=== PATIENT | male | born 1950 | race Caucasian/White ===

== ENCOUNTER 2018-06-29 19:20 | Inpatient (IN) ==
[2018-06-29] MEDS ORDERED: ONDANSETRON INJ 2 MG/ML 2 ML VIAL IV STA (19:52)
[2018-06-29] MEDS ORDERED: SODIUM CHLORIDE 0.9% 1000ML 1,000 ML IV SCH (20:00)
--- NOTE | 2018-06-29 20:29 | XRay Report ---
XR chest 1V portable CLINICAL HISTORY: weakness COMPARISON STUDY: 11/17/2015 FINDINGS: The heart is mildly enlarged. There is slight prominence of the interstitium and mild pulmo nary vascular congestion cannot be excluded. There is no focal pulmonary consolidation. There are no pleural effusions.[ IMPRESSION: Mild cardiomegaly and equivocal mild pulmonary vascular congestion. No evidence of focal pulmonary consolidation Electronically signed by: Wilder Carrizales M.D. 06/29/2018 8:27 PM
[2018-06-29 20:31] LABS: iSTAT Creatinine 1.1 mg/dl (0.6-1.3); iSTAT Hemoglobin 16.3 g/dl (14.0-18.0); iSTAT Ionized Calcium 1.13 mmol/l (1.12-1.32); iSTAT Potassium 3.7 mEq/L (3.3-5.0)
[2018-06-29 20:42] LABS: Prothrombin Time 10.3 Seconds (9.0-12.0)
[2018-06-29 20:53] LABS: Albumin Level 3.8 gm/dl (3.4-5.0); BUN Creatinine Ratio 14.8 (10-20); Calcium 8.9 mg/dl (8.5-10.1); Creatinine Clr Calc Pharmacy 62.1 ml/min; Est GFR (African American) 67.8; Est GFR (Non-African American) 58.5; Potassium 3.7 mmol/L (3.5-5.1)
--- NOTE | 2018-06-29 20:56 | CT Scan Report ---
CT head/brain wo con CLINICAL HISTORY: Nausea and vomiting COMPARISON STUDY: November 17, 2015, MRI the brain dated 11/17/2015 TECHNIQUE: Axial CT of the brain is performed from the vertex to the skull base. IV contrast was not administered for this examination. A dose lowering technique was utilized adhering to the principles of ALARA. CT DOSE: 537.48 mGy.cm FINDINGS: No intra or extra-axial mass lesions are visualized. There is no CT evidence of acute cortical infarc tion. There is no evidence of midline shift. There is no acute hemorrhage. No calvarial fractures ar e visualized. There are patchy white matter hypodensities likely on a small vessel basis. There is no evidence of pathologic ventricular dilatation. There is a left maxilla sinus air-fluid level. There is mucosal thickening within the sphenoid and et hmoid sinuses. IMPRESSION: 1. Inflammatory changes within the paranasal sinuses 2. Otherwise no acute intracranial findings. Electronically signed by: Wilder Carrizales M.D. 06/29/2018 8:55 PM
[2018-06-29] MEDS ORDERED: IOVERSOL 100ml IV PRN (20:58)
[2018-06-29 21:06] LABS: Basophils # (auto) 0.02 K/uL (0-0.2); Basophils % (auto) 0.3 %; Eosinophils # (auto) 0.21 K/uL (0-0.5); Eosinophils % (auto) 3.2 %; Hematocrit (blood only) 45.2 % (42-52); Hemoglobin 16.7 g/dL (14.0-18.0); Immature Granulocytes # (auto) 0.02 K/uL (0.00-0.02); Immature Granulocytes % (auto) 0.3 %; Lymphocytes # (auto) 1.02 K/uL (1.2-3.4); Lymphocytes % (auto) 15.3 %; Mean Corpuscular Hgb Conc 36.9 g/dL (32-36); Mean Corpuscular Volume 94.8 fL (80-100); Mean Platelet Volume 8.9 fL (7.4-10.4); Monocytes # (auto) 0.39 K/uL (0.11-0.59); Monocytes % (auto) 5.9 %; Platelet Count 153 K/uL (130-400); RDW Coefficient of Variation 13.6 % (11.5-14.5); Red Blood Count 4.77 M/uL (4.7-6.1); White Blood Count 6.66 K/uL (4.8-10.8)
[2018-06-29 21:08] LABS: Albumin Globulin Ratio 0.9 (0.9-2); Bilirubin,Total 0.3 mg/dl (0.2-1); Globulin 4.4 gm/dl (2.5-4.0); Total Protein 8.2 gm/dl (6.4-8.2); Troponin I 0.079 ng/ml (0-0.045)
--- NOTE | 2018-06-29 21:16 | CT Scan Report ---
CT abd pelvis IV con only CLINICAL HISTORY: Nausea and vomiting COMPARISON STUDY: August 2015 TECHNIQUE: The patient was scanned in a dynamic helical fashion during intravenous administration of 90 cc of Optiray 320. A dose lowering technique was utilized adhering to the principles of ALARA. CT DOSE: 872.83 mGy.cm FINDINGS: Lower chest: There are extensive coronary artery calcifications. There is no pericardial effusion. Th ere are minor dependent atelectatic changes. There is a hiatal hernia. Liver: The contrast-enhanced liver is normal in size, contour, and attenuation. There is no intrahepa tic biliary ductal dilatation. The hepatic veins and portal veins are patent. Gallbladder: Cholelithiasis. No pericholecystic edema identified. Spleen: Normal in size and attenuation. Pancreas: Unremarkable. Adrenal glands: Unremarkable. Kidneys: There are extensive vascular calcifications. No solid renal masses are visualized. There is no hydronephrosis. Bowel: There are no transition zones indicate bowel obstruction. There is no evidence of acute divert iculitis. The appendix appears normal. Peritoneum: There is no intraperitoneal free air or abdominal ascites. Vasculature: There is no evidence for abdominal aortic aneurysm. There are moderately extensive vascu lar calcifications. Adenopathy: None. Pelvic viscera: There is mild bladder distention. Skeletal structures: There is a sebaceous cyst within the right back. There are advanced degenerative changes the lower lumbar spine. IMPRESSION: 1. Cholelithiasis 2. Stable sebaceous cyst 3. No evidence of bowel obstruction. No evidence of free air 4. Normal appendix. No evidence of diverticulitis. 5. Mild bladder distention Electronically signed by: Wilder Carrizales M.D. 06/29/2018 9:15 PM
[2018-06-29] MEDS ORDERED: ASPIRIN CHEW 324 MG PO STA (21:26)
[2018-06-29] MEDS ORDERED: METOCLOPRAMIDE HCL INJ 5 MG/ML 2 ML VIAL IV STA (21:39)
[2018-06-29] MEDS ORDERED: HEPARIN 25000 UNIT/500 ML D5W IV ONE (21:43)
[2018-06-29] MEDS ORDERED: HEPARIN SOD (PORCINE) 1000 UNIT/ML 10 ML VIAL ONE (21:43)
[2018-06-29 22:21] LABS: Partial Thromboplastin Time 26.8 Seconds (21.0-31.0)
[2018-06-29 22:22] LABS: Appearance Urine Clear (Clear); Bacteria Urine Automated Negative (Negative); Bilirubin Urine Negative (Negative); Blood Urine Trace (Negative); Cast Urine Automated 0 /lpf (0-5); Color Urine Yellow; Epithelial Cell Urine Auto 20-30 /lpf (0-5); Glucose Urine UA 2+ (Negative); Ketones Urine Negative (Negative); Leukocyte Esterase Urine Trace (Negative); Nitrite Urine Negative (Negative); Protein Urine Negative (Negative); RBC Urine Automated 0-4 /hpf (0-4); Specific Gravity Urine 1.017 (1.000-1.030); Urobilinogen Urine Negative (Negative)
[2018-06-29] MEDS ORDERED: clonazePAM 0.5 MG TAB PO STA (22:49)
--- NOTE | 2018-06-29 22:56 | History & Physical Report ---
Date of Service June 29, 2018 Assessment & Plan (1) Weakness: Reported generalized weakness for past week, worse today. Pt has been out of his medications for at least a week. Pt thinks out of some of his psych and seizure meds CT head: no acute intracranial On exam no focal deficits. Probable secondary to withdrawal from medications -monitor -restart pt's home medications -pending urine culture (2) Vomiting: CT abd/pelvis: 1. Cholelithiasis 2. Stable sebaceous cyst 3. No evidence of bowel obstruction. No evidence of free air 4. Normal appendix. No evidence of diverticulitis. 5. Mild bladder distention May be secondary to being out of medications -antiemetics prn -clear liquid diet (3) Elevated troponin: Troponin: 0.079. ST depression anterolateral leads on EKG. Pt denies CP. Reports some palpitations today. Pt may have not been taking his beta errlo Reported ER contacted generation manager cardiology -Heparin drip started in ER, will continue for now -repeat EKG in am -trend troponin -resting echo -restart ASA, plavix, statin, metoprolol -cardiology consult, appreciate recommendations (4) Seizure disorder: Hx seizure disorder. Has been out of meds. Questionable seizure per pt 1-2 days ago -neuro consult -resume dilantin -seizure precautions (5) Diabetes mellitus, type II: A1c: 7.2 on 06/2017 No diabetes medications on home med list -Novolog sliding scale per protocol (6) TIA (transient ischemic attack): Pt reports possible TIA in past No focal deficits on exam. CT Head no acute changes. -continue ASA, plavix (7) COPD (chronic obstructive pulmonary disease): No acute exacerbation. No infiltrate noted on CXR. -continue albuterol inhaler (8) HTN (hypertension): -continue lisinopril (9) HLD (hyperlipidemia): -continue statin (10) OCD (obsessive compulsive disorder): (11) Depression: Pt been out of medications Will restart medications including klonopin, lamictal, seroquel, remeron Holding trazodone for now (12) BPH (benign prostatic hypertrophy): Pt self caths QID -bladder scan -continue self cath QID History of Present Illness Chief Complaint: N/V Primary Care Provider: Ailin Malik, DO Pt is 68 y/o M with PMH DM II, HTN, dyslipidemia, BPH, depression, COPD, tobacco use, CKD III, ?TIA presented to ER with c/o nausea and vomiting. Pt poor historian. He reports past week has been out of a lot of his medications including some psych meds and seizure meds (pt unsure of all his medications and which ones he is out of). States past week with nausea and today with vomiting. Feeling more generalized weakness the past week, worse today. Decreased appetite past several days with poor oral intake. Last BM a couple of days ago. He reports that he self caths 4 times a day. Denies abdominal pain. Denies CP. Reports chronic nasal congestion. Had some palpitations today. States 2 days ago or yesterday he had a "spell" which he describes as not being able to move, blurry vision, couldn't talk and had trouble breathing. This occurred while he was lying on the couch. Denies fall. He thinks this may have been a seizure. Denies loss control of bowel/bladder. Otherwise denies SOB. Sleeps in recliner chronically. Reports wound to right foot "for awhile", denies any pain or known discharge from area. [place] chills today, unsure if had a fever. Reports chronic paresthesias to bilateral hands and feet. Denies HUANG, dizziness, neck pain, cough, sore throat, choking, otalgia, abdominal pain, extremity edema, other rashes/wounds. Allergies Allergy/AdvReac Type Severity Reaction Status Date / Time Sulfa (Sulfonamide Allergy Unknown HAS TAKEN Verified 11/17/15 01:37 Antibiotics) LASIX AN OUTPATIENT Home Medications Home Medications Medication Instructions Recorded Confirmed Type SENNOSIDES (SENNA LAXATIVE) 8.6 mg PO DAILY PRN #0 06/04/13 06/29/18 History POLYETHYLENE GLYCOL 3350 (MIRALAX) 17 g PO DAILY PRN #0 11/21/15 06/29/18 History aspirin 81 mg PO DAILY 06/29/18 06/29/18 History atorvastatin 10 mg PO QPM 06/29/18 06/29/18 History clonazepam 1 mg PO BID 06/29/18 06/29/18 History clopidogrel 75 mg PO DAILY 06/29/18 06/29/18 History docusate sodium 100 mg PO DAILY 06/29/18 06/29/18 History fluvoxamine 200 mg PO HS 06/29/18 06/29/18 History gabapentin 100 mg PO TID 06/29/18 06/29/18 History ipratropium-albuterol [Combivent 1 puff INHALATION QID 06/29/18 06/29/18 History Respimat] lamotrigine 400 mg PO BID 06/29/18 06/29/18 History lisinopril 20 mg PO DAILY 06/29/18 06/29/18 History metformin 1,000 mg PO BID 06/29/18 06/29/18 History metoprolol tartrate 25 mg PO BID 06/29/18 06/29/18 History mirtazapine 30 mg PO HS 06/29/18 06/29/18 History phenytoin sodium extended 100 mg PO BID 06/29/18 06/29/18 History promethazine 25 mg PO Q8H PRN 06/29/18 06/29/18 History quetiapine 50 mg PO DAILY@09,14 06/29/18 06/29/18 History quetiapine 100 mg PO HS 06/29/18 06/29/18 History quetiapine 400 mg PO HS 06/29/18 06/29/18 History tamsulosin 0.4 mg PO DAILY 06/29/18 06/29/18 History trazodone 100 mg PO HS 06/29/18 06/29/18 History Past Med/Surg History Medical History HTN (hypertension) (Chronic) Diabetes mellitus, type II (Chronic) OCD (obsessive compulsive disorder) (Chronic) HLD (hyperlipidemia) (Chronic) Vertigo (Chronic) Seizure disorder (Chronic) Depression (Chronic) BPH (benign prostatic hypertrophy) (Chronic) Tobacco use disorder (Chronic) 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) COPD (chronic obstructive pulmonary disease) (Chronic) Obesity (BMI 30-39.9) (Chronic) Hypertriglyceridemia (Chronic) Surgical History H/O sigmoidoscopy (Chronic) H/O colonoscopy (Chronic) "11/08/2013- normal exam but limited by prep quality" Family History Father Coronary heart disease Other Lung cancer Social History Feels Safe at Home: Yes Smoking Status: Current every day smoker Hx Alcohol Use: No (has not used in 11 years) Hx Substance Use: No Review of Systems All systems reviewed & are unremarkable except as noted in HPI & below Physical Exam Vital Signs (Past 24 Hours): Last Vital Signs Temp 36.5 C 06/29/18 19:26 Pulse 80 06/29/18 21:47 Resp 18 06/29/18 21:47 BP 170/90 H 06/29/18 21:47 Pulse Ox 99 06/29/18 21:47 Physical Exam: General: dishevelled appearance, chronic ill appearing, no acute distress, obese Head: normocephalic, atraumatic Eyes: PERRL, EOM's intact, conjunctiva non-injected, anicteric ENT: normal inspection external ears, nose, mucous membranes moist Neck: supple, trachea midline Lungs: clear, no respiratory distress, no wheezing/rhonchi/rales CV: RRR, no murmur, no pretibial edema Abd: normal BS, soft, protuberant, non-tender Ext: no calf tenderness, bilateral legs with dry skin, bilateral feet dirty, R foot: dorsal aspect of distal 1st metatarsal with ulcer without discharge, 5th toe with thick callus, web space between 4&5 toe with some redness Neuro: A&O x 3, no focal deficits noted, somewhat flat affect Skin: warm, dry Results & Data Laboratory Results Short CBC 06/29/18 Range/Units 20:12 WBC 6.66 (4.8-10.8) K/uL Hgb 16.7 (14.0-18.0) g/dL Hct 45.2 (42-52) % Plt Count 153 (130-400) K/uL BMP 06/29/18 20:12 Sodium 132 L Potassium 3.7 Chloride 105 Carbon Dioxide 18 L BUN 19 H Creatinine 1.27 Glucose 211 H Calcium 8.9 Cardiac Enzymes 06/29/18 Range/Units 20:12 Troponin I 0.079 H* (0-0.045) ng/ml Liver Function 06/29/18 Range/Units 20:12 Total Bilirubin 0.3 (0.2-1) mg/dl AST 12 L (15-37) U/L ALT 21 (12-78) U/L Alkaline Phosphatase 207 H (45-117) U/L Albumin 3.8 (3.4-5.0) gm/dl Urine 06/29/18 Range/Units 21:18 Urine Color Yellow Urine Appearance Clear (Clear) Urine pH 5.0 (4.5-7.5) Ur Specific [place] 1.017 (1.000-1.030) Urine Protein Negative (Negative) Urine Glucose (UA) 2+ H (Negative) Diagnostic Findings CXR: IMPRESSION: Mild cardiomegaly and equivocal mild pulmonary vascular congestion. No evidence of focal pulmonary consolidation CT HEAD: IMPRESSION: 1. Inflammatory changes within the paranasal sinuses 2. Otherwise no acute intracranial findings. CT ABD/PELVIS: IMPRESSION: 1. Cholelithiasis 2. Stable sebaceous cyst 3. No evidence of bowel obstruction. No evidence of free air 4. Normal appendix. No evidence of diverticulitis. 5. Mild bladder distention ECG Rate (beats per minute): 72 Rhythm: sinus rhythm Findings: + 1st degree AV block and + ST depression (Anterolateral) Supervising Physician Co-Signing Physician Notes I have seen and examined the patient and have discussed the case with the provider above. I agree with the assessment and plan as stated. No focal deficit on exam. UA pending but having urinary urgency with limited voiding. May be some element from infection here. He otherwise looks well with a nonfocal exam/ is on ASA/ Plavix for h/o TIA in past. Describes seizures this week but no convincing stroke symptoms. Suspect an overall decline in health after stopping several meds including seroquel 500HS and Clonipin 1mg BID. Cont plan as above. DO Alfonso (1) Vomiting Nausea presence: with nausea Vomiting Intractability: non-intractable Vomiting type: unspecified Qualified Code(s): R11.2 - Nausea with vomiting, unspecified
[2018-06-29] MEDS ORDERED: SENNA 8.6 MG TAB PO PRN (23:17)
--- NOTE | 2018-06-29 23:33 | Emergency Department Note ---
Entered by Katherine Moyer acting as a scribe for Gee Solis MD History of Present Illness General Chief complaint: Weakness Stated complaint: UNABLE TO AMBULATE, VOMITING, NUMBNESS IN LEGS Time Seen by Provider: 06/29/18 19:43 Source: patient and family Mode of arrival: EMS Limitations: no limitations History of Present Illness Provider complaint: vomiting Onset (ago): hour(s) (earlier today) Location: abdomen Pain Consistency: + other (persistent) Associated symptoms: + denies other symptoms (urinary), + weakness and + other (numbness) The patient is a 68 year old male with a past medical history of depression, BPH, COPD and seizures who presents to the Emergency Room with complaints of a persistent vomiting that began earlier today. The patient reports that he has also been weak and has had numbness in his legs. He denies any recent travels, falls or antibiotic use. He also denies any change sin his diet. Per family, the patient has been drinking a lot of soda and juices. The family states that the patient is an everyday smoker and former alcoholic. The patient notes that he does not present to his PCP appointments secondary to "not feeling well." He admits to missing medication doses which include: Metoprolol, Clonazepam, Atorvastatin, and Clopidogrel. Per family, the patient self-cathes but is unsure why. The patient denies any urinary symptoms. Home Medications Home Medications Medication Instructions Recorded Confirmed Type SENNOSIDES (SENNA LAXATIVE) 8.6 mg PO DAILY PRN #0 06/04/13 06/29/18 History POLYETHYLENE GLYCOL 3350 (MIRALAX) 17 g PO DAILY PRN #0 11/21/15 06/29/18 History aspirin 81 mg PO DAILY 06/29/18 06/29/18 History atorvastatin 10 mg PO QPM 06/29/18 06/29/18 History clonazepam 1 mg PO BID 06/29/18 06/29/18 History clopidogrel 75 mg PO DAILY 06/29/18 06/29/18 History docusate sodium 100 mg PO DAILY 06/29/18 06/29/18 History fluvoxamine 200 mg PO HS 06/29/18 06/29/18 History gabapentin 100 mg PO TID 06/29/18 06/29/18 History ipratropium-albuterol [Combivent 1 puff INHALATION QID 06/29/18 06/29/18 History Respimat] lamotrigine 400 mg PO BID 06/29/18 06/29/18 History lisinopril 20 mg PO DAILY 06/29/18 06/29/18 History metformin 1,000 mg PO BID 06/29/18 06/29/18 History metoprolol tartrate 25 mg PO BID 06/29/18 06/29/18 History mirtazapine 30 mg PO HS 06/29/18 06/29/18 History phenytoin sodium extended 100 mg PO BID 06/29/18 06/29/18 History promethazine 25 mg PO Q8H PRN 06/29/18 06/29/18 History quetiapine 50 mg PO DAILY@,06/29/18 06/29/18 History quetiapine 100 mg PO HS 06/29/18 06/29/18 History quetiapine 400 mg PO HS 06/29/18 06/29/18 History tamsulosin 0.4 mg PO DAILY 06/29/18 06/29/18 History trazodone 100 mg PO HS 06/29/18 06/29/18 History Allergies Allergy/AdvReac Type Severity Reaction Status Date / Time Sulfa (Sulfonamide Allergy Unknown HAS TAKEN Verified 11/17/15 01:37 Antibiotics) LASIX AN OUTPATIENT Past Med/Surg History Medical History HTN (hypertension) (Chronic) Diabetes mellitus, type II (Chronic) OCD (obsessive compulsive disorder) (Chronic) HLD (hyperlipidemia) (Chronic) Vertigo (Chronic) Seizure disorder (Chronic) Depression (Chronic) BPH (benign prostatic hypertrophy) (Chronic) Tobacco use disorder (Chronic) 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) COPD (chronic obstructive pulmonary disease) (Chronic) Obesity (BMI 30-39.9) (Chronic) Hypertriglyceridemia (Chronic) Surgical History H/O sigmoidoscopy (Chronic) H/O colonoscopy (Chronic) "11/08/2013- normal exam but limited by prep quality" Family History Father Coronary heart disease Other Lung cancer Social History Communication Ability: Effective Beliefs That Will Affect Care: None Current Living Situation: Family Other Information That Helps Us Care for You: No Feels Safe at Home: Yes Safety Concerns: Feels Safe At This Time Smoking Status: Current every day smoker Hx Alcohol Use: No Hx Substance Use: No Review of Systems See HPI for pertinent positives & negatives. and A total of 10 systems reviewed and were otherwise negative Physical Exam Vital Signs Vital Signs - 24 hr 06/29/18 22:52 06/30/18 00:23 06/30/18 01:28 Temperature 36.4 C L Temperature Source Oral Pulse Rate [Right Finger] 76 77 Pulse Rhythm [Right Finger] Regular Pulse Strength [Right Finger] Normal Respiratory Rate 18 20 Respiratory Effort / Characteristics Non-Labored Spontaneous Respiratory Depth Normal Respiratory Pattern Regular Blood Pressure [Left Arm] 178/90 H Blood Pressure [Right Arm] 170/91 H Blood Pressure Mean [Left Arm] 119 Blood Pressure Mean [Right Arm] 117 Blood Pressure Position [Left Arm] Lying Pulse Oximetry 98 100 Pulse Oximetry [Left Hand] 94 Oxygen Delivery Method Room Air Oxygen Delivery Method [Left Hand] Room Air 06/30/18 01:29 06/30/18 03:20 06/30/18 07:07 Temperature 36.6 C 36.4 C L Temperature Source Oral Oral Pulse Rate [Right Finger] 72 75 Pulse Rhythm [Right Finger] Pulse Strength [Right Finger] Respiratory Rate 18 18 Respiratory Effort / Characteristics Respiratory Depth Respiratory Pattern Blood Pressure [Left Arm] 170/93 H 149/79 H Blood Pressure [Right Arm] 160/82 H Blood Pressure Mean [Left Arm] 118 102 Blood Pressure Mean [Right Arm] 108 Blood Pressure Position [Left Arm] Pulse Oximetry 100 100 98 Pulse Oximetry [Left Hand] Oxygen Delivery Method Room Air Room Air Room Air Oxygen Delivery Method [Left Hand] 06/30/18 10:54 06/30/18 15:27 06/30/18 19:19 Temperature 36.6 C 36.7 C 37 C Temperature Source Oral Oral Oral Pulse Rate [Right Finger] 97 H 72 66 Pulse Rhythm [Right Finger] Regular Pulse Strength [Right Finger] Normal Respiratory Rate 16 20 20 Respiratory Effort / Characteristics Non-Labored Respiratory Depth Normal Respiratory Pattern Blood Pressure [Left Arm] 160/84 H 158/82 H 146/73 H Blood Pressure [Right Arm] Blood Pressure Mean [Left Arm] 109 107 97 Blood Pressure Mean [Right Arm] Blood Pressure Position [Left Arm] Sitting Lying Lying Pulse Oximetry 98 98 98 Pulse Oximetry [Left Hand] Oxygen Delivery Method Room Air Room Air Oxygen Delivery Method [Left Hand] GENERAL: Well appearing, well nourished, NAD, non-toxic. EYE EXAM: Normal conjunctiva. PERRL, no anisocoria and EOM's grossly intact w/o pain. OROPHARYNX: Moist MM. Poor dentition. NECK: Supple, no nuchal rigidity, no adenopathy, non-tender. No signs of meningismus. LUNGS: Clear to auscultation. Normal chest wall mechanics. HEART: NSR, no MRG. ABDOMEN: Abdomen soft, non-tender, normo-active bowel sounds, no masses, no rebound or guarding. Mild abdominal distention. BACK: No CVA TTP. SKIN: No rashes and no bruising. UPPER EXTREMITIES: Upper extremities are grossly normal. LOWER EXTREMITIES: No pitting edema. No calf pain. Healing wound over the right foot, no crepitus. Compartment soft. NEURO EXAM: A and O x3. GCS 15. Moves all 4 extremities on command w/o issue. Course 1943: The patient was evaluated in room A3, and a complete history and physical examination were performed. 2129: I reviewed the patient's case with Dr. Xander Roberts Cardiology. 2138: I reviewed the patient's case with Dr. Christen Roberts Hospitalist. He will evaluate the patient for further management. Administered Medications Albuterol (Combivent Respimat) 1 puffs INH QID [facility] Stop: 07/30/18 08:59 Last Admin: 06/30/18 20:30 Dose: 1 puffs Documented by: [id number] Admin: 06/30/18 17:12 Dose: 1 puffs Documented by: [id number] Admin: 06/30/18 12:06 Dose: 1 puffs Documented by: [id number] Admin: 06/30/18 11:56 Dose: Not Given Documented by: [id number] Aspirin (Ecotrin Ectab) 81 mg PO QAM [facility] Stop: 07/30/18 08:59 Last Admin: 06/30/18 11:56 Dose: Not Given Documented by: [id number] Atorvastatin Calcium (Lipitor) 10 mg PO QPM [facility] Stop: 07/30/18 20:59 Last Admin: 06/30/18 20:29 Dose: 10 mg Documented by: [id number] Clonazepam (Klonopin) 1 mg PO BID [facility] Stop: 07/30/18 08:59 Last Admin: 06/30/18 20:34 Dose: 1 mg Documented by: [id number] Admin: 06/30/18 11:56 Dose: Not Given Documented by: [id number] Clopidogrel Bisulfate (Plavix) 75 mg PO DAILY [facility] Stop: 07/30/18 08:59 Last Admin: 06/30/18 11:57 Dose: Not Given Documented by: [id number] Fluvoxamine Maleate (Luvox) 200 mg PO HS [facility] Stop: 07/30/18 20:59 Last Admin: 06/30/18 20:29 Dose: 200 mg Documented by: [id number] Gabapentin (Neurontin) 100 mg PO TID [facility] Stop: 07/30/18 08:59 Last Admin: 06/30/18 20:27 Dose: 100 mg Documented by: [id number] Admin: 06/30/18 13:59 Dose: Not Given Documented by: [id number] Admin: 06/30/18 11:56 Dose: Not Given Documented by: [id number] Sodium Chloride (Nss 1000ml) 1,000 mls @ 100 mls/hr IV .Q10H [facility] Stop: 07/30/18 01:14 Last Admin: 06/30/18 21:29 Dose: 100 mls/hr Documented by: [id number] Infusion: 06/30/18 21:29 Dose: 0 mls/hr Documented by: [id number] Admin: 06/30/18 10:44 Dose: 100 mls/hr Documented by: [id number] Infusion: 06/30/18 10:44 Dose: 100 mls/hr Documented by: [id number] Admin: 06/30/18 02:33 Dose: 100 mls/hr Documented by: [id number] Prochlorperazine 5 mg/ Syringe 5 mls @ 5 mls/min IV Q6H PRN PRN Reason: Nausea And Vomiting Stop: 07/30/18 00:59 Last Admin: 06/30/18 15:41 Dose: 5 mls/min Documented by: [id number] Admin: 06/30/18 08:12 Dose: 5 mls/min Documented by: [id number] Heparin Sodium/Dextrose (Heparin Sodium/Dextrose) 25,000 units in 500 mls @ 0 mls/hr IV .Q0M [facility]; Protocol Stop: 07/30/18 02:29 Last Titration: 06/30/18 10:02 Dose: 0 units/hr, 0 mls/hr Documented by: [id number] Cosigned by: [id number] Titration: 06/30/18 07:15 Dose: 1,250 units/hr, 25 mls/hr Documented by: [id number] Cosigned by: [id number] Admin: 06/30/18 00:30 Dose: 1,400 units/hr, 28 mls/hr Documented by: [id number] Cosigned by: [id number] Pantoprazole Sodium 40 mg/ (Dextrose) 100 mls @ 20 mls/hr IV Q5H [facility] Stop: 07/30/18 12:59 Last Admin: 06/30/18 17:12 Dose: 20 mls/hr Documented by: [id number] Infusion: 06/30/18 17:12 Dose: 20 mls/hr Documented by: [id number] Admin: 06/30/18 13:04 Dose: 20 mls/hr Documented by: [id number] Doxycycline Hyclate 100 mg/ (Dextrose) 110 mls @ 50 mls/hr IV BID [facility]; Protocol Stop: 07/10/18 20:59 Last Admin: 06/30/18 21:59 Dose: 50 mls/hr Documented by: [id number] Insulin Aspart (Novolog Flexpen) 0 units SC ACHS [facility] Stop: 06/30/18 23:00 Last Admin: 06/30/18 21:21 Dose: 1 units Documented by: [id number] Cosigned by: [id number] Admin: 06/30/18 17:12 Dose: 2 units Documented by: [id number] Cosigned by: [id number] Admin: 06/30/18 12:04 Dose: 2 units Documented by: [id number] Cosigned by: [id number] Admin: 06/30/18 08:13 Dose: 2 units Documented by: [id number] Cosigned by: [id number] Ioversol (Optiray 320 100ml) 90 ml IV ONCE PRN PRN Reason: Interaction Checking Stop: 07/03/18 20:57 Last Admin: 06/29/18 20:59 Dose: 90 ml Documented by: [id number] Lamotrigine (Lamictal) 400 mg PO BID [facility] Stop: 07/29/18 23:09 Last Admin: 06/30/18 20:27 Dose: 400 mg Documented by: [id number] Admin: 06/30/18 11:56 Dose: Not Given Documented by: [id number] Admin: 06/30/18 02:32 Dose: 400 mg Documented by: [id number] Lisinopril (Zestril) 20 mg PO DAILY [facility] Stop: 07/30/18 08:59 Last Admin: 06/30/18 11:57 Dose: Not Given Documented by: [id number] Metoprolol Tartrate (Lopressor) 25 mg PO BID [facility] Stop: 07/29/18 23:14 Last Admin: 06/30/18 20:28 Dose: 25 mg Documented by: [id number] Admin: 06/30/18 11:56 Dose: Not Given Documented by: [id number] Admin: 06/30/18 02:32 Dose: 25 mg Documented by: [id number] Metoprolol Tartrate (Lopressor) 2.5 mg IV Q6 [facility] Stop: 07/30/18 11:59 Last Admin: 06/30/18 17:12 Dose: 2.5 mg Documented by: [id number] Admin: 06/30/18 12:03 Dose: 2.5 mg Documented by: [id number] Mirtazapine (Remeron) 30 mg PO HS [facility] Stop: 07/30/18 20:59 Last Admin: 06/30/18 20:28 Dose: 30 mg Documented by: [id number] Ondansetron HCl (Zofran) 4 mg IV Q6H PRN PRN Reason: Nausea Stop: 07/30/18 00:38 Last Admin: 06/30/18 19:38 Dose: 4 mg Documented by: [id number] Admin: 06/30/18 10:29 Dose: 4 mg Documented by: [id number] Admin: 06/30/18 01:22 Dose: 4 mg Documented by: [id number] Phenytoin Sodium (Dilantin Er) 100 mg PO BID [facility] Stop: 07/29/18 23:14 Last Admin: 06/30/18 20:28 Dose: 100 mg Documented by: [id number] Admin: 06/30/18 11:56 Dose: Not Given Documented by: [id number] Admin: 06/30/18 02:32 Dose: 100 mg Documented by: [id number] Promethazine HCl (Phenergan) 25 mg PO Q8H PRN PRN Reason: Nausea Stop: 07/29/18 23:07 Last Admin: 06/30/18 04:25 Dose: 25 mg Documented by: [id number] Quetiapine Fumarate (Seroquel) 400 mg PO HS [facility] Stop: 07/29/18 23:14 Last Admin: 06/30/18 20:31 Dose: 400 mg Documented by: [id number] Admin: 06/30/18 02:31 Dose: 400 mg Documented by: [id number] Quetiapine Fumarate (Seroquel) 100 mg PO HS [facility] Stop: 07/29/18 23:14 Last Admin: 06/30/18 20:28 Dose: 100 mg Documented by: [id number] Admin: 06/30/18 02:31 Dose: 100 mg Documented by: [id number] Quetiapine Fumarate (Seroquel) 50 mg PO DAILY@ [facility] Stop: 07/30/18 08:59 Last Admin: 06/30/18 13:59 Dose: Not Given Documented by: [id number] Admin: 06/30/18 11:57 Dose: Not Given Documented by: [id number] Tamsulosin HCl (Flomax) 0.4 mg PO DAILY [facility] Stop: 07/30/18 08:59 Last Admin: 06/30/18 11:56 Dose: Not Given Documented by: [id number] Discontinued Medications Aspirin (Aspirin) 324 mg PO NOW STA Stop: 06/29/18 21:27 Last Admin: 06/29/18 21:59 Dose: 324 mg Documented by: [id number] Clonazepam (Klonopin) 1 mg PO ONE STA Stop: 06/29/18 22:50 Last Admin: 06/29/18 23:06 Dose: 1 mg Documented by: [id number] Heparin Sodium (Porcine) (Heparin Iv Bolus) Confirm Administered Dose 10,000 units .ROUTE .STK-MED ONE Stop: 06/29/18 21:44 Last Admin: 06/29/18 22:48 Dose: 6,000 units Documented by: [id number] Cosigned by: [id number] Heparin Sodium/Dextrose () 1 ea IV NOW STA; Protocol Stop: 06/29/18 21:15 Last Admin: 06/29/18 22:49 Dose: Not Given Documented by: [id number] Heparin Sodium/Dextrose (Heparin Sodium/Dextrose) Confirm Administered Dose 25,000 units IV .STK-MED ONE Stop: 06/29/18 21:44 Last Admin: 06/29/18 22:49 Dose: 28 ml Documented by: [id number] Cosigned by: [id number] Sodium Chloride (Nss 1000ml) 1,000 mls @ 999 mls/hr IV .Q1H1M [facility] Stop: 06/29/18 21:00 Last Infusion: 06/30/18 00:30 Dose: 0 mls/hr Documented by: [id number] Admin: 06/29/18 20:16 Dose: 999 mls/hr Documented by: [id number] Pantoprazole Sodium 40 mg/ (Syringe) 10 mls @ 5 mls/min IV BID@0900,2100 [facility]; Protocol Stop: 07/30/18 10:59 Last Admin: 06/30/18 12:03 Dose: 5 mls/min Documented by: [id number] Insulin Glargine (Lantus Solostar Pen) 16 units SC ONE ONE; Protocol Stop: 06/30/18 21:01 Last Admin: 06/30/18 21:21 Dose: 9 units Documented by: [id number] Cosigned by: [id number] Metoclopramide HCl (Reglan) 10 mg IV NOW STA Stop: 06/29/18 21:40 Last Admin: 06/29/18 21:47 Dose: 10 mg Documented by: [id number] Ondansetron HCl (Zofran) 4 mg IV NOW STA Stop: 06/29/18 19:53 Last Admin: 06/29/18 20:26 Dose: 4 mg Documented by: [id number] Medical Decision Making Home Medications Current Medication List: was personally reviewed by me Laboratory Data Attestation: I reviewed the patient's lab results. Result diagrams: 06/30/18 16:43 06/30/18 05:21 Lab Results 06/29/18 06/29/18 06/29/18 Range/Units 20:12 20:12 20:12 WBC 6.66 (4.8-10.8) K/uL RBC 4.77 (4.7-6.1) M/uL Hgb 16.7 (14.0-18.0) g/dL POC Hgb (14.0-18.0) g/dl Hct 45.2 (42-52) % POC Hct (42-52) % MCV 94.8 (80-100) fL MCH 35.0 H (25-34) pg MCHC 36.9 H (32-36) g/dL RDW Std Deviation 47.0 H (36.4-46.3) fL RDW Coeff of Ritesh 13.6 (11.5-14.5) % Plt Count 153 (130-400) K/uL MPV 8.9 (7.4-10.4) fL Immature Gran % (Auto) 0.3 % Neut % (Auto) 75.0 % Lymph % (Auto) 15.3 % [place] % (Auto) 5.9 % Eos % (Auto) 3.2 % Baso % (Auto) 0.3 % Immature Gran # (Auto) 0.02 (0.00-0.02) K/uL Neut # (Auto) 5.00 (1.4-6.5) K/uL Lymph # (Auto) 1.02 L (1.2-3.4) K/uL [place] # (Auto) 0.39 (0.11-0.59) K/uL Eos # (Auto) 0.21 (0-0.5) K/uL Baso # (Auto) 0.02 (0-0.2) K/uL PT 10.3 (9.0-12.0) Seconds INR 1.0 (0.9-1.1) APTT (21.0-31.0) Seconds PTT Ratio POC Sodium (135-144) mEq/L Sodium 132 L (136-145) mmol/L POC Potassium (3.3-5.0) mEq/L Potassium 3.7 (3.5-5.1) mmol/L POC Chloride (101-112) mEq/L Chloride 105 (98-107) mmol/L Carbon Dioxide 18 L (21-32) mmol/L POC Total CO2 (24-31) mEq/l Anion Gap 9.0 (3-11) POC Anion Gap (16-25) mmol/L POC BUN (7-18) mg/dl BUN 19 H (7-18) mg/dl Creatinine 1.27 (0.6-1.4) mg/dl POC Creatinine (0.6-1.3) mg/dl Est Cr Clr Drug Dosing 62.1 ml/min Est GFR ( Amer) 67.8 Est GFR (Non-Af Amer) 58.5 BUN/Creatinine Ratio 14.8 (10-20) Glucose 211 H (70-99) mg/dl POC Glucose (70-99) POC Glucose (other) (70-99) mg/dl Estimat Average Glucose mg/dl Hemoglobin A1c (4.5-5.6) % Calcium 8.9 (8.5-10.1) mg/dl POC Ioniz Calcium Manuel (1.12-1.32) mmol/l Magnesium (1.8-2.4) mg/dl Total Bilirubin 0.3 (0.2-1) mg/dl Direct Bilirubin (0-0.2) mg/dl AST 12 L (15-37) U/L ALT 21 (12-78) U/L Alkaline Phosphatase 207 H (45-117) U/L Troponin I 0.079 H* (0-0.045) ng/ml Total Protein 8.2 (6.4-8.2) gm/dl Albumin 3.8 (3.4-5.0) gm/dl Globulin 4.4 H (2.5-4.0) gm/dl Albumin/Globulin Ratio 0.9 (0.9-2) Triglycerides (0-150) mg/dl Cholesterol (0-200) mg/dl LDL Cholesterol, Calc mg/dl VLDL Cholesterol, Calc mg/dl HDL Cholesterol mg/dl Cholesterol/HDL Ratio Lipase 251 (73-393) U/L TSH 1.670 (0.300-4.500) uIu/ml Urine Color Urine Appearance (Clear) Urine pH (4.5-7.5) Ur Specific [place] (1.000-1.030) Urine Protein (Negative) Urine Glucose (UA) (Negative) Urine Ketones (Negative) Urine Blood (Negative) Urine Nitrite (Negative) Urine Bilirubin (Negative) Urine Urobilinogen (Negative) Ur Leukocyte Esterase (Negative) Urine WBC (Auto) (0-5) /hpf Urine RBC (Auto) (0-4) /hpf U Hyaline Cast (Auto) (0-5) /lpf U Epithel Cells (Auto) (0-5) /lpf Urine Bacteria (Auto) (Negative) Gastric Fluid pH Gastric Occult Blood (Negative) Urine Opiates Screen (Neg) Ur Methadone, Qual (Neg) Urine Barbiturates (Neg) Phenytoin (10-20) mcg/ml Ur Phencyclidine (PCP) (Neg) U Amphetamin/Meth Scrn (Neg) MDMA (Ecstasy) Screen (Neg) U Benzodiazepines Scrn (Neg) Ur Cocaine Metabolite (Neg) U Marijuana (THC) Screen (Neg) 06/29/18 06/29/18 06/29/18 Range/Units 20:12 20:17 21:18 WBC (4.8-10.8) K/uL RBC (4.7-6.1) M/uL Hgb (14.0-18.0) g/dL POC Hgb 16.3 (14.0-18.0) g/dl Hct (42-52) % POC Hct 48 (42-52) % MCV (80-100) fL MCH (25-34) pg MCHC (32-36) g/dL RDW Std Deviation (36.4-46.3) fL RDW Coeff of Ritesh (11.5-14.5) % Plt Count (130-400) K/uL MPV (7.4-10.4) fL Immature Gran % (Auto) % Neut % (Auto) % Lymph % (Auto) % [place] % (Auto) % Eos % (Auto) % Baso % (Auto) % Immature Gran # (Auto) (0.00-0.02) K/uL Neut # (Auto) (1.4-6.5) K/uL Lymph # (Auto) (1.2-3.4) K/uL [place] # (Auto) (0.11-0.59) K/uL Eos # (Auto) (0-0.5) K/uL Baso # (Auto) (0-0.2) K/uL PT (9.0-12.0) Seconds INR (0.9-1.1) APTT 26.8 (21.0-31.0) Seconds PTT Ratio 1.0 POC Sodium 133 L (135-144) mEq/L Sodium (136-145) mmol/L POC Potassium 3.7 (3.3-5.0) mEq/L Potassium (3.5-5.1) mmol/L POC Chloride 103 (101-112) mEq/L Chloride (98-107) mmol/L Carbon Dioxide (21-32) mmol/L POC Total CO2 17 L (24-31) mEq/l Anion Gap (3-11) POC Anion Gap 18.0 (16-25) mmol/L POC BUN 19 H (7-18) mg/dl BUN (7-18) mg/dl Creatinine (0.6-1.4) mg/dl POC Creatinine 1.1 (0.6-1.3) mg/dl Est Cr Clr Drug Dosing ml/min Est GFR ( Amer) Est GFR (Non-Af Amer) BUN/Creatinine Ratio (10-20) Glucose (70-99) mg/dl POC Glucose (70-99) POC Glucose (other) 215 H (70-99) mg/dl Estimat Average Glucose mg/dl Hemoglobin A1c (4.5-5.6) % Calcium (8.5-10.1) mg/dl POC Ioniz Calcium Manuel 1.13 (1.12-1.32) mmol/l Magnesium (1.8-2.4) mg/dl Total Bilirubin (0.2-1) mg/dl Direct Bilirubin (0-0.2) mg/dl AST (15-37) U/L ALT (12-78) U/L Alkaline Phosphatase (45-117) U/L Troponin I (0-0.045) ng/ml Total Protein (6.4-8.2) gm/dl Albumin (3.4-5.0) gm/dl Globulin (2.5-4.0) gm/dl Albumin/Globulin Ratio (0.9-2) Triglycerides (0-150) mg/dl Cholesterol (0-200) mg/dl LDL Cholesterol, Calc mg/dl VLDL Cholesterol, Calc mg/dl HDL Cholesterol mg/dl Cholesterol/HDL Ratio Lipase (73-393) U/L TSH (0.300-4.500) uIu/ml Urine Color Yellow Urine Appearance Clear (Clear) Urine pH 5.0 (4.5-7.5) Ur Specific [place] 1.017 (1.000-1.030) Urine Protein Negative (Negative) Urine Glucose (UA) 2+ H (Negative) Urine Ketones Negative (Negative) Urine Blood Trace H (Negative) Urine Nitrite Negative (Negative) Urine Bilirubin Negative (Negative) Urine Urobilinogen Negative (Negative) Ur Leukocyte Esterase Trace H (Negative) Urine WBC (Auto) 1-5 (0-5) /hpf Urine RBC (Auto) 0-4 (0-4) /hpf U Hyaline Cast (Auto) 0 (0-5) /lpf U Epithel Cells (Auto) 20-30 H (0-5) /lpf Urine Bacteria (Auto) Negative (Negative) Gastric Fluid pH Gastric Occult Blood (Negative) Urine Opiates Screen (Neg) Ur Methadone, Qual (Neg) Urine Barbiturates (Neg) Phenytoin (10-20) mcg/ml Ur Phencyclidine (PCP) (Neg) U Amphetamin/Meth Scrn (Neg) MDMA (Ecstasy) Screen (Neg) U Benzodiazepines Scrn (Neg) Ur Cocaine Metabolite (Neg) U Marijuana (THC) Screen (Neg) 06/30/18 06/30/18 06/30/18 Range/Units 00:49 01:40 01:40 WBC (4.8-10.8) K/uL RBC (4.7-6.1) M/uL Hgb (14.0-18.0) g/dL POC Hgb (14.0-18.0) g/dl Hct (42-52) % POC Hct (42-52) % MCV (80-100) fL MCH (25-34) pg MCHC (32-36) g/dL RDW Std Deviation (36.4-46.3) fL RDW Coeff of Ritesh (11.5-14.5) % Plt Count (130-400) K/uL MPV (7.4-10.4) fL Immature Gran % (Auto) % Neut % (Auto) % Lymph % (Auto) % [place] % (Auto) % Eos % (Auto) % Baso % (Auto) % Immature Gran # (Auto) (0.00-0.02) K/uL Neut # (Auto) (1.4-6.5) K/uL Lymph # (Auto) (1.2-3.4) K/uL [place] # (Auto) (0.11-0.59) K/uL Eos # (Auto) (0-0.5) K/uL Baso # (Auto) (0-0.2) K/uL PT (9.0-12.0) Seconds INR (0.9-1.1) APTT (21.0-31.0) Seconds PTT Ratio POC Sodium (135-144) mEq/L Sodium (136-145) mmol/L POC Potassium (3.3-5.0) mEq/L Potassium (3.5-5.1) mmol/L POC Chloride (101-112) mEq/L Chloride (98-107) mmol/L Carbon Dioxide (21-32) mmol/L POC Total CO2 (24-31) mEq/l Anion Gap (3-11) POC Anion Gap (16-25) mmol/L POC BUN (7-18) mg/dl BUN (7-18) mg/dl Creatinine (0.6-1.4) mg/dl POC Creatinine (0.6-1.3) mg/dl Est Cr Clr Drug Dosing ml/min Est GFR ( Amer) Est GFR (Non-Af Amer) BUN/Creatinine Ratio (10-20) Glucose (70-99) mg/dl POC Glucose (70-99) POC Glucose (other) (70-99) mg/dl Estimat Average Glucose mg/dl Hemoglobin A1c (4.5-5.6) % Calcium (8.5-10.1) mg/dl POC Ioniz Calcium Manuel (1.12-1.32) mmol/l Magnesium (1.8-2.4) mg/dl Total Bilirubin (0.2-1) mg/dl Direct Bilirubin (0-0.2) mg/dl AST (15-37) U/L ALT (12-78) U/L Alkaline Phosphatase (45-117) U/L Troponin I (0-0.045) ng/ml Total Protein (6.4-8.2) gm/dl Albumin (3.4-5.0) gm/dl Globulin (2.5-4.0) gm/dl Albumin/Globulin Ratio (0.9-2) Triglycerides (0-150) mg/dl Cholesterol (0-200) mg/dl LDL Cholesterol, Calc mg/dl VLDL Cholesterol, Calc mg/dl HDL Cholesterol mg/dl Cholesterol/HDL Ratio Lipase (73-393) U/L TSH (0.300-4.500) uIu/ml Urine Color Yellow Urine Appearance Clear (Clear) Urine pH 5.5 (4.5-7.5) Ur Specific [place] 1.017 (1.000-1.030) Urine Protein Negative (Negative) Urine Glucose (UA) 3+ H (Negative) Urine Ketones Negative (Negative) Urine Blood 1+ H (Negative) Urine Nitrite Negative (Negative) Urine Bilirubin Negative (Negative) Urine Urobilinogen Negative (Negative) Ur Leukocyte Esterase Negative (Negative) Urine WBC (Auto) 1-5 (0-5) /hpf Urine RBC (Auto) 0-4 (0-4) /hpf U Hyaline Cast (Auto) 1-5 (0-5) /lpf U Epithel Cells (Auto) 10-20 H (0-5) /lpf Urine Bacteria (Auto) Negative (Negative) Gastric Fluid pH Gastric Occult Blood (Negative) Urine Opiates Screen Neg (Neg) Ur Methadone, Qual Neg (Neg) Urine Barbiturates Neg (Neg) Phenytoin 4.9 L (10-20) mcg/ml Ur Phencyclidine (PCP) Neg (Neg) U Amphetamin/Meth Scrn Neg (Neg) MDMA (Ecstasy) Screen Neg (Neg) U Benzodiazepines Scrn Neg (Neg) Ur Cocaine Metabolite Neg (Neg) U Marijuana (THC) Screen Neg (Neg) 06/30/18 06/30/18 06/30/18 Range/Units 05:21 05:21 05:21 WBC 6.52 (4.8-10.8) K/uL RBC 4.82 (4.7-6.1) M/uL Hgb 16.4 (14.0-18.0) g/dL POC Hgb (14.0-18.0) g/dl Hct 44.3 (42-52) % POC Hct (42-52) % MCV 91.9 (80-100) fL MCH 34.0 (25-34) pg MCHC 37.0 H (32-36) g/dL RDW Std Deviation 44.8 (36.4-46.3) fL RDW Coeff of Ritesh 13.5 (11.5-14.5) % Plt Count 140 (130-400) K/uL MPV 8.9 (7.4-10.4) fL Immature Gran % (Auto) % Neut % (Auto) % Lymph % (Auto) % [place] % (Auto) % Eos % (Auto) % Baso % (Auto) % Immature Gran # (Auto) (0.00-0.02) K/uL Neut # (Auto) (1.4-6.5) K/uL Lymph # (Auto) (1.2-3.4) K/uL [place] # (Auto) (0.11-0.59) K/uL Eos # (Auto) (0-0.5) K/uL Baso # (Auto) (0-0.2) K/uL PT (9.0-12.0) Seconds INR (0.9-1.1) APTT (21.0-31.0) Seconds PTT Ratio POC Sodium (135-144) mEq/L Sodium 131 L (136-145) mmol/L POC Potassium (3.3-5.0) mEq/L Potassium 3.8 (3.5-5.1) mmol/L POC Chloride (101-112) mEq/L Chloride 101 (98-107) mmol/L Carbon Dioxide 22 (21-32) mmol/L POC Total CO2 (24-31) mEq/l Anion Gap 8.0 (3-11) POC Anion Gap (16-25) mmol/L POC BUN (7-18) mg/dl BUN 14 (7-18) mg/dl Creatinine 1.01 (0.6-1.4) mg/dl POC Creatinine (0.6-1.3) mg/dl Est Cr Clr Drug Dosing 76.1 ml/min Est GFR ( Amer) 89.4 Est GFR (Non-Af Amer) 77.1 BUN/Creatinine Ratio 13.5 (10-20) Glucose 235 H (70-99) mg/dl POC Glucose (70-99) POC Glucose (other) (70-99) mg/dl Estimat Average Glucose 220 mg/dl Hemoglobin A1c 9.3 H (4.5-5.6) % Calcium 8.8 (8.5-10.1) mg/dl POC Ioniz Calcium Manuel (1.12-1.32) mmol/l Magnesium 1.9 (1.8-2.4) mg/dl Total Bilirubin (0.2-1) mg/dl Direct Bilirubin (0-0.2) mg/dl AST (15-37) U/L ALT (12-78) U/L Alkaline Phosphatase (45-117) U/L Troponin I (0-0.045) ng/ml Total Protein (6.4-8.2) gm/dl Albumin (3.4-5.0) gm/dl Globulin (2.5-4.0) gm/dl Albumin/Globulin Ratio (0.9-2) Triglycerides 54 (0-150) mg/dl Cholesterol 128 (0-200) mg/dl LDL Cholesterol, Calc 71 mg/dl VLDL Cholesterol, Calc 11 mg/dl HDL Cholesterol 46 mg/dl Cholesterol/HDL Ratio 3 Lipase (73-393) U/L TSH (0.300-4.500) uIu/ml Urine Color Urine Appearance (Clear) Urine pH (4.5-7.5) Ur Specific [place] (1.000-1.030) Urine Protein (Negative) Urine Glucose (UA) (Negative) Urine Ketones (Negative) Urine Blood (Negative) Urine Nitrite (Negative) Urine Bilirubin (Negative) Urine Urobilinogen (Negative) Ur Leukocyte Esterase (Negative) Urine WBC (Auto) (0-5) /hpf Urine RBC (Auto) (0-4) /hpf U Hyaline Cast (Auto) (0-5) /lpf U Epithel Cells (Auto) (0-5) /lpf Urine Bacteria (Auto) (Negative) Gastric Fluid pH Gastric Occult Blood (Negative) Urine Opiates Screen (Neg) Ur Methadone, Qual (Neg) Urine Barbiturates (Neg) Phenytoin (10-20) mcg/ml Ur Phencyclidine (PCP) (Neg) U Amphetamin/Meth Scrn (Neg) MDMA (Ecstasy) Screen (Neg) U Benzodiazepines Scrn (Neg) Ur Cocaine Metabolite (Neg) U Marijuana (THC) Screen (Neg) 06/30/18 06/30/18 06/30/18 Range/Units 06:22 08:25 10:00 WBC (4.8-10.8) K/uL RBC (4.7-6.1) M/uL Hgb (14.0-18.0) g/dL POC Hgb (14.0-18.0) g/dl Hct (42-52) % POC Hct (42-52) % MCV (80-100) fL MCH (25-34) pg MCHC (32-36) g/dL RDW Std Deviation (36.4-46.3) fL RDW Coeff of Ritesh (11.5-14.5) % Plt Count (130-400) K/uL MPV (7.4-10.4) fL Immature Gran % (Auto) % Neut % (Auto) % Lymph % (Auto) % [place] % (Auto) % Eos % (Auto) % Baso % (Auto) % Immature Gran # (Auto) (0.00-0.02) K/uL Neut # (Auto) (1.4-6.5) K/uL Lymph # (Auto) (1.2-3.4) K/uL [place] # (Auto) (0.11-0.59) K/uL Eos # (Auto) (0-0.5) K/uL Baso # (Auto) (0-0.2) K/uL PT (9.0-12.0) Seconds INR (0.9-1.1) APTT 75.1 H* (21.0-31.0) Seconds PTT Ratio 2.8 POC Sodium (135-144) mEq/L Sodium (136-145) mmol/L POC Potassium (3.3-5.0) mEq/L Potassium (3.5-5.1) mmol/L POC Chloride (101-112) mEq/L Chloride (98-107) mmol/L Carbon Dioxide (21-32) mmol/L POC Total CO2 (24-31) mEq/l Anion Gap (3-11) POC Anion Gap (16-25) mmol/L POC BUN (7-18) mg/dl BUN (7-18) mg/dl Creatinine (0.6-1.4) mg/dl POC Creatinine (0.6-1.3) mg/dl Est Cr Clr Drug Dosing ml/min Est GFR ( Amer) Est GFR (Non-Af Amer) BUN/Creatinine Ratio (10-20) Glucose (70-99) mg/dl POC Glucose (70-99) POC Glucose (other) (70-99) mg/dl Estimat Average Glucose mg/dl Hemoglobin A1c (4.5-5.6) % Calcium (8.5-10.1) mg/dl POC Ioniz Calcium Manuel (1.12-1.32) mmol/l Magnesium (1.8-2.4) mg/dl Total Bilirubin (0.2-1) mg/dl Direct Bilirubin (0-0.2) mg/dl AST (15-37) U/L ALT (12-78) U/L Alkaline Phosphatase (45-117) U/L Troponin I 2.500 H* (0-0.045) ng/ml Total Protein (6.4-8.2) gm/dl Albumin (3.4-5.0) gm/dl Globulin (2.5-4.0) gm/dl Albumin/Globulin Ratio (0.9-2) Triglycerides (0-150) mg/dl Cholesterol (0-200) mg/dl LDL Cholesterol, Calc mg/dl VLDL Cholesterol, Calc mg/dl HDL Cholesterol mg/dl Cholesterol/HDL Ratio Lipase (73-393) U/L TSH (0.300-4.500) uIu/ml Urine Color Urine Appearance (Clear) Urine pH (4.5-7.5) Ur Specific [place] (1.000-1.030) Urine Protein (Negative) Urine Glucose (UA) (Negative) Urine Ketones (Negative) Urine Blood (Negative) Urine Nitrite (Negative) Urine Bilirubin (Negative) Urine Urobilinogen (Negative) Ur Leukocyte Esterase (Negative) Urine WBC (Auto) (0-5) /hpf Urine RBC (Auto) (0-4) /hpf U Hyaline Cast (Auto) (0-5) /lpf U Epithel Cells (Auto) (0-5) /lpf Urine Bacteria (Auto) (Negative) Gastric Fluid pH 1 Gastric Occult Blood Positive H (Negative) Urine Opiates Screen (Neg) Ur Methadone, Qual (Neg) Urine Barbiturates (Neg) Phenytoin (10-20) mcg/ml Ur Phencyclidine (PCP) (Neg) U Amphetamin/Meth Scrn (Neg) MDMA (Ecstasy) Screen (Neg) U Benzodiazepines Scrn (Neg) Ur Cocaine Metabolite (Neg) U Marijuana (THC) Screen (Neg) 06/30/18 06/30/18 06/30/18 Range/Units 11:02 11:03 11:14 WBC (4.8-10.8) K/uL RBC (4.7-6.1) M/uL Hgb 17.2 (14.0-18.0) g/dL POC Hgb (14.0-18.0) g/dl Hct 46.4 (42-52) % POC Hct (42-52) % MCV (80-100) fL MCH (25-34) pg MCHC (32-36) g/dL RDW Std Deviation (36.4-46.3) fL RDW Coeff of Ritesh (11.5-14.5) % Plt Count (130-400) K/uL MPV (7.4-10.4) fL Immature Gran % (Auto) % Neut % (Auto) % Lymph % (Auto) % [place] % (Auto) % Eos % (Auto) % Baso % (Auto) % Immature Gran # (Auto) (0.00-0.02) K/uL Neut # (Auto) (1.4-6.5) K/uL Lymph # (Auto) (1.2-3.4) K/uL [place] # (Auto) (0.11-0.59) K/uL Eos # (Auto) (0-0.5) K/uL Baso # (Auto) (0-0.2) K/uL PT (9.0-12.0) Seconds INR (0.9-1.1) APTT (21.0-31.0) Seconds PTT Ratio POC Sodium (135-144) mEq/L Sodium (136-145) mmol/L POC Potassium (3.3-5.0) mEq/L Potassium (3.5-5.1) mmol/L POC Chloride (101-112) mEq/L Chloride (98-107) mmol/L Carbon Dioxide (21-32) mmol/L POC Total CO2 (24-31) mEq/l Anion Gap (3-11) POC Anion Gap (16-25) mmol/L POC BUN (7-18) mg/dl BUN (7-18) mg/dl Creatinine (0.6-1.4) mg/dl POC Creatinine (0.6-1.3) mg/dl Est Cr Clr Drug Dosing ml/min Est GFR ( Amer) Est GFR (Non-Af Amer) BUN/Creatinine Ratio (10-20) Glucose (70-99) mg/dl POC Glucose 225 H (70-99) POC Glucose (other) (70-99) mg/dl Estimat Average Glucose mg/dl Hemoglobin A1c (4.5-5.6) % Calcium (8.5-10.1) mg/dl POC Ioniz Calcium Manuel (1.12-1.32) mmol/l Magnesium (1.8-2.4) mg/dl Total Bilirubin (0.2-1) mg/dl Direct Bilirubin (0-0.2) mg/dl AST (15-37) U/L ALT (12-78) U/L Alkaline Phosphatase (45-117) U/L Troponin I 2.820 H* (0-0.045) ng/ml Total Protein (6.4-8.2) gm/dl Albumin (3.4-5.0) gm/dl Globulin (2.5-4.0) gm/dl Albumin/Globulin Ratio (0.9-2) Triglycerides (0-150) mg/dl Cholesterol (0-200) mg/dl LDL Cholesterol, Calc mg/dl VLDL Cholesterol, Calc mg/dl HDL Cholesterol mg/dl Cholesterol/HDL Ratio Lipase (73-393) U/L TSH (0.300-4.500) uIu/ml Urine Color Urine Appearance (Clear) Urine pH (4.5-7.5) Ur Specific [place] (1.000-1.030) Urine Protein (Negative) Urine Glucose (UA) (Negative) Urine Ketones (Negative) Urine Blood (Negative) Urine Nitrite (Negative) Urine Bilirubin (Negative) Urine Urobilinogen (Negative) Ur Leukocyte Esterase (Negative) Urine WBC (Auto) (0-5) /hpf Urine RBC (Auto) (0-4) /hpf U Hyaline Cast (Auto) (0-5) /lpf U Epithel Cells (Auto) (0-5) /lpf Urine Bacteria (Auto) (Negative) Gastric Fluid pH Gastric Occult Blood (Negative) Urine Opiates Screen (Neg) Ur Methadone, Qual (Neg) Urine Barbiturates (Neg) Phenytoin (10-20) mcg/ml Ur Phencyclidine (PCP) (Neg) U Amphetamin/Meth Scrn (Neg) MDMA (Ecstasy) Screen (Neg) U Benzodiazepines Scrn (Neg) Ur Cocaine Metabolite (Neg) U Marijuana (THC) Screen (Neg) 06/30/18 06/30/18 06/30/18 Range/Units 12:52 16:25 16:43 WBC (4.8-10.8) K/uL RBC (4.7-6.1) M/uL Hgb 16.9 (14.0-18.0) g/dL POC Hgb (14.0-18.0) g/dl Hct 45.7 (42-52) % POC Hct (42-52) % MCV (80-100) fL MCH (25-34) pg MCHC (32-36) g/dL RDW Std Deviation (36.4-46.3) fL RDW Coeff of Ritesh (11.5-14.5) % Plt Count (130-400) K/uL MPV (7.4-10.4) fL Immature Gran % (Auto) % Neut % (Auto) % Lymph % (Auto) % [place] % (Auto) % Eos % (Auto) % Baso % (Auto) % Immature Gran # (Auto) (0.00-0.02) K/uL Neut # (Auto) (1.4-6.5) K/uL Lymph # (Auto) (1.2-3.4) K/uL [place] # (Auto) (0.11-0.59) K/uL Eos # (Auto) (0-0.5) K/uL Baso # (Auto) (0-0.2) K/uL PT (9.0-12.0) Seconds INR (0.9-1.1) APTT (21.0-31.0) Seconds PTT Ratio POC Sodium (135-144) mEq/L Sodium (136-145) mmol/L POC Potassium (3.3-5.0) mEq/L Potassium (3.5-5.1) mmol/L POC Chloride (101-112) mEq/L Chloride (98-107) mmol/L Carbon Dioxide (21-32) mmol/L POC Total CO2 (24-31) mEq/l Anion Gap (3-11) POC Anion Gap (16-25) mmol/L POC BUN (7-18) mg/dl BUN (7-18) mg/dl Creatinine (0.6-1.4) mg/dl POC Creatinine (0.6-1.3) mg/dl Est Cr Clr Drug Dosing ml/min Est GFR ( Amer) Est GFR (Non-Af Amer) BUN/Creatinine Ratio (10-20) Glucose (70-99) mg/dl POC Glucose 233 H (70-99) POC Glucose (other) (70-99) mg/dl Estimat Average Glucose mg/dl Hemoglobin A1c (4.5-5.6) % Calcium (8.5-10.1) mg/dl POC Ioniz Calcium Manuel (1.12-1.32) mmol/l Magnesium (1.8-2.4) mg/dl Total Bilirubin 0.4 (0.2-1) mg/dl Direct Bilirubin 0.2 (0-0.2) mg/dl AST 18 (15-37) U/L ALT 21 (12-78) U/L Alkaline Phosphatase 214 H (45-117) U/L Troponin I (0-0.045) ng/ml Total Protein 8.0 (6.4-8.2) gm/dl Albumin 3.7 (3.4-5.0) gm/dl Globulin (2.5-4.0) gm/dl Albumin/Globulin Ratio (0.9-2) Triglycerides (0-150) mg/dl Cholesterol (0-200) mg/dl LDL Cholesterol, Calc mg/dl VLDL Cholesterol, Calc mg/dl HDL Cholesterol mg/dl Cholesterol/HDL Ratio Lipase 278 (73-393) U/L TSH (0.300-4.500) uIu/ml Urine Color Urine Appearance (Clear) Urine pH (4.5-7.5) Ur Specific [place] (1.000-1.030) Urine Protein (Negative) Urine Glucose (UA) (Negative) Urine Ketones (Negative) Urine Blood (Negative) Urine Nitrite (Negative) Urine Bilirubin (Negative) Urine Urobilinogen (Negative) Ur Leukocyte Esterase (Negative) Urine WBC (Auto) (0-5) /hpf Urine RBC (Auto) (0-4) /hpf U Hyaline Cast (Auto) (0-5) /lpf U Epithel Cells (Auto) (0-5) /lpf Urine Bacteria (Auto) (Negative) Gastric Fluid pH Gastric Occult Blood (Negative) Urine Opiates Screen (Neg) Ur Methadone, Qual (Neg) Urine Barbiturates (Neg) Phenytoin (10-20) mcg/ml Ur Phencyclidine (PCP) (Neg) U Amphetamin/Meth Scrn (Neg) MDMA (Ecstasy) Screen (Neg) U Benzodiazepines Scrn (Neg) Ur Cocaine Metabolite (Neg) U Marijuana (THC) Screen (Neg) 06/30/18 Range/Units 20:32 WBC (4.8-10.8) K/uL RBC (4.7-6.1) M/uL Hgb (14.0-18.0) g/dL POC Hgb (14.0-18.0) g/dl Hct (42-52) % POC Hct (42-52) % MCV (80-100) fL MCH (25-34) pg MCHC (32-36) g/dL RDW Std Deviation (36.4-46.3) fL RDW Coeff of Ritesh (11.5-14.5) % Plt Count (130-400) K/uL MPV (7.4-10.4) fL Immature Gran % (Auto) % Neut % (Auto) % Lymph % (Auto) % [place] % (Auto) % Eos % (Auto) % Baso % (Auto) % Immature Gran # (Auto) (0.00-0.02) K/uL Neut # (Auto) (1.4-6.5) K/uL Lymph # (Auto) (1.2-3.4) K/uL [place] # (Auto) (0.11-0.59) K/uL Eos # (Auto) (0-0.5) K/uL Baso # (Auto) (0-0.2) K/uL PT (9.0-12.0) Seconds INR (0.9-1.1) APTT (21.0-31.0) Seconds PTT Ratio POC Sodium (135-144) mEq/L Sodium (136-145) mmol/L POC Potassium (3.3-5.0) mEq/L Potassium (3.5-5.1) mmol/L POC Chloride (101-112) mEq/L Chloride (98-107) mmol/L Carbon Dioxide (21-32) mmol/L POC Total CO2 (24-31) mEq/l Anion Gap (3-11) POC Anion Gap (16-25) mmol/L POC BUN (7-18) mg/dl BUN (7-18) mg/dl Creatinine (0.6-1.4) mg/dl POC Creatinine (0.6-1.3) mg/dl Est Cr Clr Drug Dosing ml/min Est GFR ( Amer) Est GFR (Non-Af Amer) BUN/Creatinine Ratio (10-20) Glucose (70-99) mg/dl POC Glucose 196 H (70-99) POC Glucose (other) (70-99) mg/dl Estimat Average Glucose mg/dl Hemoglobin A1c (4.5-5.6) % Calcium (8.5-10.1) mg/dl POC Ioniz Calcium Manuel (1.12-1.32) mmol/l Magnesium (1.8-2.4) mg/dl Total Bilirubin (0.2-1) mg/dl Direct Bilirubin (0-0.2) mg/dl AST (15-37) U/L ALT (12-78) U/L Alkaline Phosphatase (45-117) U/L Troponin I (0-0.045) ng/ml Total Protein (6.4-8.2) gm/dl Albumin (3.4-5.0) gm/dl Globulin (2.5-4.0) gm/dl Albumin/Globulin Ratio (0.9-2) Triglycerides (0-150) mg/dl Cholesterol (0-200) mg/dl LDL Cholesterol, Calc mg/dl VLDL Cholesterol, Calc mg/dl HDL Cholesterol mg/dl Cholesterol/HDL Ratio Lipase (73-393) U/L TSH (0.300-4.500) uIu/ml Urine Color Urine Appearance (Clear) Urine pH (4.5-7.5) Ur Specific [place] (1.000-1.030) Urine Protein (Negative) Urine Glucose (UA) (Negative) Urine Ketones (Negative) Urine Blood (Negative) Urine Nitrite (Negative) Urine Bilirubin (Negative) Urine Urobilinogen (Negative) Ur Leukocyte Esterase (Negative) Urine WBC (Auto) (0-5) /hpf Urine RBC (Auto) (0-4) /hpf U Hyaline Cast (Auto) (0-5) /lpf U Epithel Cells (Auto) (0-5) /lpf Urine Bacteria (Auto) (Negative) Gastric Fluid pH Gastric Occult Blood (Negative) Urine Opiates Screen (Neg) Ur Methadone, Qual (Neg) Urine Barbiturates (Neg) Phenytoin (10-20) mcg/ml Ur Phencyclidine (PCP) (Neg) U Amphetamin/Meth Scrn (Neg) MDMA (Ecstasy) Screen (Neg) U Benzodiazepines Scrn (Neg) Ur Cocaine Metabolite (Neg) U Marijuana (THC) Screen (Neg) Imaging Data Radiologist's Impression: Radiology results as stated below per my review and t he radiologist's interpretation: XR chest 1V portable CLINICAL HISTORY: weakness COMPARISON STUDY: 11/17/2015 FINDINGS: The heart is mildly enlarged. There is slight prominence of the interstitium and mild pulmonary vascular congestion cannot be excluded. There is no focal pulmonary consolidation. There are no pleural effusions.[ IMPRESSION: Mild cardiomegaly and equivocal mild pulmonary vascular congestion. No evidence of focal pulmonary consolidation Electronically signed by: Wilder Carrizales M.D. 06/29/2018 8:[address] abd pelvis IV con only CLINICAL HISTORY: Nausea and vomiting COMPARISON STUDY: August 2015 TECHNIQUE: The patient was scanned in a dynamic helical fashion during intravenous administration of 90 cc of Optiray 320. A dose lowering technique was utilized adhering to the principles of ALARA. CT DOSE: 872.83 mGy.cm FINDINGS: Lower chest: There are extensive coronary artery calcifications. There is no pericardial effusion. There are minor dependent atelectatic changes. There is a hiatal hernia. Liver: The contrast-enhanced liver is normal in size, contour, and attenuation. There is no intrahepatic biliary ductal dilatation. The hepatic veins and portal veins are patent. Gallbladder: Cholelithiasis. No pericholecystic edema identified. Spleen: Normal in size and attenuation. Pancreas: Unremarkable. Adrenal glands: Unremarkable. Kidneys: There are extensive vascular calcifications. No solid renal masses are visualized. There is no hydronephrosis. Bowel: There are no transition zones indicate bowel obstruction. There is no evidence of acute diverticulitis. The appendix appears normal. Peritoneum: There is no intraperitoneal free air or abdominal ascites. Vasculature: There is no evidence for abdominal aortic aneurysm. There are moderately extensive vascular calcifications. Adenopathy: None. Pelvic viscera: There is mild bladder distention. Skeletal structures: There is a sebaceous cyst within the right back. There are advanced degenerative changes the lower lumbar spine. IMPRESSION: 1. Cholelithiasis 2. Stable sebaceous cyst 3. No evidence of bowel obstruction. No evidence of free air 4. Normal appendix. No evidence of diverticulitis. 5. Mild bladder distention Electronically signed by: Wilder Carrizales M.D. 06/29/2018 9:[address] head/brain wo con CLINICAL HISTORY: Nausea and vomiting COMPARISON STUDY: November 17, 2015, MRI the brain dated 11/17/2015 TECHNIQUE: Axial CT of the brain is performed from the vertex to the skull base. IV contrast was not administered for this examination. A dose lowering technique was utilized adhering to the principles of ALARA. CT DOSE: 537.48 mGy.cm FINDINGS: No intra or extra-axial mass lesions are visualized. There is no CT evidence of acute cortical infarction. There is no evidence of midline shift. There is no acute hemorrhage. No calvarial fractures are visualized. There are patchy white matter hypodensities likely on a small vessel basis. There is no evidence of pathologic ventricular dilatation. There is a left maxilla sinus air-fluid level. There is mucosal thickening within the sphenoid and ethmoid sinuses. IMPRESSION: 1. Inflammatory changes within the paranasal sinuses 2. Otherwise no acute intracranial findings. Electronically signed by: Wilder Carrizales M.D. 06/29/2018 8:55 PM ECG Data Attestation: I personally reviewed and interpreted this ECG as follows: Indication: vomiting Rate (beats per minute): 72 Rhythm: sinus rhythm Findings: + other (normal intervals, normal axis), + 1st degree AV block and + ST depression (diffuse in v3-v6 and on trace on lead 2) Comparison ECG Date: from (17-NOV-2015) Change: the following changes noted (new) Blood Pressure Blood Pressure Findings: Elevated blood pressure Blood Pressure Disposition: further management by hospitalist CRUZ Valdovinos The patient is a 68 year old male with a past medical history of depression, B PH, COPD and seizures who presents to the Emergency Room with complaints of a persistent vomiting that began earlier today. Differential Diagnosis includes: gastroenteritis, food borne illness, infe ctions, appendicitis, diverticulitis, inflammatory bowel disease, obstruction, GI bleed, biliary pathology, cardiac process, intracranial process, as well as others were entertained. Patient was seen and evaluated the bedside. The patient was complaining some weakness not feeling well and associated nausea with vomiting. Patient is a smoker known history of COPD and the patient has not been taking medications since he has run out of several of them. When these medications does include Plavix. Patient is unsure as to why he is taking Plavix. I did review patient's discharge summary which does not relate any history of CAD TIA or stroke. The patient did have blood work completed along with a CT of the abdomen pelvis. Patient does have a history of self-catheterization the patient states he is not sure why he has to do this. The patient does not sure if he has neurogenic bladder or history of spinal cord injury. The patient does have some well-healing wounds to the right foot but the patient is able to raise his his bilateral lower extremity is without issue. Patient does not have any saddle anesthesia. The patient does have some mild abdominal distention but not much in terms of discomfort. Patient did have blood work completed along with EKG and CT of the abdomen pelvis. Patient's blood work did show a slightly elevated troponin. ST changes were present diffusely V3 through V6 given this I was concerned about possible in STEMI. Patient was ordered aspirin I did speak with the on-call financial advisor stated that they would follow along. Patient CT showed cholelithiasis mild bladder distention but no other acute findings. Heparin was ordered at this time as the patient denied chest pains or shortness of breath but was still having nausea and dry. I did speak with the on-call hospitalist who agreed to further evaluate treat the patient. Patient was subsequently admitted to medicine service. Of note the patient did have a mildly elevated blood glucose along with a lower bicarb the patient has had persistent dry heaving and vomiting. The patient has a normal anion gap I believe DKA to be less likely given the normal gap. Impression & Plan Non-ST elevation myocardial infarction (NSTEMI), Vomiting Critical Care Time I have personally spent greater than 45 minutes of critical care time in direct management of this patient. This includes bedside care, interpretation of diagnostic studies, and testing, discussion with consultants, patient, and fa minnie members, and other require inpatient management activities. This 45 minutes is in excess of all separately billable procedures. Critical Care Time: Yes Total Critical Care Time: 45 Discharge Plan Visit Data *Final* Discharge Date/Time: 06/29/18 23:01 Chief Complaint: Weakness Stated Complaint: UNABLE TO AMBULATE, VOMITING, NUMBNESS IN LEGS ED Provider: Gee Solis Discharge Problem: Non-ST elevation myocardial infarction (NSTEMI), Vomiting Patient Disposition: Admitted As Inpatient Discharge Instructions Interventions: ED Discharge Assessment Last Done: 06/29/18 23:01 Discharge Problem: Vomiting Qualifiers: Vomiting type: unspecified Vomiting Intractability: non-intractable Nausea presence: with nausea Qualified Code(s): R11.2 - Nausea with vomiting, unspecifi ed The scribe's documentation has been prepared under my direction and personally reviewed by me in its entirety. I confirm that the note above accurately reflects all work, treatment, procedures, and medical decision making performed by me.
[2018-06-30] MEDS ORDERED: NITROGLYCERIN SL 0.4 MG/TAB TAB SL PRN (00:39)
[2018-06-30] MEDS ORDERED: CARBOHYDRATES FOR HYPOGLYCEMIA PO PRN (00:39)
[2018-06-30] MEDS ORDERED: GLUCOSE 10 TABS/TUBE PO PRN (00:39)
[2018-06-30] MEDS ORDERED: DEXTROSE 50% 50 ML SYRINGE IV PRN (00:39)
[2018-06-30] MEDS ORDERED: MoRPHine SULFATE 2 MG/ML CARP IV PRN (00:39)
[2018-06-30] MEDS ORDERED: GLUCAGON FOR INJ 1 MG VIAL SQ PRN (00:39)
[2018-06-30] MEDS ORDERED: GLUCOSE 40% GEL 15 GM TUBE PO PRN (00:39)
[2018-06-30] MEDS ORDERED: Heparin IV Standard *NO* Bolus IV ONE (01:15)
[2018-06-30] MEDS: ONDANSETRON INJ 2 MG/ML 2 ML VIAL IV PRN ×3 (01:22→19:38)
[2018-06-30 01:52] LABS: Appearance Urine Clear (Clear); Bacteria Urine Automated Negative (Negative); Bilirubin Urine Negative (Negative); Blood Urine 1+ (Negative); Color Urine Yellow; Glucose Urine UA 3+ (Negative); Ketones Urine Negative (Negative); Leukocyte Esterase Urine Negative (Negative); Nitrite Urine Negative (Negative); Protein Urine Negative (Negative); RBC Urine Automated 0-4 /hpf (0-4); Specific Gravity Urine 1.017 (1.000-1.030); Urobilinogen Urine Negative (Negative); pH Urine 5.5 (4.5-7.5)
[2018-06-30 02:24] LABS: Amphetamines+Metham, Urine Neg (Neg); Barbiturates, Urine Neg (Neg); Benzodiazepine, Urine Neg (Neg); Cocaine, Urine Neg (Neg); MDMA (Ecstacy), Urine Neg (Neg); Methadone, Urine Neg (Neg); Opiate, Urine Neg (Neg); Phencyclidine, Urine Neg (Neg)
[2018-06-30] MEDS ORDERED: Heparin Adult STANDARD Wt-Based Dextrose 5% 25,000 units/500 mL IV SCH (02:30)
[2018-06-30] MEDS: QUETIAPINE FUMARATE 200 MG TAB PO SCH ×2 (02:31→20:31)
[2018-06-30] MEDS: QUETIAPINE FUMARATE 100 MG TABLET PO SCH ×2 (02:31→20:28)
[2018-06-30] MEDS: lamoTRIgine 100 MG TAB PO SCH ×3 (02:32→20:27)
[2018-06-30] MEDS: METOPROLOL TARTRATE 25 MG TAB PO SCH ×3 (02:32→20:28)
[2018-06-30] MEDS: PHENYTOIN SODIUM ER 100 MG CAP PO SCH ×3 (02:32→20:28)
[2018-06-30] MEDS: SODIUM CHLORIDE 0.9% 1000ML 1,000 ML IV SCH ×3 (02:33→21:29)
[2018-06-30] MEDS: PROMETHAZINE HCL 25 MG TAB PO PRN (04:25)
[2018-06-30 06:01] LABS: Hematocrit (blood only) 44.3 % (42-52); Hemoglobin 16.4 g/dL (14.0-18.0); Mean Corpuscular Volume 91.9 fL (80-100); Mean Platelet Volume 8.9 fL (7.4-10.4); Platelet Count 140 K/uL (130-400); RDW Coefficient of Variation 13.5 % (11.5-14.5); RDW Standard Deviation 44.8 fL (36.4-46.3); Red Blood Count 4.82 M/uL (4.7-6.1); White Blood Count 6.52 K/uL (4.8-10.8)
--- NOTE | 2018-06-30 06:29 | Ultrasound Report ---
US gallbladder HISTORY: Pain. Nausea. Vomiting. nv COMPARISON: 02/11/2013 FINDINGS: Small gallstone within the gallbladder lumen. Trace sludge. Normal caliber bile ducts. Common bile du ct 4 mm. The liver demonstrates fatty infiltration. Pancreas and right kidney are unremarkable. IMPRESSION: Small gallstone with a small amount of gallbladder sludge. Normal caliber bile ducts. Fatty replaceme nt of the liver. The above report was generated using voice recognition software. It may contain grammatical, syntax or spelling errors. Electronically signed by: Jesus Uribe M.D. 06/30/2018 6:28 AM
[2018-06-30 06:31] LABS: BUN Creatinine Ratio 13.5 (10-20); Calcium 8.8 mg/dl (8.5-10.1); Creatinine Clr Calc Pharmacy 76.1 ml/min; Est GFR (African American) 89.4; Est GFR (Non-African American) 77.1; Magnesium 1.9 mg/dl (1.8-2.4); Potassium 3.8 mmol/L (3.5-5.1)
[2018-06-30 06:53] LABS: Partial Thromboplastin Ratio 2.8
[2018-06-30 06:55] LABS: Estimated Average Glucose 220 mg/dl; Hemoglobin A1C 9.3 % (4.5-5.6)
[2018-06-30 06:56] LABS: Partial Thromboplastin Time 75.1 Seconds (21.0-31.0)
[2018-06-30] MEDS: PROCHLORPERAZINE 5 MG in SYRINGE 4 ML IV PRN ×2 (08:12→15:41)
[2018-06-30] MEDS: INSULIN ASPART 100 UNITS/ML 3 ML PEN SC SCH ×5 (08:13→23:40)
[2018-06-30 10:57] LABS: Gastric Occult Blood Positive (Negative); pH Gastric Fluid 1
[2018-06-30] MEDS ORDERED: PANTOprazole 40 MG in SYRINGE 0 ML IV SCH (11:00)
--- NOTE | 2018-06-30 11:23 | Cardiology Consultation ---
Date of Consultation June 30, 2018 Assessment & Plan (1) Elevated troponin: Patient admitted with 10 days of retching, nausea, vomiting, and poor appetite. Blood pressure elevated on admission due to abdominal symptoms. Mildly elevated troponin trending up to 2.5. Abnormal ECG suggesting underlying ischemic heart disease, and CT images demonstrating dense coronary calcifications, however, no regional wall motion normality appreciated on resting 2D transthoracic echocardiogram. 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 Plaque rupture event less likely given normal wall motion on resting echocardiogram. Patient initially treated with intravenous heparin, however, Gastroccult is positive and he continues to actively vomit. Recommend gastroenterology consultation. Hold IV heparin. Hemoglobin remains stable. Repeat CBC this evening. Continue to trend troponin x3 sets. Patient without anginal symptoms currently. Add IV Lopressor 2.5 mg every 6 hours. Will titrate to 5 mg every 6 hours as tolerated. Resume oral medications when able. (2) Vomiting: Gastric occult positive. Continue antiemetics per internal medicine. (3) TIA (transient ischemic attack): History of possible TIA 2015. Patient maintained on dual antiplatelet therapy since that time. Nonobstructive carotid vascular disease noted. (4) HTN (hypertension): Uncontrolled at this time due to acute illness. (5) Tobacco use disorder: (6) Diabetes mellitus, type II: History of Present Illness Reason for Consultation: Elevated troponin, Abnormal ECG Requesting Physician: Dr. Marks Attending Physician: Kuldip Marks MD History of Present Illness Patient seen and examined at the bedside. Presented to the emergency room with nausea, vomiting, and abdominal bloating. Symptoms began approximately 10 days ago. Patient admits to stopping all medications approximately 10 days ago. Reports poor p.o. intake and poor appetite. Denies diarrhea or constipation. No hematemesis, hemoptysis, melena, or hematochezia. Denies any chest discomfort or unusual shortness of breath. No fever, or subjective chills. Has orthopnea, PND, or lower extremity edema. Currently, patient is not nauseated. Treated with Phenergan, Compazine, and Zofran overnight. No dysrhythmias on telemetry. Denies any chest discomfort currently. Repeat troponin 2.5. Resting 2D transthoracic echocardiogram performed at bedside demonstrates preserved LV systolic function without significant valvular disease. There are no regional wall motion abnormalities. Chronically treated with dual antiplatelet therapy since 2015. At that time patient admitted with right lower extremity weakness and diagnosed with transient ischemic attack. MRI of the brain negative for CVA. No significant carotid vascular disease per duplex. Allergies Allergy/AdvReac Type Severity Reaction Status Date / Time Sulfa (Sulfonamide Allergy Unknown HAS TAKEN Verified 11/17/15 01:37 Antibiotics) LASIX AN OUTPATIENT Home Medications Home Medications Medication Instructions Recorded Confirmed Type SENNOSIDES (SENNA LAXATIVE) 8.6 mg PO DAILY PRN #0 06/04/13 06/29/18 History POLYETHYLENE GLYCOL 3350 (MIRALAX) 17 g PO DAILY PRN #0 11/21/15 06/29/18 History aspirin 81 mg PO DAILY 06/29/18 06/29/18 History atorvastatin 10 mg PO QPM 06/29/18 06/29/18 History clonazepam 1 mg PO BID 06/29/18 06/29/18 History clopidogrel 75 mg PO DAILY 06/29/18 06/29/18 History docusate sodium 100 mg PO DAILY 06/29/18 06/29/18 History fluvoxamine 200 mg PO HS 06/29/18 06/29/18 History gabapentin 100 mg PO TID 06/29/18 06/29/18 History ipratropium-albuterol [Combivent 1 puff INHALATION QID 06/29/18 06/29/18 History Respimat] lamotrigine 400 mg PO BID 06/29/18 06/29/18 History lisinopril 20 mg PO DAILY 06/29/18 06/29/18 History metformin 1,000 mg PO BID 06/29/18 06/29/18 History metoprolol tartrate 25 mg PO BID 06/29/18 06/29/18 History mirtazapine 30 mg PO HS 06/29/18 06/29/18 History phenytoin sodium extended 100 mg PO BID 06/29/18 06/29/18 History promethazine 25 mg PO Q8H PRN 06/29/18 06/29/18 History quetiapine 50 mg PO DAILY@,06/29/18 06/29/18 History quetiapine 100 mg PO HS 06/29/18 06/29/18 History quetiapine 400 mg PO HS 06/29/18 06/29/18 History tamsulosin 0.4 mg PO DAILY 06/29/18 06/29/18 History trazodone 100 mg PO HS 06/29/18 06/29/18 History Patient History Medical History HTN (hypertension) (Chronic) Diabetes mellitus, type II (Chronic) OCD (obsessive compulsive disorder) (Chronic) HLD (hyperlipidemia) (Chronic) Vertigo (Chronic) Seizure disorder (Chronic) Depression (Chronic) BPH (benign prostatic hypertrophy) (Chronic) Tobacco use disorder (Chronic) 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) COPD (chronic obstructive pulmonary disease) (Chronic) Obesity (BMI 30-39.9) (Chronic) Hypertriglyceridemia (Chronic) Surgical History H/O sigmoidoscopy (Chronic) H/O colonoscopy (Chronic) "11/08/2013- normal exam but limited by prep quality" Family History Father Coronary heart disease Other Lung cancer Social History Communication Ability: Effective Beliefs That Will Affect Care: None Current Living Situation: Family Other Information That Helps Us Care for You: No Feels Safe at Home: Yes Safety Concerns: Feels Safe At This Time Smoking Status: Current every day smoker Hx Alcohol Use: No Hx Substance Use: No Review of Systems Pertinent positives noted per HPI, comprehensive 10 system review otherwise negative. Physical Exam Vital Signs (Past 24 Hours): Last Vital Signs Temp 36.6 C 06/30/18 10:54 Pulse 97 H 06/30/18 10:54 Resp 16 06/30/18 10:54 BP 160/84 H 06/30/18 10:54 Pulse Ox 98 06/30/18 10:54 Physical Exam: General: AAO x3, acutely ill, retching. HEENT: Normocephalic. Atraumatic. Conjunctiva pink, no scleral icterus. Neck: No carotid bruits, the carotid upstrokes are brisk. No JVD. No HJR Heart: Regular normal S-1 and S-2 no S-3 or S-4 gallop. Soft 1/6 systolic ejection murmur heard best at the right second intercostal space. PMI is not displaced. No RV heave. Lungs: Clear bilateral without rales , rhonchi, or wheeze. Abdomen: Mild distention. Diffuse tenderness. No rebound or guarding. Hypoactive bowel sounds. Extremities: Dry skin, unkempt, R foot: dorsal aspect of distal 1st metatarsal with ulcer without discharge, 5th toe - callus. pulses: radial=2/4. Neuro: Cranial nerves grossly intact. No focal motor deficit. Results & Data Laboratory Results Laboratory Results - last 24 hr 06/29/18 06/29/18 06/29/18 20:12 20:12 20:12 WBC 6.66 RBC 4.77 Hgb 16.7 POC Hgb Hct 45.2 POC Hct MCV 94.8 MCH 35.0 H MCHC 36.9 H RDW Std Deviation 47.0 H RDW Coeff of Ritesh 13.6 Plt Count 153 MPV 8.9 Immature Gran % (Auto) 0.3 Neut % (Auto) 75.0 Lymph % (Auto) 15.3 Mcdonough % (Auto) 5.9 Eos % (Auto) 3.2 Baso % (Auto) 0.3 Immature Gran # (Auto) 0.02 Neut # (Auto) 5.00 Lymph # (Auto) 1.02 L Mcdonough # (Auto) 0.39 Eos # (Auto) 0.21 Baso # (Auto) 0.02 PT 10.3 INR 1.0 APTT PTT Ratio POC Sodium Sodium 132 L POC Potassium Potassium 3.7 POC Chloride Chloride 105 Carbon Dioxide 18 L POC Total CO2 Anion Gap 9.0 POC Anion Gap POC BUN BUN 19 H Creatinine 1.27 POC Creatinine Est Cr Clr Drug Dosing 62.1 Est GFR ( Amer) 67.8 Est GFR (Non-Af Amer) 58.5 BUN/Creatinine Ratio 14.8 Glucose 211 H POC Glucose (other) Estimat Average Glucose Hemoglobin A1c Calcium 8.9 POC Ioniz Calcium Manuel Magnesium Total Bilirubin 0.3 AST 12 L ALT 21 Alkaline Phosphatase 207 H Troponin I 0.079 H* Total Protein 8.2 Albumin 3.8 Globulin 4.4 H Albumin/Globulin Ratio 0.9 Triglycerides Cholesterol LDL Cholesterol, Calc VLDL Cholesterol, Calc HDL Cholesterol Cholesterol/HDL Ratio Lipase 251 TSH 1.670 Urine Color Urine Appearance Urine pH Ur Specific [place] Urine Protein Urine Glucose (UA) Urine Ketones Urine Blood Urine Nitrite Urine Bilirubin Urine Urobilinogen Ur Leukocyte Esterase Urine WBC (Auto) Urine RBC (Auto) U Hyaline Cast (Auto) U Epithel Cells (Auto) Urine Bacteria (Auto) Gastric Fluid pH Gastric Occult Blood Urine Opiates Screen Ur Methadone, Qual Urine Barbiturates Phenytoin Ur Phencyclidine (PCP) U Amphetamin/Meth Scrn MDMA (Ecstasy) Screen U Benzodiazepines Scrn Ur Cocaine Metabolite U Marijuana (THC) Screen 06/29/18 06/29/18 06/29/18 20:12 20:17 21:18 WBC RBC Hgb POC Hgb 16.3 Hct POC Hct 48 MCV MCH MCHC RDW Std Deviation RDW Coeff of Ritesh Plt Count MPV Immature Gran % (Auto) Neut % (Auto) Lymph % (Auto) Mcd[place]ough % (Auto) Eos % (Auto) Baso % (Auto) Immature Gran # (Auto) Neut # (Auto) Lymph # (Auto) Mcd[place]ough # (Auto) Eos # (Auto) Baso # (Auto) PT INR APTT 26.8 PTT Ratio 1.0 POC Sodium 133 L Sodium POC Potassium 3.7 Potassium POC Chloride 103 Chloride Carbon Dioxide POC Total CO2 17 L Anion Gap POC Anion Gap 18.0 POC BUN 19 H BUN Creatinine POC Creatinine 1.1 Est Cr Clr Drug Dosing Est GFR ( Amer) Est GFR (Non-Af Amer) BUN/Creatinine Ratio Glucose POC Glucose (other) 215 H Estimat Average Glucose Hemoglobin A1c Calcium POC Ioniz Calcium Manuel 1.13 Magnesium Total Bilirubin AST ALT Alkaline Phosphatase Troponin I Total Protein Albumin Globulin Albumin/Globulin Ratio Triglycerides Cholesterol LDL Cholesterol, Calc VLDL Cholesterol, Calc HDL Cholesterol Cholesterol/HDL Ratio Lipase TSH Urine Color Yellow Urine Appearance Clear Urine pH 5.0 Ur Specific [place] 1.017 Urine Protein Negative Urine Glucose (UA) 2+ H Urine Ketones Negative Urine Blood Trace H Urine Nitrite Negative Urine Bilirubin Negative Urine Urobilinogen Negative Ur Leukocyte Esterase Trace H Urine WBC (Auto) 1-5 Urine RBC (Auto) 0-4 U Hyaline Cast (Auto) 0 U Epithel Cells (Auto) 20-30 H Urine Bacteria (Auto) Negative Gastric Fluid pH Gastric Occult Blood Urine Opiates Screen Ur Methadone, Qual Urine Barbiturates Phenytoin Ur Phencyclidine (PCP) U Amphetamin/Meth Scrn MDMA (Ecstasy) Screen U Benzodiazepines Scrn Ur Cocaine Metabolite U Marijuana (THC) Screen 06/30/18 06/30/18 06/30/18 00:49 01:40 01:40 WBC RBC Hgb POC Hgb Hct POC Hct MCV MCH MCHC RDW Std Deviation RDW Coeff of Ritesh Plt Count MPV Immature Gran % (Auto) Neut % (Auto) Lymph % (Auto) [place]cd[place] % (Auto) Eos % (Auto) Baso % (Auto) Immature Gran # (Auto) Neut # (Auto) Lymph # (Auto) [place] # (Auto) Eos # (Auto) Baso # (Auto) PT INR APTT PTT Ratio POC Sodium Sodium POC Potassium Potassium POC Chloride Chloride Carbon Dioxide POC Total CO2 Anion Gap POC Anion Gap POC BUN BUN Creatinine POC Creatinine Est Cr Clr Drug Dosing Est GFR ( Amer) Est GFR (Non-Af Amer) BUN/Creatinine Ratio Glucose POC Glucose (other) Estimat Average Glucose Hemoglobin A1c Calcium POC Ioniz Calcium Manuel Magnesium Total Bilirubin AST ALT Alkaline Phosphatase Troponin I Total Protein Albumin Globulin Albumin/Globulin Ratio Triglycerides Cholesterol LDL Cholesterol, Calc VLDL Cholesterol, Calc HDL Cholesterol Cholesterol/HDL Ratio Lipase TSH Urine Color Yellow Urine Appearance Clear Urine pH 5.5 Ur Specific [place] 1.017 Urine Protein Negative Urine Glucose (UA) 3+ H Urine Ketones Negative Urine Blood 1+ H Urine Nitrite Negative Urine Bilirubin Negative Urine Urobilinogen Negative Ur Leukocyte Esterase Negative Urine WBC (Auto) 1-5 Urine RBC (Auto) 0-4 U Hyaline Cast (Auto) 1-5 U Epithel Cells (Auto) 10-20 H Urine Bacteria (Auto) Negative Gastric Fluid pH Gastric Occult Blood Urine Opiates Screen Neg Ur Methadone, Qual Neg Urine Barbiturates Neg Phenytoin 4.9 L Ur Phencyclidine (PCP) Neg U Amphetamin/Meth Scrn Neg MDMA (Ecstasy) Screen Neg U Benzodiazepines Scrn Neg Ur Cocaine Metabolite Neg U Marijuana (THC) Screen Neg 06/30/18 06/30/18 06/30/18 05:21 05:21 05:21 WBC 6.52 RBC 4.82 Hgb 16.4 POC Hgb Hct 44.3 POC Hct MCV 91.9 MCH 34.0 MCHC 37.0 H RDW Std Deviation 44.8 RDW Coeff of Ritesh 13.5 Plt Count 140 MPV 8.9 Immature Gran % (Auto) Neut % (Auto) Lymph % (Auto) [place]cd[place] % (Auto) Eos % (Auto) Baso % (Auto) Immature Gran # (Auto) Neut # (Auto) Lymph # (Auto) [place] # (Auto) Eos # (Auto) Baso # (Auto) PT INR APTT PTT Ratio POC Sodium Sodium 131 L POC Potassium Potassium 3.8 POC Chloride Chloride 101 Carbon Dioxide 22 POC Total CO2 Anion Gap 8.0 POC Anion Gap POC BUN BUN 14 Creatinine 1.01 POC Creatinine Est Cr Clr Drug Dosing 76.1 Est GFR ( Amer) 89.4 Est GFR (Non-Af Amer) 77.1 BUN/Creatinine Ratio 13.5 Glucose 235 H POC Glucose (other) Estimat Average Glucose 220 Hemoglobin A1c 9.3 H Calcium 8.8 POC Ioniz Calcium Manuel Magnesium 1.9 Total Bilirubin AST ALT Alkaline Phosphatase Troponin I Total Protein Albumin Globulin Albumin/Globulin Ratio Triglycerides 54 Cholesterol 128 LDL Cholesterol, Calc 71 VLDL Cholesterol, Calc 11 HDL Cholesterol 46 Cholesterol/HDL Ratio 3 Lipase TSH Urine Color Urine Appearance Urine pH Ur Specific [place] Urine Protein Urine Glucose (UA) Urine Ketones Urine Blood Urine Nitrite Urine Bilirubin Urine Urobilinogen Ur Leukocyte Esterase Urine WBC (Auto) Urine RBC (Auto) U Hyaline Cast (Auto) U Epithel Cells (Auto) Urine Bacteria (Auto) Gastric Fluid pH Gastric Occult Blood Urine Opiates Screen Ur Methadone, Qual Urine Barbiturates Phenytoin Ur Phencyclidine (PCP) U Amphetamin/Meth Scrn MDMA (Ecstasy) Screen U Benzodiazepines Scrn Ur Cocaine Metabolite U Marijuana (THC) Screen 06/30/18 06/30/18 06/30/18 06:22 08:25 10:00 WBC RBC Hgb POC Hgb Hct POC Hct MCV MCH MCHC RDW Std Deviation RDW Coeff of Ritesh Plt Count MPV Immature Gran % (Auto) Neut % (Auto) Lymph % (Auto) [place] % (Auto) Eos % (Auto) Baso % (Auto) Immature Gran # (Auto) Neut # (Auto) Lymph # (Auto) [place] # (Auto) Eos # (Auto) Baso # (Auto) PT INR APTT 75.1 H* PTT Ratio 2.8 POC Sodium Sodium POC Potassium Potassium POC Chloride Chloride Carbon Dioxide POC Total CO2 Anion Gap POC Anion Gap POC BUN BUN Creatinine POC Creatinine Est Cr Clr Drug Dosing Est GFR ( Amer) Est GFR (Non-Af Amer) BUN/Creatinine Ratio Glucose POC Glucose (other) Estimat Average Glucose Hemoglobin A1c Calcium POC Ioniz Calcium Manuel Magnesium Total Bilirubin AST ALT Alkaline Phosphatase Troponin I 2.500 H* Total Protein Albumin Globulin Albumin/Globulin Ratio Triglycerides Cholesterol LDL Cholesterol, Calc VLDL Cholesterol, Calc HDL Cholesterol Cholesterol/HDL Ratio Lipase TSH Urine Color Urine Appearance Urine pH Ur Specific [place] Urine Protein Urine Glucose (UA) Urine Ketones Urine Blood Urine Nitrite Urine Bilirubin Urine Urobilinogen Ur Leukocyte Esterase Urine WBC (Auto) Urine RBC (Auto) U Hyaline Cast (Auto) U Epithel Cells (Auto) Urine Bacteria (Auto) Gastric Fluid pH 1 Gastric Occult Blood Positive H Urine Opiates Screen Ur Methadone, Qual Urine Barbiturates Phenytoin Ur Phencyclidine (PCP) U Amphetamin/Meth Scrn MDMA (Ecstasy) Screen U Benzodiazepines Scrn Ur Cocaine Metabolite U Marijuana (THC) Screen Medications Administered Current Inpatient Medications Acetaminophen (Tylenol) 650 mg PO Q4H PRN PRN Reason: Pain or Fever Stop: 07/30/18 00:38 Albuterol (Combivent Respimat) 1 puffs INH QID [facility] Stop: 07/30/18 08:59 Aspirin (Ecotrin Ectab) 81 mg PO QAM [facility] Stop: 07/30/18 08:59 Atorvastatin Calcium (Lipitor) 10 mg PO QPM [facility] Stop: 07/30/18 20:59 Clonazepam (Klonopin) 1 mg PO BID [facility] Stop: 07/30/18 08:59 Clopidogrel Bisulfate (Plavix) 75 mg PO DAILY [facility] Stop: 07/30/18 08:59 Dextrose (Dextrose 50%) 25 - 50 ml IV UD PRN; Protocol PRN Reason: Hypoglycemia Protocol Stop: 07/30/18 00:38 Fluvoxamine Maleate (Luvox) 200 mg PO HS [facility] Stop: 07/30/18 20:59 Gabapentin (Neurontin) 100 mg PO TID [facility] Stop: 07/30/18 08:59 Glucagon (Glucagen) 1 mg SQ UD PRN; Protocol PRN Reason: Hypoglycemia Protocol Stop: 07/30/18 00:38 Glucose (Glucose 40%) 15 - 30 gm PO UD PRN; Protocol PRN Reason: Hypoglycemia Protocol Stop: 07/30/18 00:38 Glucose (Dex4 Glucose) 4 - 8 tabs PO UD PRN; Protocol PRN Reason: Hypoglycemia Protocol Stop: 07/30/18 00:38 Sodium Chloride (Nss 1000ml) 1,000 mls @ 100 mls/hr IV .Q10H [facility] Stop: 07/30/18 01:14 Last Admin: 06/30/18 10:44 Dose: 100 mls/hr Documented by: Prochlorperazine 5 mg/ Syringe 5 mls @ 5 mls/min IV Q6H PRN PRN Reason: Nausea And Vomiting Stop: 07/30/18 00:59 Last Admin: 06/30/18 08:12 Dose: 5 mls/min Documented by: Heparin Sodium/Dextrose (Heparin Sodium/Dextrose) 25,000 units in 500 mls @ 0 mls/hr IV .Q0M [facility]; Protocol Stop: 07/30/18 02:29 Last Titration: 06/30/18 10:02 Dose: 0 units/hr, 0 mls/hr Documented by: Pantoprazole Sodium 40 mg/ (Syringe) 10 mls @ 5 mls/min IV BID@0900,2100 [facility]; Protocol Stop: 07/30/18 10:59 Insulin Aspart (Novolog Flexpen) 0 units SC ACHS [facility] Stop: 07/30/18 07:29 Last Admin: 06/30/18 08:13 Dose: 2 units Documented by: Ioversol (Optiray 320 100ml) 90 ml IV ONCE PRN PRN Reason: Interaction Checking Stop: 07/03/18 20:57 Last Admin: 06/29/18 20:59 Dose: 90 ml Documented by: Lamotrigine (Lamictal) 400 mg PO BID [facility] Stop: 07/29/18 23:09 Last Admin: 06/30/18 02:32 Dose: 400 mg Documented by: Lisinopril (Zestril) 20 mg PO DAILY [facility] Stop: 07/30/18 08:59 Metoprolol Tartrate (Lopressor) 25 mg PO BID [facility] Stop: 07/29/18 23:14 Last Admin: 06/30/18 02:32 Dose: 25 mg Documented by: Metoprolol Tartrate (Lopressor) 2.5 mg IV Q6 [facility] Stop: 07/30/18 11:59 Mirtazapine (Remeron) 30 mg PO HS [facility] Stop: 07/30/18 20:59 Miscellaneous (Carbohydrates For Hypoglycemia) 15 - 30 gm PO UD PRN PRN Reason: Hypoglycemia Treatment Stop: 07/30/18 00:38 Morphine Sulfate (Morphine Sulfate) 2 mg IV Q30M PRN PRN Reason: Chest Pain Stop: 07/14/18 00:38 Nitroglycerin (Nitrostat) 0.4 mg SL UD PRN PRN Reason: Chest Pain Stop: 07/30/18 00:38 Ondansetron HCl (Zofran) 4 mg IV Q6H PRN PRN Reason: Nausea Stop: 07/30/18 00:38 Last Admin: 06/30/18 10:29 Dose: 4 mg Documented by: Phenytoin Sodium (Dilantin Er) 100 mg PO BID [facility] Stop: 07/29/18 23:14 Last Admin: 06/30/18 02:32 Dose: 100 mg Documented by: Polyethylene Glycol (Miralax Powder Packet) 17 gm PO DAILY PRN PRN Reason: Constipation Stop: 07/30/18 00:38 Promethazine HCl (Phenergan) 25 mg PO Q8H PRN PRN Reason: Nausea Stop: 07/29/18 23:07 Last Admin: 06/30/18 04:25 Dose: 25 mg Documented by: Quetiapine Fumarate (Seroquel) 400 mg PO [facility] Stop: 07/29/18 23:14 Last Admin: 06/30/18 02:31 Dose: 400 mg Documented by: Quetiapine Fumarate (Seroquel) 100 mg PO HS [facility] Stop: 07/29/18 23:14 Last Admin: 06/30/18 02:31 Dose: 100 mg Documented by: Quetiapine Fumarate (Seroquel) 50 mg PO DAILY@, [facility] Stop: 07/30/18 08:59 Sennosides (Senokot) 8.6 mg PO DAILY PRN PRN Reason: Constipation Tamsulosin HCl (Flomax) 0.4 mg PO DAILY [facility] Stop: 07/30/18 08:59 (1) HTN (hypertension) Hypertension type: essential hypertension Qualified Code(s): I10 - Essential (primary) hypertension (2) Vomiting Nausea presence: with nausea Vomiting Intractability: non-intractable Vomiting type: unspecified Qualified Code(s): R11.2 - Nausea with vomiting, unspecified
[2018-06-30 11:26] LABS: Hematocrit (blood only) 46.4 % (42-52); Hemoglobin 17.2 g/dL (14.0-18.0)
--- NOTE | 2018-06-30 11:43 | Gastrointestinal Consultation ---
Date of Consultation June 30, 2018 Assessment & Plan (1) Coffee ground emesis: 68 year old male w/ history of T2DM, CKD-3, HTN, dyslipidemia, COPD, TIA on ASA and plavix who presents to the ED w/ week of weakness, fatigue, nausea, decreased appetite and one day of vomiting. In the ED, workup revealed nearly normal LFTs, normal lipase, elevated troponin, GI imaging w/ gallstones otherwise. He was started on a heparin gtt. Vomiting persisted, concern for coffee ground emesis w/ occult positive. HGB was rechecked and stable. Nausea/vomiting - Would repeat a lipase, LFTs given persistent upper abd pain, N/V, stones and sludge on recent imaging - Continue anti-emetics for now Coffee ground emesis in the setting of elevated troponin, heparin gtt - Appreciate cardiology recommendations - Would hold heparin gtt if able - Trend H&H - Monitor and document all GI output - Start PPI bolus and drip - Tentative plan for EGD tomorrow pending cardiac/neuro clearance Thank you for allowing us to participate in the care of this patient. Please call with any acute changes, questions or concerns. Please see addendum below with additional recommendation from my supervising physician. (2) Elevated troponin: Supervising Physician Co-Signing Physician Notes I have seen and examined the patient with LAURA Correa whose note reflects our findings and plan. Coffee ground emesis. Hemodynamically stable. Elevated trop. Will await clearance from cardiolog and neurology before planning for EGD. Please put patient on PPI gtt. History of Present Illness Reason for Consultation: gastric occult + w/ nausea and vomiting Requesting Physician: Kendrick Attending Physician: Kuldip Marks MD History of Present Illness 68 year old male with history of T2DM, CKD-3, HTN, dyslipidemia, COPD w/ ongoing tobacco use history of TIA on dual antiplt who presented to the ED w/ nausea and vomiting. GI asked to evaluate the patient for ongoing N/V and + gastric occult. Pt was seen and evaluated, chart reviewed. He is a poor historian. He reports abrupt cessation of nearly all his OP medications about 1 week ago as he was unable to get refills - unable to specify which medications. Since this, has noted more fatigue, generalized weakness and associated nausea. Yesterday, nausea worsened and he started vomiting. At first this was food, bile. As vomiting persisted, noted emesis was darker. Denies any hematemesis. This AM endorses persistent nausea and vomiting. Reports constipation. No BM since admission. No prior melena or BRBPR. No fever, chills. No CP. Does not chronic SOB which he attributes to his chronic congestion and ongoing tobacco use. In the ED, work-up revealed elevated troponin: 0.079, EKG w/ ST depression and he was started on a heparin drip. He was afebrile without leukocytosis. HGB 16.7 w/ normal PLT count. Coag studies non-elevated on admission. AlkP 2017, otherwise LFTs non-elevated w/ normal lipase. This AM troponin trending up, 2.5. He was started on a heparin drip. Cardiolgoy evaluated and recommend hold Heparin GTT to undergo GI eval. AC: plavix NSAIDs: ASA daily ETOH: denies although chart review notes history of abuse Tobacco: daily ABD US: Small gallstone with a small amount of gallbladder sludge. Normal caliber bile ducts. Fatty replacement of the liver. XR: Mild cardiomegaly and equivocal mild pulmonary vascular congestion. No lynn dence of focal pulmonary consolidation CT: Cholelithiasis Stable sebaceous cyst No evidence of bowel obstruction. No evidence of free air Normal appendix. No evidence of diverticulitis. Mild bladder distention Allergies Allergy/AdvReac Type Severity Reaction Status Date / Time Sulfa (Sulfonamide Allergy Unknown HAS TAKEN Verified 11/17/15 01:37 Antibiotics) LASIX AN OUTPATIENT Home Medications Home Medications Medication Instructions Recorded Confirmed Type SENNOSIDES (SENNA LAXATIVE) 8.6 mg PO DAILY PRN #0 06/04/13 06/29/18 History POLYETHYLENE GLYCOL 3350 (MIRALAX) 17 g PO DAILY PRN #0 11/21/15 06/29/18 History aspirin 81 mg PO DAILY 06/29/18 06/29/18 History atorvastatin 10 mg PO QPM 06/29/18 06/29/18 History clonazepam 1 mg PO BID 06/29/18 06/29/18 History clopidogrel 75 mg PO DAILY 06/29/18 06/29/18 History docusate sodium 100 mg PO DAILY 06/29/18 06/29/18 History fluvoxamine 200 mg PO HS 06/29/18 06/29/18 History gabapentin 100 mg PO TID 06/29/18 06/29/18 History ipratropium-albuterol [Combivent 1 puff INHALATION QID 06/29/18 06/29/18 History Respimat] lamotrigine 400 mg PO BID 06/29/18 06/29/18 History lisinopril 20 mg PO DAILY 06/29/18 06/29/18 History metformin 1,000 mg PO BID 06/29/18 06/29/18 History metoprolol tartrate 25 mg PO BID 06/29/18 06/29/18 History mirtazapine 30 mg PO HS 06/29/18 06/29/18 History phenytoin sodium extended 100 mg PO BID 06/29/18 06/29/18 History promethazine 25 mg PO Q8H PRN 06/29/18 06/29/18 History quetiapine 50 mg PO DAILY@09,14 06/29/18 06/29/18 History quetiapine 100 mg PO HS 06/29/18 06/29/18 History quetiapine 400 mg PO HS 06/29/18 06/29/18 History tamsulosin 0.4 mg PO DAILY 06/29/18 06/29/18 History trazodone 100 mg PO HS 06/29/18 06/29/18 History Patient History Medical History HTN (hypertension) (Chronic) Diabetes mellitus, type II (Chronic) OCD (obsessive compulsive disorder) (Chronic) HLD (hyperlipidemia) (Chronic) Vertigo (Chronic) Seizure disorder (Chronic) Depression (Chronic) BPH (benign prostatic hypertrophy) (Chronic) Tobacco use disorder (Chronic) 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) COPD (chronic obstructive pulmonary disease) (Chronic) Obesity (BMI 30-39.9) (Chronic) Hypertriglyceridemia (Chronic) Surgical History H/O sigmoidoscopy (Chronic) H/O colonoscopy (Chronic) "11/08/2013- normal exam but limited by prep quality" Family History Father Coronary heart disease Other Lung cancer Social History Communication Ability: Effective Beliefs That Will Affect Care: None Current Living Situation: Family Other Information That Helps Us Care for You: No Feels Safe at Home: Yes Safety Concerns: Feels Safe At This Time Smoking Status: Current every day smoker Hx Alcohol Use: No Hx Substance Use: No Review of Systems Constitutional: + fatigue and + weakness; no fever, no chills and no weight loss Respiratory: + dyspnea and + dyspnea on exertion; no cough, no chest congestion, no hemoptysis and no snoring Cardiovascular: no chest pain, no chest pain at rest, no dyspnea and no dyspnea on exertion Gastrointestinal: + nausea, + vomiting, + coffee ground emesis and + constipation; no abdominal pain, no belching, no bloating, no early satiety, no heartburn, no hematemesis, no pain with swallowing, no dysphagia, no cramping, no excessive flatulence, no change in bowel habits, no change in stools, no diarrhea/loose stools, no fecal incontinence, no constant urge to pass stools, no blood in stools and no melena Physical Exam Vital Signs (Past 24 Hours): Last Vital Signs Temp 36.6 C 06/30/18 10:54 Pulse 97 H 06/30/18 10:54 Resp 16 06/30/18 10:54 BP 160/84 H 06/30/18 10:54 Pulse Ox 98 06/30/18 10:54 Constitutional: + ill appearing (chronically ill appearing), cooperative and comfortable; no acute distress Respiratory: no respiratory distress and no cough Auscultation: + diminished lung sounds Cardiovascular: Rate/Rhythm: regular rate and regular rhythm Heart Sounds: + murmur Gastrointestinal (Abdomen): Inspection/Auscultation: normal bowel sounds Percussion/Palpation: + abdomen tender and abdomen soft; no guarding and abdomen not rigid Skin: no rashes, warm and dry Results & Data Laboratory Results 06/30/18 06/30/18 06/30/18 Range/Units 11:14 11:03 11:02 WBC (4.8-10.8) K/uL RBC (4.7-6.1) M/uL Hgb 17.2 (14.0-18.0) g/dL POC Hgb (14.0-18.0) g/dl Hct 46.4 (42-52) % POC Hct (42-52) % MCV (80-100) fL MCH (25-34) pg MCHC (32-36) g/dL RDW Std Deviation (36.4-46.3) fL RDW Coeff of Ritesh (11.5-14.5) % Plt Count (130-400) K/uL MPV (7.4-10.4) fL Immature Gran % (Auto) % Neut % (Auto) % Lymph % (Auto) % [place] % (Auto) % Eos % (Auto) % Baso % (Auto) % Immature Gran # (Auto) (0.00-0.02) K/uL Neut # (Auto) (1.4-6.5) K/uL Lymph # (Auto) (1.2-3.4) K/uL [place] # (Auto) (0.11-0.59) K/uL Eos # (Auto) (0-0.5) K/uL Baso # (Auto) (0-0.2) K/uL PT (9.0-12.0) Seconds INR (0.9-1.1) APTT (21.0-31.0) Seconds PTT Ratio POC Sodium (135-144) mEq/L Sodium (136-145) mmol/L POC Potassium (3.3-5.0) mEq/L Potassium (3.5-5.1) mmol/L POC Chloride (101-112) mEq/L Chloride (98-107) mmol/L Carbon Dioxide (21-32) mmol/L POC Total CO2 (24-31) mEq/l Anion Gap (3-11) POC Anion Gap (16-25) mmol/L POC BUN (7-18) mg/dl BUN (7-18) mg/dl Creatinine (0.6-1.4) mg/dl POC Creatinine (0.6-1.3) mg/dl Est Cr Clr Drug Dosing ml/min Est GFR ( Amer) Est GFR (Non-Af Amer) BUN/Creatinine Ratio (10-20) Glucose (70-99) mg/dl POC Glucose 225 H (70-99) POC Glucose (other) (70-99) mg/dl Estimat Average Glucose mg/dl Hemoglobin A1c (4.5-5.6) % Calcium (8.5-10.1) mg/dl POC Ioniz Calcium Manuel (1.12-1.32) mmol/l Magnesium (1.8-2.4) mg/dl Total Bilirubin (0.2-1) mg/dl AST (15-37) U/L ALT (12-78) U/L Alkaline Phosphatase (45-117) U/L Troponin I 2.820 H* (0-0.045) ng/ml Total Protein (6.4-8.2) gm/dl Albumin (3.4-5.0) gm/dl Globulin (2.5-4.0) gm/dl Albumin/Globulin Ratio (0.9-2) Triglycerides (0-150) mg/dl Cholesterol (0-200) mg/dl LDL Cholesterol, Calc mg/dl VLDL Cholesterol, Calc mg/dl HDL Cholesterol mg/dl Cholesterol/HDL Ratio Lipase (73-393) U/L TSH (0.300-4.500) uIu/ml Urine Color Urine Appearance (Clear) Urine pH (4.5-7.5) Ur Specific [place] (1.000-1.030) Urine Protein (Negative) Urine Glucose (UA) (Negative) Urine Ketones (Negative) Urine Blood (Negative) Urine Nitrite (Negative) Urine Bilirubin (Negative) Urine Urobilinogen (Negative) Ur Leukocyte Esterase (Negative) Urine WBC (Auto) (0-5) /hpf Urine RBC (Auto) (0-4) /hpf U Hyaline Cast (Auto) (0-5) /lpf U Epithel Cells (Auto) (0-5) /lpf Urine Bacteria (Auto) (Negative) Gastric Fluid pH Gastric Occult Blood (Negative) Urine Opiates Screen (Neg) Ur Methadone, Qual (Neg) Urine Barbiturates (Neg) Phenytoin (10-20) mcg/ml Ur Phencyclidine (PCP) (Neg) U Amphetamin/Meth Scrn (Neg) MDMA (Ecstasy) Screen (Neg) U Benzodiazepines Scrn (Neg) Ur Cocaine Metabolite (Neg) U Marijuana (THC) Screen (Neg) 06/30/18 06/30/18 06/30/18 Range/Units 10:00 08:25 06:22 WBC (4.8-10.8) K/uL RBC (4.7-6.1) M/uL Hgb (14.0-18.0) g/dL POC Hgb (14.0-18.0) g/dl Hct (42-52) % POC Hct (42-52) % MCV (80-100) fL MCH (25-34) pg MCHC (32-36) g/dL RDW Std Deviation (36.4-46.3) fL RDW Coeff of Ritesh (11.5-14.5) % Plt Count (130-400) K/uL MPV (7.4-10.4) fL Immature Gran % (Auto) % Neut % (Auto) % Lymph % (Auto) % [place] % (Auto) % Eos % (Auto) % Baso % (Auto) % Immature Gran # (Auto) (0.00-0.02) K/uL Neut # (Auto) (1.4-6.5) K/uL Lymph # (Auto) (1.2-3.4) K/uL [place] # (Auto) (0.11-0.59) K/uL Eos # (Auto) (0-0.5) K/uL Baso # (Auto) (0-0.2) K/uL PT (9.0-12.0) Seconds INR (0.9-1.1) APTT 75.1 H* (21.0-31.0) Seconds PTT Ratio 2.8 POC Sodium (135-144) mEq/L Sodium (136-145) mmol/L POC Potassium (3.3-5.0) mEq/L Potassium (3.5-5.1) mmol/L POC Chloride (101-112) mEq/L Chloride (98-107) mmol/L Carbon Dioxide (21-32) mmol/L POC Total CO2 (24-31) mEq/l Anion Gap (3-11) POC Anion Gap (16-25) mmol/L POC BUN (7-18) mg/dl BUN (7-18) mg/dl Creatinine (0.6-1.4) mg/dl POC Creatinine (0.6-1.3) mg/dl Est Cr Clr Drug Dosing ml/min Est GFR ( Amer) Est GFR (Non-Af Amer) BUN/Creatinine Ratio (10-20) Glucose (70-99) mg/dl POC Glucose (70-99) POC Glucose (other) (70-99) mg/dl Estimat Average Glucose mg/dl Hemoglobin A1c (4.5-5.6) % Calcium (8.5-10.1) mg/dl POC Ioniz Calcium Manuel (1.12-1.32) mmol/l Magnesium (1.8-2.4) mg/dl Total Bilirubin (0.2-1) mg/dl AST (15-37) U/L ALT (12-78) U/L Alkaline Phosphatase (45-117) U/L Troponin I 2.500 H* (0-0.045) ng/ml Total Protein (6.4-8.2) gm/dl Albumin (3.4-5.0) gm/dl Globulin (2.5-4.0) gm/dl Albumin/Globulin Ratio (0.9-2) Triglycerides (0-150) mg/dl Cholesterol (0-200) mg/dl LDL Cholesterol, Calc mg/dl VLDL Cholesterol, Calc mg/dl HDL Cholesterol mg/dl Cholesterol/HDL Ratio Lipase (73-393) U/L TSH (0.300-4.500) uIu/ml Urine Color Urine Appearance (Clear) Urine pH (4.5-7.5) Ur Specific [place] (1.000-1.030) Urine Protein (Negative) Urine Glucose (UA) (Negative) Urine Ketones (Negative) Urine Blood (Negative) Urine Nitrite (Negative) Urine Bilirubin (Negative) Urine Urobilinogen (Negative) Ur Leukocyte Esterase (Negative) Urine WBC (Auto) (0-5) /hpf Urine RBC (Auto) (0-4) /hpf U Hyaline Cast (Auto) (0-5) /lpf U Epithel Cells (Auto) (0-5) /lpf Urine Bacteria (Auto) (Negative) Gastric Fluid pH 1 Gastric Occult Blood Positive H (Negative) Urine Opiates Screen (Neg) Ur Methadone, Qual (Neg) Urine Barbiturates (Neg) Phenytoin (10-20) mcg/ml Ur Phencyclidine (PCP) (Neg) U Amphetamin/Meth Scrn (Neg) MDMA (Ecstasy) Screen (Neg) U Benzodiazepines Scrn (Neg) Ur Cocaine Metabolite (Neg) U Marijuana (THC) Screen (Neg) 06/30/18 06/30/18 06/30/18 Range/Units 05:21 05:21 05:21 WBC 6.52 (4.8-10.8) K/uL RBC 4.82 (4.7-6.1) M/uL Hgb 16.4 (14.0-18.0) g/dL POC Hgb (14.0-18.0) g/dl Hct 44.3 (42-52) % POC Hct (42-52) % MCV 91.9 (80-100) fL MCH 34.0 (25-34) pg MCHC 37.0 H (32-36) g/dL RDW Std Deviation 44.8 (36.4-46.3) fL RDW Coeff of Ritesh 13.5 (11.5-14.5) % Plt Count 140 (130-400) K/uL MPV 8.9 (7.4-10.4) fL Immature Gran % (Auto) % Neut % (Auto) % Lymph % (Auto) % [place] % (Auto) % Eos % (Auto) % Baso % (Auto) % Immature Gran # (Auto) (0.00-0.02) K/uL Neut # (Auto) (1.4-6.5) K/uL Lymph # (Auto) (1.2-3.4) K/uL [place] # (Auto) (0.11-0.59) K/uL Eos # (Auto) (0-0.5) K/uL Baso # (Auto) (0-0.2) K/uL PT (9.0-12.0) Seconds INR (0.9-1.1) APTT (21.0-31.0) Seconds PTT Ratio POC Sodium (135-144) mEq/L Sodium 131 L (136-145) mmol/L POC Potassium (3.3-5.0) mEq/L Potassium 3.8 (3.5-5.1) mmol/L POC Chloride (101-112) mEq/L Chloride 101 (98-107) mmol/L Carbon Dioxide 22 (21-32) mmol/L POC Total CO2 (24-31) mEq/l Anion Gap 8.0 (3-11) POC Anion Gap (16-25) mmol/L POC BUN (7-18) mg/dl BUN 14 (7-18) mg/dl Creatinine 1.01 (0.6-1.4) mg/dl POC Creatinine (0.6-1.3) mg/dl Est Cr Clr Drug Dosing 76.1 ml/min Est GFR ( Amer) 89.4 Est GFR (Non-Af Amer) 77.1 BUN/Creatinine Ratio 13.5 (10-20) Glucose 235 H (70-99) mg/dl POC Glucose (70-99) POC Glucose (other) (70-99) mg/dl Estimat Average Glucose 220 mg/dl Hemoglobin A1c 9.3 H (4.5-5.6) % Calcium 8.8 (8.5-10.1) mg/dl POC Ioniz Calcium Manuel (1.12-1.32) mmol/l Magnesium 1.9 (1.8-2.4) mg/dl Total Bilirubin (0.2-1) mg/dl AST (15-37) U/L ALT (12-78) U/L Alkaline Phosphatase (45-117) U/L Troponin I (0-0.045) ng/ml Total Protein (6.4-8.2) gm/dl Albumin (3.4-5.0) gm/dl Globulin (2.5-4.0) gm/dl Albumin/Globulin Ratio (0.9-2) Triglycerides 54 (0-150) mg/dl Cholesterol 128 (0-200) mg/dl LDL Cholesterol, Calc 71 mg/dl VLDL Cholesterol, Calc 11 mg/dl HDL Cholesterol 46 mg/dl Cholesterol/HDL Ratio 3 Lipase (73-393) U/L TSH (0.300-4.500) uIu/ml Urine Color Urine Appearance (Clear) Urine pH (4.5-7.5) Ur Specific [place] (1.000-1.030) Urine Protein (Negative) Urine Glucose (UA) (Negative) Urine Ketones (Negative) Urine Blood (Negative) Urine Nitrite (Negative) Urine Bilirubin (Negative) Urine Urobilinogen (Negative) Ur Leukocyte Esterase (Negative) Urine WBC (Auto) (0-5) /hpf Urine RBC (Auto) (0-4) /hpf U Hyaline Cast (Auto) (0-5) /lpf U Epithel Cells (Auto) (0-5) /lpf Urine Bacteria (Auto) (Negative) Gastric Fluid pH Gastric Occult Blood (Negative) Urine Opiates Screen (Neg) Ur Methadone, Qual (Neg) Urine Barbiturates (Neg) Phenytoin (10-20) mcg/ml Ur Phencyclidine (PCP) (Neg) U Amphetamin/Meth Scrn (Neg) MDMA (Ecstasy) Screen (Neg) U Benzodiazepines Scrn (Neg) Ur Cocaine Metabolite (Neg) U Marijuana (THC) Screen (Neg) 06/30/18 06/30/18 06/30/18 Range/Units 01:40 01:40 00:49 WBC (4.8-10.8) K/uL RBC (4.7-6.1) M/uL Hgb (14.0-18.0) g/dL POC Hgb (14.0-18.0) g/dl Hct (42-52) % POC Hct (42-52) % MCV (80-100) fL MCH (25-34) pg MCHC (32-36) g/dL RDW Std Deviation (36.4-46.3) fL RDW Coeff of Ritesh (11.5-14.5) % Plt Count (130-400) K/uL MPV (7.4-10.4) fL Immature Gran % (Auto) % Neut % (Auto) % Lymph % (Auto) % [place] % (Auto) % Eos % (Auto) % Baso % (Auto) % Immature Gran # (Auto) (0.00-0.02) K/uL Neut # (Auto) (1.4-6.5) K/uL Lymph # (Auto) (1.2-3.4) K/uL [place] # (Auto) (0.11-0.59) K/uL Eos # (Auto) (0-0.5) K/uL Baso # (Auto) (0-0.2) K/uL PT (9.0-12.0) Seconds INR (0.9-1.1) APTT (21.0-31.0) Seconds PTT Ratio POC Sodium (135-144) mEq/L Sodium (136-145) mmol/L POC Potassium (3.3-5.0) mEq/L Potassium (3.5-5.1) mmol/L POC Chloride (101-112) mEq/L Chloride (98-107) mmol/L Carbon Dioxide (21-32) mmol/L POC Total CO2 (24-31) mEq/l Anion Gap (3-11) POC Anion Gap (16-25) mmol/L POC BUN (7-18) mg/dl BUN (7-18) mg/dl Creatinine (0.6-1.4) mg/dl POC Creatinine (0.6-1.3) mg/dl Est Cr Clr Drug Dosing ml/min Est GFR ( Amer) Est GFR (Non-Af Amer) BUN/Creatinine Ratio (10-20) Glucose (70-99) mg/dl POC Glucose (70-99) POC Glucose (other) (70-99) mg/dl Estimat Average Glucose mg/dl Hemoglobin A1c (4.5-5.6) % Calcium (8.5-10.1) mg/dl POC Ioniz Calcium Manuel (1.12-1.32) mmol/l Magnesium (1.8-2.4) mg/dl Total Bilirubin (0.2-1) mg/dl AST (15-37) U/L ALT (12-78) U/L Alkaline Phosphatase (45-117) U/L Troponin I (0-0.045) ng/ml Total Protein (6.4-8.2) gm/dl Albumin (3.4-5.0) gm/dl Globulin (2.5-4.0) gm/dl Albumin/Globulin Ratio (0.9-2) Triglycerides (0-150) mg/dl Cholesterol (0-200) mg/dl LDL Cholesterol, Calc mg/dl VLDL Cholesterol, Calc mg/dl HDL Cholesterol mg/dl Cholesterol/HDL Ratio Lipase (73-393) U/L TSH (0.300-4.500) uIu/ml Urine Color Yellow Urine Appearance Clear (Clear) Urine pH 5.5 (4.5-7.5) Ur Specific [place] 1.017 (1.000-1.030) Urine Protein Negative (Negative) Urine Glucose (UA) 3+ H (Negative) Urine Ketones Negative (Negative) Urine Blood 1+ H (Negative) Urine Nitrite Negative (Negative) Urine Bilirubin Negative (Negative) Urine Urobilinogen Negative (Negative) Ur Leukocyte Esterase Negative (Negative) Urine WBC (Auto) 1-5 (0-5) /hpf Urine RBC (Auto) 0-4 (0-4) /hpf U Hyaline Cast (Auto) 1-5 (0-5) /lpf U Epithel Cells (Auto) 10-20 H (0-5) /lpf Urine Bacteria (Auto) Negative (Negative) Gastric Fluid pH Gastric Occult Blood (Negative) Urine Opiates Screen Neg (Neg) Ur Methadone, Qual Neg (Neg) Urine Barbiturates Neg (Neg) Phenytoin 4.9 L (10-20) mcg/ml Ur Phencyclidine (PCP) Neg (Neg) U Amphetamin/Meth Scrn Neg (Neg) MDMA (Ecstasy) Screen Neg (Neg) U Benzodiazepines Scrn Neg (Neg) Ur Cocaine Metabolite Neg (Neg) U Marijuana (THC) Screen Neg (Neg) 06/29/18 06/29/18 06/29/18 Range/Units 21:18 20:17 20:12 WBC (4.8-10.8) K/uL RBC (4.7-6.1) M/uL Hgb (14.0-18.0) g/dL POC Hgb 16.3 (14.0-18.0) g/dl Hct (42-52) % POC Hct 48 (42-52) % MCV (80-100) fL MCH (25-34) pg MCHC (32-36) g/dL RDW Std Deviation (36.4-46.3) fL RDW Coeff of Ritesh (11.5-14.5) % Plt Count (130-400) K/uL MPV (7.4-10.4) fL Immature Gran % (Auto) % Neut % (Auto) % Lymph % (Auto) % [place] % (Auto) % Eos % (Auto) % Baso % (Auto) % Immature Gran # (Auto) (0.00-0.02) K/uL Neut # (Auto) (1.4-6.5) K/uL Lymph # (Auto) (1.2-3.4) K/uL [place] # (Auto) (0.11-0.59) K/uL Eos # (Auto) (0-0.5) K/uL Baso # (Auto) (0-0.2) K/uL PT (9.0-12.0) Seconds INR (0.9-1.1) APTT 26.8 (21.0-31.0) Seconds PTT Ratio 1.0 POC Sodium 133 L (135-144) mEq/L Sodium (136-145) mmol/L POC Potassium 3.7 (3.3-5.0) mEq/L Potassium (3.5-5.1) mmol/L POC Chloride 103 (101-112) mEq/L Chloride (98-107) mmol/L Carbon Dioxide (21-32) mmol/L POC Total CO2 17 L (24-31) mEq/l Anion Gap (3-11) POC Anion Gap 18.0 (16-25) mmol/L POC BUN 19 H (7-18) mg/dl BUN (7-18) mg/dl Creatinine (0.6-1.4) mg/dl POC Creatinine 1.1 (0.6-1.3) mg/dl Est Cr Clr Drug Dosing ml/min Est GFR ( Amer) Est GFR (Non-Af Amer) BUN/Creatinine Ratio (10-20) Glucose (70-99) mg/dl POC Glucose (70-99) POC Glucose (other) 215 H (70-99) mg/dl Estimat Average Glucose mg/dl Hemoglobin A1c (4.5-5.6) % Calcium (8.5-10.1) mg/dl POC Ioniz Calcium Manuel 1.13 (1.12-1.32) mmol/l Magnesium (1.8-2.4) mg/dl Total Bilirubin (0.2-1) mg/dl AST (15-37) U/L ALT (12-78) U/L Alkaline Phosphatase (45-117) U/L Troponin I (0-0.045) ng/ml Total Protein (6.4-8.2) gm/dl Albumin (3.4-5.0) gm/dl Globulin (2.5-4.0) gm/dl Albumin/Globulin Ratio (0.9-2) Triglycerides (0-150) mg/dl Cholesterol (0-200) mg/dl LDL Cholesterol, Calc mg/dl VLDL Cholesterol, Calc mg/dl HDL Cholesterol mg/dl Cholesterol/HDL Ratio Lipase (73-393) U/L TSH (0.300-4.500) uIu/ml Urine Color Yellow Urine Appearance Clear (Clear) Urine pH 5.0 (4.5-7.5) Ur Specific [place] 1.017 (1.000-1.030) Urine Protein Negative (Negative) Urine Glucose (UA) 2+ H (Negative) Urine Ketones Negative (Negative) Urine Blood Trace H (Negative) Urine Nitrite Negative (Negative) Urine Bilirubin Negative (Negative) Urine Urobilinogen Negative (Negative) Ur Leukocyte Esterase Trace H (Negative) Urine WBC (Auto) 1-5 (0-5) /hpf Urine RBC (Auto) 0-4 (0-4) /hpf U Hyaline Cast (Auto) 0 (0-5) /lpf U Epithel Cells (Auto) 20-30 H (0-5) /lpf Urine Bacteria (Auto) Negative (Negative) Gastric Fluid pH Gastric Occult Blood (Negative) Urine Opiates Screen (Neg) Ur Methadone, Qual (Neg) Urine Barbiturates (Neg) Phenytoin (10-20) mcg/ml Ur Phencyclidine (PCP) (Neg) U Amphetamin/Meth Scrn (Neg) MDMA (Ecstasy) Screen (Neg) U Benzodiazepines Scrn (Neg) Ur Cocaine Metabolite (Neg) U Marijuana (THC) Screen (Neg) 06/29/18 06/29/18 06/29/18 Range/Units 20:12 20:12 20:12 WBC 6.66 (4.8-10.8) K/uL RBC 4.77 (4.7-6.1) M/uL Hgb 16.7 (14.0-18.0) g/dL POC Hgb (14.0-18.0) g/dl Hct 45.2 (42-52) % POC Hct (42-52) % MCV 94.8 (80-100) fL MCH 35.0 H (25-34) pg MCHC 36.9 H (32-36) g/dL RDW Std Deviation 47.0 H (36.4-46.3) fL RDW Coeff of Ritesh 13.6 (11.5-14.5) % Plt Count 153 (130-400) K/uL MPV 8.9 (7.4-10.4) fL Immature Gran % (Auto) 0.3 % Neut % (Auto) 75.0 % Lymph % (Auto) 15.3 % [place] % (Auto) 5.9 % Eos % (Auto) 3.2 % Baso % (Auto) 0.3 % Immature Gran # (Auto) 0.02 (0.00-0.02) K/uL Neut # (Auto) 5.00 (1.4-6.5) K/uL Lymph # (Auto) 1.02 L (1.2-3.4) K/uL [place] # (Auto) 0.39 (0.11-0.59) K/uL Eos # (Auto) 0.21 (0-0.5) K/uL Baso # (Auto) 0.02 (0-0.2) K/uL PT 10.3 (9.0-12.0) Seconds INR 1.0 (0.9-1.1) APTT (21.0-31.0) Seconds PTT Ratio POC Sodium (135-144) mEq/L Sodium 132 L (136-145) mmol/L POC Potassium (3.3-5.0) mEq/L Potassium 3.7 (3.5-5.1) mmol/L POC Chloride (101-112) mEq/L Chloride 105 (98-107) mmol/L Carbon Dioxide 18 L (21-32) mmol/L POC Total CO2 (24-31) mEq/l Anion Gap 9.0 (3-11) POC Anion Gap (16-25) mmol/L POC BUN (7-18) mg/dl BUN 19 H (7-18) mg/dl Creatinine 1.27 (0.6-1.4) mg/dl POC Creatinine (0.6-1.3) mg/dl Est Cr Clr Drug Dosing 62.1 ml/min Est GFR ( Amer) 67.8 Est GFR (Non-Af Amer) 58.5 BUN/Creatinine Ratio 14.8 (10-20) Glucose 211 H (70-99) mg/dl POC Glucose (70-99) POC Glucose (other) (70-99) mg/dl Estimat Average Glucose mg/dl Hemoglobin A1c (4.5-5.6) % Calcium 8.9 (8.5-10.1) mg/dl POC Ioniz Calcium Manuel (1.12-1.32) mmol/l Magnesium (1.8-2.4) mg/dl Total Bilirubin 0.3 (0.2-1) mg/dl AST 12 L (15-37) U/L ALT 21 (12-78) U/L Alkaline Phosphatase 207 H (45-117) U/L Troponin I 0.079 H* (0-0.045) ng/ml Total Protein 8.2 (6.4-8.2) gm/dl Albumin 3.8 (3.4-5.0) gm/dl Globulin 4.4 H (2.5-4.0) gm/dl Albumin/Globulin Ratio 0.9 (0.9-2) Triglycerides (0-150) mg/dl Cholesterol (0-200) mg/dl LDL Cholesterol, Calc mg/dl VLDL Cholesterol, Calc mg/dl HDL Cholesterol mg/dl Cholesterol/HDL Ratio Lipase 251 (73-393) U/L TSH 1.670 (0.300-4.500) uIu/ml Urine Color Urine Appearance (Clear) Urine pH (4.5-7.5) Ur Specific [place] (1.000-1.030) Urine Protein (Negative) Urine Glucose (UA) (Negative) Urine Ketones (Negative) Urine Blood (Negative) Urine Nitrite (Negative) Urine Bilirubin (Negative) Urine Urobilinogen (Negative) Ur Leukocyte Esterase (Negative) Urine WBC (Auto) (0-5) /hpf Urine RBC (Auto) (0-4) /hpf U Hyaline Cast (Auto) (0-5) /lpf U Epithel Cells (Auto) (0-5) /lpf Urine Bacteria (Auto) (Negative) Gastric Fluid pH Gastric Occult Blood (Negative) Urine Opiates Screen (Neg) Ur Methadone, Qual (Neg) Urine Barbiturates (Neg) Phenytoin (10-20) mcg/ml Ur Phencyclidine (PCP) (Neg) U Amphetamin/Meth Scrn (Neg) MDMA (Ecstasy) Screen (Neg) U Benzodiazepines Scrn (Neg) Ur Cocaine Metabolite (Neg) U Marijuana (THC) Screen (Neg)
[2018-06-30] MEDS: clonazePAM 1 MG TAB PO SCH ×2 (11:56→20:34)
[2018-06-30] MEDS: TAMSULOSIN HCL 0.4 MG CAP PO SCH (11:56)
[2018-06-30] MEDS: IPRATROPIUM BROMIDE/ALBUTEROL respimat INH INH SCH ×4 (11:56→20:30)
[2018-06-30] MEDS: GABAPENTIN 100 MG CAP PO SCH ×3 (11:56→20:27)
[2018-06-30] MEDS: ASPIRIN 81 MG ECTAB PO SCH (11:56)
[2018-06-30] MEDS: QUETIAPINE FUMARATE 25 MG TABLET PO SCH ×2 (11:57→13:59)
[2018-06-30] MEDS: LISINOPRIL 20 MG TAB PO SCH (11:57)
[2018-06-30] MEDS: CLOPIDOGREL BISULFATE 75 MG TAB PO SCH (11:57)
[2018-06-30] MEDS: METOPROLOL TARTRATE 1 MG/ML VIAL IV SCH ×3 (12:03→23:29)
[2018-06-30] MEDS: PANTOprazole 40 MG in DEXTROSE 5% 100 ML IV SCH ×3 (13:04→22:48)
[2018-06-30 13:42] LABS: Albumin Level 3.7 gm/dl (3.4-5.0); Bilirubin Direct 0.2 mg/dl (0-0.2); Bilirubin,Total 0.4 mg/dl (0.2-1)
--- NOTE | 2018-06-30 13:45 | Neurology Consultation ---
Date of Consultation June 30, 2018 Assessment & Plan (1) Seizure disorder: 1. restart of dilantin 100 mg BID 2. restart of Lamictal [address] head- no acute abnormalities 4. TTE no ASD 5. GI plans for EGD tomorrow NPO after midnight 6. GI recommending holding heparin gtt if able 7. dilantin level 4.9 8. lamictal level is pending 9. recommend smoking cessation Neurology follow up in 2-4 weeks after discharge Dinora Perea PAC schedule Supervising Physician Co-Signing Physician Notes I have seen and discussed above patient with Dr Luis A Martinez. Patient was seen and examined. I agree with Dinora Perea PA-C as noted below. No family at bedside. Admitted with intractable N/V. Patient reports non compliance with his medications at home including Klonopin, Lamiactal, and Dilantin. His insight is poor. Spell described by patient (not able to move, aware, conciousness, not able to speak) sounds suggestive of a non epileptic event. Neuro examine non focal this afternoon. No tongue abrasion. Resumed home Dilantin 200 mg daily. This can be given IV if needed. Please resume home Lamictal. Patient is currently on high dose Lamictal although this is in the setting of Phenytoin. Doses as high as 700 mg/day have been used. Agree with resuming home dose medication. It is fine to restart previous dose if patient has only been off medication for ~5days. Otherwise may need to slowly ti trate Lamictal. Certainly when patient is back on home dose he will need a trough level checked. Will continue to follow. Please call with any questions. He will certainly need follow up with Neurology as outpatient on discharge. Can discuss de-escalation of AEDs if needed at that time. History of Present Illness Reason for Consultation: out of meds recent seizure Requesting Physician: Kuldip Marks MD Attending Physician: Kuldip Marks MD History of Present Illness Liang is a 68 year old male who is well known to neurology. He has a PMH DM II, HTN, HLD, BPH, depression, COPD, tobacco use, CKD III presented to ER with nausea and vomiting. He states he has been out of most of his medications including some psych meds and blood pressure medication but he states he did have some of his seizure medications. He has had nausea and vomiting and feeling more generalized weakness and dizziness. He has also he poor oral intake. He self caths 4 times a day. He was experiencing some palpitations today. He has a "spell" which he was unable to move, blurry vision, couldn't talk and had trouble breathing. This occurred while he was lying on the couch. He thinks this may have been a seizure. Denies loss control of bowel/bladder. Sleeps in recliner chronically because of his breathing issues. He has been walking around in socks because it is so painful to put on shoes. He has chronic paresthesias to bilateral hands and feet. denies fall or hitting his head. denies CP, SOB, abdominal pain, one sided weakness, numbness tingling, +N, V, + vision decreased (chronic issues needs glasses). +smoker. Allergies Allergy/AdvReac Type Severity Reaction Status Date / Time Sulfa (Sulfonamide Allergy Unknown HAS TAKEN Verified 11/17/15 01:37 Antibiotics) LASIX AN OUTPATIENT Home Medications Home Medications Medication Instructions Recorded Confirmed Type SENNOSIDES (SENNA LAXATIVE) 8.6 mg PO DAILY PRN #0 06/04/13 06/29/18 History POLYETHYLENE GLYCOL 3350 (MIRALAX) 17 g PO DAILY PRN #0 11/21/15 06/29/18 History aspirin 81 mg PO DAILY 06/29/18 06/29/18 History atorvastatin 10 mg PO QPM 06/29/18 06/29/18 History clonazepam 1 mg PO BID 06/29/18 06/29/18 History clopidogrel 75 mg PO DAILY 06/29/18 06/29/18 History docusate sodium 100 mg PO DAILY 06/29/18 06/29/18 History fluvoxamine 200 mg PO HS 06/29/18 06/29/18 History gabapentin 100 mg PO TID 06/29/18 06/29/18 History ipratropium-albuterol [Combivent 1 puff INHALATION QID 06/29/18 06/29/18 History Respimat] lamotrigine 400 mg PO BID 06/29/18 06/29/18 History lisinopril 20 mg PO DAILY 06/29/18 06/29/18 History metformin 1,000 mg PO BID 06/29/18 06/29/18 History metoprolol tartrate 25 mg PO BID 06/29/18 06/29/18 History mirtazapine 30 mg PO HS 06/29/18 06/29/18 History phenytoin sodium extended 100 mg PO BID 06/29/18 06/29/18 History promethazine 25 mg PO Q8H PRN 06/29/18 06/29/18 History quetiapine 50 mg PO DAILY@09,14 06/29/18 06/29/18 History quetiapine 100 mg PO HS 06/29/18 06/29/18 History quetiapine 400 mg PO HS 06/29/18 06/29/18 History tamsulosin 0.4 mg PO DAILY 06/29/18 06/29/18 History trazodone 100 mg PO HS 06/29/18 06/29/18 History Patient History Medical History HTN (hypertension) (Chronic) Diabetes mellitus, type II (Chronic) OCD (obsessive compulsive disorder) (Chronic) HLD (hyperlipidemia) (Chronic) Vertigo (Chronic) Seizure disorder (Chronic) Depression (Chronic) BPH (benign prostatic hypertrophy) (Chronic) Tobacco use disorder (Chronic) 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) COPD (chronic obstructive pulmonary disease) (Chronic) Obesity (BMI 30-39.9) (Chronic) Hypertriglyceridemia (Chronic) Surgical History H/O sigmoidoscopy (Chronic) H/O colonoscopy (Chronic) "11/08/2013- normal exam but limited by prep quality" Family History Father Coronary heart disease Other Lung cancer Social History Communication Ability: Effective Beliefs That Will Affect Care: None Current Living Situation: Family Other Information That Helps Us Care for You: No Feels Safe at Home: Yes Safety Concerns: Feels Safe At This Time Smoking Status: Current every day smoker Hx Alcohol Use: No Hx Substance Use: No Physical Exam Vital Signs (Past 24 Hours): Last Vital Signs Temp 36.6 C 06/30/18 10:54 Pulse 97 H 06/30/18 10:54 Resp 16 06/30/18 10:54 BP 160/84 H 06/30/18 10:54 Pulse Ox 98 06/30/18 10:54 Physical Exam: Constitutional: appearance ill appearing, unkempt. Ears, Nose, Mouth and Throat: mucous membranes moist, no injection and skin normal, eyes normal Cardiovascular: normal S-1 and S-2 and regular rate and rhythm Respiratory: course breath sounds with wheezing Musculoskeletal: bilateral LE wounds. Skin: neurocutaneous disease, venous status Eyes: extraocular muscles intact (EOMI) and pupils equal, round and reactive to light (PERRL) NEUROLOGIC EXAMINATION: Mental status: Alert and interactive Oriented to full date and location Oriented to person Speech fluent with no evidence of aphasia Cranial Nerves smile eye brow raise symmetric Reflexes: Deep tendon reflexes were symmetrical and graded 2/5. Sensory: decreased sensation to vibration and cool touch bilaterally LE Coordination: finger to nose no bi pass, rapid hand movements slowed Gait/Stance: Posture sitting up in bed Motor: Negative for pronator drift of out stretched arms with eyes closed. 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, hip flex 5/5 Results & Data Laboratory Results Abnormal lab results 06/29/18 06/29/18 06/29/18 Range/Units 20:12 20:12 20:17 MCH 35.0 H (25-34) pg MCHC 36.9 H (32-36) g/dL RDW Std Deviation 47.0 H (36.4-46.3) fL Lymph # (Auto) 1.02 L (1.2-3.4) K/uL APTT (21.0-31.0) Seconds POC Sodium 133 L (135-144) mEq/L Sodium 132 L (136-145) mmol/L Carbon Dioxide 18 L (21-32) mmol/L POC Total CO2 17 L (24-31) mEq/l POC BUN 19 H (7-18) mg/dl BUN 19 H (7-18) mg/dl Glucose 211 H (70-99) mg/dl POC Glucose (70-99) POC Glucose (other) 215 H (70-99) mg/dl Hemoglobin A1c (4.5-5.6) % AST 12 L (15-37) U/L Alkaline Phosphatase 207 H (45-117) U/L Troponin I 0.079 H* (0-0.045) ng/ml Globulin 4.4 H (2.5-4.0) gm/dl Urine Glucose (UA) (Negative) Urine Blood (Negative) Ur Leukocyte Esterase (Negative) U Epithel Cells (Auto) (0-5) /lpf Gastric Occult Blood (Negative) Phenytoin (10-20) mcg/ml 06/29/18 06/30/18 06/30/18 Range/Units 21:18 00:49 01:40 MCH (25-34) pg MCHC (32-36) g/dL RDW Std Deviation (36.4-46.3) fL Lymph # (Auto) (1.2-3.4) K/uL APTT (21.0-31.0) Seconds POC Sodium (135-144) mEq/L Sodium (136-145) mmol/L Carbon Dioxide (21-32) mmol/L POC Total CO2 (24-31) mEq/l POC BUN (7-18) mg/dl BUN (7-18) mg/dl Glucose (70-99) mg/dl POC Glucose (70-99) POC Glucose (other) (70-99) mg/dl Hemoglobin A1c (4.5-5.6) % AST (15-37) U/L Alkaline Phosphatase (45-117) U/L Troponin I (0-0.045) ng/ml Globulin (2.5-4.0) gm/dl Urine Glucose (UA) 2+ H 3+ H (Negative) Urine Blood Trace H 1+ H (Negative) Ur Leukocyte Esterase Trace H (Negative) U Epithel Cells (Auto) 20-30 H 10-20 H (0-5) /lpf Gastric Occult Blood (Negative) Phenytoin 4.9 L (10-20) mcg/ml 06/30/18 06/30/18 06/30/18 Range/Units 05:21 05:21 05:21 MCH (25-34) pg MCHC 37.0 H (32-36) g/dL RDW Std Deviation (36.4-46.3) fL Lymph # (Auto) (1.2-3.4) K/uL APTT (21.0-31.0) Seconds POC Sodium (135-144) mEq/L Sodium 131 L (136-145) mmol/L Carbon Dioxide (21-32) mmol/L POC Total CO2 (24-31) mEq/l POC BUN (7-18) mg/dl BUN (7-18) mg/dl Glucose 235 H (70-99) mg/dl POC Glucose (70-99) POC Glucose (other) (70-99) mg/dl Hemoglobin A1c 9.3 H (4.5-5.6) % AST (15-37) U/L Alkaline Phosphatase (45-117) U/L Troponin I (0-0.045) ng/ml Globulin (2.5-4.0) gm/dl Urine Glucose (UA) (Negative) Urine Blood (Negative) Ur Leukocyte Esterase (Negative) U Epithel Cells (Auto) (0-5) /lpf Gastric Occult Blood (Negative) Phenytoin (10-20) mcg/ml 06/30/18 06/30/18 06/30/18 Range/Units 06:22 08:25 10:00 MCH (25-34) pg MCHC (32-36) g/dL RDW Std Deviation (36.4-46.3) fL Lymph # (Auto) (1.2-3.4) K/uL APTT 75.1 H* (21.0-31.0) Seconds POC Sodium (135-144) mEq/L Sodium (136-145) mmol/L Carbon Dioxide (21-32) mmol/L POC Total CO2 (24-31) mEq/l POC BUN (7-18) mg/dl BUN (7-18) mg/dl Glucose (70-99) mg/dl POC Glucose (70-99) POC Glucose (other) (70-99) mg/dl Hemoglobin A1c (4.5-5.6) % AST (15-37) U/L Alkaline Phosphatase (45-117) U/L Troponin I 2.500 H* (0-0.045) ng/ml Globulin (2.5-4.0) gm/dl Urine Glucose (UA) (Negative) Urine Blood (Negative) Ur Leukocyte Esterase (Negative) U Epithel Cells (Auto) (0-5) /lpf Gastric Occult Blood Positive H (Negative) Phenytoin (10-20) mcg/ml 06/30/18 06/30/18 Range/Units 11:02 11:03 MCH (25-34) pg MCHC (32-36) g/dL RDW Std Deviation (36.4-46.3) fL Lymph # (Auto) (1.2-3.4) K/uL APTT (21.0-31.0) Seconds POC Sodium (135-144) mEq/L Sodium (136-145) mmol/L Carbon Dioxide (21-32) mmol/L POC Total CO2 (24-31) mEq/l POC BUN (7-18) mg/dl BUN (7-18) mg/dl Glucose (70-99) mg/dl POC Glucose 225 H (70-99) POC Glucose (other) (70-99) mg/dl Hemoglobin A1c (4.5-5.6) % AST (15-37) U/L Alkaline Phosphatase (45-117) U/L Troponin I 2.820 H* (0-0.045) ng/ml Globulin (2.5-4.0) gm/dl Urine Glucose (UA) (Negative) Urine Blood (Negative) Ur Leukocyte Esterase (Negative) U Epithel Cells (Auto) (0-5) /lpf Gastric Occult Blood (Negative) Phenytoin (10-20) mcg/ml Diagnostic Findings CT abd/pelvis- Cholelithiasis Stable sebaceous cyst No evidence of bowel obstruction. No evidence of free air Normal appendix. No evidence of diverticulitis. Mild bladder distention CXR- Mild cardiomegaly and equivocal mild pulmonary vascular congestion. No evidence of focal pulmonary consolidation CT head- 1. Inflammatory changes within the paranasal sinuses Otherwise no acute intracranial findings. gallbladder US-Small gallstone with a small amount of gallbladder sludge. Normal caliber bile ducts. Fatty replacement of the liver. TTE- EF 60-65% no ASD
--- NOTE | 2018-06-30 14:18 | Discharge Summary ---
Date of Service June 30, 2018 Discharge Data Allergies Allergy/AdvReac Type Severity Reaction Status Date / Time Sulfa (Sulfonamide Allergy Unknown HAS TAKEN Verified 11/17/15 01:37 Antibiotics) LASIX AN OUTPATIENT Consultations 06/29/18 21:34 ED Decision to Admit Stat 06/29/18 21:42 ED Decision to Admit Stat 06/30/18 00:39 Consult Cardiology Routine Consult Case Management - Discharge Planning Routine Consult Neurology Routine 06/30/18 11:03 Consult Gastroenterology Routine Procedures Performed Operation Date: 07/01/18 08:30 <No data on this case meets the specified criteria> Ordered Studies 06/29/18 19:52 CT abd pelvis IV con only Stat CT head/brain wo con Stat 06/30/18 01:02 US gallbladder Urgent Hospital Course (1) Weakness: (2) Vomiting: CT abd/pelvis: 1. Cholelithiasis 2. Stable sebaceous cyst 3. No evidence of bowel obstruction. No evidence of free air 4. Normal appendix. No evidence of diverticulitis. 5. Mild bladder distention May be secondary to being out of medications -antiemetics prn -clear liquid diet (3) Elevated troponin: (4) Seizure disorder: (5) Diabetes mellitus, type II: (6) TIA (transient ischemic attack): (7) COPD (chronic obstructive pulmonary disease): No acute exacerbation. No infiltrate noted on CXR. -continue albuterol inhaler (8) HTN (hypertension): -continue lisinopril (9) HLD (hyperlipidemia): (10) OCD (obsessive compulsive disorder): (11) Depression: (12) BPH (benign prostatic hypertrophy): Discharge Plan Discharge Items Reason For Visit: MALAISE,SEIZURES Follow-up/Referrals: Ailin Malik DO [Primary Care Provider] - Prescriptions: No Action SENNOSIDES (SENNA LAXATIVE) 8.6 MG tablet 8.6 mg PO DAILY PRN (Reason: Constipation) Qty: 0 RF: 0 POLYETHYLENE GLYCOL 3350 (MIRALAX) 1 POW POW 17 g PO DAILY PRN (Reason: Constipation) Qty: 0 RF: 0 gabapentin 100 mg capsule 100 mg PO TID RF: 0 mirtazapine 30 mg Tablet 30 mg PO HS RF: 0 promethazine 25 mg tablet 25 mg PO Q8H PRN (Reason: Nausea) RF: 0 phenytoin sodium extended 100 mg capsule 100 mg PO BID RF: 0 lisinopril 20 mg tablet 20 mg PO DAILY RF: 0 lamotrigine 200 mg tablet 400 mg PO BID RF: 0 tamsulosin 0.4 mg capsule 0.4 mg PO DAILY RF: 0 trazodone 100 mg tablet 100 mg PO HS RF: 0 atorvastatin 10 mg tablet 10 mg PO QPM RF: 0 clopidogrel 75 mg tablet 75 mg PO DAILY RF: 0 metoprolol tartrate 25 mg tablet 25 mg PO BID RF: 0 aspirin 81 mg Tablet,Delayed Release (Dr/Ec) 81 mg PO DAILY RF: 0 fluvoxamine 100 mg tablet 200 mg PO HS RF: 0 metformin 1,000 mg tablet 1,000 mg PO BID RF: 0 Combivent Respimat 20-100 mcg/actuation mist 1 puff inhalation QID RF: 0 clonazepam 1 mg tablet 1 mg PO BID RF: 0 docusate sodium 100 mg Capsule 100 mg PO DAILY RF: 0 quetiapine 100 mg tablet 100 mg PO HS RF: 0 quetiapine 50 mg tablet 50 mg PO DAILY@ RF: 0 quetiapine 200 mg tablet 400 mg PO HS RF: 0 Admission Data Admit Date/Time: 06/29/18 22:31 Attending Provider: Kuldip Marks Admit Provider: Brigitte Hamilton Primary Care Provider: Ailin Malik. Other Providers: Vlad Velásquez ; Brigitte Hamilton ; Chidi Ibarra ; Wilfredo Pal ; Kam Terrell ; Khoa Gallagher ; SamanthaLiang harris ; Jesus Finn ; Cynthia Munoz ; Dinora Mckeon ; Dinora Perea ; Aramis Mcgowan ; Dinora Arauz ; Kenroy Sosa ; Luis A Martinez ; Janel Serrato ; Carmen Chan Service: Telemetry
--- NOTE | 2018-06-30 16:31 | Hospitalist Progress Note ---
Date of Service June 30, 2018 Assessment & Plan (1) Weakness: Likely Failure to Thrive-Multiple comorbidities and non compliance Patient presents with worsening generalized weakness since 1 week Has has not been taking his medications since [address] Head:No acute intracranial findings Follow up cultures PT/OT when appropriate Peripheral Artery Disease: Right LUISA: 0.62 Right 5th toe wound Cultures pending Empirically started on Doxy Aspirin/Plavix held due to coffee ground emesis Continue statin Vascular Surgery consulted (2) Vomiting: Coffee Ground Emesis CT ABD: Cholelithiasis; Stable sebaceous cyst, No evidence of bowel obstruction. No evidence of free air, Normal appendix. No evidence of diverticulitis. Mild bladder distention Positive Gastric Occult Monitor H&H Transfuse PRBC PRN Continue Protonic ggt Appreciate GI Input EGD IN AM (3) Elevated troponin: ECG suggestive of underlying ischemic heart disease Echo showed no regional wall motion abnormality Elevated troponin likely due to demand ischemia Appreciate cardiology input IV heparin discontinued ASA, plavix held due to coffee-ground emesis Continue statin, metoprolol (4) Seizure disorder: H/O seizure disorder Has been out of meds. Questionable seizure per pt 1-2 days ago prior to admission Dilantin level 4.9 Lamictal level pending Appreciate neurology input Resume Dilantin, Lamictal Seizure precautions (5) Diabetes mellitus, type II: A1c: 9.3 Hold PO meds Continue ISS Monitor BGs Pharmacy consulted for glycemic management (6) TIA (transient ischemic attack): Pt reports possible TIA in past No focal deficits on exam. CT Head no acute changes. Resume ASA, plavix as able Continue statin (7) COPD (chronic obstructive pulmonary disease): No acute exacerbation. continue home inhaler (8) HTN (hypertension): Continue current meds (9) HLD (hyperlipidemia): continue statin (10) OCD (obsessive compulsive disorder): (11) Depression: Pt been out of medications Resume klonopin, lamictal, seroquel, remeron Hold trazodone for now (12) BPH (benign prostatic hypertrophy): Pt self caths QID bladder scan PRN continue self cath QID DVT Px: SCDs for now Subjective Patient is seen and examined at bedside Reports nausea, vomiting, dizziness IV heparin discontinued as patient had coffee ground emesis Planned for EGD in AM No seizure like activity since admission Denies chest pain this morning Physical Exam Vital Signs (Past 24 Hours): Last Vital Signs Temp 36.7 C 06/30/18 15:27 Pulse 72 06/30/18 15:27 Resp 20 06/30/18 15:27 BP 158/82 H 06/30/18 15:27 Pulse Ox 98 06/30/18 15:27 Physical Exam: Physical Exam: Vitals signs as noted above General Appearance:Moderately built and nourished, mild distress Head: normocephalic, Atraumatic Eyes: normal inspection, EOMI Neck: supple, Trachea midline Respiratory/Chest: Normal breath sounds, CTA Cardiovascular: S1, S2, + systolic murmur Abdomen/GI:Soft, generalized mild tender, no guarding/rigidity, Bowel sounds present Extremities/Musculoskelatal:B/L dry skin, poor hygiene, R foot-1st metatarsal ulcer, 5th toe, callus, discharge between 4th and 5th web spaces Neurologic/Psych:AAOX3, grossly no focal neurological deficits Results & Data Laboratory Results Short CBC 06/29/18 06/30/18 06/30/18 Range/Units 20:12 05:21 11:14 WBC 6.66 6.52 (4.8-10.8) K/uL Hgb 16.7 16.4 17.2 (14.0-18.0) g/dL Hct 45.2 44.3 46.4 (42-52) % Plt Count 153 140 (130-400) K/uL BMP 06/29/18 06/30/18 20:12 05:21 Sodium 132 L 131 L Potassium 3.7 3.8 Chloride 105 101 Carbon Dioxide 18 L 22 BUN 19 H 14 Creatinine 1.27 1.01 Glucose 211 H 235 H Calcium 8.9 8.8 Cardiac Enzymes 06/29/18 06/30/18 06/30/18 Range/Units 20:12 08:25 11:03 Troponin I 0.079 H* 2.500 H* 2.820 H* (0-0.045) ng/ml Liver Function 06/29/18 06/30/18 Range/Units 20:12 12:52 Total Bilirubin 0.3 0.4 (0.2-1) mg/dl Direct Bilirubin 0.2 (0-0.2) mg/dl AST 12 L 18 (15-37) U/L ALT 21 21 (12-78) U/L Alkaline Phosphatase 207 H 214 H (45-117) U/L Albumin 3.8 3.7 (3.4-5.0) gm/dl Urine 06/29/18 06/30/18 Range/Units 21:18 01:40 Urine Color Yellow Yellow Urine Appearance Clear Clear (Clear) Urine pH 5.0 5.5 (4.5-7.5) Ur Specific [place] 1.017 1.017 (1.000-1.030) Urine Protein Negative Negative (Negative) Urine Glucose (UA) 2+ H 3+ H (Negative) Diagnostic Findings Gall Bladder USD: Small gallstone with a small amount of gallbladder sludge. Normal caliber bile ducts. Fatty replacement of the liver. (1) HTN (hypertension) Hypertension type: essential hypertension Qualified Code(s): I10 - Essential (primary) hypertension (2) Vomiting Nausea presence: with nausea Vomiting Intractability: non-intractable Vomiting type: unspecified Qualified Code(s): R11.2 - Nausea with vomiting, unspecified
[2018-06-30 17:03] LABS: Hematocrit (blood only) 45.7 % (42-52); Hemoglobin 16.9 g/dL (14.0-18.0)
[2018-06-30] MEDS: MIRTAZAPINE TAB 15 MG TAB PO SCH (20:28)
[2018-06-30] MEDS: ATORVASTATIN 10 MG TAB PO SCH (20:29)
[2018-06-30] MEDS: FLUVOXAMINE MALEATE 50 MG TAB PO SCH (20:29)
[2018-06-30] MEDS ORDERED: PHARMACY GLYCEMIC MGMT CONSULT PRN (20:39)
[2018-06-30] MEDS ORDERED: INSULIN GLARGINE SOLOSTAR 100 UNITS/ML 3 ML PEN SC ONE (21:00)
[2018-06-30] MEDS: DOXYCYCLINE HYCLATE 100 MG in DEXTROSE 5% 100 ML IV SCH (21:59)
[2018-06-30 23:11] LABS: Hemoglobin 17.3 g/dL (14.0-18.0)
[2018-07-01] MEDS ORDERED: LORazepam 1 MG/2 ML VIAL IV PRN (01:38)
[2018-07-01 02:13] LABS: Basophils # (auto) 0.02 K/uL (0-0.2); Basophils % (auto) 0.3 %; Eosinophils # (auto) 0.14 K/uL (0-0.5); Eosinophils % (auto) 1.9 %; Immature Granulocytes # (auto) 0.02 K/uL (0.00-0.02); Immature Granulocytes % (auto) 0.3 %; Lymphocytes # (auto) 1.97 K/uL (1.2-3.4); Lymphocytes % (auto) 26.9 %; Mean Corpuscular Hgb Conc 36.4 g/dL (32-36); Mean Platelet Volume 8.9 fL (7.4-10.4); Monocytes # (auto) 0.46 K/uL (0.11-0.59); Monocytes % (auto) 6.3 %; Neutrophils # (auto) 4.72 K/uL (1.4-6.5); Neutrophils % (auto) 64.3 %; Platelet Count 145 K/uL (130-400); RDW Coefficient of Variation 13.5 % (11.5-14.5); RDW Standard Deviation 46.2 fL (36.4-46.3); Red Blood Count 4.73 M/uL (4.7-6.1); White Blood Count 7.33 K/uL (4.8-10.8)
[2018-07-01 02:23] LABS: Partial Thromboplastin Time 26.2 Seconds (21.0-31.0)
[2018-07-01 02:31] LABS: Calcium 8.5 mg/dl (8.5-10.1); Creatinine Clr Calc Pharmacy 76.9 ml/min; Est GFR (African American) 90.5; Est GFR (Non-African American) 78.1; Magnesium 1.8 mg/dl (1.8-2.4); Potassium 3.6 mmol/L (3.5-5.1)
[2018-07-01] MEDS ORDERED: PHENYTOIN IV STA (03:47)
[2018-07-01] MEDS ORDERED: SODIUM CHLORIDE 0.9% IV STA (03:47)
--- NOTE | 2018-07-01 03:48 | Hospitalist Progress Note ---
Date of Service July 01, 2018 Subjective Made aware by RN of patient complaint of possible impending seizure. AP Seizure disorder Impending seizure sensation as per patient. Subtherapeutic Dilantin level Fosphenytoin IV load for now Recheck Dilantin level tomorrow a.m. Continue current oral AED regimen. Ativan as needed active seizure, seizure precautions. Will relay to AM provider Physical Exam Vital Signs (Past 24 Hours): Last Vital Signs Temp 37.1 C 07/01/18 03:15 Pulse 67 07/01/18 03:15 Resp 16 07/01/18 03:15 BP 137/81 07/01/18 03:15 Pulse Ox 98 07/01/18 03:15
[2018-07-01] MEDS: PANTOprazole 40 MG in DEXTROSE 5% 100 ML IV SCH ×2 (04:15→08:39)
[2018-07-01] MEDS ORDERED: FOSPHENYTOIN 1,000 MGPE in SODIUM CHLORIDE 0.9% 50 ML IV ONE (04:15)
[2018-07-01] MEDS ORDERED: MAGNESIUM SULFATE / D5W 1 GM/100 ML BAG IV ONE (04:45)
[2018-07-01] MEDS: METOPROLOL TARTRATE 1 MG/ML VIAL IV SCH ×3 (06:28→17:31)
[2018-07-01] MEDS: INSULIN ASPART 100 UNITS/ML 3 ML PEN SC SCH ×5 (06:47→17:39)
[2018-07-01] MEDS ORDERED: PROPOFOL IV EMULSION 10 MG/ML 20 ML VIAL IV ONE (07:59)
[2018-07-01] MEDS ORDERED: fentaNYL citrate 100 MCG/2 ML VIAL ONE (07:59)
[2018-07-01] MEDS ORDERED: LIDOCAINE HCL 2% 2 ML VIAL/AMP(20MG/ML) INFIL ONE (07:59)
--- NOTE | 2018-07-01 08:20 | Anesthesiology Consultation ---
Date of Service July 01, 2018 Assessment & Plan (1) Encounter for pre-operative examination: Chart Review Chart Review: Acceptable Risk for Surgery Consults Requested none ASA ASA3 Proposed Anesthesia Anesthesia Type: MAC Risk / Benefits Reviewed With: PT / POA / Parent / Guardian, Accepts Plan and Informed Consent Obtained NPO Date Last Intake of Fluids: 06/30/18 Time Last Intake of Fluids: 17:00 Date Last Intake of Solids: 06/28/18 Time Last Intake of Solids: 19:00 History Surgery Operation Date: 07/01/18 08:30 Proposed Procedures p Esophagogastroduodenoscopy Dr Chan - Carmen Chan Height/Weight Height: 5 ft 5 in Weight: 94.2 kg Allergies Allergy/AdvReac Type Severity Reaction Status Date / Time Sulfa (Sulfonamide Allergy Unknown HAS TAKEN Verified 11/17/15 01:37 Antibiotics) LASIX AN OUTPATIENT Medications Home Medications Medication Instructions Recorded Confirmed Last Taken SENNOSIDES (SENNA LAXATIVE) 8.6 mg PO DAILY PRN #0 06/04/13 06/29/18 Unknown POLYETHYLENE GLYCOL 3350 (MIRALAX) 17 g PO DAILY PRN #0 11/21/15 06/29/18 Unknown aspirin 81 mg PO DAILY 06/29/18 06/29/18 Unknown atorvastatin 10 mg PO QPM 06/29/18 06/29/18 Unknown clonazepam 1 mg PO BID 06/29/18 06/29/18 Unknown clopidogrel 75 mg PO DAILY 06/29/18 06/29/18 Unknown docusate sodium 100 mg PO DAILY 06/29/18 06/29/18 Unknown fluvoxamine 200 mg PO HS 06/29/18 06/29/18 Unknown gabapentin 100 mg PO TID 06/29/18 06/29/18 Unknown ipratropium-albuterol [Combivent 1 puff INHALATION QID 06/29/18 06/29/18 Unknown Respimat] lamotrigine 400 mg PO BID 06/29/18 06/29/18 Unknown lisinopril 20 mg PO DAILY 06/29/18 06/29/18 Unknown metformin 1,000 mg PO BID 06/29/18 06/29/18 Unknown metoprolol tartrate 25 mg PO BID 06/29/18 06/29/18 Unknown mirtazapine 30 mg PO HS 06/29/18 06/29/18 Unknown phenytoin sodium extended 100 mg PO BID 06/29/18 06/29/18 Unknown promethazine 25 mg PO Q8H PRN 06/29/18 06/29/18 Unknown quetiapine 50 mg PO DAILY@09,14 06/29/18 06/29/18 Unknown quetiapine 100 mg PO HS 06/29/18 06/29/18 Unknown quetiapine 400 mg PO HS 06/29/18 06/29/18 Unknown tamsulosin 0.4 mg PO DAILY 06/29/18 06/29/18 Unknown trazodone 100 mg PO HS 06/29/18 06/29/18 Unknown Active Medications Generic Name Dose Route Start Last Admin Trade Name Freq PRN Reason Stop Dose Admin Albuterol 1 puffs 06/30/18 09:00 06/30/18 20:30 Combivent Respimat INH 07/30/18 08:59 1 puffs QID ALMA Administration Aspirin 81 mg 06/30/18 09:00 06/30/18 11:56 Ecotrin Ectab PO 07/30/18 08:59 Not Given QAM ALMA Atorvastatin Calcium 10 mg 06/30/18 21:00 06/30/18 20:29 Lipitor PO 07/30/18 20:59 10 mg QPM ALMA Administration Clonazepam 1 mg 06/30/18 09:00 06/30/18 20:34 Klonopin PO 07/30/18 08:59 1 mg BID ALMA Administration Clopidogrel Bisulfate 75 mg 06/30/18 09:00 06/30/18 11:57 Plavix PO 07/30/18 08:59 Not Given DAILY ALMA Fluvoxamine Maleate 200 mg 06/30/18 21:00 06/30/18 20:29 Luvox PO 07/30/18 20:59 200 mg HS ALMA Administration Gabapentin 100 mg 06/30/18 09:00 06/30/18 20:27 Neurontin PO 07/30/18 08:59 100 mg TID ALMA Administration Sodium Chloride 1,000 mls @ 100 mls/hr 06/30/18 01:15 07/01/18 08:40 Nss 1000ml IV 07/30/18 01:14 100 mls/hr .Q10H ALMA Administration Prochlorperazine 5 mg/ Syringe 5 mls @ 5 mls/min 06/30/18 01:00 06/30/18 15:41 IV 07/30/18 00:59 5 mls/min Q6H PRN Administration Nausea And Vomiting Heparin Sodium/Dextrose 25,000 units in 500 mls @ 0 mls/hr 06/30/18 02:30 06/30/18 10:02 Heparin Sodium/Dextrose IV 07/30/18 02:29 0 units/hr .Q0M ALMA 0 mls/hr Titration Protocol 0 UNITS/HR Pantoprazole Sodium 40 mg/ 100 mls @ 20 mls/hr 06/30/18 13:00 07/01/18 08:39 Dextrose IV 07/30/18 12:59 20 mls/hr Q5H ALMA Administration Doxycycline Hyclate 100 mg/ 110 mls @ 50 mls/hr 06/30/18 21:00 07/01/18 08:39 Dextrose IV 07/10/18 20:59 50 mls/hr BID ALMA Administration Protocol Insulin Aspart 0 units 07/01/18 00:00 07/01/18 06:47 Novolog Flexpen SC 07/31/18 00:00 1 units Q6 ALMA Administration Ioversol 90 ml 06/29/18 20:58 06/29/18 20:59 Optiray 320 100ml IV 07/03/18 20:57 90 ml ONCE PRN Administration Interaction Checking Lamotrigine 400 mg 06/29/18 23:10 06/30/18 20:27 Lamictal PO 07/29/18 23:09 400 mg BID ALAM Administration Lisinopril 20 mg 06/30/18 09:00 06/30/18 11:57 Zestril PO 07/30/18 08:59 Not Given DAILY ALMA Metoprolol Tartrate 25 mg 06/29/18 23:15 06/30/18 20:28 Lopressor PO 07/29/18 23:14 25 mg BID ALMA Administration Metoprolol Tartrate 2.5 mg 06/30/18 12:00 07/01/18 06:28 Lopressor IV 07/30/18 11:59 2.5 mg Q6 ALMA Administration Mirtazapine 30 mg 06/30/18 21:00 06/30/18 20:28 Remeron PO 07/30/18 20:59 30 mg HS ALMA Administration Ondansetron HCl 4 mg 06/30/18 00:39 06/30/18 19:38 Zofran IV 07/30/18 00:38 4 mg Q6H PRN Administration Nausea Phenytoin Sodium 100 mg 06/29/18 23:15 06/30/18 20:28 Dilantin Er PO 07/29/18 23:14 100 mg BID ALMA Administration Promethazine HCl 25 mg 06/29/18 23:08 06/30/18 04:25 Phenergan PO 07/29/18 23:07 25 mg Q8H PRN Administration Nausea Quetiapine Fumarate 400 mg 06/29/18 23:15 06/30/18 20:31 Seroquel PO 07/29/18 23:14 400 mg HS ALMA Administration Quetiapine Fumarate 100 mg 06/29/18 23:15 06/30/18 20:28 Seroquel PO 07/29/18 23:14 100 mg HS ALMA Administration Quetiapine Fumarate 50 mg 06/30/18 09:00 06/30/18 13:59 Seroquel PO 07/30/18 08:59 Not Given DAILY@09,14 ALMA Tamsulosin HCl 0.4 mg 06/30/18 09:00 06/30/18 11:56 Flomax PO 07/30/18 08:59 Not Given DAILY ALMA Past Medical History Medical History HTN (hypertension) (Chronic) Diabetes mellitus, type II (Chronic) OCD (obsessive compulsive disorder) (Chronic) HLD (hyperlipidemia) (Chronic) Vertigo (Chronic) Seizure disorder (Chronic) Depression (Chronic) BPH (benign prostatic hypertrophy) (Chronic) Tobacco use disorder (Chronic) 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) COPD (chronic obstructive pulmonary disease) (Chronic) Obesity (BMI 30-39.9) (Chronic) Hypertriglyceridemia (Chronic) Past Family History Family History Father Coronary heart disease Other Lung cancer Past Surgical History Surgical History H/O sigmoidoscopy (Chronic) H/O colonoscopy (Chronic) "11/08/2013- normal exam but limited by prep quality" Past Anesthesia History No Hx of Anesthesia Complications and No Family Hx of Anesthesia Complications History of PONV No Motion Sickness Screening History of Motion Sickness: No Social History Smoking Status: Current every day smoker tobacco type: cigarettes Smoking cigarettes per day: 30 Do You Dip or Chew Tobacco: No Hx Alcohol Use: No Alcohol Intake Frequency Comment: Former alcoholic. Last drink 11 years ago. Hx Substance Use: No substance use type: does not use Exercise / Class Metabolic Activity II 4-5 Yardwork/Stairs/Walk up hill Physical Exam Vital Signs Last Vital Signs Temp 97.9 F 07/01/18 09:30 Pulse 60 07/01/18 09:30 Resp 18 07/01/18 09:30 BP 111/67 07/01/18 09:30 Pulse Ox 97 07/01/18 09:30 ENMT Mouth: no dentition abnormality Thyromental Distance: > or= 3.5 Finger Breadths Mallampati Class: II Neck normal visual inspection Respiratory normal respiratory effort Auscultation: lungs clear to auscultation bilaterally Cardiovascular Rate/Rhythm: regular rate and regular rhythm Testing Electrocardiogram Date: 07/01/18 Sinus bradycardia, rate [address] & T wave abnormality, consider inferolateral ischemia Chest X-Ray Date: 06/29/18 Mild cardiomegaly and equivocal mild pulmonary vascular congestion. No evidence of focal pulmonary consolidation Echocardiogram Date: 06/30/18 EF: 60-65% LV Function: normal RWMA: + none Other Findings: + LVH (mild) and + diastolic dysfunction (grade 1) Laboratory Results 07/01/18 01:51 07/01/18 01:51 PT 10.3 Seconds (9.0-12.0) 06/29/18 20:12 INR 1.0 (0.9-1.1) 06/29/18 20:12 APTT 26.2 Seconds (21.0-31.0) 07/01/18 01:51 Hemoglobin A1c 9.3 % (4.5-5.6) H 06/30/18 05:21 Urine Color Yellow 06/30/18 01:40 Urine Appearance Clear (Clear) 06/30/18 01:40 Urine pH 5.5 (4.5-7.5) 06/30/18 01:40 Ur Specific Anderson 1.017 (1.000-1.030) 06/30/18 01:40 Urine Protein Negative (Negative) 06/30/18 01:40 Urine Glucose (UA) 3+ (Negative) H 06/30/18 01:40 Urine Ketones Negative (Negative) 06/30/18 01:40 Urine Nitrite Negative (Negative) 06/30/18 01:40 Ur Leukocyte Esterase Negative (Negative) 06/30/18 01:40 Urine WBC (Auto) 1-5 /hpf (0-5) 06/30/18 01:40 Urine RBC (Auto) 0-4 /hpf (0-4) 06/30/18 01:40 U Hyaline Cast (Auto) 1-5 /lpf (0-5) 06/30/18 01:40 U Epithel Cells (Auto) 10-20 /lpf (0-5) H 06/30/18 01:40 Urine Bacteria (Auto) Negative (Negative) 06/30/18 01:40 06/30/18 14:15 Gram Stain - Final Toe,Right Fifth Deep Wound Culture - Preliminary Staphylococcus aureus 07/01/18 06/30/18 06:25 23:36 POC Glucose 179 H 175 H
[2018-07-01] MEDS: DOXYCYCLINE HYCLATE 100 MG in DEXTROSE 5% 100 ML IV SCH ×2 (08:39→19:59)
[2018-07-01] MEDS: SODIUM CHLORIDE 0.9% 1000ML 1,000 ML IV SCH ×2 (08:40→17:31)
--- NOTE | 2018-07-01 09:39 | Gastroenterology Progress Note ---
Date of Service July 01, 2018 Assessment & Plan (1) Coffee ground emesis: 68 year old male w/ history of T2DM, CKD-3, HTN, dyslipidemia, COPD, TIA on ASA and plavix who presents to the ED w/ week of weakness, fatigue, nausea, decreased appetite and one day of vomiting. In the ED, workup revealed nearly normal LFTs, normal lipase, elevated troponin, GI imaging w/ gallstones otherwise. He was started on a heparin gtt. Vomiting persisted, concern for coffee ground emesis w/ occult positive. HGB was rechecked and stable. No further vomiting. HGB remained stable. On PPI drip. Plan for EGD today given need to resume AC. - NPO - EGD - Continue IV PPI - Please see prior consultation note for additional recommendations - Please see endoscopy report when completed for any additional recommendations Thank you for allowing us to participate in the care of this patient. Please call with any acute changes, questions or concerns. Please see addendum below with additional recommendation from my supervising physician. (2) Elevated troponin: Supervising Physician Co-Signing Physician Notes I have seen and examined the patient with LAURA Correa whose note reflects our findings and plan. EGD today Subjective Pt was seen and evaluated, chart reviewed. No further episodes of nausea, vomiting. No abd pain. No black/bloody stools. No CP, SOB. Constitutional: + fatigue; no fever, no chills, no weakness and no weight loss Respiratory: + dyspnea on exertion; no cough, no chest congestion, no dyspnea, no hemoptysis and no snoring Cardiovascular: + dyspnea on exertion; no chest pain, no chest pain at rest, no radiating jaw, neck or arm pain and no lightheadedness Gastrointestinal: + nausea and + constipation; no abdominal pain, no belching, no bloating, no early satiety, no heartburn, no vomiting, no coffee ground emesis, no hematemesis, no pain with swallowing, no dysphagia, no cramping, no excessive flatulence, no change in bowel habits, no change in stools, no diarrhea/loose stools, no fecal incontinence, no constant urge to pass stools, no blood in stools and no melena Physical Exam Vital Signs (Past 24 Hours): Last Vital Signs Temp 36.6 C 07/01/18 09:30 Pulse 60 07/01/18 09:30 Resp 18 07/01/18 09:30 BP 111/67 07/01/18 09:30 Pulse Ox 97 07/01/18 09:30 Constitutional: + ill appearing (chronically ill appearing), cooperative and comfortable; no acute distress Respiratory: no respiratory distress and no cough Auscultation: + diminished lung sounds Cardiovascular: Rate/Rhythm: regular rate and regular rhythm Heart Sounds: + murmur Gastrointestinal (Abdomen): Inspection/Auscultation: normal bowel sounds Percussion/Palpation: abdomen soft; abdomen nontender, no guarding and abdomen not rigid Skin: no rashes, warm and dry Results & Data Laboratory Results 07/01/18 07/01/18 07/01/18 Range/Units 06:25 01:51 01:51 WBC (4.8-10.8) K/uL RBC (4.7-6.1) M/uL Hgb (14.0-18.0) g/dL Hct (42-52) % MCV (80-100) fL MCH (25-34) pg MCHC (32-36) g/dL RDW Std Deviation (36.4-46.3) fL RDW Coeff of Ritesh (11.5-14.5) % Plt Count (130-400) K/uL MPV (7.4-10.4) fL Immature Gran % (Auto) % Neut % (Auto) % Lymph % (Auto) % Kitt[place] % (Auto) % Eos % (Auto) % Baso % (Auto) % Immature Gran # (Auto) (0.00-0.02) K/uL Neut # (Auto) (1.4-6.5) K/uL Lymph # (Auto) (1.2-3.4) K/uL Kittson # (Auto) (0.11-0.59) K/uL Eos # (Auto) (0-0.5) K/uL Baso # (Auto) (0-0.2) K/uL APTT (21.0-31.0) Seconds PTT Ratio Sodium 135 L (136-145) mmol/L Potassium 3.6 (3.5-5.1) mmol/L Chloride 106 (98-107) mmol/L Carbon Dioxide 24 (21-32) mmol/L Anion Gap 5.0 (3-11) BUN 10 (7-18) mg/dl Creatinine 1.00 (0.6-1.4) mg/dl Est Cr Clr Drug Dosing 76.9 ml/min Est GFR ( Amer) 90.5 Est GFR (Non-Af Amer) 78.1 BUN/Creatinine Ratio 10.0 (10-20) Glucose 176 H (70-99) mg/dl POC Glucose 179 H (70-99) Calcium 8.5 (8.5-10.1) mg/dl Magnesium 1.8 (1.8-2.4) mg/dl Total Bilirubin (0.2-1) mg/dl Direct Bilirubin (0-0.2) mg/dl AST (15-37) U/L ALT (12-78) U/L Alkaline Phosphatase (45-117) U/L Troponin I (0-0.045) ng/ml Total Protein (6.4-8.2) gm/dl Albumin (3.4-5.0) gm/dl Lipase (73-393) U/L Gastric Fluid pH Gastric Occult Blood (Negative) Phenytoin 3.7 L (10-20) mcg/ml Lamotrigine 07/01/18 07/01/18 06/30/18 Range/Units 01:51 01:51 23:36 WBC 7.33 (4.8-10.8) K/uL RBC 4.73 (4.7-6.1) M/uL Hgb 16.0 (14.0-18.0) g/dL Hct 44.0 (42-52) % MCV 93.0 (80-100) fL MCH 33.8 (25-34) pg MCHC 36.4 H (32-36) g/dL RDW Std Deviation 46.2 (36.4-46.3) fL RDW Coeff of Ritesh 13.5 (11.5-14.5) % Plt Count 145 (130-400) K/uL MPV 8.9 (7.4-10.4) fL Immature Gran % (Auto) 0.3 % Neut % (Auto) 64.3 % Lymph % (Auto) 26.9 % Kittson % (Auto) 6.3 % Eos % (Auto) 1.9 % Baso % (Auto) 0.3 % Immature Gran # (Auto) 0.02 (0.00-0.02) K/uL Neut # (Auto) 4.72 (1.4-6.5) K/uL Lymph # (Auto) 1.97 (1.2-3.4) K/uL Kittson # (Auto) 0.46 (0.11-0.59) K/uL Eos # (Auto) 0.14 (0-0.5) K/uL Baso # (Auto) 0.02 (0-0.2) K/uL APTT 26.2 (21.0-31.0) Seconds PTT Ratio 1.0 Sodium (136-145) mmol/L Potassium (3.5-5.1) mmol/L Chloride (98-107) mmol/L Carbon Dioxide (21-32) mmol/L Anion Gap (3-11) BUN (7-18) mg/dl Creatinine (0.6-1.4) mg/dl Est Cr Clr Drug Dosing ml/min Est GFR ( Amer) Est GFR (Non-Af Amer) BUN/Creatinine Ratio (10-20) Glucose (70-99) mg/dl POC Glucose 175 H (70-99) Calcium (8.5-10.1) mg/dl Magnesium (1.8-2.4) mg/dl Total Bilirubin (0.2-1) mg/dl Direct Bilirubin (0-0.2) mg/dl AST (15-37) U/L ALT (12-78) U/L Alkaline Phosphatase (45-117) U/L Troponin I (0-0.045) ng/ml Total Protein (6.4-8.2) gm/dl Albumin (3.4-5.0) gm/dl Lipase (73-393) U/L Gastric Fluid pH Gastric Occult Blood (Negative) Phenytoin (10-20) mcg/ml Lamotrigine 06/30/18 06/30/18 06/30/18 Range/Units 22:53 20:32 16:43 WBC (4.8-10.8) K/uL RBC (4.7-6.1) M/uL Hgb 17.3 16.9 (14.0-18.0) g/dL Hct 48.0 45.7 (42-52) % MCV (80-100) fL MCH (25-34) pg MCHC (32-36) g/dL RDW Std Deviation (36.4-46.3) fL RDW Coeff of Ritesh (11.5-14.5) % Plt Count (130-400) K/uL MPV (7.4-10.4) fL Immature Gran % (Auto) % Neut % (Auto) % Lymph % (Auto) % Kittson % (Auto) % Eos % (Auto) % Baso % (Auto) % Immature Gran # (Auto) (0.00-0.02) K/uL Neut # (Auto) (1.4-6.5) K/uL Lymph # (Auto) (1.2-3.4) K/uL Kittson # (Auto) (0.11-0.59) K/uL Eos # (Auto) (0-0.5) K/uL Baso # (Auto) (0-0.2) K/uL APTT (21.0-31.0) Seconds PTT Ratio Sodium (136-145) mmol/L Potassium (3.5-5.1) mmol/L Chloride (98-107) mmol/L Carbon Dioxide (21-32) mmol/L Anion Gap (3-11) BUN (7-18) mg/dl Creatinine (0.6-1.4) mg/dl Est Cr Clr Drug Dosing ml/min Est GFR ( Amer) Est GFR (Non-Af Amer) BUN/Creatinine Ratio (10-20) Glucose (70-99) mg/dl POC Glucose 196 H (70-99) Calcium (8.5-10.1) mg/dl Magnesium (1.8-2.4) mg/dl Total Bilirubin (0.2-1) mg/dl Direct Bilirubin (0-0.2) mg/dl AST (15-37) U/L ALT (12-78) U/L Alkaline Phosphatase (45-117) U/L Troponin I (0-0.045) ng/ml Total Protein (6.4-8.2) gm/dl Albumin (3.4-5.0) gm/dl Lipase (73-393) U/L Gastric Fluid pH Gastric Occult Blood (Negative) Phenytoin (10-20) mcg/ml Lamotrigine 06/30/18 06/30/18 06/30/18 Range/Units 16:25 12:52 12:52 WBC (4.8-10.8) K/uL RBC (4.7-6.1) M/uL Hgb (14.0-18.0) g/dL Hct (42-52) % MCV (80-100) fL MCH (25-34) pg MCHC (32-36) g/dL RDW Std Deviation (36.4-46.3) fL RDW Coeff of Ritesh (11.5-14.5) % Plt Count (130-400) K/uL MPV (7.4-10.4) fL Immature Gran % (Auto) % Neut % (Auto) % Lymph % (Auto) % Kittson % (Auto) % Eos % (Auto) % Baso % (Auto) % Immature Gran # (Auto) (0.00-0.02) K/uL Neut # (Auto) (1.4-6.5) K/uL Lymph # (Auto) (1.2-3.4) K/uL Kittson # (Auto) (0.11-0.59) K/uL Eos # (Auto) (0-0.5) K/uL Baso # (Auto) (0-0.2) K/uL APTT (21.0-31.0) Seconds PTT Ratio Sodium (136-145) mmol/L Potassium (3.5-5.1) mmol/L Chloride (98-107) mmol/L Carbon Dioxide (21-32) mmol/L Anion Gap (3-11) BUN (7-18) mg/dl Creatinine (0.6-1.4) mg/dl Est Cr Clr Drug Dosing ml/min Est GFR ( Amer) Est GFR (Non-Af Amer) BUN/Creatinine Ratio (10-20) Glucose (70-99) mg/dl POC Glucose 233 H (70-99) Calcium (8.5-10.1) mg/dl Magnesium (1.8-2.4) mg/dl Total Bilirubin 0.4 (0.2-1) mg/dl Direct Bilirubin 0.2 (0-0.2) mg/dl AST 18 (15-37) U/L ALT 21 (12-78) U/L Alkaline Phosphatase 214 H (45-117) U/L Troponin I (0-0.045) ng/ml Total Protein 8.0 (6.4-8.2) gm/dl Albumin 3.7 (3.4-5.0) gm/dl Lipase 278 (73-393) U/L Gastric Fluid pH Gastric Occult Blood (Negative) Phenytoin (10-20) mcg/ml Lamotrigine Pending 06/30/18 06/30/18 06/30/18 Range/Units 11:14 11:03 11:02 WBC (4.8-10.8) K/uL RBC (4.7-6.1) M/uL Hgb 17.2 (14.0-18.0) g/dL Hct 46.4 (42-52) % MCV (80-100) fL MCH (25-34) pg MCHC (32-36) g/dL RDW Std Deviation (36.4-46.3) fL RDW Coeff of Ritesh (11.5-14.5) % Plt Count (130-400) K/uL MPV (7.4-10.4) fL Immature Gran % (Auto) % Neut % (Auto) % Lymph % (Auto) % Kitt[place] % (Auto) % Eos % (Auto) % Baso % (Auto) % Immature Gran # (Auto) (0.00-0.02) K/uL Neut # (Auto) (1.4-6.5) K/uL Lymph # (Auto) (1.2-3.4) K/uL Kittson # (Auto) (0.11-0.59) K/uL Eos # (Auto) (0-0.5) K/uL Baso # (Auto) (0-0.2) K/uL APTT (21.0-31.0) Seconds PTT Ratio Sodium (136-145) mmol/L Potassium (3.5-5.1) mmol/L Chloride (98-107) mmol/L Carbon Dioxide (21-32) mmol/L Anion Gap (3-11) BUN (7-18) mg/dl Creatinine (0.6-1.4) mg/dl Est Cr Clr Drug Dosing ml/min Est GFR ( Amer) Est GFR (Non-Af Amer) BUN/Creatinine Ratio (10-20) Glucose (70-99) mg/dl POC Glucose 225 H (70-99) Calcium (8.5-10.1) mg/dl Magnesium (1.8-2.4) mg/dl Total Bilirubin (0.2-1) mg/dl Direct Bilirubin (0-0.2) mg/dl AST (15-37) U/L ALT (12-78) U/L Alkaline Phosphatase (45-117) U/L Troponin I 2.820 H* (0-0.045) ng/ml Total Protein (6.4-8.2) gm/dl Albumin (3.4-5.0) gm/dl Lipase (73-393) U/L Gastric Fluid pH Gastric Occult Blood (Negative) Phenytoin (10-20) mcg/ml Lamotrigine 06/30/18 Range/Units 10:00 WBC (4.8-10.8) K/uL RBC (4.7-6.1) M/uL Hgb (14.0-18.0) g/dL Hct (42-52) % MCV (80-100) fL MCH (25-34) pg MCHC (32-36) g/dL RDW Std Deviation (36.4-46.3) fL RDW Coeff of Ritesh (11.5-14.5) % Plt Count (130-400) K/uL MPV (7.4-10.4) fL Immature Gran % (Auto) % Neut % (Auto) % Lymph % (Auto) % [place] % (Auto) % Eos % (Auto) % Baso % (Auto) % Immature Gran # (Auto) (0.00-0.02) K/uL Neut # (Auto) (1.4-6.5) K/uL Lymph # (Auto) (1.2-3.4) K/uL Kittson # (Auto) (0.11-0.59) K/uL Eos # (Auto) (0-0.5) K/uL Baso # (Auto) (0-0.2) K/uL APTT (21.0-31.0) Seconds PTT Ratio Sodium (136-145) mmol/L Potassium (3.5-5.1) mmol/L Chloride (98-107) mmol/L Carbon Dioxide (21-32) mmol/L Anion Gap (3-11) BUN (7-18) mg/dl Creatinine (0.6-1.4) mg/dl Est Cr Clr Drug Dosing ml/min Est GFR ( Amer) Est GFR (Non-Af Amer) BUN/Creatinine Ratio (10-20) Glucose (70-99) mg/dl POC Glucose (70-99) Calcium (8.5-10.1) mg/dl Magnesium (1.8-2.4) mg/dl Total Bilirubin (0.2-1) mg/dl Direct Bilirubin (0-0.2) mg/dl AST (15-37) U/L ALT (12-78) U/L Alkaline Phosphatase (45-117) U/L Troponin I (0-0.045) ng/ml Total Protein (6.4-8.2) gm/dl Albumin (3.4-5.0) gm/dl Lipase (73-393) U/L Gastric Fluid pH 1 Gastric Occult Blood Positive H (Negative) Phenytoin (10-20) mcg/ml Lamotrigine
[2018-07-01] MEDS ORDERED: BENZOCAIN/TETRACA/BUTAM SPRAY 200 APPLN/20 GM SPRY EXT ONE (09:43)
--- NOTE | 2018-07-01 10:06 | GI REPORT ---
Patient Name: Liang Gary Procedure Date: 07/01/2018 9:46 AM Date of : 1950 Admit Type: Inpatient Age: 68 Gender: Male Attending MD: Carmen Chan DO Procedure: Upper GI endoscopy Providers: Carmen Chan DO Referring MD: Kuldip Marks Md Indications: Coffee-ground emesis Medicines: Propofol per Anesthesia Complications: No immediate complications. Estimated blood loss: Minimal. Estimated Blood Loss: Estimated blood loss was minimal. Procedure: Pre-Anesthesia Assessment: - Prior to the procedure, a History and Physical was performed, and patient medications, allergies and sensitivities were reviewed. The patient's tolerance of previous anesthesia was reviewed. - The risks and benefits of the procedure and the sedation options and risks were discussed with the patient. All questions were answered and informed consent was obtained. - Patient identification and proposed procedure were verified prior to the procedure by the physician and the nurse. The procedure was verified in the pre-procedure area in the procedure room. - Mental Status Examination: alert and oriented. Airway Examination: normal oropharyngeal airway and neck mobility. Respiratory Examination: clear to auscultation. CV Examination: normal. Abdominal Examination: bowel sounds present, abdomen soft and non-tender, no masses or organomegaly noted. - ASA Grade Assessment: III - A patient with severe systemic disease. After obtaining informed consent, the endoscope was passed under direct vision. Throughout the procedure, the patient's blood pressure, pulse, and oxygen saturations were monitored continuously. The Scope was introduced through the mouth, and advanced to the second part of duodenum. The upper GI endoscopy was accomplished without difficulty. The patient tolerated the procedure well. Findings: Savary-Hoang Grade III (circumferential lesion, erosive or exudative) esophagitis with no bleeding was found at the gastroesophageal junction. Moderate inflammation characterized by congestion (edema), erythema and shallow ulcerations was found in the entire examined stomach. Biopsies were taken with a cold forceps for Helicobacter pylori testing. Verification of patient identification for the specimen was done by the physician and nurse using the patient's name and date. Estimated blood loss was minimal. The examined duodenum was normal. Impression: - Savary-Hoang Grade III reflux esophagitis. - Gastritis. Biopsied. - Normal examined duodenum. Recommendation: - Await pathology results. - Follow an antireflux regimen. - Use a proton pump inhibitor PO BID. - Return to primary care physician as previously scheduled. - Discharge patient to home. Carmen Chan D.O. Carmen Chan, 07/01/2018 10:06:16 AM This report has been signed electronically. Note Initiated On: 07/01/2018 9:46 AM Number of Addenda: 0 I attest to the content of the Intraoperative Record and orders documented therein, exceptions below {[id number]}
--- NOTE | 2018-07-01 10:15 | Anesthesiology Progress Note ---
Date of Service July 01, 2018 Anesthesia Post Procedure Vital Signs Vital Signs: Temp Pulse Pulse Pulse Resp BP BP 07/01/18 10:05 62 12 07/01/18 09:30 97.9 F 60 18 07/01/18 07:35 98.8 F 57 L 18 07/01/18 07:00 74 07/01/18 06:28 74 133/81 07/01/18 03:15 98.8 F 67 16 137/81 07/01/18 00:39 06/30/18 23:39 98.6 F 63 16 130/77 06/30/18 19:19 98.6 F 66 20 146/73 H 06/30/18 15:27 98.1 F 72 20 158/82 H 06/30/18 10:54 97.9 F 97 H 16 160/84 H BP Pulse Ox Pulse Ox 07/01/18 10:05 111/52 L 96 07/01/18 09:30 111/67 97 07/01/18 07:35 114/65 96 07/01/18 07:00 07/01/18 06:28 07/01/18 03:15 98 07/01/18 00:39 94 06/30/18 23:39 99 06/30/18 19:19 98 06/30/18 15:27 98 06/30/18 10:54 98 Notes Mental Status: alert / awake / arousable and participated in evaluation Patient Amnestic to Procedure: Yes Nausea / Vomiting: adequately controlled Pain: adequately controlled Airway Patency, RR, SpO2: stable & adequate BP & HR: stable & adequate Hydration State: stable & adequate Anesthetic Complications: no major complications apparent and Pt Satisfied with anesthetic care
[2018-07-01] MEDS: QUETIAPINE FUMARATE 25 MG TABLET PO SCH ×2 (12:09→14:05)
--- NOTE | 2018-07-01 12:25 | Cardiology Progress Note ---
Date of Service July 01, 2018 Assessment & Plan (1) Preop cardiovascular exam: Patient considered high risk from a cardiovascular perspective due to elevated troponin, however, EGD is necessary at this time due to coffee-ground emesis. (2) Elevated troponin: No regional wall motion abnormalities on echocardiogram. IV heparin on hold due to coffee-ground emesis. Further recommendations regarding ischemic evaluation pending results of EGD. (3) Vomiting: Gastric occult positive. Continue antiemetics per internal medicine. EGD today. (4) TIA (transient ischemic attack): History of possible TIA 2015. Patient maintained on dual antiplatelet therapy since that time. Nonobstructive carotid vascular disease noted. (5) HTN (hypertension): Uncontrolled at this time due to acute illness. (6) Tobacco use disorder: (7) Diabetes mellitus, type II: Subjective Patient seen and examined at the bedside in a.m. prior to EGD. No recurrent nausea or vomiting overnight. No recurrent coffee-ground emesis. Hemoglobin has remained stable. Denies chest pain or shortness of breath. No orthopnea, PND, palpitations, lightheadedness, dizziness, syncope, near syncope. No dysrhythmias on telemetry. Plan to resume oral medications after EGD. Review of Systems All systems reviewed & are unremarkable except as noted in HPI & below Physical Exam Vital Signs (Past 24 Hours): Last Vital Signs Temp 36.5 C 07/01/18 11:42 Pulse 53 L 07/01/18 11:42 Resp 16 07/01/18 11:42 BP 178/75 H 07/01/18 11:42 Pulse Ox 99 07/01/18 11:42 Physical Exam: General: AAO x3, well-nourished. HEENT: Normocephalic. Atraumatic. Conjunctiva pink, no scleral icterus. Neck: No carotid bruits, the carotid upstrokes are brisk. No JVD. No HJR Heart: Regular normal S-1 and S-2 no S-3 or S-4 gallop. Soft 1/6 systolic ejection murmur heard best at the right second intercostal space. PMI is not displaced. No RV heave. Lungs: Clear bilateral without rales , rhonchi, or wheeze. Abdomen: Mild distention. Nontender no rebound or guarding. Hypoactive bowel sounds. Extremities: Dry skin, unkempt, R foot: dorsal aspect of distal 1st metatarsal with ulcer without discharge, 5th toe - callus. pulses: radial=2/4. Neuro: Cranial nerves grossly intact. No focal motor deficit. (1) HTN (hypertension) Hypertension type: essential hypertension Qualified Code(s): I10 - Essential (primary) hypertension (2) Vomiting Nausea presence: with nausea Vomiting Intractability: non-intractable Vomiting type: unspecified Qualified Code(s): R11.2 - Nausea with vomiting, unspecified
--- NOTE | 2018-07-01 13:35 | Consultation ---
Date of Consultation July 01, 2018 Assessment & Plan (1) PAD (peripheral artery disease): Pt with likely PAD d/t nonpalpable pulses and hx of DMII. Infected ulcers of RLE noted. Awaiting arterial US results before making final recommendations. Patient was seen, examined, and chart reviewed. Agree with exam and treatment plan of the Vascular PA. I have discussed the risks options and benefits of the procedure with the patient. The patient understands the risks options and benefits and agrees to the procedure. Present on Admission?: Yes (2) Foot ulcer, right: Pt with infected RLE ulcerations but these are painless d/t neuropathy. Continue abx per medicine and local care per wound care. Final recs to follow after arterial US. Present on Admission?: Yes History of Present Illness Reason for Consultation: RLE ulcers Attending Physician: Kuldip Marks MD History of Present Illness 68 yo m with hx of HTN, DMII, OCD, hyperlipidemia, NSTEMI, seizure disorder, depression, COPD, BPH, admitted with generalized weakness and elevated troponin, seen today in consultation for RLE ulcers and decreased LUISA. Pt states has had ulcers to R foot for approx 1 month, but they seem to be worsening over time, not improving. Has not been caring for the ulcers at home. Lives with his sister and brother in law. States the ulcers began d/t some "hand me down" shoes that he began wearing. Denies pain in foot, states feet are numb d/t diabetes. States does not walk much at all, but cannot explain why. Denies HUANG, fever, chills, chest pain,SOB, abd pain, N/V, rest pain, claudication, other complaints. Allergies Allergy/AdvReac Type Severity Reaction Status Date / Time Sulfa (Sulfonamide Allergy Unknown HAS TAKEN Verified 11/17/15 01:37 Antibiotics) LASIX AN OUTPATIENT Home Medications Home Medications Medication Instructions Recorded Confirmed Type SENNOSIDES (SENNA LAXATIVE) 8.6 mg PO DAILY PRN #0 06/04/13 06/29/18 History POLYETHYLENE GLYCOL 3350 (MIRALAX) 17 g PO DAILY PRN #0 11/21/15 06/29/18 History aspirin 81 mg PO DAILY 06/29/18 06/29/18 History atorvastatin 10 mg PO QPM 06/29/18 06/29/18 History clonazepam 1 mg PO BID 06/29/18 06/29/18 History clopidogrel 75 mg PO DAILY 06/29/18 06/29/18 History docusate sodium 100 mg PO DAILY 06/29/18 06/29/18 History fluvoxamine 200 mg PO HS 06/29/18 06/29/18 History gabapentin 100 mg PO TID 06/29/18 06/29/18 History ipratropium-albuterol [Combivent 1 puff INHALATION QID 06/29/18 06/29/18 History Respimat] lamotrigine 400 mg PO BID 06/29/18 06/29/18 History lisinopril 20 mg PO DAILY 06/29/18 06/29/18 History metformin 1,000 mg PO BID 06/29/18 06/29/18 History metoprolol tartrate 25 mg PO BID 06/29/18 06/29/18 History mirtazapine 30 mg PO HS 06/29/18 06/29/18 History phenytoin sodium extended 100 mg PO BID 06/29/18 06/29/18 History promethazine 25 mg PO Q8H PRN 06/29/18 06/29/18 History quetiapine 50 mg PO DAILY@09,14 06/29/18 06/29/18 History quetiapine 100 mg PO HS 06/29/18 06/29/18 History quetiapine 400 mg PO HS 06/29/18 06/29/18 History tamsulosin 0.4 mg PO DAILY 06/29/18 06/29/18 History trazodone 100 mg PO HS 06/29/18 06/29/18 History Patient History Medical History HTN (hypertension) (Chronic) Diabetes mellitus, type II (Chronic) OCD (obsessive compulsive disorder) (Chronic) HLD (hyperlipidemia) (Chronic) Vertigo (Chronic) Seizure disorder (Chronic) Depression (Chronic) BPH (benign prostatic hypertrophy) (Chronic) Tobacco use disorder (Chronic) 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) COPD (chronic obstructive pulmonary disease) (Chronic) Obesity (BMI 30-39.9) (Chronic) Hypertriglyceridemia (Chronic) Surgical History H/O sigmoidoscopy (Chronic) H/O colonoscopy (Chronic) "11/08/2013- normal exam but limited by prep quality" Family History Father Coronary heart disease Other Lung cancer Social History Communication Ability: Effective Beliefs That Will Affect Care: None Current Living Situation: Family Other Information That Helps Us Care for You: No Feels Safe at Home: Yes Safety Concerns: Feels Safe At This Time Smoking Status: Current every day smoker Hx Alcohol Use: No Hx Substance Use: No Review of Systems Constitutional: no fever, no chills, no sweats, no fatigue, no malaise and no weight loss Eyes: no blind spots and no problem reported Ear, Nose, Mouth, Throat: no hearing loss and no sore throat Respiratory: no cough, no dyspnea, no dyspnea on exertion and no hemoptysis Cardiovascular: + edema (BLE, worse RLE); no chest pain, no palpitations, no syncope, no claudication and no problem reported Gastrointestinal: no abdominal pain, no early satiety, no nausea, no vomiting, no cramping, no change in bowel habits, no diarrhea/loose stools and no blood in stools Musculoskeletal: no back pain, no joint pain, no swelling and no muscle weakness Integumentary: + skin ulcer; no rash Neurologic: + generalized weakness, + loss of sensation, + numbness, + paresth esia (BLE ) and + seizure-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); no paralysis, no headache(s) and no confusion Psychiatric: as per Subjective / HPI Hematologic / Lymphatic: no easy bleeding, no easy bruising, no coagulopathy, no night sweats and no unexplained weight loss Physical Exam Vital Signs (Past 24 Hours): Last Vital Signs Temp 36.5 C 07/01/18 11:42 Pulse 53 L 07/01/18 11:42 Resp 16 07/01/18 11:42 BP 178/75 H 07/01/18 11:42 Pulse Ox 99 07/01/18 11:42 Constitutional: WD/WN, vitals as above well developed, well nourished, + ill appearing (chronically), + obese, + disheveled, cooperative and comfortable; + not well groomed and not in distress Eyes: PERRL, conjunctivae normal, anicteric sclerae EOM intact bilaterally ENMT: external ear and nose normal, oropharynx normal Ears: no hearing impairment Nose: no nasal discharge Neck: trachea midline, no thyromegaly no tracheal deviation, no neck crepitus and neck nontender Respiratory: normal respiratory effort, lungs clear to auscultation able to speak in complete sentences; does not use accessory muscles, no cough and not tachypneic Auscultation: lungs clear to auscultation bilaterally and + diminished lung sounds; no rhonchi and no wheezes Cardiovascular: Rate/Rhythm: regular rate and regular rhythm Heart Sounds: no gallop and no murmur Vessels: femoral pulses present (RLE +3, LLE +2), brachial pulses present and radial pulses present; no carotid bruit, no femoral bruit, + posterior tibial pulses abnormal (nonpalpable) and + dorsalis pedis pulses abnormal (nonpalpable) Extremities: normal capillary refill and + pedal edema (R foot) Chest (Breasts): Chest: normal inspection of chest Gastrointestinal (Abdomen): normal bowel sounds, soft, nontender, no hepatosplenomegaly Inspection/Auscultation: abdomen normal to inspection and normal bowel sounds Percussion/Palpation: abdomen soft; abdomen nontender, no guarding, abdomen not rigid and no abdominal mass Musculoskeletal: no cyanosis or clubbing, extremities motor strength 5/5 Head/Neck/Chest: normocephalic, head atraumatic and neck supple Extremities: extremities normal to inspection, strength 5/5 throughout and + chronic stasis changes; full ROM of extremities Skin: no rashes, warm and dry normal turgor, + ulcer (R foot 1st MTP dorsal, malodorous, purulent drain. 5th toe same), + induration, + dry skin and + erythema; no rashes, no lesions and no mottling Trauma: no hematoma and no puncture Neurologic: moves all extremities and awake; no focal motor deficits and not confused Speech / Cognition: no expressive aphasia and no receptive aphasia Motor/Sensory: no tremor and no sensory deficit Cranial Nerves: EOM intact bilaterally and normal facial strength Psychiatric: Orientation: alert, oriented x 3 and cooperative Apperance: appropriately dressed, + disheveled and appeared stated age Affect: + depressed affect and + flat affect Thought Process: goal directed thought process; + thought process not clear or coherent Cognition: recent memory grossly intact, remote memory grossly intact, attention grossly intact and language grossly intact Estimated Intelligence: average estimated intelligence
[2018-07-01] MEDS: IPRATROPIUM BROMIDE/ALBUTEROL respimat INH INH SCH ×4 (14:04→21:45)
[2018-07-01] MEDS: TAMSULOSIN HCL 0.4 MG CAP PO SCH (14:05)
[2018-07-01] MEDS: PHENYTOIN SODIUM ER 100 MG CAP PO SCH ×2 (14:05→21:41)
[2018-07-01] MEDS: METOPROLOL TARTRATE 25 MG TAB PO SCH ×2 (14:05→21:42)
[2018-07-01] MEDS: LISINOPRIL 20 MG TAB PO SCH (14:06)
[2018-07-01] MEDS: GABAPENTIN 100 MG CAP PO SCH ×3 (14:06→21:42)
[2018-07-01] MEDS: lamoTRIgine 100 MG TAB PO SCH ×3 (14:06→21:43)
[2018-07-01] MEDS: clonazePAM 1 MG TAB PO SCH ×2 (14:08→21:41)
[2018-07-01] MEDS: INSULIN GLARGINE SOLOSTAR 100 UNITS/ML 3 ML PEN SC SCH ×4 (14:09→22:27)
--- NOTE | 2018-07-01 14:11 | Neurology Progress Note ---
Date of Service July 01, 2018 Assessment & Plan (1) Seizure disorder: 1. restart of dilantin 100 mg BID 2. restart of Lamictal 400 mg BID- according to patient he was taking his seizure medications- he has been on this Lamictal dosing since 2013. may be able to reduce if he continues to taper off dilantin 3. CT head- no acute abnormalities 4. TTE no ASD 5. GI plans for EGD tomorrow NPO after midnight 6. GI recommending holding heparin gtt if able 7. dilantin level 4.9 8. lamictal level is pending 9. recommend smoking cessation 10. cardiology for elevated troponins 11. vascular surgery for further recommendation of venous stasis Neurology follow up in 2-4 weeks after discharge Dinora Perea PAC schedule Supervising Physician Co-Signing Physician Notes I have seen and discussed above patient with Dr Dinora Arauz, neurologyv PT known to me, seen and examined. Ran out of mult meds several days prior to admission including psych meds and clonazepam. Had genl weakness, n,v. 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 Suspect genl weakness was related to med withdrawal. No evidence of new central event or sz. Lamictal level ordered. Pt should see us in follow-up post dc. LUIS Arauz MD Cristian Tavera is a 68 year old male who is well known to neurology. He has a PMH DM II, HTN, HLD, BPH, depression, COPD, tobacco use, CKD III presented to ER with nausea and vomiting. He states he has been out of most of his medications including some psych meds and blood pressure medication but he states he did have some of his seizure medications. He has had nausea and vomiting and feeling more generalized weakness and dizziness. He has also he poor oral intake. He self caths 4 times a day. He was experiencing some palpitations today. He has a "spell" which he was unable to move, blurry vision, couldn't talk and had trouble breathing. This occurred while he was lying on the couch. He thinks this may have been a seizure. Denies loss control of bowel/bladder. Sleeps in recliner chronically because of his breathing issues. He has been walking around in socks because it is so painful to put on shoes. He has chronic paresthesias to bilateral hands and feet. denies fall or hitting his head. He states he had the EGD this am. He is waiting for recommendations for the vascular surgeons. He has multiple infected ulcerations on his feet. denies CP, SOB, abdominal pain, one sided weakness, numbness tingling, +N, V, + vision decreased (chronic issues needs glasses). +smoker. Physical Exam Vital Signs (Past 24 Hours): Last Vital Signs Temp 36.5 C 07/01/18 11:42 Pulse 53 L 07/01/18 11:42 Resp 16 07/01/18 11:42 BP 178/75 H 07/01/18 11:42 Pulse Ox 99 07/01/18 11:42 Physical Exam: Constitutional: appearance over nourished Ears, Nose, Mouth and Throat: mucous membranes moist, no injection and skin normal, eyes normal Cardiovascular: normal S-1 and S-2 and regular rate and rhythm Respiratory: course breath sounds Musculoskeletal: ulcerations bilaterally feet Skin: venous stasis with neurocutaneous disease noted Eyes: extraocular muscles intact (EOMI) and pupils equal, round and reactive to light (PERRL) NEUROLOGIC EXAMINATION: Mental status: Alert and interactive Oriented to full date and location Oriented to person Speech fluent with no evidence of aphasia Cranial Nerves smile eye brow raise bilaterally Reflexes: Deep tendon reflexes were symmetric bilaterally, plantar decrease bilaterally, absent LE pulses Sensory: decreased sensation bilaterally LE to light touch, cool touch, vibration absent GT proprioception Coordination: finger to nose no bi pass Gait/Stance: Posture normal. sitting up in bed. Motor: Negative for pronator drift of out stretched arms with eyes closed. 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 bilaterally hip flex bilaterally 5/5 Results & Data Laboratory Results Abnormal lab results 06/30/18 06/30/18 06/30/18 Range/Units 16:25 20:32 23:36 MCHC (32-36) g/dL Sodium (136-145) mmol/L Glucose (70-99) mg/dl POC Glucose 233 H 196 H 175 H (70-99) Troponin I (0-0.045) ng/ml Phenytoin (10-20) mcg/ml 07/01/18 07/01/18 07/01/18 Range/Units 01:51 01:51 01:51 MCHC 36.4 H (32-36) g/dL Sodium 135 L (136-145) mmol/L Glucose 176 H (70-99) mg/dl POC Glucose (70-99) Troponin I (0-0.045) ng/ml Phenytoin 3.7 L (10-20) mcg/ml 07/01/18 07/01/18 07/01/18 Range/Units 06:25 12:09 12:36 MCHC (32-36) g/dL Sodium (136-145) mmol/L Glucose (70-99) mg/dl POC Glucose 179 H 177 H (70-99) Troponin I 2.060 H* (0-0.045) ng/ml Phenytoin (10-20) mcg/ml Diagnostic Findings no new imaging
--- NOTE | 2018-07-01 15:40 | Pharmacy Report ---
Glycemic Control Consultation - Date of Service July 01, 2018 - Scope Scope: Glycemic Pharmacist consulted by Dr Marks on 06/30/18 for glycemic control and to write orders per [facility] inpatient glycemic control protocol - Objective Weight: 94.2 kg Accuchecks BSG (last 24hrs): 06/30/18 06/30/18 06/30/18 16:25 20:32 23:36 Glucose POC Glucose 233 H 196 H 175 H 07/01/18 07/01/18 07/01/18 01:51 06:25 12:09 Glucose 176 H POC Glucose 179 H 177 H Laboratory Data (last 24hrs): 07/01/18 01:51 Potassium 3.6 Carbon Dioxide 24 Anion Gap 5.0 Creatinine 1.00 Est Cr Clr Drug Dosing 76.9 HbA1c: Hemoglobin A1c 9.3 % (4.5-5.6) H 06/30/18 05:21 - Recent Pertinent Medications Outpatient Anti-diabetic Regimen: * Metfomin 1 gm po BID * A1c = 9.3 % on 07/01/18 The patient is currently receiving: * Basal insulin: Lantus 16 units x1 given last night * Correctional Insulin: Novolog Correction per scale ACHS Goal Range: Low 120 mg/dL - High 160 mg/dL Correction Factor: 25 mg/dL/unit * Prandial insulin: Per carb ratio of 1 unit per 8 grams CHO consumed * Oral Agents: Hold Metfomin Risk Factors for Insulin Resistance: * Steroids: None * Infection: Doxycycline 100 mg IV BID * Pressors: none * IVF: none * Diet: was NPO- changed to T2DM with lunch today * Mechanical Ventilation: none - Assessment & Plan Assessment & Plan: ASSESSMENT: * 68 y/o M admitted with vomiting and RLE cellulitis. Notes report patient has been non-compliant with his meds for a week now. * BSGs were above 200 yesterday, pharmacy consulted for glycemic control last night. * Lantus and Novolog dosing started based on weight and stress of 2 in the insulin dosing calculator. * Lantus 16 units last night provided good BSG control this AM. He received 9 units of Lantus late (this afternoon) since he was at [facility]. PLAN FOR INPATIENT GLYCEMIC CONTROL: * Continue holding outpatient oral diabetes medications (Metformin). * Basal insulin * Lantus BID based on scale: - BSG less than 140 = 0 units; - BSG 141-200 = 9 units; - BSG greater than 200 = 16 units * Bolus insulin: continue based on weight and stress of 2. * NovoLog per scale ACHS or Q6hrs while NPO * Goal Range: Low 120 mg/dL - High 160 mg/dL * Correction Factor: 25 mg/dL/unit * Nutritional / Prandial insulin per carb ratio of 1 unit per 8 grams CHO consumed * Please note that the plan above was derived based on current level of insulin resistance and hospital stress. These recommendations are appropriate for inpatient admission only. Plan of care upon discharge will need to be reassessed to avoid potential outpatient hypo/hyperglycemia. Thank you.
--- NOTE | 2018-07-01 17:53 | Ultrasound Report ---
US arterial duplex LE BI CLINICAL HISTORY: 5th toe ulcer ulceration COMPARISON STUDY: 02/15/2012 FINDINGS: Real-time as well as Doppler evaluation of the arterial structures of the lower legs was p erformed. Waveforms are triphasic throughout. Velocity characteristics are unremarkable. The following blood pressure indices were obtained. On the right, posterior tibial is 0.76 and dorsa lis pedis is 0.61. On the left, posterior tibial is 1.15 and dorsalis pedis is 1.13. IMPRESSION: Diminished ankle-brachial indices on the right consistent with moderate arterial occlusiv e change. No significant stenosis of the left extremity arterial structures. The above report was generated using voice recognition software. It may contain grammatical, syntax or spelling errors. Electronically signed by: Jesus Uribe M.D. 07/01/2018 5:52 PM
--- NOTE | 2018-07-01 18:54 | Hospitalist Progress Note ---
Date of Service July 01, 2018 Assessment & Plan (1) Weakness: Likely Failure to Thrive-Multiple comorbidities and non compliance Patient presents with worsening generalized weakness since 1 week Has has not been taking his medications since [address] Head:No acute intracranial findings Follow up final cultures PT/OT when appropriate Peripheral Artery Disease: Right LUISA: 0.62 Right 5th toe wound Arterial Doppler:Diminished ankle-brachial indices on the right consistent with moderate arterial occlusive change. No significant stenosis of the left extremity arterial structures. Wound culture:Staph. aureus Blood Culture: Pending Continue IV Doxycyclien Day #2 Continue Aspirin/Plavix, statin Vascular Surgery consulted (2) Vomiting: Coffee Ground Emesis CT ABD: Cholelithiasis; Stable sebaceous cyst, No evidence of bowel obstruction. No evidence of free air, Normal appendix. No evidence of diverticulitis. Mild bladder distention Positive Gastric Occult Monitor H&H S/P EGD: Sami Grade III reflux esophagitis. Gastritis. Biopsied. Normal examined duodenum. Pathology:pending Transfuse PRBC PRN Continue Protonix BID Appreciate GI Input (3) Elevated troponin: ECG suggestive of underlying ischemic heart disease Echo showed no regional wall motion abnormality Elevated troponin likely due to demand ischemia Appreciate cardiology input IV heparin discontinued due to coffee-ground emesis Resume ASA, plavix, statin, metoprolol (4) Seizure disorder: H/O seizure disorder Has been out of meds. Questionable seizure per pt 1-2 days ago prior to admission Symptoms likely due to withdrawal Dilantin level 4.9 Lamictal level pending Appreciate neurology input Continue Dilantin, Lamictal Seizure precautions (5) Diabetes mellitus, type II: A1c: 9.3 Hold PO meds Continue ISS Monitor BGs Pharmacy consulted for glycemic management (6) TIA (transient ischemic attack): Pt reports possible TIA in past No focal deficits on exam. CT Head no acute changes. Continue ASA, plavix, statin (7) COPD (chronic obstructive pulmonary disease): No acute exacerbation. continue home inhaler (8) HTN (hypertension): Continue current meds (9) HLD (hyperlipidemia): continue statin (10) OCD (obsessive compulsive disorder): (11) Depression: Pt been out of medications Continue klonopin, lamictal, seroquel, remeron Hold trazodone for now (12) BPH (benign prostatic hypertrophy): Pt self caths QID bladder scan PRN continue self cath QID DVT Px: SCDs for now Subjective Patient is seen and examined at bedside Had EGD today States feeling tired No other complaints No nausea, vomiting today Denies chest pain, SOB, dizziness Physical Exam Vital Signs (Past 24 Hours): Last Vital Signs Temp 36.5 C 07/01/18 15:41 Pulse 67 07/01/18 15:41 Resp 20 07/01/18 15:41 BP 162/85 H 07/01/18 15:41 Pulse Ox 98 07/01/18 15:41 Physical Exam: Physical Exam: Vitals signs as noted above General Appearance:Moderately built and nourished, mild distress Head: normocephalic, Atraumatic Eyes: normal inspection, EOMI Neck: supple, Trachea midline Respiratory/Chest: Normal breath sounds, CTA Cardiovascular: S1, S2, + systolic murmur Abdomen/GI:Soft, generalized mild tender, no guarding/rigidity, Bowel sounds present Extremities/Musculoskelatal:B/L dry skin, poor hygiene, R foot-1st metatarsal ulcer, 5th toe, callus, discharge between 4th and 5th web spaces Neurologic/Psych:AAOX3, grossly no focal neurological deficits Results & Data Laboratory Results Short CBC 06/30/18 07/01/18 Range/Units 22:53 01:51 WBC 7.33 (4.8-10.8) K/uL Hgb 17.3 16.0 (14.0-18.0) g/dL Hct 48.0 44.0 (42-52) % Plt Count 145 (130-400) K/uL BMP 07/01/18 01:51 Sodium 135 L Potassium 3.6 Chloride 106 Carbon Dioxide 24 BUN 10 Creatinine 1.00 Glucose 176 H Calcium 8.5 Cardiac Enzymes 07/01/18 Range/Units 12:36 Troponin I 2.060 H* (0-0.045) ng/ml Diagnostic Findings EGD: Impression: - Melinda-Hoang Grade III reflux esophagitis. - Gastritis. Biopsied. - Normal examined duodenum. Recommendation: - Await pathology results. - Follow an antireflux regimen. - Use a proton pump inhibitor PO BID. - Return to primary care physician as previously scheduled. - Discharge patient to home. (1) Vomiting Nausea presence: with nausea Vomiting Intractability: non-intractable Vomiting type: unspecified Qualified Code(s): R11.2 - Nausea with vomiting, unspecified (2) HTN (hypertension) Hypertension type: essential hypertension Qualified Code(s): I10 - Essential (primary) hypertension
[2018-07-01] MEDS: FLUVOXAMINE MALEATE 50 MG TAB PO SCH (21:41)
[2018-07-01] MEDS: QUETIAPINE FUMARATE 100 MG TABLET PO SCH (21:42)
[2018-07-01] MEDS: MIRTAZAPINE TAB 15 MG TAB PO SCH (21:43)
[2018-07-01] MEDS: PANTOprazole 40 MG TAB PO SCH (21:44)
[2018-07-01] MEDS: QUETIAPINE FUMARATE 200 MG TAB PO SCH (21:44)
[2018-07-01] MEDS: ATORVASTATIN 10 MG TAB PO SCH (21:44)
[2018-07-01] MEDS ORDERED: NURSING DECISION MEDICATION ONE (22:31)
[2018-07-02] MEDS: METOPROLOL TARTRATE 1 MG/ML VIAL IV SCH ×4 (00:44→18:08)
[2018-07-02] MEDS: SODIUM CHLORIDE 0.9% 1000ML 1,000 ML IV SCH ×2 (03:04→14:05)
[2018-07-02 06:06] LABS: Hemoglobin 15.7 g/dL (14.0-18.0); Mean Corpuscular Hgb Conc 35.7 g/dL (32-36); Mean Corpuscular Volume 94.6 fL (80-100); Mean Platelet Volume 9.3 fL (7.4-10.4); Platelet Count 138 K/uL (130-400); RDW Coefficient of Variation 13.8 % (11.5-14.5); RDW Standard Deviation 47.5 fL (36.4-46.3); Red Blood Count 4.65 M/uL (4.7-6.1); White Blood Count 6.43 K/uL (4.8-10.8)
[2018-07-02 06:24] LABS: BUN Creatinine Ratio 11.4 (10-20); Calcium 8.8 mg/dl (8.5-10.1); Creatinine Clr Calc Pharmacy 64.4 ml/min; Est GFR (African American) 73.3; Est GFR (Non-African American) 63.3
[2018-07-02] MEDS: PHENYTOIN SODIUM ER 100 MG CAP PO SCH ×2 (08:09→20:59)
[2018-07-02] MEDS: TAMSULOSIN HCL 0.4 MG CAP PO SCH (08:09)
[2018-07-02] MEDS: IPRATROPIUM BROMIDE/ALBUTEROL respimat INH INH SCH ×4 (08:09→21:00)
[2018-07-02] MEDS: GABAPENTIN 100 MG CAP PO SCH ×3 (08:09→20:58)
[2018-07-02] MEDS: PANTOprazole 40 MG TAB PO SCH ×2 (08:10→20:59)
[2018-07-02] MEDS: LISINOPRIL 20 MG TAB PO SCH (08:10)
[2018-07-02] MEDS: QUETIAPINE FUMARATE 25 MG TABLET PO SCH ×2 (08:10→13:58)
[2018-07-02] MEDS: lamoTRIgine 100 MG TAB PO SCH ×2 (08:10→20:59)
[2018-07-02] MEDS: METOPROLOL TARTRATE 25 MG TAB PO SCH ×2 (08:10→20:58)
[2018-07-02] MEDS: INSULIN GLARGINE SOLOSTAR 100 UNITS/ML 3 ML PEN SC SCH ×2 (08:13→21:12)
[2018-07-02] MEDS: INSULIN ASPART 100 UNITS/ML 3 ML PEN SC SCH ×4 (08:14→21:10)
[2018-07-02] MEDS: clonazePAM 1 MG TAB PO SCH ×2 (08:24→21:06)
--- NOTE | 2018-07-02 09:13 | Surgery Progress Note ---
Date of Service July 02, 2018 Assessment & Plan (1) PAD (peripheral artery disease): I reviewed the noninvasive testing. I disagree with the report that was done. The left lower extremity is normal with triphasic waveforms however the right lower extremity has monophasic waveforms below the groin. The right common femoral is also biphasic and triphasic. This suggests a superficial femoral artery occlusion and possible inflow disease of the right iliac. The index of 0.62 and the right may be spuriously elevated due to noncompressibility from his diabetes. He and his ulcers been there for a month and he did have one 2 months ago that healed but returned we recommended arteriography and possible intervention. This will be done on Wednesday. I have discussed the risks options and benefits of the procedure with the patient. The patient understands the risks options and benefits and agrees to the procedure. Subjective The patient has no new complaints. Physical Exam Vital Signs (Past 24 Hours): Last Vital Signs Temp 36.6 C 07/02/18 07:30 Pulse 57 L 07/02/18 07:30 Resp 18 07/02/18 07:30 BP 146/73 H 07/02/18 08:19 Pulse Ox 98 07/02/18 07:30 His exam is unchanged of his right foot. He did have noninvasives. This showed moderate occlusive disease in the right lower extremity. In the report said triphasic waveforms throughout.
[2018-07-02] MEDS: CLOPIDOGREL BISULFATE 75 MG TAB PO SCH (09:20)
[2018-07-02] MEDS: ASPIRIN 81 MG ECTAB PO SCH (09:20)
[2018-07-02] MEDS: DOXYCYCLINE HYCLATE 100 MG in DEXTROSE 5% 100 ML IV SCH ×2 (09:20→21:06)
[2018-07-02] MEDS: DOCUSATE SODIUM/SENNA 50/8.6MG TAB PO SCH ×2 (11:00→20:58)
[2018-07-02] MEDS: POLYETHYLENE (MIRALAX) 17 GM PACK PO PRN (11:00)
--- NOTE | 2018-07-02 11:11 | Pharmacy Report ---
Pharmacy Glycemic Short Note 2 - Date of Service July 02, 2018 - Glycemic Short BSG Results (Last 24 hours): 07/01/18 07/01/18 07/01/18 12:09 17:36 20:37 Glucose POC Glucose 177 H 131 H 95 07/02/18 07/02/18 05:22 07:39 Glucose 107 H POC Glucose 127 H ASSESSMENT: * BSGs continue to look good: [id number]/dL over the previous 24hrs. He required only 14 units of insulin yesterday. He is mostly basal heavy. He is scheduled for a procedure with Dr. Gibbs on Wednesday, he will have a diet ordered today and tomorrow. There are no acute changes in insulin requirements anticipated. Will continue with standing insulin orders. PLAN FOR INPATIENT GLYCEMIC CONTROL: * Hold outpatient oral diabetes medications * Basal insulin * Lantus scale SQ BID * BSGs < 140mg/dL hold lantus * BSGs 140-200mg/dL give 9 units * BSGs >200mg/dL give 16 units * Bolus insulin * NovoLog per scale ACHS or Q6hrs while NPO * Goal Range: Low 120 mg/dL - High 160 mg/dL * Correction Factor: 28 mg/dL/unit * Nutritional / Prandial insulin per carb ratio of 1 unit per 5 grams CHO consumed
--- NOTE | 2018-07-02 18:06 | Hospitalist Progress Note ---
Date of Service July 02, 2018 Assessment & Plan (1) Weakness: Likely Failure to Thrive-Multiple comorbidities and non compliance Patient presents with worsening generalized weakness since 1 week Has has not been taking his medications since [address] Head:No acute intracranial findings PT/OT when appropriate Peripheral Artery Disease: Right LUISA: 0.62 Right 5th toe wound Arterial Doppler:Diminished ankle-brachial indices on the right consistent with moderate arterial occlusive change. No significant stenosis of the left extremity arterial structures. Wound culture:Staph. aureus Blood Culture: No growth to date Continue IV Doxycyclin Day #3 Continue Aspirin/Plavix, statin Appreciate Vascular Surgery Possible arteriography and possible intervention likely on Wednesday (2) Vomiting: Coffee Ground Emesis CT ABD: Cholelithiasis; Stable sebaceous cyst, No evidence of bowel obstruction. No evidence of free air, Normal appendix. No evidence of diverticulitis. Mild bladder distention Positive Gastric Occult Monitor H&H S/P EGD: Sami Grade III reflux esophagitis. Gastritis. Biopsied. Normal examined duodenum. Pathology:pending Transfuse PRBC PRN Continue Protonix BID Appreciate GI Input (3) Elevated troponin: ECG suggestive of underlying ischemic heart disease Echo showed no regional wall motion abnormality Elevated troponin likely due to demand ischemia Appreciate cardiology input IV heparin discontinued due to coffee-ground emesis Resume ASA, plavix, statin, metoprolol Currently denies chest pain (4) Seizure disorder: H/O seizure disorder Has been out of meds. Questionable seizure per pt 1-2 days ago prior to admission Symptoms likely due to withdrawal Dilantin level 4.9 Lamictal level pending Appreciate neurology input Continue Dilantin, Lamictal Seizure precautions (5) Diabetes mellitus, type II: A1c: 9.3 Hold PO meds Continue ISS Monitor BGs Pharmacy consulted for glycemic management (6) TIA (transient ischemic attack): Pt reports possible TIA in past No focal deficits on exam. CT Head no acute changes. Continue ASA, plavix, statin (7) COPD (chronic obstructive pulmonary disease): No acute exacerbation. continue home inhaler (8) HTN (hypertension): Continue current meds (9) HLD (hyperlipidemia): continue statin (10) OCD (obsessive compulsive disorder): (11) Depression: Pt been out of medications Continue klonopin, lamictal, seroquel, remeron Hold trazodone for now (12) BPH (benign prostatic hypertrophy): Pt self caths QID bladder scan PRN continue self cath QID DVT Px: SCDs for now Subjective Patient is seen and examined at bedside Reports constipation No other complaints Denies chest pain, SOB, dizziness, nausea, abd pain Physical Exam Vital Signs (Past 24 Hours): Last Vital Signs Temp 36.5 C 07/02/18 15:24 Pulse 56 L 07/02/18 15:24 Resp 20 07/02/18 15:24 BP 145/81 H 07/02/18 15:24 Pulse Ox 99 07/02/18 15:24 Physical Exam: Physical Exam: Vitals signs as noted above General Appearance:Moderately built and nourished, mild distress Head: normocephalic, Atraumatic Eyes: normal inspection, EOMI Neck: supple, Trachea midline Respiratory/Chest: Normal breath sounds, CTA Cardiovascular: S1, S2, + systolic murmur Abdomen/GI:Soft, generalized mild tender, no guarding/rigidity, Bowel sounds present Extremities/Musculoskelatal:B/L dry skin, poor hygiene, R foot-1st metatarsal ulcer, 5th toe, callus, discharge between 4th and 5th web spaces Neurologic/Psych:AAOX3, grossly no focal neurological deficits Results & Data Laboratory Results Short CBC 07/02/18 Range/Units 05:22 WBC 6.43 (4.8-10.8) K/uL Hgb 15.7 (14.0-18.0) g/dL Hct 44.0 (42-52) % Plt Count 138 (130-400) K/uL BMP 07/02/18 05:22 Sodium 139 Potassium 4.0 Chloride 109 H Carbon Dioxide 23 BUN 14 Creatinine 1.19 Glucose 107 H Calcium 8.8 (1) Vomiting Nausea presence: with nausea Vomiting Intractability: non-intractable Vomiting type: unspecified Qualified Code(s): R11.2 - Nausea with vomiting, unspecified (2) HTN (hypertension) Hypertension type: essential hypertension Qualified Code(s): I10 - Essential (primary) hypertension
[2018-07-02] MEDS: QUETIAPINE FUMARATE 200 MG TAB PO SCH (20:58)
[2018-07-02] MEDS: MIRTAZAPINE TAB 15 MG TAB PO SCH (20:59)
[2018-07-02] MEDS: ATORVASTATIN 40 MG TAB PO SCH (20:59)
[2018-07-02] MEDS: FLUVOXAMINE MALEATE 50 MG TAB PO SCH (20:59)
[2018-07-02] MEDS: QUETIAPINE FUMARATE 100 MG TABLET PO SCH (21:03)
[2018-07-03] MEDS: METOPROLOL TARTRATE 1 MG/ML VIAL IV SCH ×4 (00:02→17:37)
[2018-07-03] MEDS: SODIUM CHLORIDE 0.9% 1000ML 1,000 ML IV SCH ×2 (00:22→21:14)
[2018-07-03 06:39] LABS: Hematocrit (blood only) 44.6 % (42-52); Hemoglobin 15.8 g/dL (14.0-18.0); Mean Corpuscular Hgb Conc 35.4 g/dL (32-36); Mean Corpuscular Volume 95.9 fL (80-100); Platelet Count 144 K/uL (130-400); RDW Coefficient of Variation 13.6 % (11.5-14.5); RDW Standard Deviation 47.5 fL (36.4-46.3); Red Blood Count 4.65 M/uL (4.7-6.1); White Blood Count 6.24 K/uL (4.8-10.8)
[2018-07-03 06:55] LABS: BUN Creatinine Ratio 13.8 (10-20); Calcium 9.3 mg/dl (8.5-10.1); Creatinine Clr Calc Pharmacy 62.3 ml/min; Est GFR (African American) 70.5; Est GFR (Non-African American) 60.8
[2018-07-03] MEDS: clonazePAM 1 MG TAB PO SCH ×2 (08:02→21:12)
[2018-07-03] MEDS: LISINOPRIL 20 MG TAB PO SCH (08:02)
[2018-07-03] MEDS: QUETIAPINE FUMARATE 25 MG TABLET PO SCH ×2 (08:03→14:42)
[2018-07-03] MEDS: METOPROLOL TARTRATE 25 MG TAB PO SCH ×2 (08:03→21:13)
[2018-07-03] MEDS: lamoTRIgine 100 MG TAB PO SCH ×2 (08:04→21:12)
[2018-07-03] MEDS: CLOPIDOGREL BISULFATE 75 MG TAB PO SCH (08:04)
[2018-07-03] MEDS: IPRATROPIUM BROMIDE/ALBUTEROL respimat INH INH SCH ×4 (08:04→21:12)
[2018-07-03] MEDS: PANTOprazole 40 MG TAB PO SCH ×2 (08:04→21:13)
[2018-07-03] MEDS: GABAPENTIN 100 MG CAP PO SCH ×3 (08:04→21:13)
[2018-07-03] MEDS: DOCUSATE SODIUM/SENNA 50/8.6MG TAB PO SCH ×2 (08:04→21:13)
[2018-07-03] MEDS: INSULIN ASPART 100 UNITS/ML 3 ML PEN SC SCH ×4 (08:05→21:09)
[2018-07-03] MEDS: PHENYTOIN SODIUM ER 100 MG CAP PO SCH ×2 (08:05→21:12)
[2018-07-03] MEDS: TAMSULOSIN HCL 0.4 MG CAP PO SCH (08:05)
[2018-07-03] MEDS: ASPIRIN 81 MG ECTAB PO SCH (08:05)
[2018-07-03] MEDS: INSULIN GLARGINE SOLOSTAR 100 UNITS/ML 3 ML PEN SC SCH ×2 (08:06→21:08)
[2018-07-03] MEDS: POLYETHYLENE (MIRALAX) 17 GM PACK PO PRN (08:10)
[2018-07-03] MEDS: DOXYCYCLINE HYCLATE 100 MG in DEXTROSE 5% 100 ML IV SCH ×2 (08:21→21:14)
[2018-07-03] MEDS ORDERED: LACTULOSE SYRUP 30 GM/45 ML UDP PO PRN (10:40)
--- NOTE | 2018-07-03 10:47 | Cardiology Progress Note ---
Date of Service July 03, 2018 Assessment & Plan (1) Preop cardiovascular exam: No further complaints nausea chest pain or shortness of breath after EGD and treatment of underlying GI issues. Elevated troponin likely on the basis of demand and acute illness as listed below No contraindications to assessment of peripheral vascular disease arteriogram etc. EKG and telemetry stable (2) Elevated troponin: Patient admitted with 10 days of retching, nausea, vomiting, and poor appetite. Blood pressure elevated on admission due to abdominal symptoms. Mildly elevated troponin trending up to 2.5. Abnormal ECG suggesting underlying ischemic heart disease, and CT images demonstrating dense coronary calcifications, however, no regional wall motion normality appreciated on resting 2D transthoracic echocardiogram. Elevated troponin more likely repr esentative of demand ischemia in the setting of acute gastrointestinal illness possible upper GI bleeding despite normal hemoglobin. Plaque rupture event less likely given normal wall motion on resting echocardiogram. Patient on aspirin Plavix and beta-errol (3) Vomiting: Resolved. (4) TIA (transient ischemic attack): History of possible TIA 2015. Patient maintained on dual antiplatelet therapy since that time. Nonobstructive carotid vascular disease noted. (5) HTN (hypertension): Coming under better control still mildly elevated Would consider low-dose calcium channel errol after peripheral vascular disease assessment (6) Tobacco use disorder: (7) Diabetes mellitus, type II: Subjective Patient seen and examined at the bedside, chart, telemetry, medications reviewed. No recurrent nausea or vomiting overnight. No recurrent coffee- ground emesis. Hemoglobin has remained stable. Denies chest pain or shortness of breath. No orthopnea, PND, palpitations, lightheadedness, dizziness, syncope, near syncope. No dysrhythmias on telemetry. Currently planning peripheral vascular disease assessment in a.m. Physical Exam Vital Signs (Past 24 Hours): Last Vital Signs Temp 36.5 C 07/03/18 07:06 Pulse 57 L 07/03/18 07:06 Resp 16 07/03/18 07:06 BP 156/72 H 07/03/18 07:06 Pulse Ox 99 07/03/18 07:06 Constitutional: WD/WN, vitals as above Eyes: PERRL, conjunctivae normal, anicteric sclerae Neck: + thick neck Respiratory: normal respiratory effort, lungs clear to auscultation Cardiovascular: Rate/Rhythm: regular rate and regular rhythm Heart Sounds: + murmur (Grade 1/6); no gallop Distal pulses diminished right greater than left lower extremities Gastrointestinal (Abdomen): Percussion/Palpation: abdomen soft; abdomen nontender and no hepatosplenomegaly Skin: R foot: dorsal aspect of distal 1st metatarsal with ulcer without discharge, 5th toe - callus. Results & Data Laboratory Results Laboratory Results - last 24 hr 07/02/18 07/02/18 07/02/18 11:30 16:24 20:16 WBC RBC Hgb Hct MCV MCH MCHC RDW Std Deviation RDW Coeff of Ritesh Plt Count MPV Sodium Potassium Chloride Carbon Dioxide Anion Gap BUN Creatinine Est Cr Clr Drug Dosing Est GFR ( Amer) Est GFR (Non-Af Amer) BUN/Creatinine Ratio Glucose POC Glucose 148 H 147 H 126 H Calcium 07/03/18 07/03/18 07/03/18 06:12 06:12 07:36 WBC 6.24 RBC 4.65 L Hgb 15.8 Hct 44.6 MCV 95.9 MCH 34.0 MCHC 35.4 RDW Std Deviation 47.5 H RDW Coeff of Ritesh 13.6 Plt Count 144 MPV 9.0 Sodium 137 Potassium 4.0 Chloride 105 Carbon Dioxide 23 Anion Gap 10.0 BUN 17 Creatinine 1.23 Est Cr Clr Drug Dosing 62.3 Est GFR ( Amer) 70.5 Est GFR (Non-Af Amer) 60.8 BUN/Creatinine Ratio 13.8 Glucose 118 H POC Glucose 150 H Calcium 9.3 (1) Vomiting Nausea presence: with nausea Vomiting Intractability: non-intractable Vomi ting type: unspecified Qualified Code(s): R11.2 - Nausea with vomiting, unspecified (2) HTN (hypertension) Hypertension type: essential hypertension Qualified Code(s): I10 - Essential (primary) hypertension
--- NOTE | 2018-07-03 11:47 | Pharmacy Report ---
Pharmacy Glycemic Short Note 2 - Date of Service July 03, 2018 - Glycemic Short BSG Results (Last 24 hours): 07/02/18 07/02/18 07/03/18 16:24 20:16 06:12 Glucose 118 H POC Glucose 147 H 126 H 07/03/18 07:36 Glucose POC Glucose 150 H ASSESSMENT: * Pt has been receiving 14-16 units of insulin per day with adequate control. * Regimen is basically split 50% basal:50% prandial insulin which is the preferred distribution for inpatient use to prevent hypo when PO intake/status changes. * BSGs ranging 126-150 mg/dl over the past 24hrs * No changes needed to regimen at this time. PLAN FOR INPATIENT GLYCEMIC CONTROL: * Hold outpatient oral diabetes medications * Basal insulin * Lantus scale SQ BID * BSGs < 140mg/dL hold lantus * BSGs 140-200mg/dL give 9 units * BSGs >200mg/dL give 16 units * Bolus insulin * NovoLog per scale ACHS or Q6hrs while NPO * Goal Range: Low 120 mg/dL - High 160 mg/dL * Correction Factor: 28 mg/dL/unit * Nutritional / Prandial insulin per carb ratio of 1 unit per 5 grams CHO consumed
--- NOTE | 2018-07-03 17:17 | Hospitalist Progress Note ---
Date of Service July 03, 2018 Assessment & Plan (1) Weakness: Likely Failure to Thrive-Multiple comorbidities and non compliance Patient presents with worsening generalized weakness since 1 week Has has not been taking his medications since [address] Head:No acute intracranial findings PT/OT when appropriate Peripheral Artery Disease: Right LUISA: 0.62 Right 5th toe wound Arterial Doppler:Diminished ankle-brachial indices on the right consistent with moderate arterial occlusive change. No significant stenosis of the left extremity arterial structures. Wound culture:Staph. aureus, Corynebacterium species Blood Culture: No growth to date Continue IV Doxycyclin Day #4 Continue Aspirin/Plavix, statin Appreciate Vascular Surgery Planned for arteriography and possible intervention tomorrow (2) Vomiting: Coffee Ground Emesis CT ABD: Cholelithiasis; Stable sebaceous cyst, No evidence of bowel obstruction. No evidence of free air, Normal appendix. No evidence of diverticulitis. Mild bladder distention Positive Gastric Occult Monitor H&H S/P EGD: Sami Grade III reflux esophagitis. Gastritis. Biopsied. Normal examined duodenum. Pathology:pending Transfuse PRBC PRN Continue Protonix BID Appreciate GI Input (3) Elevated troponin: ECG suggestive of underlying ischemic heart disease Likely demand ischemia in setting of Acute GI bleed Echo showed no regional wall motion abnormality Appreciate cardiology input IV heparin discontinued due to coffee-ground emesis Continue ASA, plavix, statin, metoprolol No recurrence of chest pain (4) Seizure disorder: H/O seizure disorder Has been out of meds. Questionable seizure per pt 1-2 days ago prior to admission Symptoms likely due to withdrawal Dilantin level 4.9 Lamictal level pending Appreciate neurology input Continue Dilantin, Lamictal Seizure precautions (5) Diabetes mellitus, type II: A1c: 9.3 Hold PO meds Continue ISS Monitor BGs Pharmacy consulted for glycemic management (6) TIA (transient ischemic attack): Pt reports possible TIA in past No focal deficits on exam. CT Head no acute changes. Continue ASA, plavix, statin (7) COPD (chronic obstructive pulmonary disease): No acute exacerbation. continue home inhaler (8) HTN (hypertension): Continue current meds (9) HLD (hyperlipidemia): continue statin (10) OCD (obsessive compulsive disorder): (11) Depression: Pt been out of medications Continue klonopin, lamictal, seroquel, remeron Hold trazodone for now (12) BPH (benign prostatic hypertrophy): Pt self caths QID bladder scan PRN continue self cath QID DVT Px: SCDs for now Subjective Patient is seen and examined at bedside No new complaints Denies chest pain, SOB, dizziness, nausea, abd pain Bp slightly elevated Planned for procedure by vascular surgery tomorrow Physical Exam Vital Signs (Past 24 Hours): Last Vital Signs Temp 36.5 C 07/03/18 15:33 Pulse 69 07/03/18 15:33 Resp 20 07/03/18 15:33 BP 162/76 H 07/03/18 15:33 Pulse Ox 96 07/03/18 15:33 Physical Exam: Physical Exam: Vitals signs as noted above General Appearance:Moderately built and nourished, mild distress Head: normocephalic, Atraumatic Eyes: normal inspection, EOMI Neck: supple, Trachea midline Respiratory/Chest: Normal breath sounds, CTA Cardiovascular: S1, S2, + systolic murmur Abdomen/GI:Soft, generalized mild tender, no guarding/rigidity, Bowel sounds present Extremities/Musculoskelatal:B/L dry skin, poor hygiene, R foot-1st metatarsal ulcer, 5th toe, callus, discharge between 4th and 5th web spaces Neurologic/Psych:AAOX3, grossly no focal neurological deficits Results & Data Laboratory Results Short CBC 07/03/18 Range/Units 06:12 WBC 6.24 (4.8-10.8) K/uL Hgb 15.8 (14.0-18.0) g/dL Hct 44.6 (42-52) % Plt Count 144 (130-400) K/uL BMP 07/03/18 06:12 Sodium 137 Potassium 4.0 Chloride 105 Carbon Dioxide 23 BUN 17 Creatinine 1.23 Glucose 118 H Calcium 9.3 (1) Vomiting Nausea presence: with nausea Vomiting Intractability: non-intractable Vomiting type: unspecified Qualified Code(s): R11.2 - Nausea with vomiting, unspecified (2) HTN (hypertension) Hypertension type: essential hypertension Qualified Code(s): I10 - Essential (primary) hypertension
[2018-07-03] MEDS: MIRTAZAPINE TAB 15 MG TAB PO SCH (21:13)
[2018-07-03] MEDS: ATORVASTATIN 40 MG TAB PO SCH (21:13)
[2018-07-03] MEDS: FLUVOXAMINE MALEATE 50 MG TAB PO SCH (21:13)
[2018-07-03] MEDS: QUETIAPINE FUMARATE 200 MG TAB PO SCH (21:14)
[2018-07-03] MEDS: QUETIAPINE FUMARATE 100 MG TABLET PO SCH (21:16)
[2018-07-04] MEDS: METOPROLOL TARTRATE 1 MG/ML VIAL IV SCH ×3 (00:23→11:58)
[2018-07-04] MEDS ORDERED: CEFAZOLIN 2000MG 2,000 MG/15 ML SYR IV SCH (06:00)
[2018-07-04] MEDS ORDERED: SODIUM CHLORIDE 0.9% 1000ML 1,000 ML IV SCH (06:00)
[2018-07-04] MEDS: INSULIN ASPART 100 UNITS/ML 3 ML PEN SC SCH ×4 (07:42→20:39)
[2018-07-04] MEDS ORDERED: MIDAZOLAM HCL 1 MG/ML 2ML VIAL ONE ×2 (07:48→10:08)
[2018-07-04] MEDS ORDERED: HEPARIN SOD (PORCINE) 1000 UNIT/ML 10 ML VIAL ONE (07:48)
[2018-07-04] MEDS ORDERED: fentaNYL citrate 100 MCG/2 ML VIAL ONE (07:48)
--- NOTE | 2018-07-04 09:08 | Pre Anesthesia Assessment ---
Date of Service July 04, 2018 Pre Sedation Assessment Vital Signs Temp Pulse Pulse Resp BP BP BP 07/04/18 08:08 36.7 C 57 L 20 163/70 H 07/04/18 07:47 36.5 C 52 L 16 176/71 H 07/04/18 06:06 47 L 07/04/18 03:40 36.4 C L 53 L 20 168/79 H 07/04/18 00:23 64 07/03/18 23:58 36.4 C L 60 18 129/73 07/03/18 19:34 37 C 53 L 20 144/83 H 07/03/18 17:37 69 162/76 H 07/03/18 15:33 36.5 C 69 20 162/76 H 07/03/18 12:38 58 L 165/90 H 07/03/18 11:29 36.3 C L 59 L 18 165/90 H Pulse Ox 07/04/18 08:08 97 07/04/18 07:47 98 07/04/18 06:06 07/04/18 03:40 100 07/04/18 00:23 07/03/18 23:58 98 07/03/18 19:34 98 07/03/18 17:37 07/03/18 15:33 96 07/03/18 12:38 07/03/18 11:29 98 Cardiovascular RRR, no murmur, no edema Respiratory normal respiratory effort, lungs clear to auscultation Pre-Sedation Airway Assessment Smoking Status: Current every day smoker Hx Sleep Apnea: No Short, Thick Neck: No Thyromental Distance: > or= 3.5 Finger Breadths Oral Cavity: + Dentures Mallampati Class: II ASA: ASA3 NPO Status Date of Last Intake of Fluids: 07/03/18 Time of Last Intake of Fluids: 23:00 Date of Last Intake of Solid Food: 07/03/18 Time of Last Intake of Solid Foods: 23:00 Procedure Planning Contraindications for Sedation: none Current Medications Reviewed: Yes Notes The planned sedation has been discussed with the patient. Informed Consent was obtained. I have identified the patient, determined the appropriateness of sedation and have assessed the patient immediately prior to the procedure. All medicine(s) and interventions are by my order.
[2018-07-04] MEDS ORDERED: VISIPAQUE IV PRN (11:15)
[2018-07-04] MEDS ORDERED: LIDOCAINE HCL 1% 20 ML VIAL INJ ONE (11:15)
--- NOTE | 2018-07-04 11:21 | Post Operative Brief Note ---
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 Post-Op Diagnosis: Chronic Limb Ischemia with Tissue Loss Procedure Operation Date: 07/01/18 08:30 Actual Procedures p EGD Biopsy Cytology - Carmen Chan Operation Date: 07/04/18 08:00 Actual Procedures p Right Lower Extremity Angiogram, Ultrasound Localization of Left Femoral Artery, Percutaneous Transluminal Angioplasty Right Superficial Femoral Artery Pedal Approach, Mechanical Closure of Left Femoral Artery, Moderate Sedation [id number](Left) - Shilo Gibbs MD Surgeon Shilo Gibbs MD [employer] MD Sheila Estimated Blood Loss 50 Findings Consistent with Post-Op Diagnosis Anesthesia Type RN Sedation Complications none Disposition Accompanied Patient To Recovery: No Disposition: Recovery Room
--- NOTE | 2018-07-04 11:30 | Post Anesthesia Assessment ---
Date of Service July 04, 2018 Post Sedation Assessment Vital Signs Temp Pulse Pulse Resp BP BP BP 07/04/18 11:24 62 20 155/78 H 07/04/18 11:19 68 20 163/87 H 07/04/18 11:17 64 20 163/87 H 07/04/18 11:12 59 L 20 187/83 H 07/04/18 11:07 69 20 167/79 H 07/04/18 11:02 63 20 164/77 H 07/04/18 10:57 60 16 166/73 H 07/04/18 10:52 57 L 15 164/96 H 07/04/18 10:47 55 L 16 160/79 H 07/04/18 10:42 54 L 15 154/72 H 07/04/18 10:37 55 L 15 144/74 H 07/04/18 10:32 56 L 14 164/75 H 07/04/18 10:27 53 L 12 164/82 H 07/04/18 10:22 49 L 14 161/78 H 07/04/18 10:17 53 L 15 156/74 H 07/04/18 10:12 54 L 16 176/81 H 07/04/18 10:07 54 L 15 168/75 H 07/04/18 10:02 56 L 15 165/81 H 07/04/18 09:57 57 L 20 167/77 H 07/04/18 09:52 56 L 15 168/78 H 07/04/18 09:47 55 L 15 173/77 H 07/04/18 09:42 55 L 19 162/77 H 07/04/18 09:37 57 L 17 161/72 H 07/04/18 09:32 56 L 13 167/71 H 07/04/18 09:27 56 L 19 160/72 H 07/04/18 09:22 52 L 16 146/76 H 07/04/18 09:17 55 L 18 156/71 H 07/04/18 09:12 59 L 14 173/90 H 07/04/18 09:09 55 L 15 154/84 H 07/04/18 08:08 36.7 C 57 L 20 163/70 H 07/04/18 07:47 36.5 C 52 L 16 176/71 H 07/04/18 06:06 47 L 07/04/18 03:40 36.4 C L 53 L 20 168/79 H 07/04/18 00:23 64 07/03/18 23:58 36.4 C L 60 18 129/73 07/03/18 19:34 37 C 53 L 20 144/83 H 07/03/18 17:37 69 162/76 H 07/03/18 15:33 36.5 C 69 20 162/76 H 07/03/18 12:38 58 L 165/90 H Pulse Ox 07/04/18 11:24 97 07/04/18 11:19 95 07/04/18 11:17 96 07/04/18 11:12 97 07/04/18 11:07 97 07/04/18 11:02 99 07/04/18 10:57 100 07/04/18 10:52 100 07/04/18 10:47 99 07/04/18 10:42 98 07/04/18 10:37 99 07/04/18 10:32 99 07/04/18 10:27 100 07/04/18 10:22 99 07/04/18 10:17 100 07/04/18 10:12 99 07/04/18 10:07 99 07/04/18 10:02 100 07/04/18 09:57 100 07/04/18 09:52 100 07/04/18 09:47 99 07/04/18 09:42 99 07/04/18 09:37 99 07/04/18 09:32 99 07/04/18 09:27 99 07/04/18 09:22 99 07/04/18 09:17 98 07/04/18 09:12 100 07/04/18 09:09 100 07/04/18 08:08 97 07/04/18 07:47 98 07/04/18 06:06 07/04/18 03:40 100 07/04/18 00:23 07/03/18 23:58 98 07/03/18 19:34 98 07/03/18 17:37 07/03/18 15:33 96 07/03/18 12:38 Recovery Score Activity: Moves 4 extremities Respiration: Deep Breath/Cough Circulation: +/-20% PreAnes Value Consciousness: Fully Awake Oxygen Saturation: > 92% On Room Air Post Anesthesia Score: 10 Discharge Sedation Level of Care: Fast Track Phase II Post Sedation Plan On clinical assessment, the patient appears to have tolerated the sedation without complications. Patient is recovering as anticipated. Patient will continue to be monitored by nursing and may be discharged when sedation discharge criteria are met per below protocol. Upon Completions of procedure and additional 15 minutes continue every 5 minute vital signs and the P.A.R. score; then discharge to a Phase I or Fast Track to Phase II per the following guidelines: * Discharge Patient to appropriate Phase II area if PAR is 8 or greater or return to pre- procedure baseline. The post - procedure orders will be as directed. * If PAR score is less than 8 or not return to pre-procedure baseline then patient will follow Phase I monitoring till PAR is reached for Phase II. The Phase I may be done in procedure room or may call to secure a Phase I area. * If naloxone or flumazenil are used for reversal, hold in Phase I for continued monitoring from when last reversal dose was given for a minimum of 60 minutes or longer pending the nurse and/or physician discretion of patient condition before discharge to Phase II. Please call the Sedation Physician to re-evaluate and complete post-note for discharge to Phase II area. Do NOT discharge from procedure sedation or Phase 1 until post- sedation evalua tion note is complete by procedure /sedation MD Sedation Discharge Instructions to be given to the patient at discharge to home.
--- NOTE | 2018-07-04 11:41 | Procedure Note ---
Angiogram Post Procedure Fluoroscopy Time (minutes): 26.9 Conscious Sedation Time (minutes): 132 Radiation (mGy): 147 Contrast: 75 cc Post Operative Report Pre & Post Diagnosis Operation Date: 07/01/18 08:30 Pre-Op Diagnosis: GI Bleed Post-Op Diagnosis: Esophagitis, Gastritis Operation Date: 07/04/18 08:00 Pre-Op Diagnosis: Chronic Limb Ischemia with Tissue Loss Post-Op Diagnosis: Chronic Limb Ischemia with Tissue Loss Procedure Operation Date: 07/01/18 08:30 Actual Procedures p EGD Biopsy Cytology - Carmen Chan Operation Date: 07/04/18 08:00 Actual Procedures p Right Lower Extremity Angiogram, Ultrasound Localization of Left Femoral Artery, Percutaneous Transluminal Angioplasty Right Superficial Femoral Artery Pedal Approach, Mechanical Closure of Left Femoral Artery, Moderate Sedation [id number](Left) - Shilo Gibbs MD Surgeon Dr. Sai Velasquez MD Coil Machine Operator MD Sheila Estimated Blood Loss 50 Findings See Below Fluted right SFA right at the takeoff of the bifurcation at the distal end of the common femoral artery on the right side. Patient had a reconstitution of the distal SFA and popliteal artery with a 3 vessel runoff all the way to the foot. Patient had a patent profunda with multiple collaterals. Right iliac system was patent. Specimens None Anesthesia Type RN Sedation Complications none Disposition Accompanied Patient To Recovery: No Disposition: Recovery Room Indications Right lower extremity chronic critical limb ischemia with a right foot nonhealing wound. Description of Procedure The patient was placed supine on the angiography table. The left groin was prepped and draped in a sterile fashion. Following the administration of lidocaine , the left common femoral artery was accessed using a 18 gauge needle ultrasound guidance. A J wire was threaded and the 11 blade was used to make a deedee in the skin. Following that a 5 Portuguese sheath was advanced over the J-wire after the axis needle was removed. 035 angled glide wire was then advanced into the abdominal aorta and a rim catheter was advanced into the aorta and the wire was guided down the right common iliac artery down to the right common femoral artery. The rim catheter was then advanced to the right external iliac artery. Then an angiogram of the right lower extremity starting at the iliac system going down the leg to the foot was completed. This revealed a occlusion of the SFA just distal to the common femoral artery bifurcation with a patent profunda on the right side and reconstitution of the distal SFA with a three-vessel runoff although with the foot. A stiff angled Williams wire was then advanced to the right common femoral artery and the rim catheter was removed over the wire and the 5 Portuguese sheath was exchanged for a 6 Portuguese destination sheath which was parked at the distal external iliac artery on the right side. Using the angled glide wire and the quick cross catheter recannulation of the occluded SFA was attempted. The wire again subintimal access however we were unable to to reenter the lumen of the SFA just distal to the occluded segment. After multiple attempts our attention was turned to the foot where it was prepped and draped in a sterile fashion and using a micropuncture pedal access needle and ultrasound guidance the right DP was accessed and micropuncture wire was then advanced into the AT fluoroscopic confirmation was obtained and then a micropuncture sheath was advanced over the wire and a angiogram was obtained showing a patent AT. An 0.018 wire was then advanced and a quick cross catheter was then used to get into the popliteal artery below the occluded segment. After multiple attempts to regain entry into the lumen the quick cross was removed and the micropuncture access sheath was exchanged for a 5 Portuguese sheath. A regular quick cross was then advanced over the wire and the wire was exchanged for an angled glide 0.035 angled glide wire and was advanced and ultimately we gained entry into the lumen of the artery at the common femoral artery on the right side. An 035 angled glide cath wire was then advanced from the left groin down the profunda as well as a 5 x 60 mm balloon which was advanced into the right profunda but not inflated. This was meant as a bail out should we have access the lumen of the artery above the level of the profunda. A 6 mm x 100 mm balloon was then advanced from the DP axis on the right side into the right common femoral artery extending from the right SFA. Angioplasty of that segment was completed the balloon was deflated and withdrawn down into the SFA at that point an angiogram from the left groin sheath was completed showing a patent proximal SFA after the balloon angioplasty as well as a patent profunda on the right side. At this point we have maintained the wire access into the profunda but the balloon was withdrawn from the profunda and attention was then turned to the SFA where the balloon in the SFA was used to do a complete angioplasty of the occluded segment of the SFA all the way down to the proximal popliteal artery. A follow-up angiogram from the left groin sheath revealed a now patent SFA with a patent profunda on the right side. The patient also had pulsatile flow through the DP 5 Portuguese sheath after the balloon was removed. At this point a completion angiogram revealed good tigist w through the SFA with no areas of residual stenosis and a patent right-sided profunda and the decision was made to end any intervention at this point. The left groin sheath was slowly withdrawn until the tip of the sheath was confirmed in the left iliac system confirmed with fluoroscopy and a sheath a gram was completed. At this time the sheath was removed over the wire and a Star close closure device was used. The Star close 6 Portuguese dilator and sheath were advanced over the wire and then the wire was removed the dilator was removed as well on the clear the star closure device was deployed using steps 1 through 4 following the deployment of the start closure hemostasis of the left groin was achieved pressure was held for approximately 5minutes as well. Attention was then turned to the right DP access where the wire was removed and then the sheath was removed and a 5-minute pressure holding was completed which revealed hemostasis of the right DP access site. Patient tolerated the procedure well and at end of the case had no sign of any hematoma in his left groin and good distal signals in both lower extremities. The patient was taken back to the recovery area in a flat position. Dr. Gibbs was present for the entirety of the case. I attest to the content of the Intraoperative Record and any orders documented therein. Any exceptions are noted below.
[2018-07-04] MEDS: QUETIAPINE FUMARATE 25 MG TABLET PO SCH ×2 (11:45→11:55)
[2018-07-04] MEDS: LISINOPRIL 20 MG TAB PO SCH (11:55)
[2018-07-04] MEDS: IPRATROPIUM BROMIDE/ALBUTEROL respimat INH INH SCH ×4 (11:55→20:27)
[2018-07-04] MEDS: TAMSULOSIN HCL 0.4 MG CAP PO SCH (11:55)
[2018-07-04] MEDS: clonazePAM 1 MG TAB PO SCH ×2 (11:55→20:31)
[2018-07-04] MEDS: PANTOprazole 40 MG TAB PO SCH ×2 (11:55→20:32)
[2018-07-04] MEDS: ASPIRIN 81 MG ECTAB PO SCH (11:56)
[2018-07-04] MEDS: CLOPIDOGREL BISULFATE 75 MG TAB PO SCH (11:56)
[2018-07-04] MEDS: DOCUSATE SODIUM/SENNA 50/8.6MG TAB PO SCH ×2 (11:56→20:28)
[2018-07-04] MEDS: METOPROLOL TARTRATE 25 MG TAB PO SCH ×2 (11:57→20:31)
[2018-07-04] MEDS: lamoTRIgine 100 MG TAB PO SCH ×2 (11:57→20:30)
[2018-07-04] MEDS: PHENYTOIN SODIUM ER 100 MG CAP PO SCH ×2 (11:57→20:30)
[2018-07-04] MEDS: GABAPENTIN 100 MG CAP PO SCH ×3 (11:58→20:28)
[2018-07-04] MEDS: INSULIN GLARGINE SOLOSTAR 100 UNITS/ML 3 ML PEN SC SCH ×2 (12:01→20:38)
[2018-07-04] MEDS: SODIUM CHLORIDE 0.9% 1000ML 1,000 ML IV SCH ×2 (12:03→20:25)
[2018-07-04] MEDS: DOXYCYCLINE HYCLATE 100 MG in DEXTROSE 5% 100 ML IV SCH ×2 (12:22→20:35)
--- NOTE | 2018-07-04 13:30 | Pharmacy Report ---
Pharmacy Glycemic Short Note 2 - Date of Service July 04, 2018 - Glycemic Short BSG Results (Last 24 hours): 07/03/18 07/03/18 07/04/18 16:06 20:55 07:28 POC Glucose 86 140 H 143 H 07/04/18 11:44 POC Glucose 153 H ASSESSMENT: 07/04/18 * Pt NPO this morning for angiogram. Ordered DMT2 diet with lunch. * Adequate glycemic control maintained. * Goal range changed to 110-140 mg/dL and carb ratio loosened to 1:9 in light of bsg of 86 ml/dL at lunch yesterday. * Will continue sliding scale lantus sliding scale. 07/03/18 * Pt has been receiving 14-16 units of insulin per day with adequate control. * Regimen is basically split 50% basal:50% prandial insulin which is the preferred distribution for inpatient use to prevent hypo when PO intake/status changes. * BSGs ranging 126-150 mg/dl over the past 24hrs * No changes needed to regimen at this time. PLAN FOR INPATIENT GLYCEMIC CONTROL: * Hold outpatient oral diabetes medications * Basal insulin * Lantus scale SQ BID * BSGs < 140mg/dL hold lantus * BSGs 140-200mg/dL give 9 units * BSGs >200mg/dL give 16 units * Bolus insulin- * NovoLog per scale ACHS or Q6hrs while NPO * Goal Range: Low 110 mg/dL - High 160 mg/dL * Correction Factor: 25 mg/dL/unit * Nutritional / Prandial insulin per carb ratio of 1 unit per 9 grams CHO consumed- loosened
--- NOTE | 2018-07-04 19:10 | Hospitalist Progress Note ---
Date of Service July 04, 2018 Assessment & Plan (1) Weakness: Likely Failure to Thrive-Multiple comorbidities and non compliance Patient presents with worsening generalized weakness since 1 week Has has not been taking his medications since [address] Head:No acute intracranial findings PT/OT when appropriate Peripheral Artery Disease: Right LUISA: 0.62 Right 5th toe wound Arterial Doppler:Diminished ankle-brachial indices on the right consistent with moderate arterial occlusive change. No significant stenosis of the left extremity arterial structures. Wound culture:Staph. aureus, Corynebacterium species Blood Culture: No growth to date Continue IV Doxycyclin Day #5 Continue Aspirin/Plavix, statin Appreciate Vascular Surgery S/P Angioplasty Right Superficial Femoral Artery Pedal Approach, Mechanical Closure of Left Femoral Artery (2) Vomiting: Coffee Ground Emesis CT ABD: Cholelithiasis; Stable sebaceous cyst, No evidence of bowel obstruction. No evidence of free air, Normal appendix. No evidence of diverticulitis. Mild bladder distention Positive Gastric Occult Monitor H&H S/P EGD: Melinda-Hoang Grade III reflux esophagitis. Gastritis. Biopsied. Normal examined duodenum. Pathology:Negative for Metaplasia, dysplasia, malignancy, H.pylori Transfuse PRBC PRN Continue Protonix BID Appreciate GI Input (3) Elevated troponin: ECG suggestive of underlying ischemic heart disease Likely demand ischemia in setting of Acute GI bleed Echo showed no regional wall motion abnormality Appreciate cardiology input IV heparin discontinued due to coffee-ground emesis Continue ASA, plavix, statin, metoprolol No recurrence of chest pain (4) Seizure disorder: H/O seizure disorder Has been out of meds. Questionable seizure per pt 1-2 days ago prior to admission Symptoms likely due to withdrawal Dilantin level 4.9 Lamictal level pending Appreciate neurology input Continue Dilantin, Lamictal Seizure precautions Needs Antiseizure meds refilled at the time of discharge (5) Diabetes mellitus, type II: A1c: 9.3 Hold PO meds Continue ISS Monitor BGs Pharmacy consulted for glycemic management (6) TIA (transient ischemic attack): Pt reports possible TIA in past No focal deficits on exam. CT Head no acute changes. Continue ASA, plavix, statin (7) COPD (chronic obstructive pulmonary disease): No acute exacerbation. continue home inhaler (8) HTN (hypertension): Continue current meds Decreased metoprolol dose due to bradycardia Plan to increase dose of OLGA if needed (9) HLD (hyperlipidemia): continue statin (10) OCD (obsessive compulsive disorder): (11) Depression: Pt been out of medications Continue klonopin, lamictal, seroquel, remeron Hold trazodone for now (12) BPH (benign prostatic hypertrophy): Pt self caths QID bladder scan PRN continue self cath QID DVT Px: SCDs for now Subjective Patient is seen and examined at bedside Patient had angioplasty today Reports mild pain at surgical site No other complaints Denies chest pain, SOB, dizziness, nausea Physical Exam Vital Signs (Past 24 Hours): Last Vital Signs Temp 36.8 C 07/04/18 16:14 Pulse 81 07/04/18 16:14 Resp 18 07/04/18 16:14 BP 163/79 H 07/04/18 16:14 Pulse Ox 96 07/04/18 16:14 Physical Exam: Physical Exam: Vitals signs as noted above General Appearance:Moderately built and nourished, mild distress Head: normocephalic, Atraumatic Eyes: normal inspection, EOMI Neck: supple, Trachea midline Respiratory/Chest: Normal breath sounds, CTA Cardiovascular: S1, S2, + systolic murmur Abdomen/GI:Soft, generalized mild tender, no guarding/rigidity, Bowel sounds present Extremities/Musculoskelatal:B/L dry skin, poor hygiene, R foot-1st metatarsal ulcer, 5th toe, callus, discharge between 4th and 5th web spaces Neurologic/Psych:AAOX3, grossly no focal neurological deficits (1) Vomiting Nausea presence: with nausea Vomiting Intractability: non-intractable Vomiting type: unspecified Qualified Code(s): R11.2 - Nausea with vomiting, unspecified (2) HTN (hypertension) Hypertension type: essential hypertension Qualified Code(s): I10 - Essential (primary) hypertension
[2018-07-04] MEDS: FLUVOXAMINE MALEATE 50 MG TAB PO SCH (20:28)
[2018-07-04] MEDS: MIRTAZAPINE TAB 15 MG TAB PO SCH (20:29)
[2018-07-04] MEDS: QUETIAPINE FUMARATE 200 MG TAB PO SCH (20:29)
[2018-07-04] MEDS: ATORVASTATIN 40 MG TAB PO SCH (20:30)
[2018-07-04] MEDS: ACETAMINOPHEN 325 MG TAB PO PRN (20:31)
[2018-07-04] MEDS: QUETIAPINE FUMARATE 100 MG TABLET PO SCH (20:32)
[2018-07-05] MEDS: ACETAMINOPHEN 325 MG TAB PO PRN ×2 (03:33→20:33)
[2018-07-05] MEDS: PROMETHAZINE HCL 25 MG TAB PO PRN (03:33)
[2018-07-05] MEDS: SODIUM CHLORIDE 0.9% 1000ML 1,000 ML IV SCH ×3 (04:44→20:30)
[2018-07-05 05:40] LABS: Hematocrit (blood only) 43.4 % (42-52); Hemoglobin 15.4 g/dL (14.0-18.0); Mean Corpuscular Hgb Conc 35.5 g/dL (32-36); Mean Corpuscular Volume 96.2 fL (80-100); Mean Platelet Volume 8.8 fL (7.4-10.4); Platelet Count 136 K/uL (130-400); RDW Coefficient of Variation 13.4 % (11.5-14.5); RDW Standard Deviation 47.9 fL (36.4-46.3); Red Blood Count 4.51 M/uL (4.7-6.1); White Blood Count 6.81 K/uL (4.8-10.8)
[2018-07-05 06:10] LABS: BUN Creatinine Ratio 15.4 (10-20); Calcium 8.6 mg/dl (8.5-10.1); Creatinine Clr Calc Pharmacy 48.5 ml/min; Est GFR (African American) 52.1; Est GFR (Non-African American) 44.9; Potassium 3.9 mmol/L (3.5-5.1)
[2018-07-05] MEDS: PANTOprazole 40 MG TAB PO SCH ×2 (08:15→20:33)
[2018-07-05] MEDS: QUETIAPINE FUMARATE 25 MG TABLET PO SCH ×2 (08:15→14:20)
[2018-07-05] MEDS: IPRATROPIUM BROMIDE/ALBUTEROL respimat INH INH SCH ×4 (08:15→20:32)
[2018-07-05] MEDS: METOPROLOL TARTRATE 25 MG TAB PO SCH ×2 (08:16→20:32)
[2018-07-05] MEDS: CLOPIDOGREL BISULFATE 75 MG TAB PO SCH (08:17)
[2018-07-05] MEDS: ASPIRIN 81 MG ECTAB PO SCH (08:18)
[2018-07-05] MEDS: lamoTRIgine 100 MG TAB PO SCH ×2 (08:18→20:32)
[2018-07-05] MEDS: PHENYTOIN SODIUM ER 100 MG CAP PO SCH ×2 (08:18→20:32)
[2018-07-05] MEDS: GABAPENTIN 100 MG CAP PO SCH ×3 (08:19→20:33)
[2018-07-05] MEDS: LISINOPRIL 20 MG TAB PO SCH (08:19)
[2018-07-05] MEDS: DOCUSATE SODIUM/SENNA 50/8.6MG TAB PO SCH ×2 (08:19→20:33)
[2018-07-05] MEDS: TAMSULOSIN HCL 0.4 MG CAP PO SCH (08:19)
[2018-07-05] MEDS: INSULIN ASPART 100 UNITS/ML 3 ML PEN SC SCH ×4 (08:20→20:37)
[2018-07-05] MEDS: INSULIN GLARGINE SOLOSTAR 100 UNITS/ML 3 ML PEN SC SCH ×2 (08:22→20:37)
[2018-07-05] MEDS: clonazePAM 1 MG TAB PO SCH ×2 (08:26→20:32)
[2018-07-05] MEDS: DOXYCYCLINE HYCLATE 100 MG in DEXTROSE 5% 100 ML IV SCH ×2 (08:30→20:45)
--- NOTE | 2018-07-05 08:49 | Surgery Progress Note ---
Date of Service July 05, 2018 Assessment & Plan (1) PAD (peripheral artery disease): Pt now s/p RLE angio with intervention yesterday. Pt with dopplerable distal pulses RLE. Puncture sites clean and dry. Continue local care of wounds. (2) Foot ulcer, right: Pt with infected RLE ulcerations but these are painless d/t neuropathy. Slightly improved edema, erythema, and odor. Continue abx per medicine and local care per wound care. Please call if needed. Continue plavix. Subjective 68 yo m with multiple medical problems, POD #1 after RLE angio with intervention, seen in f/u today. Pt states R foot slightly less numb. Denies any new complaints. Physical Exam Vital Signs (Past 24 Hours): Last Vital Signs Temp 36.3 C L 07/05/18 07:05 Pulse 70 07/05/18 07:05 Resp 18 07/05/18 07:05 BP 151/81 H 07/05/18 07:05 Pulse Ox 98 07/05/18 07:05 Constitutional: WD/WN, vitals as above + obese, + disheveled, cooperative and comfortable; not in distress Respiratory: normal respiratory effort, lungs clear to auscultation no cough Cardiovascular: Rate/Rhythm: regular rate and regular rhythm Vessels: femoral pulses present (RLE +3, LLE +2); + posterior tibial pulses abnormal (nonpalpable) and + dorsalis pedis pulses abnormal (nonpalpable) Extremities: normal capillary refill and + pedal edema (R foot) Gastrointestinal (Abdomen): normal bowel sounds, soft, nontender, no hepatosplenomegaly Musculoskeletal: no cyanosis or clubbing, extremities motor strength 5/5 Skin: normal turgor, + ulcer (R foot 1st MTP dorsal, malodorous, purulent drain. 5th toe same), + induration, + dry skin and + erythema; no rashes, no lesions and no mottling Psychiatric: Orientation: alert, oriented x 3 and cooperative
--- NOTE | 2018-07-05 11:41 | Pharmacy Report ---
Pharmacy Glycemic Short Note 2 - Date of Service July 05, 2018 - Glycemic Short BSG Results (Last 24 hours): 07/04/18 07/04/18 07/05/18 11:44 20:16 05:27 Glucose 142 H POC Glucose 153 H 152 H 07/05/18 08:17 Glucose POC Glucose 228 H ASSESSMENT: 07/05/18 * Fbs at goal this morning at 142mg/dL. * Breakfast insulin based on bsg of 228mg/dL. I suspect this level was taken after the patient started eating as random bsg attained earlier in the morning was 142mg/dL. Pt started feeling "funny" prior to lunch. BSG at that time was 78mg/dL and he was administered carbs. * Hypoglycemic symptoms at lunch are most likely due to over correction at breakfast and not due to sliding scale parameters. * Other bsg's are reasonable so no changes will be made at this time. 07/04/18 * Pt NPO this morning for angiogram. Ordered DMT2 diet with lunch. * Adequate glycemic control maintained. * Goal range changed to 110-140 mg/dL and carb ratio loosened to 1:9 in light of bsg of 86 ml/dL at lunch yesterday. * Will continue sliding scale lantus sliding scale. 07/03/18 * Pt has been receiving 14-16 units of insulin per day with adequate control. * Regimen is basically split 50% basal:50% prandial insulin which is the preferred distribution for inpatient use to prevent hypo when PO intake/status changes. * BSGs ranging 126-150 mg/dl over the past 24hrs * No changes needed to regimen at this time. PLAN FOR INPATIENT GLYCEMIC CONTROL: * Hold outpatient oral diabetes medications * Basal insulin * Lantus scale SQ BID * BSGs < 140mg/dL hold lantus * BSGs 140-200mg/dL give 9 units * BSGs >200mg/dL give 16 units * Bolus insulin- * NovoLog per scale ACHS or Q6hrs while NPO * Goal Range: Low 110 mg/dL - High 140 mg/dL * Correction Factor: 25 mg/dL/unit * Nutritional / Prandial insulin per carb ratio of 1 unit per 9 grams CHO consumed
--- NOTE | 2018-07-05 19:00 | Hospitalist Progress Note ---
Date of Service July 05, 2018 Assessment & Plan (1) Weakness: Likely Failure to Thrive-Multiple comorbidities and non compliance Patient presents with worsening generalized weakness since 1 week Has has not been taking his medications since [address] Head:No acute intracranial findings PT/OT when appropriate Peripheral Artery Disease: Right LUISA: 0.62 Right 5th toe wound Arterial Doppler:Diminished ankle-brachial indices on the right consistent with moderate arterial occlusive change. No significant stenosis of the left extremity arterial structures. Wound culture:Staph. aureus, Corynebacterium species Blood Culture: No growth to date Continue IV Doxycyclin Day #6 Continue Aspirin/Plavix, statin Appreciate Vascular Surgery S/P Angioplasty Right Superficial Femoral Artery Pedal Approach, Mechanical Closure of Left Femoral Artery POD #2 Continue current meds Leg numbness is improving BRYANT: Cr:1.58 Hold Lisinopril Continue IV fluids Monitor renal function (2) Vomiting: Coffee Ground Emesis CT ABD: Cholelithiasis; Stable sebaceous cyst, No evidence of bowel obstruction. No evidence of free air, Normal appendix. No evidence of diverticulitis. Mild bladder distention Positive Gastric Occult Monitor H&H S/P EGD: Sami Grade III reflux esophagitis. Gastritis. Biopsied. Normal examined duodenum. Pathology:Negative for Metaplasia, dysplasia, malignancy, H.pylori Transfuse PRBC PRN Continue Protonix BID Appreciate GI Input (3) Elevated troponin: ECG suggestive of underlying ischemic heart disease Likely demand ischemia in setting of Acute GI bleed Echo showed no regional wall motion abnormality Appreciate cardiology input IV heparin discontinued due to coffee-ground emesis Continue ASA, plavix, statin, metoprolol No recurrence of chest pain (4) Seizure disorder: H/O seizure disorder Has been out of meds. Questionable seizure per pt 1-2 days ago prior to admission Symptoms likely due to withdrawal Dilantin level 4.9 Lamictal level pending Appreciate neurology input Continue Dilantin, Lamictal Seizure precautions Needs Antiseizure meds refilled at the time of discharge (5) Diabetes mellitus, type II: A1c: 9.3 Hold PO meds Continue ISS Monitor BGs Pharmacy consulted for glycemic management (6) TIA (transient ischemic attack): Pt reports possible TIA in past No focal deficits on exam. CT Head no acute changes. Continue ASA, plavix, statin (7) COPD (chronic obstructive pulmonary disease): No acute exacerbation. continue home inhaler (8) HTN (hypertension): Continue current meds Decreased metoprolol dose due to bradycardia Lisinopril held due to BRYANT (9) HLD (hyperlipidemia): continue statin (10) OCD (obsessive compulsive disorder): (11) Depression: Pt been out of medications Continue klonopin, lamictal, seroquel, remeron Hold trazodone for now (12) BPH (benign prostatic hypertrophy): Pt self caths QID bladder scan PRN continue self cath QID DVT Px: SCDs for now Subjective Patient is seen and examined at bedside States having dizziness today Cr levels worsened Patient had angioplasty yesterday Right foot is less numb No other complaints Denies chest pain, SOB, nausea Physical Exam Vital Signs (Past 24 Hours): Last Vital Signs Temp 36.8 C 07/05/18 15:25 Pulse 71 07/05/18 15:25 Resp 19 07/05/18 15:25 BP 126/71 07/05/18 15:25 Pulse Ox 99 07/05/18 15:25 Physical Exam: Physical Exam: Vitals signs as noted above General Appearance:Moderately built and nourished, mild distress Head: normocephalic, Atraumatic Eyes: normal inspection, EOMI Neck: supple, Trachea midline Respiratory/Chest: Normal breath sounds, CTA Cardiovascular: S1, S2, + systolic murmur Abdomen/GI:Soft, generalized mild tender, no guarding/rigidity, Bowel sounds present Extremities/Musculoskelatal:B/L dry skin, poor hygiene, R foot-1st metatarsal ulcer, 5th toe, callus, discharge between 4th and 5th web spaces Neurologic/Psych:AAOX3, grossly no focal neurological deficits Results & Data Laboratory Results Short CBC 07/05/18 Range/Units 05:27 WBC 6.81 (4.8-10.8) K/uL Hgb 15.4 (14.0-18.0) g/dL Hct 43.4 (42-52) % Plt Count 136 (130-400) K/uL BMP 07/05/18 05:27 Sodium 136 Potassium 3.9 Chloride 106 Carbon Dioxide 23 BUN 24 H Creatinine 1.58 H D Glucose 142 H Calcium 8.6 (1) Vomiting Nausea presence: with nausea Vomiting Intractability: non-intractable Vomiting type: unspecified Qualified Code(s): R11.2 - Nausea with vomiting, unspecified (2) HTN (hypertension) Hypertension type: essential hypertension Qualified Code(s): I10 - Essential (primary) hypertension
[2018-07-05] MEDS: QUETIAPINE FUMARATE 100 MG TABLET PO SCH (20:28)
[2018-07-05] MEDS: ATORVASTATIN 40 MG TAB PO SCH (20:32)
[2018-07-05] MEDS: FLUVOXAMINE MALEATE 50 MG TAB PO SCH (20:33)
[2018-07-05] MEDS: QUETIAPINE FUMARATE 200 MG TAB PO SCH (20:33)
[2018-07-05] MEDS: MIRTAZAPINE TAB 15 MG TAB PO SCH (20:33)
[2018-07-06] MEDS: SODIUM CHLORIDE 0.9% 1000ML 1,000 ML IV SCH (04:28)
[2018-07-06 07:03] LABS: Hematocrit (blood only) 42.2 % (42-52); Hemoglobin 14.8 g/dL (14.0-18.0); Mean Corpuscular Hgb Conc 35.1 g/dL (32-36); Mean Corpuscular Volume 95.3 fL (80-100); Mean Platelet Volume 9.1 fL (7.4-10.4); Platelet Count 124 K/uL (130-400); RDW Coefficient of Variation 13.6 % (11.5-14.5); RDW Standard Deviation 47.1 fL (36.4-46.3); Red Blood Count 4.43 M/uL (4.7-6.1); White Blood Count 5.38 K/uL (4.8-10.8)
[2018-07-06 07:15] VITALS: PULSE 67
[2018-07-06 07:22] LABS: BUN Creatinine Ratio 17.7 (10-20); Calcium 8.6 mg/dl (8.5-10.1); Creatinine Clr Calc Pharmacy 59.3 ml/min; Est GFR (African American) 65.3; Est GFR (Non-African American) 56.3; Potassium 3.6 mmol/L (3.5-5.1)
[2018-07-06] MEDS: IPRATROPIUM BROMIDE/ALBUTEROL respimat INH INH SCH (08:32)
[2018-07-06] MEDS: PHENYTOIN SODIUM ER 100 MG CAP PO SCH (08:33)
[2018-07-06] MEDS: METOPROLOL TARTRATE 25 MG TAB PO SCH (08:33)
[2018-07-06] MEDS: lamoTRIgine 100 MG TAB PO SCH (08:33)
[2018-07-06] MEDS: GABAPENTIN 100 MG CAP PO SCH (08:35)
[2018-07-06] MEDS: ASPIRIN 81 MG ECTAB PO SCH (08:35)
[2018-07-06] MEDS: DOCUSATE SODIUM/SENNA 50/8.6MG TAB PO SCH (08:35)
[2018-07-06] MEDS: PANTOprazole 40 MG TAB PO SCH (08:36)
[2018-07-06] MEDS: CLOPIDOGREL BISULFATE 75 MG TAB PO SCH (08:36)
[2018-07-06] MEDS: QUETIAPINE FUMARATE 25 MG TABLET PO SCH (08:36)
[2018-07-06] MEDS: INSULIN GLARGINE SOLOSTAR 100 UNITS/ML 3 ML PEN SC SCH (08:37)
[2018-07-06] MEDS: INSULIN ASPART 100 UNITS/ML 3 ML PEN SC SCH ×2 (08:41→11:57)
[2018-07-06] MEDS: TAMSULOSIN HCL 0.4 MG CAP PO SCH (08:41)
[2018-07-06] MEDS: clonazePAM 1 MG TAB PO SCH (08:46)
[2018-07-06] MEDS: DOXYCYCLINE HYCLATE 100 MG in DEXTROSE 5% 100 ML IV SCH (08:46)
[2018-07-06 11:19] VITALS: TEMP 97.3; O2SAT 99
--- NOTE | 2018-07-06 11:40 | Hospitalist Progress Note ---
Date of Service July 06, 2018 Assessment & Plan (1) Weakness: Likely Failure to Thrive-Multiple comorbidities and non compliance Patient presents with worsening generalized weakness since 1 week Has has not been taking his medications since [address] Head:No acute intracranial findings PT/OT when appropriate Peripheral Artery Disease: Right LUISA: 0.62 Right 5th toe wound Arterial Doppler:Diminished ankle-brachial indices on the right consistent with moderate arterial occlusive change. No significant stenosis of the left extremity arterial structures. Wound culture:Staph. aureus, Corynebacterium species Blood Culture: No growth to date Continue IV Doxycycline Day #7 Continue Aspirin/Plavix, statin Appreciate Vascular Surgery S/P Angioplasty Right Superficial Femoral Artery Pedal Approach, Mechanical Closure of Left Femoral Artery POD #2 Continue current meds Leg numbness continues to improve Needs follow up with wound clinic If wound worsens or not healing--needs follow up with vascular surgery BRYANT: Cr:1.58>>1.31 Resume Lisinopril as able Received IV fluids Monitor renal function (2) Vomiting: Coffee Ground Emesis CT ABD: Cholelithiasis; Stable sebaceous cyst, No evidence of bowel obstruction. No evidence of free air, Normal appendix. No evidence of diverticulitis. Mild bladder distention Positive Gastric Occult Monitor H&H S/P EGD: Muary-Hoang Grade III reflux esophagitis. Gastritis. Biopsied. Normal examined duodenum. Pathology:Negative for Metaplasia, dysplasia, malignancy, H.pylori Transfuse PRBC PRN Continue Protonix BID Appreciate GI Input Needs FU with GI upon discharge (3) Elevated troponin: ECG suggestive of underlying ischemic heart disease Likely demand ischemia in setting of Acute GI bleed Echo showed no regional wall motion abnormality Appreciate cardiology input IV heparin discontinued due to coffee-ground emesis Continue ASA, plavix, statin, metoprolol No recurrence of chest pain (4) Seizure disorder: H/O seizure disorder Has been out of meds. Questionable seizure per pt 1-2 days ago prior to admission Symptoms likely due to withdrawal Dilantin level 4.9 Lamictal level pending Appreciate neurology input Continue Dilantin, Lamictal Seizure precautions Needs Antiseizure meds refilled at the time of discharge Needs follow up with Neurology upon discharge (5) Diabetes mellitus, type II: A1c: 9.3 Hold PO meds Continue ISS Monitor BGs Pharmacy consulted for glycemic management (6) TIA (transient ischemic attack): Pt reports possible TIA in past No focal deficits on exam. CT Head no acute changes. Continue ASA, plavix, statin (7) COPD (chronic obstructive pulmonary disease): No acute exacerbation. continue home inhaler (8) HTN (hypertension): Continue current meds Decreased metoprolol dose due to bradycardia Resume Lisinopril as able (9) HLD (hyperlipidemia): continue statin (10) OCD (obsessive compulsive disorder): (11) Depression: Pt been out of medications Continue klonopin, lamictal, seroquel, remeron, trazodone (12) BPH (benign prostatic hypertrophy): Pt self caths QID bladder scan PRN continue self cath QID DVT Px: SCDs for now Disposition: Plan to discharge home with home health Subjective Patient is seen and examined at bedside No dizziness today Cr back to baseline Right foot numbness continues to improve Discussed with Vascular Surgery today-- OK to discharge Denies chest pain, SOB, nausea, foot pain No other complaints Ambulating in hallways Physical Exam Vital Signs (Past 24 Hours): Last Vital Signs Temp 36.3 C L 07/06/18 11:17 Pulse 67 07/06/18 11:17 Resp 18 07/06/18 11:17 BP 120/73 07/06/18 11:17 Pulse Ox 99 07/06/18 11:17 Physical Exam: Physical Exam: Vitals signs as noted above General Appearance:Moderately built and nourished, mild distress Head: normocephalic, Atraumatic Eyes: normal inspection, EOMI Neck: supple, Trachea midline Respiratory/Chest: Normal breath sounds, CTA Cardiovascular: S1, S2, + systolic murmur Abdomen/GI:Soft, generalized mild tender, no guarding/rigidity, Bowel sounds present Extremities/Musculoskelatal:B/L dry skin, poor hygiene, R foot-in dressing Neurologic/Psych:AAOX3, grossly no focal neurological deficits Results & Data Laboratory Results Short CBC 07/06/18 Range/Units 06:48 WBC 5.38 (4.8-10.8) K/uL Hgb 14.8 (14.0-18.0) g/dL Hct 42.2 (42-52) % Plt Count 124 L (130-400) K/uL BMP 07/06/18 06:48 Sodium 137 Potassium 3.6 Chloride 109 H Carbon Dioxide 22 BUN 23 H Creatinine 1.31 Glucose 148 H Calcium 8.6 (1) Vomiting Nausea presence: with nausea Vomiting Intractability: non-intractable Vomiting type: unspecified Qualified Code(s): R11.2 - Nausea with vomiting, unspecified (2) HTN (hypertension) Hypertension type: essential hypertension Qualified Code(s): I10 - Essential (primary) hypertension
[2018-07-06] MEDS ORDERED: INSULIN GLARGINE SOLOSTAR 100 UNITS/ML 3 ML PEN SC SCH (12:00)
--- NOTE | 2018-07-06 12:08 | Discharge Summary ---
Date of Service July 06, 2018 Admission HPI Per Admitting Provider Pt is 68 y/o M with PMH DM II, HTN, dyslipidemia, BPH, depression, COPD, tobacco use, CKD III, ?TIA presented to ER with c/o nausea and vomiting. Pt poor historian. He reports past week has been out of a lot of his medications including some psych meds and seizure meds (pt unsure of all his medications and which ones he is out of). States past week with nausea and today with vomiting. Feeling more generalized weakness the past week, worse today. Decreased appetite past several days with poor oral intake. Last BM a couple of days ago. He reports that he self caths 4 times a day. Denies abdominal pain. Denies CP. Reports chronic nasal congestion. Had some palpitations today. States 2 days ago or yesterday he had a "spell" which he describes as not being able to move, blurry vision, couldn't talk and had trouble breathing. This occurred while he was lying on the couch. Denies fall. He thinks this may have been a seizure. Denies loss control of bowel/bladder. Otherwise denies SOB. Sleeps in recliner chronically. Reports wound to right foot "for awhile", denies any pain or known discharge from area. [place] chills today, unsure if had a fever. Reports chronic paresthesias to bilateral hands and feet. Denies HUNAG, dizziness, neck pain, cough, sore throat, choking, otalgia, abdominal pain, extremity edema, other rashes/wounds. Admission Exam Per Admitting Provider General: dishevelled appearance, chronic ill appearing, no acute distress, obese Head: normocephalic, atraumatic Eyes: PERRL, EOM's intact, conjunctiva non-injected, anicteric ENT: normal inspection external ears, nose, mucous membranes moist Neck: supple, trachea midline Lungs: clear, no respiratory distress, no wheezing/rhonchi/rales CV: RRR, no murmur, no pretibial edema Abd: normal BS, soft, protuberant, non-tender Ext: no calf tenderness, bilateral legs with dry skin, bilateral feet dirty, R foot: dorsal aspect of distal 1st metatarsal with ulcer without discharge, 5th toe with thick callus, web space between 4&5 toe with some redness Neuro: A&O x 3, no focal deficits noted, somewhat flat affect Skin: warm, dry Principal Diagnosis Discharge Information Discharge Diagnosis Peripheral Artery Disease Esophagitis/Gastritis BRYANT Seizure disorder Hypertension Discharge Goals Decrease discomfort,Improve function,Improve disease control Discharge Activity Limitations Resume your previous activity Discharge Data Allergies Allergy/AdvReac Type Severity Reaction Status Date / Time Sulfa (Sulfonamide Allergy Unknown HAS TAKEN Verified 11/17/15 01:37 Antibiotics) LASIX AN OUTPATIENT Consultations 06/29/18 21:34 ED Decision to Admit Stat 06/29/18 21:42 ED Decision to Admit Stat 06/30/18 00:39 Consult Cardiology Routine Consult Case Management - Discharge Planning Routine Consult Neurology Routine 06/30/18 11:03 Consult Gastroenterology Routine 06/30/18 16:04 Consult Vascular Surgery Routine Procedures Performed Operation Date: 07/01/18 08:30 Actual Procedures p EGD Biopsy Cytology - Carmen Chan Operation Date: 07/04/18 08:00 Actual Procedures p Right Lower Extremity Angiogram, Ultrasound Localization of Left Femoral Artery, Percutaneous Transluminal Angioplasty Right Superficial Femoral Artery Pedal Approach, Mechanical Closure of Left Femoral Artery, Moderate Sedation [id number](Left) - Shilo Gibbs MD CT ABD: 1. Cholelithiasis 2. Stable sebaceous cyst 3. No evidence of bowel obstruction. No evidence of free air 4. Normal appendix. No evidence of diverticulitis. 5. Mild bladder distention CT heaD: 1. Inflammatory changes within the paranasal sinuses 2. Otherwise no acute intracranial findings. CXR: Mild cardiomegaly and equivocal mild pulmonary vascular congestion. No evidence of focal pulmonary consolidation Gall bladder USD: Small gallstone with a small amount of gallbladder sludge. Normal caliber bile ducts. Fatty replacement of the liver. LE Arterial Doppler: Diminished ankle-brachial indices on the right consistent with moderate arterial occlusive change. No significant stenosis of the left extremity arterial structures. Ordered Studies 06/29/18 19:52 CT abd pelvis IV con only Stat CT head/brain wo con Stat 06/30/18 01:02 US gallbladder Urgent 07/01/18 08:09 US arterial duplex LE BI Routine 07/04/18 07:17 EV angio LE RT Routine US guide vascular access Routine Hospital Course (1) Weakness: Likely Failure to Thrive-Multiple comorbidities and non compliance Patient presents with worsening generalized weakness since 1 week Has has not been taking his medications since [address] Head:No acute intracranial findings PT/OT when appropriate Peripheral Artery Disease: Right LUISA: 0.62 Right 5th toe wound Arterial Doppler:Diminished ankle-brachial indices on the right consistent with moderate arterial occlusive change. No significant stenosis of the left extremity arterial structures. Wound culture:Staph. aureus, Corynebacterium species Blood Culture: No growth to date Continue IV Doxycycline Day #7 Continue Aspirin/Plavix, statin Appreciate Vascular Surgery S/P Angioplasty Right Superficial Femoral Artery Pedal Approach, Mechanical Closure of Left Femoral Artery POD #2 Continue current meds Leg numbness continues to improve Needs follow up with wound clinic If wound worsens or not healing--needs follow up with vascular surgery BRYANT: Cr:1.58>>1.31 Resume Lisinopril as able Received IV fluids Monitor renal function (2) Vomiting: Coffee Ground Emesis CT ABD: Cholelithiasis; Stable sebaceous cyst, No evidence of bowel obstruction. No evidence of free air, Normal appendix. No evidence of diverticulitis. Mild bladder distention Positive Gastric Occult Monitor H&H S/P EGD: Melinda-Hoang Grade III reflux esophagitis. Gastritis. Biopsied. Normal examined duodenum. Pathology:Negative for Metaplasia, dysplasia, malignancy, H.pylori Transfuse PRBC PRN Continue Protonix BID Appreciate GI Input Needs FU with GI upon discharge (3) Elevated troponin: ECG suggestive of underlying ischemic heart disease Likely demand ischemia in setting of Acute GI bleed Echo showed no regional wall motion abnormality Appreciate cardiology input IV heparin discontinued due to coffee-ground emesis Continue ASA, plavix, statin, metoprolol No recurrence of chest pain (4) Seizure disorder: H/O seizure disorder Has been out of meds. Questionable seizure per pt 1-2 days ago prior to admission Symptoms likely due to withdrawal Dilantin level 4.9 Lamictal level pending Appreciate neurology input Continue Dilantin, Lamictal Seizure precautions Needs Antiseizure meds refilled at the time of discharge Needs follow up with Neurology upon discharge (5) Diabetes mellitus, type II: A1c: 9.3 Hold PO meds Continue ISS Monitor BGs Pharmacy consulted for glycemic management (6) TIA (transient ischemic attack): Pt reports possible TIA in past No focal deficits on exam. CT Head no acute changes. Continue ASA, plavix, statin (7) COPD (chronic obstructive pulmonary disease): No acute exacerbation. continue home inhaler (8) HTN (hypertension): Continue current meds Decreased metoprolol dose due to bradycardia Resume Lisinopril as able (9) HLD (hyperlipidemia): continue statin (10) OCD (obsessive compulsive disorder): (11) Depression: Pt been out of medications Continue klonopin, lamictal, seroquel, remeron, trazodone (12) BPH (benign prostatic hypertrophy): Pt self caths QID bladder scan PRN continue self cath QID DVT Px: SCDs for now Disposition: Plan to discharge home with home health Total Time Total Time Spent Total Time Spent (In Minutes): 43 minutes Total Time Includes: Examination of the Patient, Discharge Planning, Medication Reconciliation, Communication With Other Providers and Other Discharge Plan Discharge Items Patient Disposition: Home - Home Health Services Reason For Visit: MALAISE,SEIZURES Discharge Diagnosis: Peripheral Artery Disease Esophagitis/Gastritis BRYANT Seizure disorder Hypertension Discharge Goals: Decrease discomfort, Improve disease control and Improve function Activity: Resume your previous activity Exercise/Sports: Gradually increase as tolerated Non-emergency contact: Primary Care Provider, Surgeon, Specialist, Lathe Setup Operator and Neurologist Call non-emergency contact if: you have any medication questions, your symptoms worsen, your pain is not controlled, your pain is worsening, your pain is unusual for you, your pain is concerning for you, you have a fever, your wound has increased redness, your wound has increased drainage and your wound pain has increased Follow-up/Referrals: Ailin Malik, [Primary Care Provider] - Diet: Carb Consistent or DM2 and Heart Healthy Addtl Provider Instructions: Follow up with your PCP on 07/12/18 at 1:00pm Follow up with your Neurologist Dinora Perea PA-C on July 25, 2018 at 11:00AM Follow up with Wound Clinic in 1 week as advised Follow up with your Lathe Setup Operator in 2-4 weeks Follow up with your Vascular Surgeon if your wound gets worse/non healing Discuss with your Psychiatrist to change your Fluoxamine to a different medicine as it can affect the plavix efficacy Complete the antibiotic course as prescribed Continue wound care at home with help of Home Health Seek immediate medical attention if your symptoms reoccur or worsen Prescriptions: New atorvastatin 40 mg Tablet 40 mg PO QPM 30 Days Qty: 30 RF: 0 metoprolol tartrate 25 mg Tablet 12.5 mg PO BID 30 Days Qty: 30 RF: 0 pantoprazole 40 mg Tablet,Delayed Release (Dr/Ec) 40 mg PO BID 30 Days Qty: 60 RF: 0 doxycycline hyclate 100 mg capsule 100 mg PO BID 7 Days Qty: 14 RF: 0 Continued SENNOSIDES (SENNA LAXATIVE) 8.6 MG tablet 8.6 mg PO DAILY PRN (Reason: Constipation) Qty: 0 RF: 0 POLYETHYLENE GLYCOL 3350 (MIRALAX) 1 POW POW 17 g PO DAILY PRN (Reason: Constipation) Qty: 0 RF: 0 promethazine 25 mg tablet 25 mg PO Q8H PRN (Reason: Nausea) RF: 0 aspirin 81 mg Tablet,Delayed Release (Dr/Ec) 81 mg PO DAILY RF: 0 lamotrigine 200 mg tablet 400 mg PO BID 30 Days Qty: 60 RF: 0 lisinopril 20 mg tablet 20 mg PO DAILY 30 Days Qty: 30 RF: 0 quetiapine 200 mg tablet 400 mg PO HS 30 Days Qty: 60 RF: 0 clonazepam 1 mg tablet 1 mg PO BID 10 Days Qty: 20 RF: 0 phenytoin sodium extended 100 mg capsule 100 mg PO BID 30 Days Qty: 60 RF: 0 clopidogrel 75 mg tablet 75 mg PO DAILY 30 Days Qty: 30 RF: 1 quetiapine 100 mg tablet 100 mg PO HS 30 Days Qty: 30 RF: 0 tamsulosin 0.4 mg capsule 0.4 mg PO DAILY 30 Days Qty: 30 RF: 0 fluvoxamine 100 mg tablet 200 mg PO HS 30 Days Qty: 60 RF: 0 mirtazapine 30 mg Tablet 30 mg PO HS 30 Days Qty: 30 RF: 0 metformin 1,000 mg tablet 1,000 mg PO BID 30 Days Qty: 60 RF: 0 docusate sodium 100 mg Capsule 100 mg PO DAILY 30 Days Qty: 30 RF: 0 gabapentin 100 mg capsule 100 mg PO TID 30 Days Qty: 90 RF: 0 quetiapine 50 mg tablet 50 mg PO DAILY@09,14 30 Days Qty: 60 RF: 0 Combivent Respimat 20-100 mcg/actuation mist 1 puff inhalation QID 30 Days Qty: 1 RF: 1 trazodone 100 mg tablet 100 mg PO HS 30 Days Qty: 30 RF: 0 Discontinued trazodone 100 mg tablet 100 mg PO HS RF: 0 atorvastatin 10 mg tablet 10 mg PO QPM RF: 0 metoprolol tartrate 25 mg tablet 25 mg PO BID RF: 0 Stand-Alone Forms: [facility] Discharge Orders: Discharge Order (Routine); Ordered 07/06/18 Ordered By: Kuldip Marks Admission Data Admit Date/Time: 06/29/18 22:31 Attending Provider: Darin Elliott Admit Provider: Brigitte Hamilton Primary Care Provider: Ailin Malik Other Providers: Janel Serrato ; Vlad Velásquez ; Brigitte Hamilton ; Chidi Ibarra ; Wilfredo Pal ; Kam Terrell ; Khoa Gallagher ; Liang Arnold ; Jesus Finn ; Cynthia Munoz ; Dinora Mckeon ; Dinora Perea ; Aramis Mcgowan ; Dinora Arauz ; Kenroy Sosa ; Luis A Martinez ; Carmen Chan ; Shilo Gibbs Service: Telemetry Other Interventions: Discharge Summary Assessment (RN) Last Done: 07/06/18 12:18 Pending Studies at Discharge: No DC Date/Time DO NOT enter until pt leaves facility: 07/06/18 12:43
[2018-07-06 12:21] VITALS: BP 125/69
== END 2018-07-06 12:43 | disposition home health service (06) | DRG 253 ==
LOC: ED 19:20 → SUATTDRO 22:31 → 2S 22:31

== ENCOUNTER 2019-07-18 16:24 | Inpatient (IN) ==
[2019-07-18] MEDS ORDERED: ONDANSETRON INJ 2 MG/ML 2 ML VIAL IV STA (16:55)
[2019-07-18] MEDS ORDERED: SODIUM CHLORIDE 0.9% 1000ML 500 ML IV ONE (16:55)
[2019-07-18] MEDS ORDERED: MECLIZINE HCL 25 MG TAB PO STA (16:55)
[2019-07-18] MEDS ORDERED: OPTIRAY 320 125ml IV PRN (17:03)
--- NOTE | 2019-07-18 17:16 | Emergency Department Note ---
History of Present Illness General Chief complaint: Vomiting Stated complaint: NAUSEA, VOMITING, AB DISTENTION Time Seen by Provider: 07/18/19 16:36 Source: patient Limitations: clinical acuity History of Present Illness Provider complaint: Dizziness Onset (ago): hour(s) (1330 today) Location: head Radiation: non-radiation Severity: severe Pain Consistency: + intermittent Exacerbated By: + other (Opening his eyes) Associated symptoms: + nausea/vomiting and + other (Chronic abnormal bowel movements. Last bowel movement was 2 days ago); no chest pain, no headaches and no shortness of breath This is a 69-year-old male who states he has a history of TIA with dizziness presenting with dizziness today. The patient states that at approximately 130 today developed severe dizziness with associated vomiting. He states that he had this about 2 years ago and was told that he had a TIA. He states that the dizziness is a sensation of movement when there is done. It is worse when he opens his eyes. It is better when he keeps his eyes closed. He has no focal numbness or weakness. He denies any loss of vision. He does state that he was also told that he had "a bile blockage and a surgeon wanted to take his poop intestine out." He does state that he has some mild discomfort to his abdomen but not pain. He has a history of abnormal bowel movements but had a bowel movement 2 days ago. He has no headache. He denies any injury. Home Medications Home Medications Medication Instructions Recorded Confirmed Type aspirin 81 mg PO DAILY 06/29/18 07/18/19 History promethazine 25 mg PO Q8H PRN 06/29/18 07/18/19 History clopidogrel 75 mg PO DAILY 30 Days #30 tab 07/06/18 07/18/19 Rx lamotrigine 400 mg PO BID 30 Days #60 tab 07/06/18 07/18/19 Rx lisinopril 20 mg PO DAILY 30 Days #30 tab 07/06/18 07/18/19 Rx tamsulosin 0.4 mg PO DAILY 30 Days #30 cap 07/06/18 07/18/19 Rx glipizide 10 mg tablet, extended 10 mg PO DAILY 08/04/18 07/18/19 History release 24 hr cephalexin 500 mg capsule 500 mg PO Q12H 08/17/18 07/18/19 History polyethylene glycol 3350 17 g PO DAILY PRN 09/08/18 07/18/19 History atorvastatin 10 mg PO DAILY 07/18/19 07/18/19 History clonazepam 1 mg PO HS 07/18/19 07/18/19 History dulaglutide [Trulicity] 1.5 mg SUBCUT WK 07/18/19 07/18/19 History empagliflozin [Jardiance] 25 mg PO DAILY 07/18/19 07/18/19 History gabapentin 100 mg PO TID 07/18/19 07/18/19 History ipratropium-albuterol [Combivent 1 puff INHALATION QID 07/18/19 07/18/19 History Respimat] metoprolol tartrate 12.5 mg PO BID 07/18/19 07/18/19 History mirtazapine 30 mg PO HS 07/18/19 07/18/19 History pantoprazole 40 mg PO DAILY 07/18/19 07/18/19 History phenytoin sodium extended 100 mg PO BID 07/18/19 07/18/19 History quetiapine 400 mg PO HS 07/18/19 07/18/19 History sennosides-docusate sodium [Senna 1 tab-cap PO DAILY 07/18/19 07/18/19 History with Docusate Sodium] trazodone 100 mg PO HS 07/18/19 07/18/19 History Allergies Allergy/AdvReac Type Severity Reaction Status Date / Time Sulfa (Sulfonamide Allergy Mild Hives Verified 07/18/19 18:02 Antibiotics) Past Med/Surg History Medical History (Updated 07/18/19 @ 22:05 by Khoa Rivera MD) Alcohol dependence in remission (Inactive) Bipolar disorder (Acute 05/29/12) BPH (benign prostatic hypertrophy) (Chronic) CAD (coronary artery disease) Coffee ground emesis COPD (chronic obstructive pulmonary disease) (Chronic) Diabetes type 2, uncontrolled Diabetic foot ulcer associated with type 2 diabetes mellitus Diabetic peripheral neuropathy associated with type 2 diabetes mellitus Dyslipidemia Hammertoe of left foot (Acute) History of electroconvulsive therapy Hypertension Obesity (BMI 30-39.9) (Inactive) OCD (obsessive compulsive disorder) (Chronic) Osteomyelitis PAD (peripheral artery disease) (Chronic) Seizure disorder (Chronic) TIA (transient ischemic attack) Tobacco use disorder (Inactive) Vertigo (Inactive) Surgical History H/O colonoscopy (Inactive) "11/08/2013- normal exam but limited by prep quality" H/O sigmoidoscopy (Inactive) Family History (Updated 07/18/19 @ 18:44 by Marcelle Chery PA-C) Father , 53 Coronary heart disease Lung cancer Mother Diabetes Grandmother (Paternal) Stroke Social History (Updated 07/18/19 @ 18:45 by Marcelle Chery PA-C) Preferred Language: Stateless Communication Ability: Effective Corporate Intern Required: No Beliefs That Will Affect Care: None Feels Safe at Home: Yes Smoking Status: Current every day smoker Tobacco Type: cigarettes ; Second Hand Exposure: Yes ; Hx Alcohol Use: Yes (Sober since 1991, hx of dependence) Hx Substance Use: No Review of Systems See HPI for pertinent positives & negatives. and A total of 10 systems reviewed and were otherwise negative Physical Exam Vital Signs Vital Signs - 24 hr 07/18/19 16:25 07/18/19 16:31 07/18/19 16:38 Temperature 36.4 C L Temperature Source Oral Pulse Rate 72 75 74 Pulse Rate [Finger] Pulse Rate from SpO2 Sensor 75 74 Pulse Rhythm Regular Respiratory Rate 18 14 19 Respiratory Effort / Characteristics Non-Labored Spontaneous Respiratory Depth Normal Respiratory Pattern Regular Blood Pressure 107/67 107/67 Blood Pressure Mean 80 77 Pulse Oximetry 93 92 93 Oxygen Delivery Method Room Air Oxygen Flow Rate Fraction of Inspired Oxygen Sepsis Recent Fever Within 48 Hours No Sepsis New/Unexplained Change in Mental Status No Sepsis Action Taken by Nursing No Action Required 07/18/19 16:40 07/18/19 16:50 07/18/19 17:16 Temperature Temperature Source Pulse Rate 74 72 77 Pulse Rate [Finger] Pulse Rate from SpO2 Sensor 74 72 Pulse Rhythm Respiratory Rate 20 30 H Respiratory Effort / Characteristics Respiratory Depth Respiratory Pattern Blood Pressure Blood Pressure Mean Pulse Oximetry 93 96 Oxygen Delivery Method Oxygen Flow Rate Fraction of Inspired Oxygen Sepsis Recent Fever Within 48 Hours Sepsis New/Unexplained Change in Mental Status Sepsis Action Taken by Nursing 07/18/19 17:17 07/18/19 17:20 07/18/19 17:30 Temperature Temperature Source Pulse Rate 78 77 76 Pulse Rate [Finger] Pulse Rate from SpO2 Sensor 78 Pulse Rhythm Respiratory Rate Respiratory Effort / Characteristics Respiratory Depth Respiratory Pattern Blood Pressure 111/76 Blood Pressure Mean 81 Pulse Oximetry 86 L 90 Oxygen Delivery Method Room Air Nasal Cannula Oxygen Flow Rate 4 Fraction of Inspired Oxygen Sepsis Recent Fever Within 48 Hours Sepsis New/Unexplained Change in Mental Status Sepsis Action Taken by Nursing 07/18/19 17:35 07/18/19 17:39 07/18/19 17:40 Temperature Temperature Source Pulse Rate 76 72 Pulse Rate [Finger] Pulse Rate from SpO2 Sensor 75 75 Pulse Rhythm Respiratory Rate Respiratory Effort / Characteristics Respiratory Depth Respiratory Pattern Blood Pressure Blood Pressure Mean Pulse Oximetry 85 L 88 L 86 L Oxygen Delivery Method Room Air Oxymask Oxygen Flow Rate 7 Fraction of Inspired Oxygen Sepsis Recent Fever Within 48 Hours Sepsis New/Unexplained Change in Mental Status Sepsis Action Taken by Nursing 07/18/19 17:42 07/18/19 17:45 07/18/19 17:50 Temperature Temperature Source Pulse Rate 76 80 76 Pulse Rate [Finger] Pulse Rate from SpO2 Sensor 76 78 77 Pulse Rhythm Respiratory Rate Respiratory Effort / Characteristics Respiratory Depth Respiratory Pattern Blood Pressure 113/80 Blood Pressure Mean 89 Pulse Oximetry 86 L 89 L 90 Oxygen Delivery Method Oxymask Oxymask Oxygen Flow Rate 7 7 Fraction of Inspired Oxygen Sepsis Recent Fever Within 48 Hours Sepsis New/Unexplained Change in Mental Status Sepsis Action Taken by Nursing 07/18/19 17:55 07/18/19 18:00 07/18/19 18:05 Temperature Temperature Source Pulse Rate 78 78 78 Pulse Rate [Finger] Pulse Rate from SpO2 Sensor 78 78 78 Pulse Rhythm Respiratory Rate 35 H 33 H 30 H Respiratory Effort / Characteristics Respiratory Depth Respiratory Pattern Blood Pressure 110/61 Blood Pressure Mean 76 Pulse Oximetry 91 91 91 Oxygen Delivery Method Oxygen Flow Rate Fraction of Inspired Oxygen Sepsis Recent Fever Within 48 Hours Sepsis New/Unexplained Change in Mental Status Sepsis Action Taken by Nursing 07/18/19 18:10 07/18/19 18:15 07/18/19 18:20 Temperature Temperature Source Pulse Rate 79 82 80 Pulse Rate [Finger] Pulse Rate from SpO2 Sensor 80 82 80 Pulse Rhythm Respiratory Rate 35 H Respiratory Effort / Characteristics Respiratory Depth Respiratory Pattern Blood Pressure Blood Pressure Mean Pulse Oximetry 88 L 90 91 Oxygen Delivery Method Oxymask Oxygen Flow Rate 10 Fraction of Inspired Oxygen Sepsis Recent Fever Within 48 Hours Sepsis New/Unexplained Change in Mental Status Sepsis Action Taken by Nursing 07/18/19 18:25 07/18/19 18:30 07/18/19 18:35 Temperature Temperature Source Pulse Rate 81 83 84 Pulse Rate [Finger] Pulse Rate from SpO2 Sensor 81 83 84 Pulse Rhythm Respiratory Rate 29 H 30 H Respiratory Effort / Characteristics Respiratory Depth Respiratory Pattern Blood Pressure 104/64 Blood Pressure Mean 82 Pulse Oximetry 90 91 89 L Oxygen Delivery Method Oxymask Oxygen Flow Rate 10 Fraction of Inspired Oxygen Sepsis Recent Fever Within 48 Hours Sepsis New/Unexplained Change in Mental Status Sepsis Action Taken by Nursing 07/18/19 18:40 07/18/19 18:45 07/18/19 18:46 Temperature Temperature Source Pulse Rate 83 82 85 Pulse Rate [Finger] Pulse Rate from SpO2 Sensor 83 82 86 Pulse Rhythm Respiratory Rate 33 H 24 30 H Respiratory Effort / Characteristics Respiratory Depth Respiratory Pattern Blood Pressure Blood Pressure Mean Pulse Oximetry 87 L 87 L 85 L Oxygen Delivery Method Oxymask Oxymask Oxygen Flow Rate 10 10 Fraction of Inspired Oxygen Sepsis Recent Fever Within 48 Hours Sepsis New/Unexplained Change in Mental Status Sepsis Action Taken by Nursing 07/18/19 18:48 07/18/19 18:50 07/18/19 18:52 Temperature Temperature Source Pulse Rate 86 92 H 95 H Pulse Rate [Finger] Pulse Rate from SpO2 Sensor 86 92 H 95 H Pulse Rhythm Respiratory Rate 32 H 30 H Respiratory Effort / Characteristics Respiratory Depth Respiratory Pattern Blood Pressure Blood Pressure Mean Pulse Oximetry 85 L 87 L 87 L Oxygen Delivery Method Non-rebreather Oxygen Flow Rate 15 Fraction of Inspired Oxygen Sepsis Recent Fever Within 48 Hours Sepsis New/Unexplained Change in Mental Status Sepsis Action Taken by Nursing 07/18/19 18:54 07/18/19 18:56 07/18/19 18:58 Temperature Temperature Source Pulse Rate 92 H 89 87 Pulse Rate [Finger] Pulse Rate from SpO2 Sensor 93 H 90 87 Pulse Rhythm Respiratory Rate Respiratory Effort / Characteristics Respiratory Depth Respiratory Pattern Blood Pressure Blood Pressure Mean Pulse Oximetry 86 L 87 L 87 L Oxygen Delivery Method Oxygen Flow Rate Fraction of Inspired Oxygen Sepsis Recent Fever Within 48 Hours Sepsis New/Unexplained Change in Mental Status Sepsis Action Taken by Nursing 07/18/19 19:00 07/18/19 19:02 07/18/19 19:12 Temperature Temperature Source Pulse Rate 86 85 82 Pulse Rate [Finger] Pulse Rate from SpO2 Sensor 86 86 82 Pulse Rhythm Respiratory Rate 24 Respiratory Effort / Characteristics Respiratory Depth Respiratory Pattern Blood Pressure 123/73 Blood Pressure Mean 90 Pulse Oximetry 88 L 88 L 90 Oxygen Delivery Method Non-rebreather Non-rebreather Oxygen Flow Rate 15 15 Fraction of Inspired Oxygen Sepsis Recent Fever Within 48 Hours Sepsis New/Unexplained Change in Mental Status Sepsis Action Taken by Nursing 07/18/19 19:14 07/18/19 19:16 07/18/19 19:18 Temperature Temperature Source Pulse Rate 80 81 81 Pulse Rate [Finger] Pulse Rate from SpO2 Sensor 80 81 81 Pulse Rhythm Respiratory Rate 22 21 Respiratory Effort / Characteristics Respiratory Depth Respiratory Pattern Blood Pressure Blood Pressure Mean Pulse Oximetry 91 91 90 Oxygen Delivery Method Non-rebreather Non-rebreather Non-rebreather Oxygen Flow Rate 15 15 15 Fraction of Inspired Oxygen Sepsis Recent Fever Within 48 Hours Sepsis New/Unexplained Change in Mental Status Sepsis Action Taken by Nursing 07/18/19 19:22 07/18/19 20:02 07/18/19 20:06 Temperature Temperature Source Pulse Rate 82 85 82 Pulse Rate [Finger] Pulse Rate from SpO2 Sensor 82 84 82 Pulse Rhythm Respiratory Rate 25 H 23 Respiratory Effort / Characteristics Respiratory Depth Respiratory Pattern Blood Pressure 134/81 Blood Pressure Mean 92 Pulse Oximetry 93 93 94 Oxygen Delivery Method Non-rebreather Non-rebreather Non-rebreather Oxygen Flow Rate 15 15 15 Fraction of Inspired Oxygen Sepsis Recent Fever Within 48 Hours Sepsis New/Unexplained Change in Mental Status Sepsis Action Taken by Nursing 07/18/19 20:08 07/18/19 20:10 07/18/19 20:12 Temperature Temperature Source Pulse Rate 81 81 82 Pulse Rate [Finger] Pulse Rate from SpO2 Sensor 81 81 82 Pulse Rhythm Respiratory Rate Respiratory Effort / Characteristics Respiratory Depth Respiratory Pattern Blood Pressure Blood Pressure Mean Pulse Oximetry 95 95 94 Oxygen Delivery Method Non-rebreather Non-rebreather Non-rebreather Oxygen Flow Rate 15 15 15 Fraction of Inspired Oxygen Sepsis Recent Fever Within 48 Hours Sepsis New/Unexplained Change in Mental Status Sepsis Action Taken by Nursing 07/18/19 20:14 07/18/19 20:16 07/18/19 20:18 Temperature Temperature Source Pulse Rate 80 82 83 Pulse Rate [Finger] Pulse Rate from SpO2 Sensor 80 82 84 Pulse Rhythm Respiratory Rate Respiratory Effort / Characteristics Respiratory Depth Respiratory Pattern Blood Pressure Blood Pressure Mean Pulse Oximetry 94 94 97 Oxygen Delivery Method Non-rebreather Non-rebreather Non-rebreather Oxygen Flow Rate 15 15 15 Fraction of Inspired Oxygen Sepsis Recent Fever Within 48 Hours Sepsis New/Unexplained Change in Mental Status Sepsis Action Taken by Nursing 07/18/19 20:24 07/18/19 20:26 07/18/19 20:28 Temperature Temperature Source Pulse Rate 91 H 89 88 Pulse Rate [Finger] Pulse Rate from SpO2 Sensor 91 H 89 88 Pulse Rhythm Respiratory Rate Respiratory Effort / Characteristics Respiratory Depth Respiratory Pattern Blood Pressure Blood Pressure Mean Pulse Oximetry 93 93 93 Oxygen Delivery Method High Flow Nasal Cannula High Flow Nasal Cannula High Flow Nasal Cannula Oxygen Flow Rate Fraction of Inspired Oxygen Sepsis Recent Fever Within 48 Hours Sepsis New/Unexplained Change in Mental Status Sepsis Action Taken by Nursing 07/18/19 20:30 07/18/19 20:34 07/18/19 20:36 Temperature Temperature Source Pulse Rate 85 85 84 Pulse Rate [Finger] 85 Pulse Rate from SpO2 Sensor 85 85 84 Pulse Rhythm Respiratory Rate 24 Respiratory Effort / Characteristics Spontaneous Respiratory Depth Respiratory Pattern Blood Pressure 121/89 Blood Pressure Mean 97 Pulse Oximetry 93 94 93 Oxygen Delivery Method High Flow Nasal Cannula High Flow Nasal Cannula High Flow Nasal Cannula Oxygen Flow Rate 40 Fraction of Inspired Oxygen 100 Sepsis Recent Fever Within 48 Hours Sepsis New/Unexplained Change in Mental Status Sepsis Action Taken by Nursing 07/18/19 20:38 07/18/19 20:40 07/18/19 20:44 Temperature Temperature Source Pulse Rate 83 81 81 Pulse Rate [Finger] Pulse Rate from SpO2 Sensor 83 81 81 Pulse Rhythm Respiratory Rate 24 24 Respiratory Effort / Characteristics Respiratory Depth Respiratory Pattern Blood Pressure Blood Pressure Mean Pulse Oximetry 94 95 97 Oxygen Delivery Method High Flow Nasal Cannula High Flow Nasal Cannula High Flow Nasal Cannula Oxygen Flow Rate Fraction of Inspired Oxygen Sepsis Recent Fever Within 48 Hours Sepsis New/Unexplained Change in Mental Status Sepsis Action Taken by Nursing 07/18/19 20:52 07/18/19 20:54 07/18/19 20:56 Temperature Temperature Source Pulse Rate 81 81 80 Pulse Rate [Finger] Pulse Rate from SpO2 Sensor 81 81 81 Pulse Rhythm Respiratory Rate 20 24 23 Respiratory Effort / Characteristics Respiratory Depth Respiratory Pattern Blood Pressure Blood Pressure Mean Pulse Oximetry 97 97 98 Oxygen Delivery Method High Flow Nasal Cannula High Flow Nasal Cannula High Flow Nasal Cannula Oxygen Flow Rate Fraction of Inspired Oxygen Sepsis Recent Fever Within 48 Hours Sepsis New/Unexplained Change in Mental Status Sepsis Action Taken by Nursing 07/18/19 20:58 07/18/19 21:00 07/18/19 21:02 Temperature Temperature Source Pulse Rate 80 82 83 Pulse Rate [Finger] Pulse Rate from SpO2 Sensor 80 82 82 Pulse Rhythm Respiratory Rate 22 Respiratory Effort / Characteristics Respiratory Depth Respiratory Pattern Blood Pressure 134/81 Blood Pressure Mean 96 Pulse Oximetry 98 99 99 Oxygen Delivery Method High Flow Nasal Cannula High Flow Nasal Cannula High Flow Nasal Cannula Oxygen Flow Rate Fraction of Inspired Oxygen Sepsis Recent Fever Within 48 Hours Sepsis New/Unexplained Change in Mental Status Sepsis Action Taken by Nursing 07/18/19 21:18 Temperature Temperature Source Pulse Rate 83 Pulse Rate [Finger] Pulse Rate from SpO2 Sensor 85 Pulse Rhythm Respiratory Rate 22 Respiratory Effort / Characteristics Respiratory Depth Respiratory Pattern Blood Pressure Blood Pressure Mean Pulse Oximetry 98 Oxygen Delivery Method High Flow Nasal Cannula Oxygen Flow Rate Fraction of Inspired Oxygen Sepsis Recent Fever Within 48 Hours Sepsis New/Unexplained Change in Mental Status Sepsis Action Taken by Nursing Constitutional: Vital signs reviewed. Eyes: Pupils are equal round reactive to light. Conjunctiva are noninjected. ENT: Pharynx is clear without erythema or exudate. Mucous membranes are moist. Neck supple without meningeal signs. Respiratory: Clear to auscultation bilaterally. Breath sounds are equal bilaterally. Cardiovascular: Regular rate and rhythm. No rubs or gallops. GI: Soft, nondistended and nontender. Bowel sounds are present. Musculoskeletal: No peripheral edema. No lower extremity tenderness. Integumentary: No cyanosis. or jaundice. Neurologic: The patient is awake and alert. Cranial nerves II-XII are intact. Motor is 5 out of 5 all extremities. Sensation is intact to light touch all extremities. Normal speech. No pronator drift. No limb ataxia. Left lateral nystagmus. Psychiatric: Normal affect. Not anxious appearing. Course Administered Medications Ceftriaxone Sodium (Rocephin) 2,000 mg in 70 mls @ 140 mls/hr IV DAILY@1999 [facility] Stop: 07/25/19 20:59 Last Admin: 07/18/19 21:57 Dose: 140 mls/hr Documented by: [id number] Doxycycline Hyclate 100 mg/ (Dextrose) 110 mls @ 50 mls/hr IV Q12@ [facility] Stop: 07/25/19 20:59 Last Admin: 07/18/19 21:57 Dose: 50 mls/hr Documented by: [id number] Ioversol (Optiray 320 125ml) 118 ml IV ONCE PRN PRN Reason: Interaction Checking Stop: 07/22/19 17:02 Last Admin: 07/18/19 17:05 Dose: 118 ml Documented by: [id number] Discontinued Medications Albuterol (Ventolin 0.083% 2.5mg/3ml) 2.5 mg NEB NOW STA Stop: 07/18/19 17:56 Last Admin: 07/18/19 18:08 Dose: Not Given Documented by: [id number] Albuterol (Duoneb) 12 ml NEB ONE ONE Stop: 07/18/19 18:57 Last Admin: 07/18/19 19:22 Dose: 12 ml Documented by: [id number] Calcium Gluconate (Calcium Gluconate 10%) Confirm Administered Dose 1,000 mg IV .STK-MED ONE Stop: 07/18/19 18:02 Last Admin: 07/18/19 18:09 Dose: Not Given Documented by: [id number] Dextrose (Dextrose 50%) 50 ml IV NOW ONE Stop: 07/18/19 17:56 Last Admin: 07/18/19 18:04 Dose: 50 ml Documented by: [id number] Furosemide (Lasix) 40 mg IV NOW STA Stop: 07/18/19 19:44 Last Admin: 07/18/19 20:15 Dose: 40 mg Documented by: [id number] Sodium Chloride (Nss 1000ml) 500 mls @ 999 mls/hr IV .Q31M ONE Stop: 07/18/19 17:25 Last Infusion: 07/18/19 20:14 Dose: 0 mls/hr Documented by: [id number] Infusion: 07/18/19 17:46 Dose: 0 mls/hr Documented by: [id number] Admin: 07/18/19 17:30 Dose: 999 mls/hr Documented by: [id number] Calcium Gluconate 1,000 mg/ (Sodium Chloride) 60 mls @ 240 mls/hr IV NOW STA Stop: 07/18/19 18:09 Last Infusion: 07/18/19 18:33 Dose: 0 mls/hr Documented by: [id number] Admin: 07/18/19 18:09 Dose: 240 mls/hr Documented by: [id number] Promethazine HCl 12.5 mg/ (Sodium Chloride) 50.5 mls @ 202 mls/hr IV NOW STA Stop: 07/18/19 18:18 Last Infusion: 07/18/19 19:04 Dose: 0 mls/hr Documented by: [id number] Admin: 07/18/19 18:33 Dose: 202 mls/hr Documented by: [id number] Insulin Human Regular (Novolin R U-100 Per Unit) 10 units IV NOW STA Stop: 07/18/19 17:56 Last Admin: 07/18/19 18:05 Dose: 10 units Documented by: [id number] Cosigned by: [id number] Meclizine HCl (Antivert) 25 mg PO NOW STA Stop: 07/18/19 16:56 Last Admin: 07/18/19 20:11 Dose: Not Given Documented by: [id number] Ondansetron HCl (Zofran) 4 mg IV NOW STA Stop: 07/18/19 16:56 Last Admin: 07/18/19 17:25 Dose: 4 mg Documented by: [id number] Promethazine HCl (Phenergan) Confirm Administered Dose 12.5 mg IV .STK-MED ONE Stop: 07/18/19 18:25 Last Admin: 07/18/19 18:33 Dose: Not Given Documented by: [id number] Sodium Bicarbonate (Sodium Bicarbonate 8.4%) 50 meq IV NOW STA Stop: 07/18/19 18:07 Last Admin: 07/18/19 18:28 Dose: 50 meq Documented by: [id number] Critical Care Time Critical Care Time: Yes Total Critical Care Time: 80 I have personally spent approximately 80 minutes of critical care time in the direct management of this patient with stroke symptoms, acute renal failure and hypoxia. This includes bedside care, interpretation of diagnostic studies, and testing, discussion with consultants, patient, and family members, and other required patient management activities. These minutes are in excess of all separately billable procedures. Medical Decision Making Differential Diagnosis BPPV, posterior circulation CVA, intracranial mass, VBI, bowel obstruction Medical Records Attestation: I reviewed the patient's medical records. I did perform a limited focused review of portions of the patient's old chart on the electronic medical record. The patient was seen in 2019 by neurology for chronic vertigo and seizure disorder. He was on Dilantin and Lamictal at that time. 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 Home Medications Current Medication List: was personally reviewed by me Laboratory Data Attestation: I reviewed the patient's lab results. Result diagrams: 07/18/19 17:02 07/18/19 16:59 Lab Results [id number] 07/18/19 Range/Units 16:59 16:59 16:59 WBC (4.8-10.8) K/uL RBC (4.7-6.1) M/uL Hgb (14.0-18.0) g/dL Hct (42-52) % MCV (80-100) fL MCH (25-34) pg MCHC (32-36) g/dL RDW Std Deviation (36.4-46.3) fL RDW Coeff of Ritesh (11.5-14.5) % Plt Count (130-400) K/uL MPV (7.4-10.4) fL Immature Gran % (Auto) % Neut % (Auto) % Lymph % (Auto) % [place] % (Auto) % Eos % (Auto) % Baso % (Auto) % Immature Gran # (Auto) (0.00-0.02) K/uL Neut # (Auto) (1.4-6.5) K/uL Lymph # (Auto) (1.2-3.4) K/uL [place] # (Auto) (0.11-0.59) K/uL Eos # (Auto) (0-0.5) K/uL Baso # (Auto) (0-0.2) K/uL PT 10.3 (9.0-12.0) Seconds INR 1.0 (0.9-1.1) APTT 29.6 (21.0-31.0) Seconds PTT Ratio 1.1 ABG pH (7.35-7.45) ABG pCO2 (35-46) mmHg ABG pO2 (80-95) mmHg ABG HCO3 (19-24) mmol/L ABG O2 Saturation (90-95) % ABG Base Excess (-9-1.8) mEq/L Adin Test (Pos) Barometric Pressure mm/Hg Oxygen Given Sodium 132 L (136-145) mmol/L Potassium 6.2 H* (3.5-5.1) mmol/L Chloride 103 (98-107) mmol/L Carbon Dioxide 20 L (21-32) mmol/L Anion Gap 9.0 (3-11) BUN 37 H (7-18) mg/dl Creatinine 2.13 H (0.6-1.4) mg/dl Est Cr Clr Drug Dosing 36.6 ml/min Est GFR ( Amer) 36.0 Est GFR (Non-Af Amer) 31.1 BUN/Creatinine Ratio 17.3 (10-20) Glucose 183 H (70-99) mg/dl POC Glucose (70-99) mg/dl Calcium 7.9 L (8.5-10.1) mg/dl Magnesium 4.1 H (1.8-2.4) mg/dl Total Bilirubin 0.4 (0.2-1) mg/dl AST 20 (15-37) U/L ALT 30 (12-78) U/L Alkaline Phosphatase 195 H (45-117) U/L Troponin I 0.081 H* (0-0.045) ng/ml NT-Pro-B Natriuret Pep 1519 H (0-900) pg/ml Total Protein 8.2 (6.4-8.2) gm/dl Albumin 3.8 (3.4-5.0) gm/dl Globulin 4.4 H (2.5-4.0) gm/dl Albumin/Globulin Ratio 0.9 (0.9-2) Phenytoin (10-20) mcg/ml Adenovirus (PCR) (NotDetected) B. pertussis DNA (PCR) (NotDetected) B.parapertussis DNA PCR (NotDetected) C. pneumoniae DNA (PCR) (NotDetected) Coronavirus OC43 (PCR) (NotDetected) Coronavirus HKU1 (PCR) (NotDetected) Coronavirus 229E (PCR) (NotDetected) COVID-19 PCR (Negative) Coronavirus NL63 (PCR) (NotDetected) Human Metapneumovir PCR (NotDetected) Influenza Type A (PCR) (NotDetected) Influenza Type B (PCR) (NotDetected) M. pneumoniae (PCR) (NotDetected) Parainfluenza 1 (PCR) (NotDetected) Parainfluenza 2 (PCR) (NotDetected) Parainfluenza 3 (PCR) (NotDetected) Parainfluenza 4 (PCR) (NotDetected) RSV (PCR) (NotDetected) Entero/Rhino (PCR) (NotDetected) Blood Type Antibody Screen 07/18/19 07/18/19 07/18/19 Range/Units 17:00 17:02 17:02 WBC 7.26 (4.8-10.8) K/uL RBC 5.37 (4.7-6.1) M/uL Hgb 16.5 (14.0-18.0) g/dL Hct 47.0 (42-52) % MCV 87.5 (80-100) fL MCH 30.7 (25-34) pg MCHC 35.1 (32-36) g/dL RDW Std Deviation 53.9 H (36.4-46.3) fL RDW Coeff of Ritesh 16.7 H (11.5-14.5) % Plt Count 143 (130-400) K/uL MPV 8.9 (7.4-10.4) fL Immature Gran % (Auto) 0.1 % Neut % (Auto) 82.2 % Lymph % (Auto) 13.1 % [place] % (Auto) 3.2 % Eos % (Auto) 1.1 % Baso % (Auto) 0.3 % Immature Gran # (Auto) 0.01 (0.00-0.02) K/uL Neut # (Auto) 5.97 (1.4-6.5) K/uL Lymph # (Auto) 0.95 L (1.2-3.4) K/uL [place] # (Auto) 0.23 (0.11-0.59) K/uL Eos # (Auto) 0.08 (0-0.5) K/uL Baso # (Auto) 0.02 (0-0.2) K/uL PT (9.0-12.0) Seconds INR (0.9-1.1) APTT (21.0-31.0) Seconds PTT Ratio ABG pH (7.35-7.45) ABG pCO2 (35-46) mmHg ABG pO2 (80-95) mmHg ABG HCO3 (19-24) mmol/L ABG O2 Saturation (90-95) % ABG Base Excess (-9-1.8) mEq/L Adin Test (Pos) Barometric Pressure mm/Hg Oxygen Given Sodium (136-145) mmol/L Potassium (3.5-5.1) mmol/L Chloride (98-107) mmol/L Carbon Dioxide (21-32) mmol/L Anion Gap (3-11) BUN (7-18) mg/dl Creatinine (0.6-1.4) mg/dl Est Cr Clr Drug Dosing ml/min Est GFR ( Amer) Est GFR (Non-Af Amer) BUN/Creatinine Ratio (10-20) Glucose (70-99) mg/dl POC Glucose (70-99) mg/dl Calcium (8.5-10.1) mg/dl Magnesium (1.8-2.4) mg/dl Total Bilirubin (0.2-1) mg/dl AST (15-37) U/L ALT (12-78) U/L Alkaline Phosphatase (45-117) U/L Troponin I (0-0.045) ng/ml NT-Pro-B Natriuret Pep (0-900) pg/ml Total Protein (6.4-8.2) gm/dl Albumin (3.4-5.0) gm/dl Globulin (2.5-4.0) gm/dl Albumin/Globulin Ratio (0.9-2) Phenytoin 4.2 L (10-20) mcg/ml Adenovirus (PCR) (NotDetected) B. pertussis DNA (PCR) (NotDetected) B.parapertussis DNA PCR (NotDetected) C. pneumoniae DNA (PCR) (NotDetected) Coronavirus OC43 (PCR) (NotDetected) Coronavirus HKU1 (PCR) (NotDetected) Coronavirus 229E (PCR) (NotDetected) COVID-19 PCR (Negative) Coronavirus NL63 (PCR) (NotDetected) Human Metapneumovir PCR (NotDetected) Influenza Type A (PCR) (NotDetected) Influenza Type B (PCR) (NotDetected) M. pneumoniae (PCR) (NotDetected) Parainfluenza 1 (PCR) (NotDetected) Parainfluenza 2 (PCR) (NotDetected) Parainfluenza 3 (PCR) (NotDetected) Parainfluenza 4 (PCR) (NotDetected) RSV (PCR) (NotDetected) Entero/Rhino (PCR) (NotDetected) Blood Type O Positive Antibody Screen NEGATIVE 07/18/19 07/18/19 07/18/19 Range/Units 18:49 18:49 19:30 WBC (4.8-10.8) K/uL RBC (4.7-6.1) M/uL Hgb (14.0-18.0) g/dL Hct (42-52) % MCV (80-100) fL MCH (25-34) pg MCHC (32-36) g/dL RDW Std Deviation (36.4-46.3) fL RDW Coeff of Ritesh (11.5-14.5) % Plt Count (130-400) K/uL MPV (7.4-10.4) fL Immature Gran % (Auto) % Neut % (Auto) % Lymph % (Auto) % [place] % (Auto) % Eos % (Auto) % Baso % (Auto) % Immature Gran # (Auto) (0.00-0.02) K/uL Neut # (Auto) (1.4-6.5) K/uL Lymph # (Auto) (1.2-3.4) K/uL [place] # (Auto) (0.11-0.59) K/uL Eos # (Auto) (0-0.5) K/uL Baso # (Auto) (0-0.2) K/uL PT (9.0-12.0) Seconds INR (0.9-1.1) APTT (21.0-31.0) Seconds PTT Ratio ABG pH 7.35 (7.35-7.45) ABG pCO2 41 (35-46) mmHg ABG pO2 68 L (80-95) mmHg ABG HCO3 22 (19-24) mmol/L ABG O2 Saturation 93.4 (90-95) % ABG Base Excess -3.5 (-9-1.8) mEq/L Adin Test POS (Pos) Barometric Pressure 733.3 mm/Hg Oxygen Given 100% O2 Sodium (136-145) mmol/L Potassium (3.5-5.1) mmol/L Chloride (98-107) mmol/L Carbon Dioxide (21-32) mmol/L Anion Gap (3-11) BUN (7-18) mg/dl Creatinine (0.6-1.4) mg/dl Est Cr Clr Drug Dosing ml/min Est GFR ( Amer) Est GFR (Non-Af Amer) BUN/Creatinine Ratio (10-20) Glucose (70-99) mg/dl POC Glucose (70-99) mg/dl Calcium (8.5-10.1) mg/dl Magnesium (1.8-2.4) mg/dl Total Bilirubin (0.2-1) mg/dl AST (15-37) U/L ALT (12-78) U/L Alkaline Phosphatase (45-117) U/L Troponin I (0-0.045) ng/ml NT-Pro-B Natriuret Pep (0-900) pg/ml Total Protein (6.4-8.2) gm/dl Albumin (3.4-5.0) gm/dl Globulin (2.5-4.0) gm/dl Albumin/Globulin Ratio (0.9-2) Phenytoin (10-20) mcg/ml Adenovirus (PCR) Not Detected (NotDetected) B. pertussis DNA (PCR) Not Detected (NotDetected) B.parapertussis DNA PCR Not Detected (NotDetected) C. pneumoniae DNA (PCR) Not Detected (NotDetected) Coronavirus OC43 (PCR) Not Detected (NotDetected) Coronavirus HKU1 (PCR) Not Detected (NotDetected) Coronavirus 229E (PCR) Not Detected (NotDetected) COVID-19 PCR NEGATIVE (Negative) Coronavirus NL63 (PCR) Not Detected (NotDetected) Human Metapneumovir PCR Not Detected (NotDetected) Influenza Type A (PCR) Not Detected (NotDetected) Influenza Type B (PCR) Not Detected (NotDetected) M. pneumoniae (PCR) Not Detected (NotDetected) Parainfluenza 1 (PCR) Not Detected (NotDetected) Parainfluenza 2 (PCR) Not Detected (NotDetected) Parainfluenza 3 (PCR) Not Detected (NotDetected) Parainfluenza 4 (PCR) Not Detected (NotDetected) RSV (PCR) Not Detected (NotDetected) Entero/Rhino (PCR) Not Detected (NotDetected) Blood Type Antibody Screen 07/18/19 Range/Units 21:28 WBC (4.8-10.8) K/uL RBC (4.7-6.1) M/uL Hgb (14.0-18.0) g/dL Hct (42-52) % MCV (80-100) fL MCH (25-34) pg MCHC (32-36) g/dL RDW Std Deviation (36.4-46.3) fL RDW Coeff of Ritesh (11.5-14.5) % Plt Count (130-400) K/uL MPV (7.4-10.4) fL Immature Gran % (Auto) % Neut % (Auto) % Lymph % (Auto) % [place] % (Auto) % Eos % (Auto) % Baso % (Auto) % Immature Gran # (Auto) (0.00-0.02) K/uL Neut # (Auto) (1.4-6.5) K/uL Lymph # (Auto) (1.2-3.4) K/uL [place] # (Auto) (0.11-0.59) K/uL Eos # (Auto) (0-0.5) K/uL Baso # (Auto) (0-0.2) K/uL PT (9.0-12.0) Seconds INR (0.9-1.1) APTT (21.0-31.0) Seconds PTT Ratio ABG pH (7.35-7.45) ABG pCO2 (35-46) mmHg ABG pO2 (80-95) mmHg ABG HCO3 (19-24) mmol/L ABG O2 Saturation (90-95) % ABG Base Excess (-9-1.8) mEq/L Adin Test (Pos) Barometric Pressure mm/Hg Oxygen Given Sodium (136-145) mmol/L Potassium (3.5-5.1) mmol/L Chloride (98-107) mmol/L Carbon Dioxide (21-32) mmol/L Anion Gap (3-11) BUN (7-18) mg/dl Creatinine (0.6-1.4) mg/dl Est Cr Clr Drug Dosing ml/min Est GFR ( Amer) Est GFR (Non-Af Amer) BUN/Creatinine Ratio (10-20) Glucose (70-99) mg/dl POC Glucose 152 H (70-99) mg/dl Calcium (8.5-10.1) mg/dl Magnesium (1.8-2.4) mg/dl Total Bilirubin (0.2-1) mg/dl AST (15-37) U/L ALT (12-78) U/L Alkaline Phosphatase (45-117) U/L Troponin I (0-0.045) ng/ml NT-Pro-B Natriuret Pep (0-900) pg/ml Total Protein (6.4-8.2) gm/dl Albumin (3.4-5.0) gm/dl Globulin (2.5-4.0) gm/dl Albumin/Globulin Ratio (0.9-2) Phenytoin (10-20) mcg/ml Adenovirus (PCR) (NotDetected) B. pertussis DNA (PCR) (NotDetected) B.parapertussis DNA PCR (NotDetected) C. pneumoniae DNA (PCR) (NotDetected) Coronavirus OC43 (PCR) (NotDetected) Coronavirus HKU1 (PCR) (NotDetected) Coronavirus 229E (PCR) (NotDetected) COVID-19 PCR (Negative) Coronavirus NL63 (PCR) (NotDetected) Human Metapneumovir PCR (NotDetected) Influenza Type A (PCR) (NotDetected) Influenza Type B (PCR) (NotDetected) M. pneumoniae (PCR) (NotDetected) Parainfluenza 1 (PCR) (NotDetected) Parainfluenza 2 (PCR) (NotDetected) Parainfluenza 3 (PCR) (NotDetected) Parainfluenza 4 (PCR) (NotDetected) RSV (PCR) (NotDetected) Entero/Rhino (PCR) (NotDetected) Blood Type Antibody Screen Imaging Data Radiologist's Impression: CT angio head w con HISTORY: Stroke evaluation TECHNIQUE: Multiaxial CT angiography of the head was performed IV contrast: 100 cc Maximum intensity projection images were also obtained. A dose lowering technique was utilized adhering to the principles of ALARA. COMPARISON: None. FINDINGS: There is no mass, hematoma, midline shift, or acute infarct. The carotid system and [place] vasculature is in general unremarkable. There is minimal scattered aphthous chronic change. There is a congenitally small right vertebral artery with a high-grade distal stenosis immediately proximal to the basilar. Left vertebral artery is dominant and unremarkable. IMPRESSION: 1. Small caliber right vertebral artery with a high-grade superimposed stenosis immediately proximal to the basilar artery. 2. Minimal scattered atherosclerotic change of the remaining vasculature. 3. No additional significant stenotic process. ACT 112: Negative or not required by law. The above report was generated using voice recognition software. It may contain grammatical, syntax or spelling errors. Electronically signed by: Jesus Uribe M.D. 07/18/2019 5:[address] head/brain wo con CT DOSE: HISTORY: Mental status change vertigo eval for stroke TECHNIQUE: Multiaxial CT images of the head were performed without the use of intravenous contrast. A dose lowering technique was utilized adhering to the principles of ALARA. Comparison: 06/29/2018 Findings: Improved aeration of the sinuses with the bulk of all major sinuses showing only minimal residual mucosal thickening. The calvarium and skull base are intact. The ventricles and sulci are within normal limits. There is no mass, hematoma, midline shift, or acute infarct. Impression: No acute intracranial abnormality. Improving sinusitis. ACT 112: Negative or not required by law. The above report was generated using voice recognition software. It may contain grammatical, syntax or spelling errors. Electronically signed by: Jesus Uribe M.D. 07/18/2019 5:[address] abd pelvis wo con CT DOSE: 765.00 mGy.cm HISTORY: Nausea vomittting eval for obstruction TECHNIQUE: Multiaxial CT images of the abdomen and pelvis were performed without contrast. A dose lowering technique was utilized adhering to the principles of ALARA. COMPARISON STUDY: 06/29/2018 FINDINGS: Slight right basilar interstitial and peribronchial prominence. Small fixed hiatal hernia. Mild gastric distention and slight gastric wall thickening. Gallstones in the region of the gallbladder neck bilateral renal vascular nephrocalcinosis. No evidence for hydronephrosis. Slight increase in fluid content within the colon as well as small bowel. Mild bladder distention. IMPRESSION: 1. Mild bladder distention. 2. Gallstones. 3. Mild generalized nonobstructive ileus. 4. Mild gastritis. ACT 112: Negative or not required by law. The above report was generated using voice recognition software. It may contain grammatical, syntax or spelling errors. Electronically signed by: Jesus Uribe M.D. 07/18/2019 5:13 PM XR chest 1V portable CLINICAL HISTORY: sob dyspnea COMPARISON STUDY: 06/29/2018 FINDINGS: Moderate cardiomegaly. Increased bronchovascular prominence. Potential interstitial lines at the lung bases. Diaphragms are smooth. IMPRESSION: Findings consistent with congestive failure/pulmonary edema versus diffuse bilateral parenchymal infiltrative change. ACT 112: Negative or not required by law. The above report was generated using voice recognition software. It may contain grammatical, syntax or spelling errors. Electronically signed by: Jesus Uribe M.D. 07/18/2019 5:[address] chest wo con CT DOSE: 432.96 mGy.cm HISTORY: Dyspnea hypoxic eval for covid/PE TECHNIQUE: Multiaxial CT images of the chest were performed without contrast. A dose lowering technique was utilized adhering to the principles of ALARA. COMPARISON: None. FINDINGS: Prominent pulmonary vasculature. Moderate cardiomegaly. Several small subcentimeter reactive hilar and/or mediastinal nodes. Scattered peripheral bilateral parenchymal infiltrative change. A superimposed inflammatory process is not excluded. There is trace amount pleural fluid both posterior aspect angles are IMPRESSION: 1. Mild congestive heart failure. 2. Potential patchy peripheral interstitial parenchymal infiltrative change. ACT 112: Negative or not required by law. The above report was generated using voice recognition software. It may contain grammatical, syntax or spelling errors. Electronically signed by: Jesus Uribe M.D. 07/18/2019 8:04 PM ECG Data Attestation: I personally reviewed and interpreted this ECG as follows: Indication: + other (Dizziness) Rate (beats per minute): 78 Rhythm: + other (Undetermined rhythm) ECG Intervals/blocks: + Incomplete right bundle branch block ECG [place]: + Right axis deviation ECG ST segments: + T-wave inversions (Inferior laterally) ECG Findings: no PVCs Comparison ECG Date: from (July 01, 2018) Change: the following changes noted (More pronounced T wave inversions today. QRS is 118 today compared to 96) Additional Comments: Repeat twelve-lead EKG shows per my interpretation normal sinus rhythm with a rate of 79 bpm. T wave inversions inferiorly with ST depressions laterally. Incomplete right bundle branch block. QRS is 118 ms. Blood Pressure Blood Pressure Findings: Normal blood pressure MDM Narrative I did evaluate the patient as noted above. The patient is presenting with vertigo and vomiting. He states it started at 1:30 PM. I called a stroke alert as he stated that he has a prior history of TIAs presenting similarly. I did speak to Dr. Miguel who is the stroke neurologist at [facility]. He will evaluate him via telemedicine. IV access was established. The patient was placed on a continuous monitor tech. Cardiac monitoring: Indication: Stroke symptoms Rate and rhythm: What appears to be sinus rhythm at a rate of 72. Slightly widened QRS. I did order a stat CT of the head and abdomen and pelvis, and CT angiogram of the head and neck. I did review the images myself as well as the radiology report as described above. There is no evidence of stroke or bowel obstruction. He does have a nonobstructive ileus. He also has significant stenosis of the right vertebral artery as well as some atherosclerosis to the carotid arteries. I did order and personally review the patient's 12-lead EKG as described above. His QRS is widened and he has significant T wave inversions inferior laterally. No ST elevations are noted. He denies having any chest discomfort or pain. I did obtain further history from his sisters Jackie. She stated that he has had TIAs in the past presenting similarly. His last TIA was year and a half ago. She also mentioned that he had a bowel obstruction 5 years ago and they wanted to take out part of his intestine but he may have required a colostomy and so he declined it at that time. She also mentioned that he complained of rectal bleeding last week. She also states that he called at around 1230 and stated he was not feeling well. I did obtain further history from the patient who stated that his symptoms likely started around 12:00 but they were not as severe and so he told me it started at 1:30 PM. He also states that he has had a problem with rectal bleeding for a very long time. He states he gets it intermittently. A week ago he had bleeding which was red but not bright red. Given the time of last known well he is not a IV TPA candidate. While in the emergency department the patient started the satting. Initially his O2 saturation was 94% on room air. He does not use oxygen at home and has no prior history of CHF or COPD. The patient's O2 saturation went into the mid 80s and he was placed on oxygen. When questioned again he stated that he started feeling short of breath while in the emergency department. He previously told me that he had no cough but stated that he "would have coughed if he could have." I am not clear what this means but I did order a chest x- ray. I did order and personally reviewed the images of the patient's chest x- ray as described above. Chest x-ray is concerning for CHF versus bilateral infiltrates. Given his desaturation and chest x-ray findings I did order respiratory isolation and a bio fire respiratory panel. The patient did state earlier that he has had no known contact with COVID-19 and has been staying home during the past month. While he denied lung disease his sister stated that he is an extremely heavy smoker and she believes he does have COPD. I did order and review the patient's blood work as noted in the electronic medical record. His blood work is remarkable for acute kidney injury with a potassium of 6.2. This would explain his EKG findings from earlier. I did immediately order IV calcium gluconate, insulin and IV dextrose, and IV bicarbonate. I did not give him an albuterol treatment due to the aerosolized nature of this modality. His magnesium is also elevated and his sodium is low. Troponin is also elevated. I did order a CT of the chest to further delineate this infiltrate versus CHF. I also ordered a BNP. Unfortunately patient continued to desaturate despite being on high flow oxygen. He was therefore given an hour-long continuous DuoNeb and I did order an ABG. ABG shows hypoxemia without hypercapnia. CT scan of the chest shows congestive changes with potential infiltrates. The patient was given IV Lasix. I did discuss case with the hospitalist and transplant case manager. The patient was admitted to the ICU. Impression & Plan BRYANT (acute kidney injury), Acute hyperkalemia, Hypoxemia, Vertigo, Stenosis of right vertebral artery, Elevated troponin, Hypermagnesemia, Hypocalcemia, COPD exacerbation, CHF (congestive heart failure) Discharge Plan Visit Data Chief Complaint: Vomiting Stated Complaint: NAUSEA, VOMITING, AB DISTENTION ED Provider: Khoa Rivera Discharge Problem: BRYANT (acute kidney injury), Acute hyperkalemia, Hypoxemia, Vertigo, Stenosis of right vertebral artery, Elevated troponin, Hypermagnesemia, Hypocalcemia, COPD exacerbation, CHF (congestive heart failure) Patient Disposition: Being Evaluated by Hospitalist Condition: Critical Forms Stand Alone Forms: My [facility] Prescriptions Prescriptions: No Action glipizide 10 mg tablet extended release 24hr 10 mg PO DAILY RF: 0 cephalexin [Keflex] 500 mg capsule 500 mg PO Q12H RF: 0 promethazine 25 mg tablet 25 mg PO Q8H PRN (Reason: Nausea And Vomiting) RF: 0 aspirin 81 mg Tablet,Delayed Release (Dr/Ec) 81 mg PO DAILY RF: 0 lamotrigine 200 mg tablet 400 mg PO BID 30 Days Qty: 60 RF: 0 lisinopril 20 mg tablet 20 mg PO DAILY 30 Days Qty: 30 RF: 0 clopidogrel 75 mg tablet 75 mg PO DAILY 30 Days Qty: 30 RF: 1 tamsulosin 0.4 mg capsule 0.4 mg PO DAILY 30 Days Qty: 30 RF: 0 polyethylene glycol 3350 17 gram Powder In Packet 17 g PO DAILY PRN (Reason: Constipation) RF: 0 atorvastatin 10 mg tablet 10 mg PO DAILY RF: 0 sennosides-docusate sodium [Senna with Docusate Sodium] 8.6-50 mg Tablet 1 tab-cap PO DAILY RF: 0 quetiapine 200 mg tablet 400 mg PO HS RF: 0 phenytoin sodium extended 100 mg capsule 100 mg PO BID RF: 0 pantoprazole 20 mg tablet,delayed release (DR/EC) 40 mg PO DAILY RF: 0 trazodone 100 mg tablet 100 mg PO HS RF: 0 mirtazapine 30 mg tablet 30 mg PO HS RF: 0 gabapentin 100 mg capsule 100 mg PO TID RF: 0 metoprolol tartrate 25 mg tablet 12.5 mg PO BID RF: 0 Jardiance 25 mg tablet 25 mg PO DAILY RF: 0 Combivent Respimat 20-100 mcg/actuation mist 1 puff INHALATION QID RF: 0 clonazepam 1 mg tablet 1 mg PO HS RF: 0 Trulicity 1.5 mg/0.5 mL pen injector 1.5 mg SUBCUT WK RF: 0 Referrals Referrals: Ailin Malik DO [Primary Care Provider] - Discharge Problem: CHF (congestive heart failure) Qualifiers: Heart failure type: unspecified Heart failure chronicity: unspecified Qualified Code(s): I50.9 - Heart failure, unspecified
[2019-07-18 17:18] LABS: Basophils # (auto) 0.02 K/uL (0-0.2); Basophils % (auto) 0.3 %; Eosinophils # (auto) 0.08 K/uL (0-0.5); Eosinophils % (auto) 1.1 %; Hemoglobin 16.5 g/dL (14.0-18.0); Immature Granulocytes # (auto) 0.01 K/uL (0.00-0.02); Immature Granulocytes % (auto) 0.1 %; Lymphocytes # (auto) 0.95 K/uL (1.2-3.4); Lymphocytes % (auto) 13.1 %; Mean Corpuscular Hemoglobin 30.7 pg (25-34); Mean Corpuscular Hgb Conc 35.1 g/dL (32-36); Mean Corpuscular Volume 87.5 fL (80-100); Mean Platelet Volume 8.9 fL (7.4-10.4); Monocytes # (auto) 0.23 K/uL (0.11-0.59); Monocytes % (auto) 3.2 %; Neutrophils # (auto) 5.97 K/uL (1.4-6.5); Neutrophils % (auto) 82.2 %; Platelet Count 143 K/uL (130-400); RDW Coefficient of Variation 16.7 % (11.5-14.5); RDW Standard Deviation 53.9 fL (36.4-46.3); Red Blood Count 5.37 M/uL (4.7-6.1); White Blood Count 7.26 K/uL (4.8-10.8)
--- NOTE | 2019-07-18 17:24 | CT Scan Report ---
CT angio head w con HISTORY: Stroke evaluation TECHNIQUE: Multiaxial CT angiography of the head was performed IV contrast: 100 cc Maximum intensi ty projection images were also obtained. A dose lowering technique was utilized adhering to the prin ciples of TREV. COMPARISON: None. FINDINGS: There is no mass, hematoma, midline shift, or acute infarct. The carotid system and [place] vasculature is in general unremarkable. There is minimal scattered aphthous chronic change. There is a congenitally small right vertebral artery with a high-grade distal stenosis immediately pr oximal to the basilar. Left vertebral artery is dominant and unremarkable. IMPRESSION: 1. Small caliber right vertebral artery with a high-grade superimposed stenosis immediately proximal to the basilar artery. 2. Minimal scattered atherosclerotic change of the remaining vasculature. 3. No additional significant stenotic process. ACT 112: Negative or not required by law. The above report was generated using voice recognition software. It may contain grammatical, syntax or spelling errors. Electronically signed by: Jesus Uribe M.D. 07/18/2019 5:23 PM
[2019-07-18 17:29] LABS: Partial Thromboplastin Ratio 1.1; Partial Thromboplastin Time 29.6 Seconds (21.0-31.0); Prothrombin Time 10.3 Seconds (9.0-12.0)
--- NOTE | 2019-07-18 17:33 | CT Scan Report ---
CT angio neck with con HISTORY: Mental status change Stroke evaluation TECHNIQUE: Multiaxial CT angiography of the neck was performed IV contrast: 100 cc nonionic All carlos manuel urements were calculated based on NASCET criteria. Maximum intensity projection images were also obt ained. A dose lowering technique was utilized adhering to the principles of ALARA. COMPARISON STUDY: CT brain for 2018. Carotid Doppler ultrasound 11/18/2015 FINDINGS: The aortic arch and proximal great vessels are widely patent. 50% stenosis origin left jasper tebral artery. The left vertebral artery is remarkable for scattered atherosclerotic change. Right ve rtebral vessel is small in caliber on a congenital basis with evidence for high-grade and/or critical stenosis has distal aspect immediately proximal to the basilar. There is a 30-50% stenosis of the right as well as left carotid bifurcations. A critical stenosis is not appreciated. There is at least 50% narrowing of the proximal right internal and to a lesser extent proximal left i nternal carotid artery. Diffuse plaque formation is present. There is mild to moderate atheroscleroti c change of the internal carotid arteries level of the carotid siphons. IMPRESSION: 1. Extensive atherosclerotic change with moderate multilevel stenotic changes of the carotid bifurcat ions as well as proximal internal carotid arteries. 2. Maximum narrowing is 50-60% the left carotid bifurcation 3. Small caliber right vertebral artery with a high-grade and/or critical stenosis at its distal aspe ct proximal to the basilar juncture ACT 112: Negative or not required by law. The above report was generated using voice recognition software. It may contain grammatical, syntax or spelling errors. Electronically signed by: Jesus Uribe M.D. 07/18/2019 5:31 PM
[2019-07-18 17:48] LABS: Albumin Globulin Ratio 0.9 (0.9-2); Albumin Level 3.8 gm/dl (3.4-5.0); BUN Creatinine Ratio 17.3 (10-20); Bilirubin,Total 0.4 mg/dl (0.2-1); Calcium 7.9 mg/dl (8.5-10.1); Creatinine Clr Calc Pharmacy 36.6 ml/min; Est GFR (Non-African American) 31.1; Globulin 4.4 gm/dl (2.5-4.0); Magnesium 4.1 mg/dl (1.8-2.4); Potassium 6.2 mmol/L (3.5-5.1); Total Protein 8.2 gm/dl (6.4-8.2); Troponin I 0.081 ng/ml (0-0.045)
[2019-07-18] MEDS ORDERED: ALBUTEROL 0.083% NEBU SOLN 3 ML VIAL NEB STA (17:55)
[2019-07-18] MEDS ORDERED: CALCIUM GLUCONATE 10% 1,000 MG in SODIUM CHLORIDE 0.9% 50 ML IV STA (17:55)
[2019-07-18] MEDS ORDERED: DEXTROSE 50% 50 ML SYRINGE IV ONE (17:55)
[2019-07-18] MEDS ORDERED: NovoLIN-R INSULIN PER UNIT CHARGE IV STA (17:55)
--- NOTE | 2019-07-18 17:56 | XRay Report ---
XR chest 1V portable CLINICAL HISTORY: sob dyspnea COMPARISON STUDY: 06/29/2018 FINDINGS: Moderate cardiomegaly. Increased bronchovascular prominence. Potential interstitial lines a t the lung bases. Diaphragms are smooth. IMPRESSION: Findings consistent with congestive failure/pulmonary edema versus diffuse bilateral par enchymal infiltrative change. ACT 112: Negative or not required by law. The above report was generated using voice recognition software. It may contain grammatical, syntax or spelling errors. Electronically signed by: Jesus Uribe M.D. 07/18/2019 5:55 PM
[2019-07-18] MEDS ORDERED: CALCIUM GLUCONATE 10% 10 ML VIAL IV ONE (18:01)
[2019-07-18] MEDS ORDERED: PROMETHAZINE HCL 12.5 MG in SODIUM CHLORIDE 0.9% 50 ML IV STA (18:04)
[2019-07-18] MEDS ORDERED: SODIUM BICARB 8.4% INJ 50 MEQ/50 ML SYR IV STA (18:06)
[2019-07-18] MEDS ORDERED: PROMETHAZINE 12.5 MG/50.5 ML NSS IV ONE (18:24)
[2019-07-18] MEDS ORDERED: ALBUT/IPRATROP 3MG/0.5MG NEB 3 ML VIAL NEB ONE (18:56)
[2019-07-18] MEDS ORDERED: FUROSEMIDE 40 MG/4 ML VIAL IV STA (19:43)
[2019-07-18 19:57] LABS: Base Excess ABG -3.5 mEq/L (-9-1.8); HCO3 ABG 22 mmol/L (19-24); Oxygen Saturation ABG 93.4 % (90-95); PCO2 ABG 41 mmHg (35-46); PO2 ABG 68 mmHg (80-95); pH ABG 7.35 (7.35-7.45)
[2019-07-18 19:58] LABS: Allen Test POS (Pos)
--- NOTE | 2019-07-18 20:05 | CT Scan Report ---
CT chest wo con CT DOSE: 432.96 mGy.cm HISTORY: Dyspnea hypoxic eval for covid/PE TECHNIQUE: Multiaxial CT images of the chest were performed without contrast. A dose lowering techni que was utilized adhering to the principles of ALARA. COMPARISON: None. FINDINGS: Prominent pulmonary vasculature. Moderate cardiomegaly. Several small subcentimeter reactiv e hilar and/or mediastinal nodes. Scattered peripheral bilateral parenchymal infiltrative change. A superimposed inflammatory process i s not excluded. There is trace amount pleural fluid both posterior aspect angles are IMPRESSION: 1. Mild congestive heart failure. 2. Potential patchy peripheral interstitial parenchymal infiltrative change. ACT 112: Negative or not required by law. The above report was generated using voice recognition software. It may contain grammatical, syntax or spelling errors. Electronically signed by: Jesus Uribe M.D. 07/18/2019 8:04 PM
[2019-07-18 20:16] LABS: Adenovirus PCR Not Detected (NotDetected); Bordetella parapertussis PCR Not Detected (NotDetected); Bordetella pertussis PCR Not Detected (NotDetected); Chlamydia pneumoniae PCR Not Detected (NotDetected); Coronavirus 229E PCR Not Detected (NotDetected); Coronavirus HKU1 PCR Not Detected (NotDetected); Coronavirus NL63 PCR Not Detected (NotDetected); Coronavirus OC43PCR Not Detected (NotDetected); Human Metapneumovirus PCR Not Detected (NotDetected); Influenza A PCR Not Detected (NotDetected); Influenza B PCR Not Detected (NotDetected); Mycoplasma pneumoniae PCR Not Detected (NotDetected); Parainfluenza Virus 1 PCR Not Detected (NotDetected); Parainfluenza Virus 2 PCR Not Detected (NotDetected); Parainfluenza Virus 3 PCR Not Detected (NotDetected); Parainfluenza Virus 4 PCR Not Detected (NotDetected); Respiratory Syncytial VirusPCR Not Detected (NotDetected); Rhinovirus/Enterovirus PCR Not Detected (NotDetected)
--- NOTE | 2019-07-18 20:46 | History & Physical Report ---
Date of Service July 18, 2019 Assessment & Plan (1) Acute exacerbation of CHF (congestive heart failure): Acute respiratory failure likely secondary to flash pulmonary edema progressive over this afternoon. The patient has CAD and is on DAPT. Responded well to Lasix 40mg IV with 1L out into [place] within about 2 hours. Respiratory distress improved significantly. Slight bump in troponin to 0.08 will be trended. Patient denies any chest pain. Echo ordered. Recommend 2gm sodium diet when able to eat. Daily standing weights. Cardiology consult. Hold on further Lasix tonight and re-evaluate volume status in am. (2) Acute respiratory failure: Likely 2/2 pulmonary edema, however, other considerations included but were not limited to severe bilateral pneumonia and COVID. He was empirically started on ceftriaxone and doxycycline (although beta-lactam plus either azithro or FQ are recommended per guidelines, prolonged QTc prevented administration of either those). Flu and biofire respiratory panels were negative. Blood cultures pending. In light of the need for ICU in this patient and the initial impending respiratory situation, a rapid COVID test was performed and was negative. Retrospectively, acute heart failure was the likely etiology as he was significantly improved after diuresis. Procalcitonin pending. (3) New onset left bundle branch block (LBBB): Resolved after treatment of electrolyte abnormalities. Trop with some rise, but EKG improving with time and treatment, so doesn't appear to indicate an evolving STEMI, either. Cont to monitor closely on telemetry. (4) BRYANT (acute kidney injury): Stage III CKD with baseline creatinine around 1.5-1.7, now 2.1. Repeat in am after treatment of hypervolemia. Notably he did receive intravenous contrast in the ER and also one dose of Lasix 40mg IV (5) Acute hyperkalemia: Uses lisinopril regularly. Treated in the ER with Calcium, insulin, dextrose, and bicarb. He later received the lasix. K went from 6.2 to 5.6. Hold lisinopril. Consider low K, low Na diet once he is able to eat. (6) Stenosis of right vertebral artery: Has a h/o TIA last year. No stroke or focal deficits. No vascular head imaging was performed at that time but he was placed on DAPT. CT angiogram of head and neck show high grade vertebral artery stenosis. His dizziness is improving with treatment of hypoxia. Nonfocal neuro exam. Stroke appears to be a less likely. Cont DAPT. Consider Neurology consultation and possible Vascular consultation for high grade stenosis. (7) Elevated troponin: ACS vs demand ischemia. Uncertain but patient is without chest pain and EKG changes are improved so favoring demand ischemia in setting of acute heart failure exacerbation. Echo in am. Trend troponin overnight with a low threshold for heparin. (8) CAD (coronary artery disease): No h/o DC in the past, ,however, has clear coronary calcifications on imaging. Also has known PAD. Active smoker and uncontrolled diabetic. Lipid panel in am. Cont Lipitor 10mg daily, Metoprolol tartrate BID, Plavix and ASA per home regimen. (9) Diabetes type 2, uncontrolled: A1C 9.3 last year. Repeat in am. Basal bolus insulin. Hold all oral hypoglycemics. (10) Bipolar disorder: Hold home seroquel with prolonged QTc. (11) PAD (peripheral artery disease): Known history of this. Cont medical management. (12) COPD (chronic obstructive pulmonary disease): Chronic, stable. No active wheezing or evidence of exacerbation. Cont to encourage to quit smoking. (13) Seizure disorder: On Lamictal for both a h/o seizures and bipolar disorder, both of which are stable and chronic. However, would question the need for trazodone to avoid lowering the seizure threshold. (14) Depression: Anxiety and depression present chronically. Follows with an outpatient psychiatrist. (15) Tobacco use disorder: Heavy lifelong smoker. Strongly encouraged to quit. Consider nicotine patch this admission. (16) DVT prophylaxis: Heparin Full Code as discussed with patient on admission. Dispo-to ICU for close monitoring overnight. Brigitte Hamilton DO [facility] Hospitalist History of Present Illness Chief Complaint: sick to my stomach and short of breath Primary Care Provider: Ailin Malik DO 69 yo diabetic male smoker presented to the ER with acute onset nausea with some vomiting in addition to shortness of breath with progressive hypoxia. He denies feeling ill yesterday and states all symptoms began today around noontime. He denies chest pain, and has no known h/o coronary disease. However, he does have known PAD, is an active smoker, and has coronary calcifications on CT imaging. He denies any pain in his abdomen and reports s ome constipation with last bowel movement reported 3 days ago. He last ate yesterday. He maintains his sobriety from alcohol. He denies cough, fevers or chills recently and denies travel. He lives with his sister in a home in [place]. He denies any recent changes in taste or smell, and denies any known interaction with anyone with flu-like symptoms or who is a known COVID-19 positive patient. When he arrived to the ER, he did report dizziness in the setting of nausea, vomiting and worsening shortness of breath, and a stroke was considered. A head CT was negative for acute intracranial abnormality and angiograms revealed a high grade vertebral artery stenosis on the right. He has a h/o TIA in the past and is currently on DAPT with ASA and Plavix. A stroke alert was called; Neuro logy report unavailable at this time. He was not a candidate for TPA as he was out of the time window and had reported some intermittent rectal bleeding in recent weeks as a relative contraindication. He had no focal deficits on neuro exam and was mentating clearly. His hypoxia continued to worsen, and when I evaluated him in the ER, he was oxygenating 89% on 15L NRB mask with a respiratory rate of 30. He has a h/o COPD but requires no oxygen supplementation at home typically and ambulates independently. He underwent a CT a/p with no evidence of obstruction or other acute findings to suggest a reason for the vomiting. A CXR revealed bilateral pulmonary edema vs infiltrates, and he was given Lasix 40mg IV with good output within 2 hours of 1L. Empiric therapy with Rocephin and Doxycycline was started for possible pneumonia. Biofire panel, flu and rapid COVID screenings were negative. He was started on Vapotherm to avoid BIPAP in a potential COVID PUI. He was improved with resolution of respiratory distress and improvement in oxygenation to 98% after the Lasix. He was sent to the ICU for continued monitoring. Of note, the ICU provider, Peng, was told by the patient that he wanted to be a DNR. However, on further discussion with the patient in the ER, he states that he would be fine with initial resuscitation attempts, but would want to avoid prolonged ventilation if he had little chance of recovery. Code status was switched back to a full code. I did update his sister by phone per his request. Allergies Allergy/AdvReac Type Severity Reaction Status Date / Time Sulfa (Sulfonamide Allergy Mild Hives Verified 07/18/19 18:02 Antibiotics) Home Medications Home Medications Medication Instructions Recorded Confirmed Type aspirin 81 mg PO DAILY 06/29/18 07/18/19 History promethazine 25 mg PO Q8H PRN 06/29/18 07/18/19 History clopidogrel 75 mg PO DAILY 30 Days #30 tab 07/06/18 07/18/19 Rx lamotrigine 400 mg PO BID 30 Days #60 tab 07/06/18 07/18/19 Rx lisinopril 20 mg PO DAILY 30 Days #30 tab 07/06/18 07/18/19 Rx tamsulosin 0.4 mg PO DAILY 30 Days #30 cap 07/06/18 07/18/19 Rx glipizide 10 mg tablet, extended 10 mg PO DAILY 08/04/18 07/18/19 History release 24 hr cephalexin 500 mg capsule 500 mg PO Q12H 08/17/18 07/18/19 History polyethylene glycol 3350 17 g PO DAILY PRN 09/08/18 07/18/19 History atorvastatin 10 mg PO DAILY 07/18/19 07/18/19 History clonazepam 1 mg PO HS 07/18/19 07/18/19 History dulaglutide [Trulicity] 1.5 mg SUBCUT WK 07/18/19 07/18/19 History empagliflozin [Jardiance] 25 mg PO DAILY 07/18/19 07/18/19 History gabapentin 100 mg PO TID 07/18/19 07/18/19 History ipratropium-albuterol [Combivent 1 puff INHALATION QID 07/18/19 07/18/19 History Respimat] metoprolol tartrate 12.5 mg PO BID 07/18/19 07/18/19 History mirtazapine 30 mg PO HS 07/18/19 07/18/19 History pantoprazole 40 mg PO DAILY 07/18/19 07/18/19 History phenytoin sodium extended 100 mg PO BID 07/18/19 07/18/19 History quetiapine 400 mg PO HS 07/18/19 07/18/19 History sennosides-docusate sodium [Senna 1 tab-cap PO DAILY 07/18/19 07/18/19 History with Docusate Sodium] trazodone 100 mg PO HS 07/18/19 07/18/19 History Past Med/Surg History Medical History (Updated 07/18/19 @ 22:48 by Brigitte Hamilton DO) Alcohol dependence in remission (Inactive) Bipolar disorder (Acute 05/29/12) BPH (benign prostatic hypertrophy) (Chronic) CAD (coronary artery disease) Coffee ground emesis COPD (chronic obstructive pulmonary disease) (Chronic) Diabetes type 2, uncontrolled Diabetic foot ulcer associated with type 2 diabetes mellitus Diabetic peripheral neuropathy associated with type 2 diabetes mellitus DVT prophylaxis Dyslipidemia Hammertoe of left foot (Acute) History of electroconvulsive therapy Hypertension Obesity (BMI 30-39.9) (Inactive) OCD (obsessive compulsive disorder) (Chronic) Osteomyelitis PAD (peripheral artery disease) (Chronic) Seizure disorder (Chronic) Stage 3 chronic kidney disease TIA (transient ischemic attack) Tobacco use disorder Surgical History H/O colonoscopy (Inactive) "11/08/2013- normal exam but limited by prep quality" H/O sigmoidoscopy (Inactive) Family History Father , 53 Coronary heart disease Lung cancer Mother Diabetes Grandmother (Paternal) Stroke Social History Preferred Language: Somali Communication Ability: Effective Moveman Required: No Beliefs That Will Affect Care: None Current Living Situation: Family Other Information That Helps Us Care for You: No Feels Safe at Home: Yes Safety Concerns: Feels Safe At This Time Smoking Status: Current every day smoker Tobacco Type: cigarettes ; Second Hand Exposure: Yes ; Hx Alcohol Use: No Hx Substance Use: No Review of Systems Review of Systems: All systems reviewed & are unremarkable except as noted in Subjective Physical Exam Physical Exam: CONSTITUTIONAL: WNWD, vitals as above, on initial exam working to breathe, +conversational dyspnea. EYES: EOMI bilaterally, PERRL, normal conjunctivae, no scleral icterus ENT: external ear and nose normal, oropharynx clear, Mucous membranes moist. NECK: trachea midline, no lymphadenopathy RESPIRATORY: diminished breath sounds throughout. No crackles, rales or wheezes, increased respiratory effort CARDIOVASCULAR: regular rate and rhythm, S1 and 2 heard without murmurs, gallops or rubs, no JVD, no peripheral edema CHEST: inspection of chest was normal GASTROINTESTINAL: soft, generalized discomfort but nontender, nondistended MUSCULOSKELETAL: strength 5/5 throughout, head is normocephalic and atraumatic, neck supple, normal palpation of chest wall without tenderness SKIN: warm and dry, no rashes NEUROLOGIC: patellar DTRs couldn't elicit as patient unable to relax legs. PERRL, EOMI, no facial palsy, no dysarthria. Touch, pain and proprioception normal. CN 2-12 grossly intact, no sensory deficit, normal cognition, normal speech, no tremor. No focal deficits. PSYCHIATRIC: alert cooperative and oriented to person, place and time. Results & Data Results & Data ([facility]) Vital Signs (Past 12 Hours) Vital Signs Temp Pulse Resp BP Pulse Ox 07/18/19 20:02 85 23 134/81 93 07/18/19 19:22 82 25 H 93 07/18/19 19:18 81 21 90 07/18/19 19:16 81 91 07/18/19 19:14 80 22 91 07/18/19 19:12 82 24 90 07/18/19 19:02 85 88 L 07/18/19 19:00 86 123/73 88 L 07/18/19 18:58 87 87 L 07/18/19 18:56 89 87 L 07/18/19 18:54 92 H 86 L 07/18/19 18:52 95 H 87 L 07/18/19 18:50 92 H 30 H 87 L 07/18/19 18:48 86 32 H 85 L 07/18/19 18:46 85 30 H 85 L 07/18/19 18:45 82 24 87 L 07/18/19 18:40 83 33 H 87 L 07/18/19 18:35 84 30 H 89 L 07/18/19 18:30 83 29 H 104/64 91 07/18/19 18:25 81 90 07/18/19 18:20 80 91 07/18/19 18:15 82 90 07/18/19 18:10 79 35 H 88 L 07/18/19 18:05 78 30 H 91 07/18/19 18:00 78 33 H 110/61 91 07/18/19 17:55 78 35 H 91 07/18/19 17:50 76 90 07/18/19 17:45 80 89 L 07/18/19 17:42 76 113/80 86 L 07/18/19 17:40 72 86 L 07/18/19 17:39 88 L 07/18/19 17:35 76 85 L 07/18/19 17:30 76 07/18/19 17:20 77 90 07/18/19 17:17 78 111/76 86 L 07/18/19 17:16 77 07/18/19 16:50 72 30 H 96 07/18/19 16:40 74 20 93 07/18/19 16:38 74 19 93 07/18/19 16:31 75 14 107/67 92 07/18/19 16:25 36.4 C L 72 18 107/[address] head/brain wo con HISTORY: Mental status change vertigo eval for stroke Findings: Improved aeration of the sinuses with the bulk of all major sinuses showing only minimal residual mucosal thickening. The calvarium and skull base are intact. The ventricles and sulci are within normal limits. There is no mass, hematoma, midline shift, or acute infarct. Impression: No acute intracranial abnormality. Improving sinusitis. CT angio head w con FINDINGS: There is no mass, hematoma, midline shift, or acute infarct. The carotid system and [place] vasculature is in general unremarkable. There is minimal scattered aphthous chronic change. There is a congenitally small right vertebral artery with a high-grade distal stenosis immediately proximal to the basilar. Left vertebral artery is dominant and unremarkable. IMPRESSION: 1. Small caliber right vertebral artery with a high-grade superimposed stenosis immediately proximal to the basilar artery. 2. Minimal scattered atherosclerotic change of the remaining vasculature. 3. No additional significant stenotic process. CT angio neck with con FINDINGS: The aortic arch and proximal great vessels are widely patent. 50% stenosis origin left vertebral artery. The left vertebral artery is remarkable for scattered atherosclerotic change. Right vertebral vessel is small in caliber on a congenital basis with evidence for high-grade and/or critical stenosis has distal aspect immediately proximal to the basilar. There is a 30-50% stenosis of the right as well as left carotid bifurcations. A critical stenosis is not appreciated. There is at least 50% narrowing of the proximal right internal and to a lesser extent proximal left internal carotid artery. Diffuse plaque formation is present. There is mild to moderate atherosclerotic change of the internal carotid arteries level of the carotid siphons. IMPRESSION: 1. Extensive atherosclerotic change with moderate multilevel stenotic changes of the carotid bifurcations as well as proximal internal carotid arteries. 2. Maximum narrowing is 50-60% the left carotid bifurcation 3. Small caliber right vertebral artery with a high-grade and/or critical stenosis at its distal aspect proximal to the basilar juncture CT abd pelvis wo con FINDINGS: Slight right basilar interstitial and peribronchial prominence. Small fixed hiatal hernia. Mild gastric distention and slight gastric wall thickening. Gallstones in the region of the gallbladder neck bilateral renal vascular nephrocalcinosis. No evidence for hydronephrosis. Slight increase in fluid content within the colon as well as small bowel. Mild bladder distention. IMPRESSION: 1. Mild bladder distention. 2. Gallstones. 3. Mild generalized nonobstructive ileus. 4. Mild gastritis. CT chest wo con HISTORY: Dyspnea hypoxic eval for covid/PE FINDINGS: Prominent pulmonary vasculature. Moderate cardiomegaly. Several small subcentimeter reactive hilar and/or mediastinal nodes. Scattered peripheral bilateral parenchymal infiltrative change. A superimposed inflammatory process is not excluded. There is trace amount pleural fluid both posterior aspect angles are IMPRESSION: 1. Mild congestive heart failure. 2. Potential patchy peripheral interstitial parenchymal infiltrative change. Code Status & VTE Plan Code Status Full Code as discussed with the patient on admission in the ER. VTE Prophylaxis Plan VTE Prophylaxis will be ordered: Yes Critical Care Time Critical Care Time: Yes Total Critical Care Time: 3 60 minutes of critical care time provided was spent including examination of patient, medical decision making after review of available reports, interaction and communication of care plan and decision making with ICU providers, ER provider, respiratory care, and nursing staff. Also communicated care plan with consultants including pulm regarding need for rapid COVID testing, as well as [employer] retirement sales consultant. Contacted patient's family and gave update.
[2019-07-18] MEDS ORDERED: cefTRIAXone SODIUM 2,000 MG/70 ML BAG IV SCH (21:00)
[2019-07-18] MEDS: DOXYCYCLINE HYCLATE 100 MG in DEXTROSE 5% 100 ML IV SCH (21:57)
[2019-07-18] MEDS ORDERED: ICU PROTOCOL FOR HYPERGLYCEMIA PRN (22:14)
[2019-07-18] MEDS ORDERED: HEPARIN SOD 5,000 UNIT/0.5 ML VIAL SQ SCH (22:14)
[2019-07-18] MEDS ORDERED: PROMETHAZINE HCL 25 MG TAB PO PRN (22:14)
[2019-07-18 22:40] LABS: BUN Creatinine Ratio 16.8 (10-20); Calcium 9.3 mg/dl (8.5-10.1); Creatinine Clr Calc Pharmacy 35.6 ml/min; Est GFR (African American) 34.8; Est GFR (Non-African American) 30.1; Potassium 5.6 mmol/L (3.5-5.1)
[2019-07-18 22:43] LABS: Troponin I 0.283 ng/ml (0-0.045)
--- NOTE | 2019-07-18 22:56 | Critical Care Consultation ---
Date of Consultation July 18, 2019 Assessment & Plan (1) Admitted to intensive care unit: Reason Critically Ill: 69-year-old male presents with hypoxia and respiratory distress with bilateral infiltrates on imaging, currently COVID-19 rule out. Neuro - [facility]: Negative Bipolar/OCDwe will continue Lamictal and Klonopin -Holding QTC prolonging agents for now Vertebral artery stenosisfound on CTA head/neck, with 50% stenosis -Continue aspirin Plavix Cardiac - CAD/new LBBB/NSTEMIpatient presents with new LBBB and ST depression on EKG, mildly elevated troponin, no chest pain -No ST elevation on EKG and ST depression has improved since hypoxia corrected -Started on heparin drip, trending troponins -Continue ASA, MTP, Plavix, statin; holding lisinopril for BRYANT -Cardiology consulted and following, will follow recommendations -Continue to monitor on telemetry -Repeat EKGs with chest pain CHF exacerbation?Patient appears to have bilateral pulmonary congestion on CT chest, elevated BNP -Successfully diuresing after 1 dose 40 IV Lasix -We will hold on diuresis per cardiology recommendation for now as labs have improved -Follow-up a.m. cardiac echo -Strict I's and O's, daily weights -Follow cardiology recommendations Prolonged QTCpatient on multiple QTc prolonging medications, will hold at this time -Continue to monitor routine EKGs -Patient with elevated potassium and magnesium, will continue to monitor with routine labs HTNcontinue MTP, holding lisinopril for BRYANT Respiratory - Acute hypoxic respiratory failureinitially presenting with severe hypoxia and tachypnea with labored work of breathing -Pulmonary congestion on CT chest, possible inflammatory process, bilateral opacification -Given sudden onset of symptoms following CTA with contrast infusion, this is most likely acute pulmonary congestion -Temporarily placed on Vapotherm and diuresed, now weaned to 4 L oxygen mask with significant improvement after diuresis -Cannot rule out pneumonia, PE, ACS at this time -We will hold off on CTA chest as patient has BRYANT/acute renal failure, will proceed with bilateral lower extremity ultrasound -See treatment pneumonia and NSTEMI -We will continue heparin drip empirically for now Tobacco abusepatient reports smoking 1/2 packs/day his entire life -no wheezing and CO2 within normal limits on ABG -PRN nebs, monitor GI - N.p.o. for now Nausea and vomitingCT abdomen did reveal gastritis, nonobstructive ileus, gallstones -LFTs within normal limit -Lactate negative -Nausea meds limited secondary to prolonged QTC -Patient was given scopolamine patch, one-time dose Phenergan RENAL/LYTES - Acute renal failurepatient presents with volume overload, hyper kalemia, hypermagnesemia, and non-anion gap metabolic acidosis -Patient is responsive to medical management at this time and responded well to Lasix -Creatinine 2.13 with baseline around 1.2 on prior admissions -Unsure of etiology at this time, Allyson would be limited due to Lasix administration, considered postobstructive as patient does self cath, however CT abdomen was negative for bladder distention -We will monitor electrolytes frequently, strict I's and O's Hyperkalemiapatient with initial potassium 6.2 and T wave abnormalities, treated acutely with IV insulin and dextrose, calcium, bicarb -Likely related to renal failure, given 30 mg Kayexalate one-time dose -We will continue to trend and monitor closely - Foleystrict I's and O's -Patient does have diagnosis of BPH and self caths ENDO - DM type II uncontrolledlast hemoglobin A1c was 1 year ago at 9.3, repeat in a.m. labs -Holding oral agents, transition to sliding scale, Lantus -ICU hyperglycemic protocol HEME - H&H stable, monitor routine CBCs ID - COVID-19 rule outpatient presents with respiratory symptoms, lymphocytopenia, and elevated d-dimer -Bio fire negative -Rapid PCR negative for COVID-19, however will continue isolation at this time given patient presentation, will likely retest with send out testing Pneumonia?CT report suggestive of inflammatory process and with bilateral opacities cannot rule out underlying pneumonia at this time -Patient is afebrile, WBC within normal limits, PCT negative, lactate within normal limits -Blood cultures pending -Continue doxycycline and Rocephin for now LINES/IV ACCESS - PIV's, Cano DVT PROPHYLAXIS - SCDs, heparin drip Contact precautions: Airborne precautions CODE STATUS: Patient initially wanted to be DNR, now wants to be changed to full code after further consideration. Patient made full code at this time I have personally spent 50 minutes of critical care time in the direct management of this patient. This is a life/limb threatening event. This includes time spent evaluating patient, direct bedside care, chart review, placing orders, interpretation of diagnostic studies, discussion with consultants, patient, and family members, as well as other required patient management activities. This time is exclusive of all separately billable procedures, and teaching time and separate from and in addition to any other critical care service time. Thank you for allowing us to participate in the care of this patient. Please refer to my attending physician's documentation for any further recommendations. (2) Acute respiratory failure: (3) New onset left bundle branch block (LBBB): (4) Acute exacerbation of CHF (congestive heart failure): (5) BRYANT (acute kidney injury): (6) Stage 3 chronic kidney disease: (7) Acute hyperkalemia: (8) Hypoxemia: (9) Stenosis of right vertebral artery: (10) Hypermagnesemia: (11) COPD exacerbation: (12) OCD (obsessive compulsive disorder): (13) Bipolar disorder: (14) PAD (peripheral artery disease): (15) Hypertension: (16) Diabetes type 2, uncontrolled: (17) Diabetic peripheral neuropathy associated with type 2 diabetes mellitus: (18) CAD (coronary artery disease): (19) Diabetic foot ulcer associated with type 2 diabetes mellitus: (20) NSTEMI (non-ST elevated myocardial infarction): Supervising Physician Co-Signing Physician Notes I have personally evaluated and examined this patient. I agree with assessment and plan of Leah SANCHEZ. I was advised of this patient via telephone via the attending Dr. Hamilton. The treatment approach will be to correct the underlying hypoxia, it is unclear whether this represents an infectious etiology versus cardiac etiology versus a combination thereof. We will proceed with COVID-19 testing and ancillary/clinical effects to better elucidate the difference between the 2. I was advised via telephone by Leah SANCHEZ that the COVID test was negative, given the constellation of symptoms on the overnight we elected to keep the patient in airborne precautions as he was receiving ongoing treatments for a cardiac etiology out of an abundance precaution to medical staff. We will reevaluate in the morning, it is highly reassuring that the initial COVID test was negative. Again out of an abundance of precaution we have continued the airborne precautions at this time. History of Present Illness Attending Physician: Brigitte Hamilton, DO History of Present Illness Mr. Gary is a 69-year-old male with extensive past medical history including DM type II, CKD stage III, continued tobacco abuse, bipolar disorder, TIA, CAD, HTN, diabetic neuropathy who initially presented to the emergency department with complaints of dizziness, nausea and abdominal pain, weakness, and shortness of breath that started around noon. Given history of TIA patient was taken for CTA of the head and neck which revealed 50% stenosis. He also received a CT of the abdomen which did reveal gallstones, nonobstructive ileus, gastritis. LFTs were within normal range. Stroke alert was initially called but patient not a candidate as he reported that he would not be in the window for TPA. After r eceiving contrast patient continued to decline from a respiratory standpoint and became severely tachypneic, short of breath, and increasingly hypoxic. Chest imaging was consistent with acute pulmonary congestion. Patient was also found to be hyperkalemic and non-gap metabolic acidosis with BRYANT. He was diuresed with Lasix for which he responded very well. Of note, labs displayed leukocytopenia and patient had elevated d-dimer which would be consistent findings with COVID-19. Bio fire was negative, he was approved for rapid testing which resulted negative. However given symptoms and lab work, will keep on airborne precautions for the time being. Patient's EKG did display new LBBB and ST depression, which has improved post diuresis and improvement in respiratory status and oxygenation. He has been admitted to the ICU and currently weaning oxygen requirements. On arrival to the ICU patient is mildly shortness of breath but claims symptoms have vastly improved and he appears comfortable with nonlabored breathing and mild tachypnea. He does report nausea and mild abdominal tenderness but denies emesis and general fatigue is been ongoing since midday. He denies dizziness or syncope, fevers, recent illness, sore throat, cough, wheezing, chest pain, palpitations. Given patient's rapid onset of symptoms and acuity, will manage in ICU for time being. Will remain in negative pressure room until further diagnostics for COVID rule out. Allergies Allergy/AdvReac Type Severity Reaction Status Date / Time Sulfa (Sulfonamide Allergy Mild Hives Verified 07/18/19 18:02 Antibiotics) Home Medications Home Medications Medication Instructions Recorded Confirmed Type aspirin 81 mg PO DAILY 06/29/18 07/18/19 History promethazine 25 mg PO Q8H PRN 06/29/18 07/18/19 History clopidogrel 75 mg PO DAILY 30 Days #30 tab 07/06/18 07/18/19 Rx lamotrigine 400 mg PO BID 30 Days #60 tab 07/06/18 07/18/19 Rx lisinopril 20 mg PO DAILY 30 Days #30 tab 07/06/18 07/18/19 Rx tamsulosin 0.4 mg PO DAILY 30 Days #30 cap 07/06/18 07/18/19 Rx glipizide 10 mg tablet, extended 10 mg PO DAILY 08/04/18 07/18/19 History release 24 hr cephalexin 500 mg capsule 500 mg PO Q12H 08/17/18 07/18/19 History polyethylene glycol 3350 17 g PO DAILY PRN 09/08/18 07/18/19 History atorvastatin 10 mg PO DAILY 07/18/19 07/18/19 History clonazepam 1 mg PO HS 07/18/19 07/18/19 History dulaglutide [Trulicity] 1.5 mg SUBCUT WK 07/18/19 07/18/19 History empagliflozin [Jardiance] 25 mg PO DAILY 07/18/19 07/18/19 History gabapentin 100 mg PO TID 07/18/19 07/18/19 History ipratropium-albuterol [Combivent 1 puff INHALATION QID 07/18/19 07/18/19 History Respimat] metoprolol tartrate 12.5 mg PO BID 07/18/19 07/18/19 History mirtazapine 30 mg PO HS 07/18/19 07/18/19 History pantoprazole 40 mg PO DAILY 07/18/19 07/18/19 History phenytoin sodium extended 100 mg PO BID 07/18/19 07/18/19 History quetiapine 400 mg PO HS 07/18/19 07/18/19 History sennosides-docusate sodium [Senna 1 tab-cap PO DAILY 07/18/19 07/18/19 History with Docusate Sodium] trazodone 100 mg PO HS 07/18/19 07/18/19 History Patient History Medical History Alcohol dependence in remission (Inactive) Bipolar disorder (Acute 05/29/12) BPH (benign prostatic hypertrophy) (Chronic) CAD (coronary artery disease) Coffee ground emesis COPD (chronic obstructive pulmonary disease) (Chronic) Diabetes type 2, uncontrolled Diabetic foot ulcer associated with type 2 diabetes mellitus Diabetic peripheral neuropathy associated with type 2 diabetes mellitus DVT prophylaxis Dyslipidemia Hammertoe of left foot (Acute) History of electroconvulsive therapy Hypertension Obesity (BMI 30-39.9) (Inactive) OCD (obsessive compulsive disorder) (Chronic) Osteomyelitis PAD (peripheral artery disease) (Chronic) Seizure disorder (Chronic) Stage 3 chronic kidney disease TIA (transient ischemic attack) Tobacco use disorder Surgical History H/O colonoscopy (Inactive) "11/08/2013- normal exam but limited by prep quality" H/O sigmoidoscopy (Inactive) Family History Father , 53 Coronary heart disease Lung cancer Mother Diabetes Grandmother (Paternal) Stroke Social History Preferred Language: Cuban Communication Ability: Effective Chart Collector Required: No Beliefs That Will Affect Care: None Current Living Situation: Family Other Information That Helps Us Care for You: No Feels Safe at Home: Yes Safety Concerns: Feels Safe At This Time Smoking Status: Current every day smoker Tobacco Type: cigarettes ; Second Hand Exposure: Yes ; Hx Alcohol Use: No Hx Substance Use: No Review of Systems Review of Systems: All systems reviewed & are unremarkable except as noted in HPI & below Physical Exam Constitutional: WD/WN, vitals as above Eyes: PERRL, conjunctivae normal, anicteric sclerae ENMT: external ear and nose normal, oropharynx normal Neck: trachea midline, no thyromegaly Respiratory: + labored breathing and + tachypneic Fine crackles bilaterally auscultated, symmetrical chest wall movement Cardiovascular: Mild JVD, regular rate regular rhythm, Gastrointestinal (Abdomen): Abdomen distended but soft, mild generalized tenderness with palpation, normal bowel sounds Skin: no rashes, warm and dry Neurologic: PERRL, EOMI, accommodation nl, no face palsy, no dysarthria Psychiatric: A+Ox3, euthymic affect Genitourinary: Indwelling Cano catheter Results & Data Results & Data ([facility]) Vital Signs (Past 12 Hours) Vital Signs Temp Pulse Pulse Resp BP Pulse Ox 07/18/19 22:40 85 20 99 07/18/19 22:00 84 22 144/91 H 100 07/18/19 21:18 83 22 98 07/18/19 21:02 83 99 07/18/19 21:00 82 134/81 99 07/18/19 20:58 80 22 98 07/18/19 20:56 80 23 98 07/18/19 20:54 81 24 97 07/18/19 20:52 81 20 97 07/18/19 20:44 81 24 97 07/18/19 20:40 81 24 95 07/18/19 20:38 83 94 07/18/19 20:36 84 93 07/18/19 20:34 85 94 07/18/19 20:30 85 85 24 121/89 93 07/18/19 20:28 88 93 07/18/19 20:26 89 93 07/18/19 20:24 91 H 93 07/18/19 20:18 83 97 07/18/19 20:16 82 94 07/18/19 20:14 80 94 07/18/19 20:12 82 94 07/18/19 20:10 81 95 07/18/19 20:08 81 95 07/18/19 20:06 82 94 07/18/19 20:02 85 23 134/81 93 07/18/19 19:22 82 25 H 93 07/18/19 19:18 81 21 90 07/18/19 19:16 81 91 07/18/19 19:14 80 22 91 07/18/19 19:12 82 24 90 07/18/19 19:02 85 88 L 07/18/19 19:00 86 123/73 88 L 07/18/19 18:58 87 87 L 07/18/19 18:56 89 87 L 07/18/19 18:54 92 H 86 L 07/18/19 18:52 95 H 87 L 07/18/19 18:50 92 H 30 H 87 L 07/18/19 18:48 86 32 H 85 L 07/18/19 18:46 85 30 H 85 L 07/18/19 18:45 82 24 87 L 07/18/19 18:40 83 33 H 87 L 07/18/19 18:35 84 30 H 89 L 07/18/19 18:30 83 29 H 104/64 91 07/18/19 18:25 81 90 07/18/19 18:20 80 91 07/18/19 18:15 82 90 07/18/19 18:10 79 35 H 88 L 07/18/19 18:05 78 30 H 91 07/18/19 18:00 78 33 H 110/61 91 07/18/19 17:55 78 35 H 91 07/18/19 17:50 76 90 07/18/19 17:45 80 89 L 07/18/19 17:42 76 113/80 86 L 07/18/19 17:40 72 86 L 07/18/19 17:39 88 L 07/18/19 17:35 76 85 L 07/18/19 17:30 76 07/18/19 17:20 77 90 07/18/19 17:17 78 111/76 86 L 07/18/19 17:16 77 07/18/19 16:50 72 30 H 96 07/18/19 16:40 74 20 93 07/18/19 16:38 74 19 93 07/18/19 16:31 75 14 107/67 92 07/18/19 16:25 36.4 C L 72 18 107/67 93 Coding Level of Care Code Critical Care 1st 30-74 mins Diagnoses Admitted to intensive care unit Z78.9 Acute respiratory failure J96.00 New onset left bundle branch block (LBBB) I44.7 Acute exacerbation of CHF (congestive heart failure) I50.9 BRYANT (acute kidney injury) N17.9 Stage 3 chronic kidney disease N18.3 Acute hyperkalemia E87.5 Hypoxemia R09.02 Stenosis of right vertebral artery I65.01 Hypermagnesemia E83.41 COPD exacerbation J44.1 OCD (obsessive compulsive disorder) F42.9 Bipolar disorder F31.9 PAD (peripheral artery disease) I73.9 Hypertension I10 Diabetes type 2, uncontrolled E11.65 Diabetic peripheral neuropathy associated with type 2 diabetes mellitus E11.42 CAD (coronary artery disease) I25.10 Diabetic foot ulcer associated with type 2 diabetes mellitus E11.621; L97.509 NSTEMI (non-ST elevated myocardial infarction) I21.4
[2019-07-18 23:01] LABS: Fibrinogen 437 mg/dl (184-400)
[2019-07-18 23:08] LABS: D Dimer 1260 ug/L FEU (0-500)
[2019-07-18] MEDS ORDERED: DEXTROSE 50% 50 ML SYRINGE IV PRN (23:27)
[2019-07-18] MEDS ORDERED: GLUCAGON FOR INJ 1 MG VIAL SQ PRN (23:27)
[2019-07-18] MEDS ORDERED: GLUCOSE 40% GEL 15 GM TUBE PO PRN (23:27)
[2019-07-18] MEDS ORDERED: CARBOHYDRATES FOR HYPOGLYCEMIA PO PRN (23:27)
[2019-07-18] MEDS ORDERED: GLUCOSE 10 TABS/TUBE PO PRN (23:27)
[2019-07-18] MEDS ORDERED: SODIUM POLYSTYRENE SULFONATE 15G/60ML SUSP PO STA (23:34)
[2019-07-18] MEDS ORDERED: HEPARIN IV BOLUS 6,000 UNITS in SYRINGE 0 ML IV ONE (23:45)
[2019-07-19] MEDS ORDERED: SCOPOLAMINE 1.5 MG TDSY TD SCH
[2019-07-19] MEDS: INSULIN GLARGINE SOLOSTAR 100 UNITS/ML 3 ML PEN SC SCH ×3 (00:03→20:38)
[2019-07-19] MEDS ORDERED: LORazepam 0.5 MG/1 ML VIAL IV STA (00:23)
[2019-07-19 02:19] LABS: Hematocrit (blood only) 52.8 % (42-52); Hemoglobin 18.7 g/dL (14.0-18.0); Mean Corpuscular Hemoglobin 30.6 pg (25-34); Mean Corpuscular Hgb Conc 35.4 g/dL (32-36); Mean Corpuscular Volume 86.3 fL (80-100); Mean Platelet Volume 9.1 fL (7.4-10.4); Platelet Count 133 K/uL (130-400); RDW Coefficient of Variation 16.5 % (11.5-14.5); RDW Standard Deviation 51.8 fL (36.4-46.3); Red Blood Count 6.12 M/uL (4.7-6.1); White Blood Count 6.46 K/uL (4.8-10.8)
[2019-07-19] MEDS ORDERED: PROMETHAZINE HCL 12.5 MG in SODIUM CHLORIDE 0.9% 50 ML IV STA (02:21)
[2019-07-19 02:40] LABS: BUN Creatinine Ratio 18.2 (10-20); Calcium 8.4 mg/dl (8.5-10.1); Creatinine Clr Calc Pharmacy 36.6 ml/min; Est GFR (African American) 37.1; Magnesium 4.3 mg/dl (1.8-2.4); Potassium 5.5 mmol/L (3.5-5.1)
[2019-07-19 03:22] LABS: Phosphorus 4.6 mg/dl (2.5-4.9)
[2019-07-19 04:56] LABS: Base Excess VBG 2.1 mEq/L; HCO3 VBG 29 mmol/L; PCO2 VBG 51 mmHg (38-50); PO2 VBG 30 mmHg; pH VBG 7.37 (7.36-7.41)
[2019-07-19 05:05] LABS: Oxygen Saturation VBG < 60.0 %
[2019-07-19 05:48] LABS: Estimated Average Glucose 143 mg/dl; Hemoglobin A1C 6.6 % (4.5-5.6)
[2019-07-19] MEDS ORDERED: ICU PROTOCOL FOR HYPERGLYCEMIA PRN (06:03)
[2019-07-19 06:51] LABS: Partial Thromboplastin Ratio 4.7
[2019-07-19 07:02] LABS: Partial Thromboplastin Time 130.3 Seconds (21.0-31.0)
[2019-07-19 07:05] LABS: BUN Creatinine Ratio 19.7 (10-20); Calcium 8.4 mg/dl (8.5-10.1); Creatinine Clr Calc Pharmacy 35.2 ml/min; Est GFR (African American) 35.4; Est GFR (Non-African American) 30.6; Potassium 5.3 mmol/L (3.5-5.1)
[2019-07-19 07:10] LABS: Appearance Urine Clear (Clear); Bilirubin Urine Negative (Negative); Blood Urine 1+ (Negative); Color Urine Yellow; Epithelial Cell Urine Auto >30 /lpf (0-5); Glucose Urine UA 3+ (Negative); Ketones Urine Trace (Negative); Leukocyte Esterase Urine 1+ (Negative); Nitrite Urine Negative (Negative); Protein Urine 1+ (Negative); Specific Gravity Urine 1.037 (1.000-1.030); Urobilinogen Urine Negative (Negative); WBC Urine Automated >30 /hpf (0-5); pH Urine 6.5 (4.5-7.5)
[2019-07-19] MEDS: INSULIN ASPART 100 UNITS/ML 3 ML PEN SC SCH ×4 (07:11→20:38)
--- NOTE | 2019-07-19 07:16 | Nephrology Consultation ---
Date of Consultation July 19, 2019 Assessment & Plan (1) BRYANT (acute kidney injury): Nonoliguric acute on chronic kidney disease stage III versus actually renal progression. High risk for contrast nephropathy; baseline creatinine has been progressively worse over the past year with most recent value 1.26 October 2018; in late spring 2018, creatinine was 1.3-1.4 range. Urinalysis with extre niko concetrated urine suggesting mild dehydration contaminated specimen, 1+ protein and blood. No indication for urgent dialysis at this time. Fluid status improving as are his chemistries. Unfortunately his creatinine will likely worsen since we cannot give him fluid at this time to help offset effects of contrast nephropathy. Medical and other conservative management of potassium as below -Follow-up repeat basic metabolic panel later today; renal function may worsen before it improves, if it improves Continue strict I's and O's (2) Acute hyperkalemia: improved from 6.2 at admission. responded to medical therapy so far. Potassium 5.3 this morning. -Ordered low potassium diet. -Recheck basic metabolic panel later today already ordered >> k 4.5 Present on Admission?: Yes (3) Acute exacerbation of CHF (congestive heart failure): Cardiology following. He is 1.9 L negative since yesterday. -Continue current low-dose diuretics -Monitor clinically; agree with fluid limit 1.8 L and heart healthy diet Present on Admission?: Yes (4) Erythrocytosis: Would recheck CBC later today: If hemoglobin stays in this range, may potentially pose thrombotic risk Present on Admission?: Yes History of Present Illness Reason for Consultation: hyperkalemia, BRYANT on CKD Requesting Physician: Dr Whatley Attending Physician: Brigitte Hamilton, History of Present Illness 69 y/o M whom I'm asked to see for hyperkalemia and BRYANT on CKD was admitted last night for NSTEMI, BRYANT, acute respiratory failure after presenting w/ weakness and worsening sob. He had sudden worsening acute respiratory failure after CT angio of head and neck yesterday afternoon. CT angio was obtained to evaluate complaints of dizziness and generalized weakness in patient with TIA history. His presenting creatinine was 2.1. Past medical history includes 2 diabetes, CKD 3 with labile baseline renal function (1.4-1.7 summer 2018 in [facility]; spring 2018 1.3-1.4 in [employer]), active tobacco abuse (1.5 PPD since his pre teens), bipolar disorder, coronary artery disease, hypertension, TIA, chronic urinary retention with CIC, chronic constipation. Also on presentation yesterday with hyperkalemia with potassium 6.2. This was treated with insulin, dextrose, bicarbonate. He was diuresed also with Lasix 40 mg IV last evening and again this am. Some concern as well for COVID-19: testing last evening was negative. Noted as well to have new incomplete left bundle branch block and NSTEMI. His outpatient medications include 20 mg daily lisinopril, dulaglutide, empagliflozin. Creatinine is 2.2 today with potassium 5.3. He was started on oral Lasix 40 mg twice daily. Lisinopril and outpatient diabetic medications on hold. Cardiology has evaluated the patient and given recent dye load and current renal function, cardiac catheterization deferred until he is more stable clinically. no nsaid use. has had chronic hyponatremia in past. Allergies Allergy/AdvReac Type Severity Reaction Status Date / Time Sulfa (Sulfonamide Allergy Mild Hives Verified 07/18/19 18:02 Antibiotics) Home Medications Home Medications Medication Instructions Recorded Confirmed Type aspirin 81 mg PO DAILY 06/29/18 07/18/19 History promethazine 25 mg PO Q8H PRN 06/29/18 07/18/19 History clopidogrel 75 mg PO DAILY 30 Days #30 tab 07/06/18 07/18/19 Rx lamotrigine 400 mg PO BID 30 Days #60 tab 07/06/18 07/18/19 Rx lisinopril 20 mg PO DAILY 30 Days #30 tab 07/06/18 07/18/19 Rx tamsulosin 0.4 mg PO DAILY 30 Days #30 cap 07/06/18 07/18/19 Rx glipizide 10 mg tablet, extended 10 mg PO DAILY 08/04/18 07/18/19 History release 24 hr cephalexin 500 mg capsule 500 mg PO Q12H 08/17/18 07/18/19 History polyethylene glycol 3350 17 g PO DAILY PRN 09/08/18 07/18/19 History atorvastatin 10 mg PO DAILY 07/18/19 07/18/19 History clonazepam 1 mg PO HS 07/18/19 07/18/19 History dulaglutide [Trulicity] 1.5 mg SUBCUT WK 07/18/19 07/18/19 History empagliflozin [Jardiance] 25 mg PO DAILY 07/18/19 07/18/19 History gabapentin 100 mg PO TID 07/18/19 07/18/19 History ipratropium-albuterol [Combivent 1 puff INHALATION QID 07/18/19 07/18/19 History Respimat] metoprolol tartrate 12.5 mg PO BID 07/18/19 07/18/19 History mirtazapine 30 mg PO HS 07/18/19 07/18/19 History pantoprazole 40 mg PO DAILY 07/18/19 07/18/19 History phenytoin sodium extended 100 mg PO BID 07/18/19 07/18/19 History quetiapine 400 mg PO HS 07/18/19 07/18/19 History sennosides-docusate sodium [Senna 1 tab-cap PO DAILY 07/18/19 07/18/19 History with Docusate Sodium] trazodone 100 mg PO HS 07/18/19 07/18/19 History Patient History Medical History Alcohol dependence in remission (Inactive) Bipolar disorder (Acute 05/29/12) BPH (benign prostatic hypertrophy) (Chronic) CAD (coronary artery disease) Coffee ground emesis COPD (chronic obstructive pulmonary disease) (Chronic) Diabetes type 2, uncontrolled Diabetic foot ulcer associated with type 2 diabetes mellitus Diabetic peripheral neuropathy associated with type 2 diabetes mellitus DVT prophylaxis Dyslipidemia Hammertoe of left foot (Acute) History of electroconvulsive therapy Hypertension Obesity (BMI 30-39.9) (Inactive) OCD (obsessive compulsive disorder) (Chronic) Osteomyelitis PAD (peripheral artery disease) (Chronic) Seizure disorder (Chronic) Stage 3 chronic kidney disease TIA (transient ischemic attack) Tobacco use disorder Surgical History H/O colonoscopy (Inactive) "11/08/2013- normal exam but limited by prep quality" H/O sigmoidoscopy (Inactive) Family History Father , 53 Coronary heart disease Lung cancer Mother Diabetes Grandmother (Paternal) Stroke Social History Preferred Language: Mongolian Communication Ability: Effective Coal Shooter Required: No Beliefs That Will Affect Care: None Current Living Situation: Family Other Information That Helps Us Care for You: No Feels Safe at Home: Yes Safety Concerns: Feels Safe At This Time Smoking Status: Current every day smoker Tobacco Type: cigarettes ; Second Hand Exposure: Yes ; Hx Alcohol Use: No Hx Substance Use: No Review of Systems Review of Systems: All systems reviewed & are unremarkable except as noted in HPI & below Constitutional: as per Subjective / HPI feels much improved compared to yesterday Respiratory: as per Subjective / HPI; no cough and no hemoptysis Physical Exam Constitutional: well developed and well nourished; no acute distress sitting up in chair on ra Eyes: EOM intact bilaterally ENMT: Ears: no external ear abnormality Nose: no external nose abnormality Mouth: + dry oral mucous membranes Neck: no nuchal rigidity Respiratory: normal respiratory effort Auscultation: + diminished lung sounds and + crackles (bibasilar 1/[address]) Cardiovascular: Rate/Rhythm: regular rate and regular rhythm Extremities: no edema Gastrointestinal (Abdomen): Inspection/Auscultation: normal bowel sounds Percussion/Palpation: abdomen soft; abdomen nontender Musculoskeletal: Extremities: strength 5/5 throughout Skin: no rashes, warm and dry plethoric limbs/fascies Neurologic: corley, fluent speech, no tremor Psychiatric: Orientation: alert and oriented x 3 Eye Contact: + fair eye contact Motor Behavior: no abnormal motor movements Speech: normal rate /rhythm/volume of speech Affect: + blunted affect Genitourinary: spicer w/ ample yellow urine Results & Data Vital Signs (Past 12 Hours) Vital Signs Temp Pulse Pulse Resp BP BP Pulse Ox 07/19/19 04:50 86 21 109/65 100 07/19/19 03:50 36.7 C 85 20 110/68 100 07/19/19 02:50 87 22 133/82 97 07/19/19 01:49 88 21 146/89 H 98 07/19/19 00:50 36.5 C 86 21 120/80 99 07/18/19 22:54 36.5 C 85 22 146/83 H 99 07/18/19 22:47 85 24 147/87 H 99 07/18/19 22:40 85 20 99 07/18/19 22:37 146/83 H 100 07/18/19 22:00 84 22 144/91 H 100 07/18/19 21:18 83 22 98 07/18/19 21:02 83 99 07/18/19 21:00 82 134/81 99 07/18/19 20:58 80 22 98 07/18/19 20:56 80 23 98 07/18/19 20:54 81 24 97 07/18/19 20:52 81 20 97 07/18/19 20:44 81 24 97 07/18/19 20:40 81 24 95 07/18/19 20:38 83 94 07/18/19 20:36 84 93 07/18/19 20:34 85 94 07/18/19 20:30 85 85 24 121/89 93 07/18/19 20:28 88 93 07/18/19 20:26 89 93 07/18/19 20:24 91 H 93 07/18/19 20:18 83 97 07/18/19 20:16 82 94 07/18/19 20:14 80 94 07/18/19 20:12 82 94 07/18/19 20:10 81 95 07/18/19 20:08 81 95 07/18/19 20:06 82 94 07/18/19 20:02 85 23 134/81 93 07/18/19 19:22 82 25 H 93 07/18/19 19:18 81 21 90 07/18/19 19:16 81 91 07/18/19 19:14 80 22 91 Laboratory Results 07/19/19 02:09 07/19/19 06:07 Respiratory PCR negative COVID-19 PCR negative Phenytoin level 4.2 (10-20) Urinalysis: 1037, pH 6.5, 3+ glucose, 1+ protein, trace ketones, 1+ blood, 1+ leukocyte esterase, greater than 30 white cells and epithelial cells; 1+ bacteria; 5-10 red cells Diagnostic Findings Abdomen pelvis CT Noncon FINDINGS: Slight right basilar interstitial and peribronchial prominence. Small fixed hiatal hernia. Mild gastric distention and slight gastric wall thickening. Gallstones in the region of the gallbladder neck bilateral renal vascular nephrocalcinosis. No evidence for hydronephrosis. Slight increase in fluid content within the colon as well as small bowel. Mild bladder distention. IMPRESSION: 1. Mild bladder distention. 2. Gallstones. 3. Mild generalized nonobstructive ileus. 4. Mild gastritis. CT angio head and neck 1. Small caliber right vertebral artery with a high-grade superimposed stenosis immediately proximal to the basilar artery. 2. Minimal scattered atherosclerotic change of the remaining vasculature. 3. No additional significant stenotic process. Chest x-ray IMPRESSION: Findings consistent with congestive failure/pulmonary edema versus diffuse bilateral parenchymal infiltrative change. Chest CT Noncon FINDINGS: Prominent pulmonary vasculature. Moderate cardiomegaly. Several small subcentimeter reactive hilar and/or mediastinal nodes. Scattered peripheral bilateral parenchymal infiltrative change. A superimposed inflammatory process is not excluded. There is trace amount pleural fluid both posterior aspect angles are IMPRESSION: 1. Mild congestive heart failure. 2. Potential patchy peripheral interstitial parenchymal infiltrative change. (1) Acute exacerbation of CHF (congestive heart failure) Heart failure type: unspecified Qualified Code(s): I50.9 - Heart failure, unspecified
[2019-07-19 07:37] LABS: Creatinine Urine Random 95.1 mg/dl; Urea Nitrogen, Urine Random 597 mg/dl; Urine Chloride < 10 mmol/L; Urine Potassium 76.8 mmol/L; Urine Sodium 25 mmol/L
[2019-07-19 07:39] LABS: Bacteria Urine Automated 1+ (Negative)
[2019-07-19] MEDS ORDERED: CHECK SCOPOLAMINE PATCH PLACEMENT SCH (08:00)
[2019-07-19] MEDS ORDERED: PNEUMOCOCCAL Polysaccharide Vaccine 25mcg/0.5mL vial/Syr IM ONE (08:00)
[2019-07-19] MEDS ORDERED: INFLUENZA Vaccine HIGH DOSE 65+yrs 0.5 mL Syr IM ONE (08:00)
[2019-07-19 08:58] LABS: Partial Thromboplastin Ratio 2.2
[2019-07-19 08:59] LABS: Partial Thromboplastin Time 61.1 Seconds (21.0-31.0)
[2019-07-19] MEDS ORDERED: DOCUSATE SODIUM/SENNA 50/8.6MG TAB PO SCH (09:00)
[2019-07-19] MEDS ORDERED: ATORVASTATIN 10 MG TAB PO SCH (09:00)
[2019-07-19] MEDS: TAMSULOSIN HCL 0.4 MG CAP PO SCH (09:01)
[2019-07-19] MEDS: CLOPIDOGREL BISULFATE 75 MG TAB PO SCH (09:01)
[2019-07-19] MEDS: METOPROLOL TARTRATE 25 MG TAB PO SCH ×2 (09:01→20:35)
[2019-07-19] MEDS: PANTOprazole 40 MG TAB PO SCH (09:02)
[2019-07-19] MEDS: ASPIRIN 81 MG ECTAB PO SCH (09:02)
[2019-07-19] MEDS: lamoTRIgine 100 MG TAB PO SCH ×2 (09:02→20:35)
[2019-07-19] MEDS: DOXYCYCLINE HYCLATE 100 MG in DEXTROSE 5% 100 ML IV SCH (09:03)
[2019-07-19] MEDS ORDERED: FUROSEMIDE 40 MG in SYRINGE 0 ML IV ONE (10:15)
--- NOTE | 2019-07-19 10:19 | Critical Care Progress Note ---
Date of Service July 19, 2019 Assessment & Plan (1) Admitted to intensive care unit: Reason Critically Ill: 69-year-old male presents with hypoxia and respiratory distress with bilateral infiltrates on imaging, currently COVID-19 rule out. Neuro - [facility] ICU: Negative Bipolar/OCDwe will continue Lamictal and Klonopin -Restart psychotropic medications Vertebral artery stenosisfound on CTA head/neck, with 50% stenosis -Continue aspirin Plavix -Intracranial in origin, would need to follow-up with [facility] in [place] as this is outside our scope Cardiac - CAD/new LBBB/NSTEMI Acute systolic heart failure: Improved -Lasix twice daily Abnormal EKG -Continue heparin drip -Continue ASA, MTP, Plavix, statin; holding lisinopril for BRYANT -Discussed with cardiology -Continue to monitor on telemetry Prolonged QTC HTNcontinue MTP, holding lisinopril for BRYANT Respiratory - Acute hypoxic respiratory failuresignificant improvement Tobacco abusepatient reports smoking 1/2 packs/day his entire life -Smoking cessation -PRN nebs, monitor GI - Heart healthy diet with fluid restriction of 1800 mL's Nausea and vomitingsuspect anginal equivalent from inferior wall ischemia RENAL/LYTES - Acute renal failurepatient presents with volume overload, hyper kalemia, hypermagnesemia, and non-anion gap metabolic acidosis -Patient is responsive to medical management at this time and responded well to Lasix -Creatinine 2.13 with baseline around 1.2 on prior admissions -Unsure of etiology at this time, Allyson would be limited due to Lasix administration, considered postobstructive as patient does self cath, however CT abdomen was negative for bladder distention -We will monitor electrolytes frequently, strict I's and O's Hyperkalemiapatient with initial potassium 6.2 and T wave abnormalities, treated acutely with IV insulin and dextrose, calcium, bicarb -Likely related to renal failure, given 30 mg Kayexalate one-time dose -We will continue to trend and monitor closely - Foleydiscontinue Cano -As the patient self caths it would be reasonable to leave the Cano in while we are actively diuresing ENDO - DM type II uncontrolledlast hemoglobin A1c was 1 year ago at 9.3, repeat in a.m. labs -Holding oral agents hypoglycemics, -ICU hyperglycemic protocol HEME - H&H stable ID - COVID-COVID negative -Bio fire negative -Procalcitonin negative even in the setting of acute kidney injury -Discontinue antibiotics LINES/IV ACCESS - PIV's, Cano DVT PROPHYLAXIS - SCDs, heparin drip Contact precautions: Airborne precautions Disposition: PCU/telemetry CODE STATUS: Patient initially wanted to be DNR, now wants to be changed to full code after further consideration. Patient made full code at this time I discussed the case on multidisciplinary rounds as well as with Dr. Gallagher of cardiology. He has responded well to treatment indicative of a cardiac etiology. He has a strongly suggestive history of cardiac disease given his previous admission, medical management at that time, subsequently it appears he has not followed with aggressive medical care, he has multiple risk factors for worsening peripheral vascular disease/cardiac disease, if this was represent ative of a COVID infection I would not anticipate the rapid improvement in the oxygenation and the other clinical symptoms. Therefore with the negative COVID test and the rapid improvement in his clinical symptoms he is likely negative and we have discontinued the airborne precautions at this time. (2) Acute respiratory failure: (3) New onset left bundle branch block (LBBB): (4) Acute exacerbation of CHF (congestive heart failure): (5) BRYANT (acute kidney injury): (6) Stage 3 chronic kidney disease: (7) Acute hyperkalemia: (8) Hypoxemia: (9) Stenosis of right vertebral artery: (10) Hypermagnesemia: (11) COPD exacerbation: (12) OCD (obsessive compulsive disorder): (13) Bipolar disorder: (14) PAD (peripheral artery disease): (15) Hypertension: (16) Diabetes type 2, uncontrolled: (17) Diabetic peripheral neuropathy associated with type 2 diabetes mellitus: (18) CAD (coronary artery disease): (19) Diabetic foot ulcer associated with type 2 diabetes mellitus: (20) NSTEMI (non-ST elevated myocardial infarction): (21) Abnormal EKG: Admission and Anticipated Discharge Date Admission Date: July 18, 2019 Subjective No overnight events. Patient feels much improved no complaints of chest pain, shortness of breath has essentially resolved. He has not followed up with a primary care physician in approximately 1 year, he states that his previous primary care doc's practice closed and he has just not followed up since then. He has been getting refills of neuropsychiatric medications from his psychiatrist in [place] but has not refilled other medications. He continues to smoke he is down to half a cigarette a day and will attempt to remain tobacco free given this hospitalization Review of Systems Review of Systems: All systems reviewed & are unremarkable except as noted in HPI & below Physical Exam Physical Exam: General: Alert. nontoxic. Skin: Warm, dry, Head: Atraumatic Ears, nose, mouth and throat: airway patent Cardiovascular: Normal peripheral perfusion Respiratory: no respiratory distress, speaks in full sentences Gastrointestinal: Non distended Musculoskeletal: No deformity, onychomycoses of the bilateral lower toenails. Results & Data Results & Data ([facility]) Vital Signs (Past 12 Hours) Vital Signs Temp Pulse Pulse Resp BP BP Pulse Ox 07/19/19 06:54 86 18 108/65 98 07/19/19 05:50 89 19 113/62 98 07/19/19 04:50 86 21 109/65 100 07/19/19 03:50 36.7 C 85 20 110/68 100 07/19/19 02:50 87 22 133/82 97 07/19/19 01:49 88 21 146/89 H 98 07/19/19 00:50 36.5 C 86 21 120/80 99 07/18/19 22:54 36.5 C 85 22 146/83 H 99 07/18/19 22:47 85 24 147/87 H 99 07/18/19 22:40 85 20 99 07/18/19 22:37 146/83 H 100 Laboratory Results 07/19/19 07/19/19 07/19/19 Range/Units 10:44 10:38 08:03 WBC (4.8-10.8) K/uL RBC (4.7-6.1) M/uL Hgb (14.0-18.0) g/dL Hct (42-52) % MCV (80-100) fL MCH (25-34) pg MCHC (32-36) g/dL RDW Std Deviation (36.4-46.3) fL RDW Coeff of Ritesh (11.5-14.5) % Plt Count (130-400) K/uL MPV (7.4-10.4) fL Immature Gran % (Auto) % Neut % (Auto) % Lymph % (Auto) % [place] % (Auto) % Eos % (Auto) % Baso % (Auto) % Immature Gran # (Auto) (0.00-0.02) K/uL Neut # (Auto) (1.4-6.5) K/uL Lymph # (Auto) (1.2-3.4) K/uL [place] # (Auto) (0.11-0.59) K/uL Eos # (Auto) (0-0.5) K/uL Baso # (Auto) (0-0.2) K/uL PT (9.0-12.0) Seconds INR (0.9-1.1) APTT 61.1 H* (21.0-31.0) Seconds PTT Ratio 2.2 Fibrinogen (184-400) mg/dl Fibrin Degrad Products (<10) mcg/ml D-Dimer (0-500) ug/L FEU ABG pH (7.35-7.45) ABG pCO2 (35-46) mmHg ABG pO2 (80-95) mmHg ABG HCO3 (19-24) mmol/L ABG O2 Saturation (90-95) % ABG Base Excess (-9-1.8) mEq/L Adin Test (Pos) VBG pH (7.36-7.41) VBG pCO2 (38-50) mmHg VBG pO2 mmHg VBG HCO3 mmol/L VBG O2 Saturation % VBG Base Excess mEq/L Barometric Pressure mm/Hg Oxygen Given Sodium (136-145) mmol/L Potassium (3.5-5.1) mmol/L Chloride (98-107) mmol/L Carbon Dioxide (21-32) mmol/L Anion Gap (3-11) BUN (7-18) mg/dl Creatinine (0.6-1.4) mg/dl Est Cr Clr Drug Dosing ml/min Est GFR ( Amer) Est GFR (Non-Af Amer) BUN/Creatinine Ratio (10-20) Glucose (70-99) mg/dl POC Glucose 82 (70-99) mg/dl Estimat Average Glucose mg/dl Hemoglobin A1c (4.5-5.6) % Lactate (0.4-2.0) mmol/L Calcium (8.5-10.1) mg/dl Phosphorus (2.5-4.9) mg/dl Magnesium (1.8-2.4) mg/dl Total Bilirubin (0.2-1) mg/dl AST (15-37) U/L ALT (12-78) U/L Alkaline Phosphatase (45-117) U/L Total Creatine Kinase (39-308) U/L Troponin I 10.200 H* (0-0.045) ng/ml NT-Pro-B Natriuret Pep (0-900) pg/ml Total Protein (6.4-8.2) gm/dl Albumin (3.4-5.0) gm/dl Globulin (2.5-4.0) gm/dl Albumin/Globulin Ratio (0.9-2) Triglycerides (0-150) mg/dl Cholesterol (0-200) mg/dl LDL Cholesterol, Calc mg/dl VLDL Cholesterol, Calc mg/dl HDL Cholesterol mg/dl Cholesterol/HDL Ratio Procalcitonin (0-0.5) ng/ml Urine Color Urine Appearance (Clear) Urine pH (4.5-7.5) Ur Specific [place] (1.000-1.030) Urine Protein (Negative) Urine Glucose (UA) (Negative) Urine Ketones (Negative) Urine Blood (Negative) Urine Nitrite (Negative) Urine Bilirubin (Negative) Urine Urobilinogen (Negative) Ur Leukocyte Esterase (Negative) Urine WBC (Auto) (0-5) /hpf Urine RBC (Auto) (0-4) /hpf U Hyaline Cast (Auto) (0-5) /lpf U Epithel Cells (Auto) (0-5) /lpf Urine Bacteria (Auto) (Negative) Ur Renal Epithelial Cell Ur Random Creatinine Ur Random Urea Nitrogn Urine Sodium mmol/L Urine Potassium mmol/L Urine Chloride mmol/L Nasal Screen MRSA (PCR) (Negative) Phenytoin (10-20) mcg/ml Adenovirus (PCR) (NotDetected) B. pertussis DNA (PCR) (NotDetected) B.parapertussis DNA PCR (NotDetected) C. pneumoniae DNA (PCR) (NotDetected) Coronavirus OC43 (PCR) (NotDetected) Coronavirus HKU1 (PCR) (NotDetected) Coronavirus 229E (PCR) (NotDetected) COVID-19 PCR (Negative) Coronavirus NL63 (PCR) (NotDetected) Human Metapneumovir PCR (NotDetected) Influenza Type A (PCR) (NotDetected) Influenza Type B (PCR) (NotDetected) M. pneumoniae (PCR) (NotDetected) Parainfluenza 1 (PCR) (NotDetected) Parainfluenza 2 (PCR) (NotDetected) Parainfluenza 3 (PCR) (NotDetected) Parainfluenza 4 (PCR) (NotDetected) RSV (PCR) (NotDetected) Entero/Rhino (PCR) (NotDetected) Blood Type Antibody Screen 07/19/19 07/19/19 07/19/19 Range/Units 06:58 06:58 06:58 WBC (4.8-10.8) K/uL RBC (4.7-6.1) M/uL Hgb (14.0-18.0) g/dL Hct (42-52) % MCV (80-100) fL MCH (25-34) pg MCHC (32-36) g/dL RDW Std Deviation (36.4-46.3) fL RDW Coeff of Ritesh (11.5-14.5) % Plt Count (130-400) K/uL MPV (7.4-10.4) fL Immature Gran % (Auto) % Neut % (Auto) % Lymph % (Auto) % [place] % (Auto) % Eos % (Auto) % Baso % (Auto) % Immature Gran # (Auto) (0.00-0.02) K/uL Neut # (Auto) (1.4-6.5) K/uL Lymph # (Auto) (1.2-3.4) K/uL [place] # (Auto) (0.11-0.59) K/uL Eos # (Auto) (0-0.5) K/uL Baso # (Auto) (0-0.2) K/uL PT (9.0-12.0) Seconds INR (0.9-1.1) APTT (21.0-31.0) Seconds PTT Ratio Fibrinogen (184-400) mg/dl Fibrin Degrad Products (<10) mcg/ml D-Dimer (0-500) ug/L FEU ABG pH (7.35-7.45) ABG pCO2 (35-46) mmHg ABG pO2 (80-95) mmHg ABG HCO3 (19-24) mmol/L ABG O2 Saturation (90-95) % ABG Base Excess (-9-1.8) mEq/L Adin Test (Pos) VBG pH (7.36-7.41) VBG pCO2 (38-50) mmHg VBG pO2 mmHg VBG HCO3 mmol/L VBG O2 Saturation % VBG Base Excess mEq/L Barometric Pressure mm/Hg Oxygen Given Sodium (136-145) mmol/L Potassium (3.5-5.1) mmol/L Chloride (98-107) mmol/L Carbon Dioxide (21-32) mmol/L Anion Gap (3-11) BUN (7-18) mg/dl Creatinine (0.6-1.4) mg/dl Est Cr Clr Drug Dosing ml/min Est GFR ( Amer) Est GFR (Non-Af Amer) BUN/Creatinine Ratio (10-20) Glucose (70-99) mg/dl POC Glucose (70-99) mg/dl Estimat Average Glucose mg/dl Hemoglobin A1c (4.5-5.6) % Lactate (0.4-2.0) mmol/L Calcium (8.5-10.1) mg/dl Phosphorus (2.5-4.9) mg/dl Magnesium (1.8-2.4) mg/dl Total Bilirubin (0.2-1) mg/dl AST (15-37) U/L ALT (12-78) U/L Alkaline Phosphatase (45-117) U/L Total Creatine Kinase (39-308) U/L Troponin I (0-0.045) ng/ml NT-Pro-B Natriuret Pep (0-900) pg/ml Total Protein (6.4-8.2) gm/dl Albumin (3.4-5.0) gm/dl Globulin (2.5-4.0) gm/dl Albumin/Globulin Ratio (0.9-2) Triglycerides (0-150) mg/dl Cholesterol (0-200) mg/dl LDL Cholesterol, Calc mg/dl VLDL Cholesterol, Calc mg/dl HDL Cholesterol mg/dl Cholesterol/HDL Ratio Procalcitonin (0-0.5) ng/ml Urine Color Urine Appearance (Clear) Urine pH (4.5-7.5) Ur Specific [place] (1.000-1.030) Urine Protein (Negative) Urine Glucose (UA) (Negative) Urine Ketones (Negative) Urine Blood (Negative) Urine Nitrite (Negative) Urine Bilirubin (Negative) Urine Urobilinogen (Negative) Ur Leukocyte Esterase (Negative) Urine WBC (Auto) (0-5) /hpf Urine RBC (Auto) (0-4) /hpf U Hyaline Cast (Auto) (0-5) /lpf U Epithel Cells (Auto) (0-5) /lpf Urine Bacteria (Auto) (Negative) Ur Renal Epithelial Cell Ur Random Creatinine 95.1 Cancelled Ur Random Urea Nitrogn 597 Cancelled Urine Sodium 25 mmol/L Urine Potassium 76.8 mmol/L Urine Chloride < 10 mmol/L Nasal Screen MRSA (PCR) (Negative) Phenytoin (10-20) mcg/ml Adenovirus (PCR) (NotDetected) B. pertussis DNA (PCR) (NotDetected) B.parapertussis DNA PCR (NotDetected) C. pneumoniae DNA (PCR) (NotDetected) Coronavirus OC43 (PCR) (NotDetected) Coronavirus HKU1 (PCR) (NotDetected) Coronavirus 229E (PCR) (NotDetected) COVID-19 PCR (Negative) Coronavirus NL63 (PCR) (NotDetected) Human Metapneumovir PCR (NotDetected) Influenza Type A (PCR) (NotDetected) Influenza Type B (PCR) (NotDetected) M. pneumoniae (PCR) (NotDetected) Parainfluenza 1 (PCR) (NotDetected) Parainfluenza 2 (PCR) (NotDetected) Parainfluenza 3 (PCR) (NotDetected) Parainfluenza 4 (PCR) (NotDetected) RSV (PCR) (NotDetected) Entero/Rhino (PCR) (NotDetected) Blood Type Antibody Screen 07/19/19 07/19/19 07/19/19 Range/Units 06:58 06:21 06:07 WBC (4.8-10.8) K/uL RBC (4.7-6.1) M/uL Hgb (14.0-18.0) g/dL Hct (42-52) % MCV (80-100) fL MCH (25-34) pg MCHC (32-36) g/dL RDW Std Deviation (36.4-46.3) fL RDW Coeff of Ritesh (11.5-14.5) % Plt Count (130-400) K/uL MPV (7.4-10.4) fL Immature Gran % (Auto) % Neut % (Auto) % Lymph % (Auto) % [place] % (Auto) % Eos % (Auto) % Baso % (Auto) % Immature Gran # (Auto) (0.00-0.02) K/uL Neut # (Auto) (1.4-6.5) K/uL Lymph # (Auto) (1.2-3.4) K/uL [place] # (Auto) (0.11-0.59) K/uL Eos # (Auto) (0-0.5) K/uL Baso # (Auto) (0-0.2) K/uL PT (9.0-12.0) Seconds INR (0.9-1.1) APTT (21.0-31.0) Seconds PTT Ratio Fibrinogen (184-400) mg/dl Fibrin Degrad Products (<10) mcg/ml D-Dimer (0-500) ug/L FEU ABG pH (7.35-7.45) ABG pCO2 (35-46) mmHg ABG pO2 (80-95) mmHg ABG HCO3 (19-24) mmol/L ABG O2 Saturation (90-95) % ABG Base Excess (-9-1.8) mEq/L Adin Test (Pos) VBG pH (7.36-7.41) VBG pCO2 (38-50) mmHg VBG pO2 mmHg VBG HCO3 mmol/L VBG O2 Saturation % VBG Base Excess mEq/L Barometric Pressure mm/Hg Oxygen Given Sodium 133 L (136-145) mmol/L Potassium 5.3 H (3.5-5.1) mmol/L Chloride 99 (98-107) mmol/L Carbon Dioxide 24 (21-32) mmol/L Anion Gap 10.0 (3-11) BUN 43 H (7-18) mg/dl Creatinine 2.16 H (0.6-1.4) mg/dl Est Cr Clr Drug Dosing 35.2 ml/min Est GFR ( Amer) 35.4 Est GFR (Non-Af Amer) 30.6 BUN/Creatinine Ratio 19.7 (10-20) Glucose 138 H (70-99) mg/dl POC Glucose 138 H (70-99) mg/dl Estimat Average Glucose mg/dl Hemoglobin A1c (4.5-5.6) % Lactate (0.4-2.0) mmol/L Calcium 8.4 L (8.5-10.1) mg/dl Phosphorus (2.5-4.9) mg/dl Magnesium (1.8-2.4) mg/dl Total Bilirubin (0.2-1) mg/dl AST (15-37) U/L ALT (12-78) U/L Alkaline Phosphatase (45-117) U/L Total Creatine Kinase (39-308) U/L Troponin I (0-0.045) ng/ml NT-Pro-B Natriuret Pep (0-900) pg/ml Total Protein (6.4-8.2) gm/dl Albumin (3.4-5.0) gm/dl Globulin (2.5-4.0) gm/dl Albumin/Globulin Ratio (0.9-2) Triglycerides (0-150) mg/dl Cholesterol (0-200) mg/dl LDL Cholesterol, Calc mg/dl VLDL Cholesterol, Calc mg/dl HDL Cholesterol mg/dl Cholesterol/HDL Ratio Procalcitonin (0-0.5) ng/ml Urine Color Yellow Urine Appearance Clear (Clear) Urine pH 6.5 (4.5-7.5) Ur Specific [place] 1.037 H (1.000-1.030) Urine Protein 1+ H (Negative) Urine Glucose (UA) 3+ H (Negative) Urine Ketones Trace H (Negative) Urine Blood 1+ H (Negative) Urine Nitrite Negative (Negative) Urine Bilirubin Negative (Negative) Urine Urobilinogen Negative (Negative) Ur Leukocyte Esterase 1+ H (Negative) Urine WBC (Auto) >30 H (0-5) /hpf Urine RBC (Auto) 5-10 H (0-4) /hpf U Hyaline Cast (Auto) 1-5 (0-5) /lpf U Epithel Cells (Auto) >30 H (0-5) /lpf Urine Bacteria (Auto) 1+ H (Negative) Ur Renal Epithelial Cell Not Reportable Ur Random Creatinine Ur Random Urea Nitrogn Urine Sodium mmol/L Urine Potassium mmol/L Urine Chloride mmol/L Nasal Screen MRSA (PCR) (Negative) Phenytoin (10-20) mcg/ml Adenovirus (PCR) (NotDetected) B. pertussis DNA (PCR) (NotDetected) B.parapertussis DNA PCR (NotDetected) C. pneumoniae DNA (PCR) (NotDetected) Coronavirus OC43 (PCR) (NotDetected) Coronavirus HKU1 (PCR) (NotDetected) Coronavirus 229E (PCR) (NotDetected) COVID-19 PCR (Negative) Coronavirus NL63 (PCR) (NotDetected) Human Metapneumovir PCR (NotDetected) Influenza Type A (PCR) (NotDetected) Influenza Type B (PCR) (NotDetected) M. pneumoniae (PCR) (NotDetected) Parainfluenza 1 (PCR) (NotDetected) Parainfluenza 2 (PCR) (NotDetected) Parainfluenza 3 (PCR) (NotDetected) Parainfluenza 4 (PCR) (NotDetected) RSV (PCR) (NotDetected) Entero/Rhino (PCR) (NotDetected) Blood Type Antibody Screen 07/19/19 07/19/19 07/19/19 Range/Units 06:07 04:42 04:42 WBC (4.8-10.8) K/uL RBC (4.7-6.1) M/uL Hgb (14.0-18.0) g/dL Hct (42-52) % MCV (80-100) fL MCH (25-34) pg MCHC (32-36) g/dL RDW Std Deviation (36.4-46.3) fL RDW Coeff of Ritesh (11.5-14.5) % Plt Count (130-400) K/uL MPV (7.4-10.4) fL Immature Gran % (Auto) % Neut % (Auto) % Lymph % (Auto) % [place] % (Auto) % Eos % (Auto) % Baso % (Auto) % Immature Gran # (Auto) (0.00-0.02) K/uL Neut # (Auto) (1.4-6.5) K/uL Lymph # (Auto) (1.2-3.4) K/uL [place] # (Auto) (0.11-0.59) K/uL Eos # (Auto) (0-0.5) K/uL Baso # (Auto) (0-0.2) K/uL PT (9.0-12.0) Seconds INR (0.9-1.1) APTT 130.3 H* (21.0-31.0) Seconds PTT Ratio 4.7 Fibrinogen (184-400) mg/dl Fibrin Degrad Products (<10) mcg/ml D-Dimer (0-500) ug/L FEU ABG pH (7.35-7.45) ABG pCO2 (35-46) mmHg ABG pO2 (80-95) mmHg ABG HCO3 (19-24) mmol/L ABG O2 Saturation (90-95) % ABG Base Excess (-9-1.8) mEq/L Adin Test (Pos) VBG pH 7.37 (7.36-7.41) VBG pCO2 51 H (38-50) mmHg VBG pO2 30 mmHg VBG HCO3 29 mmol/L VBG O2 Saturation < 60.0 % VBG Base Excess 2.1 mEq/L Barometric Pressure 732.4 mm/Hg Oxygen Given Sodium (136-145) mmol/L Potassium (3.5-5.1) mmol/L Chloride (98-107) mmol/L Carbon Dioxide (21-32) mmol/L Anion Gap (3-11) BUN (7-18) mg/dl Creatinine (0.6-1.4) mg/dl Est Cr Clr Drug Dosing ml/min Est GFR ( Amer) Est GFR (Non-Af Amer) BUN/Creatinine Ratio (10-20) Glucose (70-99) mg/dl POC Glucose (70-99) mg/dl Estimat Average Glucose mg/dl Hemoglobin A1c (4.5-5.6) % Lactate (0.4-2.0) mmol/L Calcium (8.5-10.1) mg/dl Phosphorus (2.5-4.9) mg/dl Magnesium (1.8-2.4) mg/dl Total Bilirubin (0.2-1) mg/dl AST (15-37) U/L ALT (12-78) U/L Alkaline Phosphatase (45-117) U/L Total Creatine Kinase (39-308) U/L Troponin I 5.730 H* (0-0.045) ng/ml NT-Pro-B Natriuret Pep (0-900) pg/ml Total Protein (6.4-8.2) gm/dl Albumin (3.4-5.0) gm/dl Globulin (2.5-4.0) gm/dl Albumin/Globulin Ratio (0.9-2) Triglycerides (0-150) mg/dl Cholesterol (0-200) mg/dl LDL Cholesterol, Calc mg/dl VLDL Cholesterol, Calc mg/dl HDL Cholesterol mg/dl Cholesterol/HDL Ratio Procalcitonin (0-0.5) ng/ml Urine Color Urine Appearance (Clear) Urine pH (4.5-7.5) Ur Specific [place] (1.000-1.030) Urine Protein (Negative) Urine Glucose (UA) (Negative) Urine Ketones (Negative) Urine Blood (Negative) Urine Nitrite (Negative) Urine Bilirubin (Negative) Urine Urobilinogen (Negative) Ur Leukocyte Esterase (Negative) Urine WBC (Auto) (0-5) /hpf Urine RBC (Auto) (0-4) /hpf U Hyaline Cast (Auto) (0-5) /lpf U Epithel Cells (Auto) (0-5) /lpf Urine Bacteria (Auto) (Negative) Ur Renal Epithelial Cell Ur Random Creatinine Ur Random Urea Nitrogn Urine Sodium mmol/L Urine Potassium mmol/L Urine Chloride mmol/L Nasal Screen MRSA (PCR) (Negative) Phenytoin (10-20) mcg/ml Adenovirus (PCR) (NotDetected) B. pertussis DNA (PCR) (NotDetected) B.parapertussis DNA PCR (NotDetected) C. pneumoniae DNA (PCR) (NotDetected) Coronavirus OC43 (PCR) (NotDetected) Coronavirus HKU1 (PCR) (NotDetected) Coronavirus 229E (PCR) (NotDetected) COVID-19 PCR (Negative) Coronavirus NL63 (PCR) (NotDetected) Human Metapneumovir PCR (NotDetected) Influenza Type A (PCR) (NotDetected) Influenza Type B (PCR) (NotDetected) M. pneumoniae (PCR) (NotDetected) Parainfluenza 1 (PCR) (NotDetected) Parainfluenza 2 (PCR) (NotDetected) Parainfluenza 3 (PCR) (NotDetected) Parainfluenza 4 (PCR) (NotDetected) RSV (PCR) (NotDetected) Entero/Rhino (PCR) (NotDetected) Blood Type Antibody Screen 07/19/19 07/19/19 07/19/19 Range/Units 02:09 02:09 02:09 WBC (4.8-10.8) K/uL RBC (4.7-6.1) M/uL Hgb (14.0-18.0) g/dL Hct (42-52) % MCV (80-100) fL MCH (25-34) pg MCHC (32-36) g/dL RDW Std Deviation (36.4-46.3) fL RDW Coeff of Ritesh (11.5-14.5) % Plt Count (130-400) K/uL MPV (7.4-10.4) fL Immature Gran % (Auto) % Neut % (Auto) % Lymph % (Auto) % [place] % (Auto) % Eos % (Auto) % Baso % (Auto) % Immature Gran # (Auto) (0.00-0.02) K/uL Neut # (Auto) (1.4-6.5) K/uL Lymph # (Auto) (1.2-3.4) K/uL [place] # (Auto) (0.11-0.59) K/uL Eos # (Auto) (0-0.5) K/uL Baso # (Auto) (0-0.2) K/uL PT (9.0-12.0) Seconds INR (0.9-1.1) APTT (21.0-31.0) Seconds PTT Ratio Fibrinogen (184-400) mg/dl Fibrin Degrad Products (<10) mcg/ml D-Dimer (0-500) ug/L FEU ABG pH (7.35-7.45) ABG pCO2 (35-46) mmHg ABG pO2 (80-95) mmHg ABG HCO3 (19-24) mmol/L ABG O2 Saturation (90-95) % ABG Base Excess (-9-1.8) mEq/L Adin Test (Pos) VBG pH (7.36-7.41) VBG pCO2 (38-50) mmHg VBG pO2 mmHg VBG HCO3 mmol/L VBG O2 Saturation % VBG Base Excess mEq/L Barometric Pressure mm/Hg Oxygen Given Sodium 133 L (136-145) mmol/L Potassium 5.4 H 5.5 H (3.5-5.1) mmol/L Chloride 99 (98-107) mmol/L Carbon Dioxide 25 (21-32) mmol/L Anion Gap 9.0 (3-11) BUN 38 H (7-18) mg/dl Creatinine 2.08 H (0.6-1.4) mg/dl Est Cr Clr Drug Dosing 36.6 ml/min Est GFR ( Amer) 37.1 Est GFR (Non-Af Amer) 32.0 BUN/Creatinine Ratio 18.2 (10-20) Glucose 165 H (70-99) mg/dl POC Glucose (70-99) mg/dl Estimat Average Glucose 143 mg/dl Hemoglobin A1c 6.6 H (4.5-5.6) % Lactate (0.4-2.0) mmol/L Calcium 8.4 L (8.5-10.1) mg/dl Phosphorus 4.6 (2.5-4.9) mg/dl Magnesium 4.3 H (1.8-2.4) mg/dl Total Bilirubin (0.2-1) mg/dl AST (15-37) U/L ALT (12-78) U/L Alkaline Phosphatase (45-117) U/L Total Creatine Kinase (39-308) U/L Troponin I (0-0.045) ng/ml NT-Pro-B Natriuret Pep (0-900) pg/ml Total Protein (6.4-8.2) gm/dl Albumin (3.4-5.0) gm/dl Globulin (2.5-4.0) gm/dl Albumin/Globulin Ratio (0.9-2) Triglycerides 38 (0-150) mg/dl Cholesterol 161 (0-200) mg/dl LDL Cholesterol, Calc 84 mg/dl VLDL Cholesterol, Calc 8 mg/dl HDL Cholesterol 69 mg/dl Cholesterol/HDL Ratio 2 Procalcitonin (0-0.5) ng/ml Urine Color Urine Appearance (Clear) Urine pH (4.5-7.5) Ur Specific [place] (1.000-1.030) Urine Protein (Negative) Urine Glucose (UA) (Negative) Urine Ketones (Negative) Urine Blood (Negative) Urine Nitrite (Negative) Urine Bilirubin (Negative) Urine Urobilinogen (Negative) Ur Leukocyte Esterase (Negative) Urine WBC (Auto) (0-5) /hpf Urine RBC (Auto) (0-4) /hpf U Hyaline Cast (Auto) (0-5) /lpf U Epithel Cells (Auto) (0-5) /lpf Urine Bacteria (Auto) (Negative) Ur Renal Epithelial Cell Ur Random Creatinine Ur Random Urea Nitrogn Urine Sodium mmol/L Urine Potassium mmol/L Urine Chloride mmol/L Nasal Screen MRSA (PCR) (Negative) Phenytoin (10-20) mcg/ml Adenovirus (PCR) (NotDetected) B. pertussis DNA (PCR) (NotDetected) B.parapertussis DNA PCR (NotDetected) C. pneumoniae DNA (PCR) (NotDetected) Coronavirus OC43 (PCR) (NotDetected) Coronavirus HKU1 (PCR) (NotDetected) Coronavirus 229E (PCR) (NotDetected) COVID-19 PCR (Negative) Coronavirus NL63 (PCR) (NotDetected) Human Metapneumovir PCR (NotDetected) Influenza Type A (PCR) (NotDetected) Influenza Type B (PCR) (NotDetected) M. pneumoniae (PCR) (NotDetected) Parainfluenza 1 (PCR) (NotDetected) Parainfluenza 2 (PCR) (NotDetected) Parainfluenza 3 (PCR) (NotDetected) Parainfluenza 4 (PCR) (NotDetected) RSV (PCR) (NotDetected) Entero/Rhino (PCR) (NotDetected) Blood Type Antibody Screen 07/19/19 07/18/19 07/18/19 Range/Units 02:09 Unknown 23:58 WBC 6.46 (4.8-10.8) K/uL RBC 6.12 H (4.7-6.1) M/uL Hgb 18.7 H (14.0-18.0) g/dL Hct 52.8 H (42-52) % MCV 86.3 (80-100) fL MCH 30.6 (25-34) pg MCHC 35.4 (32-36) g/dL RDW Std Deviation 51.8 H (36.4-46.3) fL RDW Coeff of Ritesh 16.5 H (11.5-14.5) % Plt Count 133 (130-400) K/uL MPV 9.1 (7.4-10.4) fL Immature Gran % (Auto) % Neut % (Auto) % Lymph % (Auto) % [place] % (Auto) % Eos % (Auto) % Baso % (Auto) % Immature Gran # (Auto) (0.00-0.02) K/uL Neut # (Auto) (1.4-6.5) K/uL Lymph # (Auto) (1.2-3.4) K/uL [place] # (Auto) (0.11-0.59) K/uL Eos # (Auto) (0-0.5) K/uL Baso # (Auto) (0-0.2) K/uL PT (9.0-12.0) Seconds INR (0.9-1.1) APTT (21.0-31.0) Seconds PTT Ratio Fibrinogen (184-400) mg/dl Fibrin Degrad Products (<10) mcg/ml D-Dimer (0-500) ug/L FEU ABG pH (7.35-7.45) ABG pCO2 (35-46) mmHg ABG pO2 (80-95) mmHg ABG HCO3 (19-24) mmol/L ABG O2 Saturation (90-95) % ABG Base Excess (-9-1.8) mEq/L Adin Test (Pos) VBG pH (7.36-7.41) VBG pCO2 (38-50) mmHg VBG pO2 mmHg VBG HCO3 mmol/L VBG O2 Saturation % VBG Base Excess mEq/L Barometric Pressure mm/Hg Oxygen Given Sodium (136-145) mmol/L Potassium (3.5-5.1) mmol/L Chloride (98-107) mmol/L Carbon Dioxide (21-32) mmol/L Anion Gap (3-11) BUN (7-18) mg/dl Creatinine (0.6-1.4) mg/dl Est Cr Clr Drug Dosing ml/min Est GFR ( Amer) Est GFR (Non-Af Amer) BUN/Creatinine Ratio (10-20) Glucose (70-99) mg/dl POC Glucose 172 H (70-99) mg/dl Estimat Average Glucose mg/dl Hemoglobin A1c (4.5-5.6) % Lactate (0.4-2.0) mmol/L Calcium (8.5-10.1) mg/dl Phosphorus (2.5-4.9) mg/dl Magnesium (1.8-2.4) mg/dl Total Bilirubin (0.2-1) mg/dl AST (15-37) U/L ALT (12-78) U/L Alkaline Phosphatase (45-117) U/L Total Creatine Kinase (39-308) U/L Troponin I (0-0.045) ng/ml NT-Pro-B Natriuret Pep (0-900) pg/ml Total Protein (6.4-8.2) gm/dl Albumin (3.4-5.0) gm/dl Globulin (2.5-4.0) gm/dl Albumin/Globulin Ratio (0.9-2) Triglycerides (0-150) mg/dl Cholesterol (0-200) mg/dl LDL Cholesterol, Calc mg/dl VLDL Cholesterol, Calc mg/dl HDL Cholesterol mg/dl Cholesterol/HDL Ratio Procalcitonin (0-0.5) ng/ml Urine Color Urine Appearance (Clear) Urine pH (4.5-7.5) Ur Specific [place] (1.000-1.030) Urine Protein (Negative) Urine Glucose (UA) (Negative) Urine Ketones (Negative) Urine Blood (Negative) Urine Nitrite (Negative) Urine Bilirubin (Negative) Urine Urobilinogen (Negative) Ur Leukocyte Esterase (Negative) Urine WBC (Auto) (0-5) /hpf Urine RBC (Auto) (0-4) /hpf U Hyaline Cast (Auto) (0-5) /lpf U Epithel Cells (Auto) (0-5) /lpf Urine Bacteria (Auto) (Negative) Ur Renal Epithelial Cell Ur Random Creatinine Ur Random Urea Nitrogn Urine Sodium mmol/L Urine Potassium mmol/L Urine Chloride mmol/L Nasal Screen MRSA (PCR) Negative (Negative) Phenytoin (10-20) mcg/ml Adenovirus (PCR) (NotDetected) B. pertussis DNA (PCR) (NotDetected) B.parapertussis DNA PCR (NotDetected) C. pneumoniae DNA (PCR) (NotDetected) Coronavirus OC43 (PCR) (NotDetected) Coronavirus HKU1 (PCR) (NotDetected) Coronavirus 229E (PCR) (NotDetected) COVID-19 PCR (Negative) Coronavirus NL63 (PCR) (NotDetected) Human Metapneumovir PCR (NotDetected) Influenza Type A (PCR) (NotDetected) Influenza Type B (PCR) (NotDetected) M. pneumoniae (PCR) (NotDetected) Parainfluenza 1 (PCR) (NotDetected) Parainfluenza 2 (PCR) (NotDetected) Parainfluenza 3 (PCR) (NotDetected) Parainfluenza 4 (PCR) (NotDetected) RSV (PCR) (NotDetected) Entero/Rhino (PCR) (NotDetected) Blood Type Antibody Screen 07/18/19 07/18/19 07/18/19 Range/Units 22:02 22:02 22:02 WBC (4.8-10.8) K/uL RBC (4.7-6.1) M/uL Hgb (14.0-18.0) g/dL Hct (42-52) % MCV (80-100) fL MCH (25-34) pg MCHC (32-36) g/dL RDW Std Deviation (36.4-46.3) fL RDW Coeff of Ritesh (11.5-14.5) % Plt Count (130-400) K/uL MPV (7.4-10.4) fL Immature Gran % (Auto) % Neut % (Auto) % Lymph % (Auto) % [place] % (Auto) % Eos % (Auto) % Baso % (Auto) % Immature Gran # (Auto) (0.00-0.02) K/uL Neut # (Auto) (1.4-6.5) K/uL Lymph # (Auto) (1.2-3.4) K/uL [place] # (Auto) (0.11-0.59) K/uL Eos # (Auto) (0-0.5) K/uL Baso # (Auto) (0-0.2) K/uL PT (9.0-12.0) Seconds INR (0.9-1.1) APTT (21.0-31.0) Seconds PTT Ratio Fibrinogen (184-400) mg/dl Fibrin Degrad Products <10 (<10) mcg/ml D-Dimer (0-500) ug/L FEU ABG pH (7.35-7.45) ABG pCO2 (35-46) mmHg ABG pO2 (80-95) mmHg ABG HCO3 (19-24) mmol/L ABG O2 Saturation (90-95) % ABG Base Excess (-9-1.8) mEq/L Adin Test (Pos) VBG pH (7.36-7.41) VBG pCO2 (38-50) mmHg VBG pO2 mmHg VBG HCO3 mmol/L VBG O2 Saturation % VBG Base Excess mEq/L Barometric Pressure mm/Hg Oxygen Given Sodium (136-145) mmol/L Potassium (3.5-5.1) mmol/L Chloride (98-107) mmol/L Carbon Dioxide (21-32) mmol/L Anion Gap (3-11) BUN (7-18) mg/dl Creatinine (0.6-1.4) mg/dl Est Cr Clr Drug Dosing ml/min Est GFR ( Amer) Est GFR (Non-Af Amer) BUN/Creatinine Ratio (10-20) Glucose (70-99) mg/dl POC Glucose (70-99) mg/dl Estimat Average Glucose mg/dl Hemoglobin A1c (4.5-5.6) % Lactate 2.0 (0.4-2.0) mmol/L Calcium (8.5-10.1) mg/dl Phosphorus (2.5-4.9) mg/dl Magnesium (1.8-2.4) mg/dl Total Bilirubin (0.2-1) mg/dl AST (15-37) U/L ALT (12-78) U/L Alkaline Phosphatase (45-117) U/L Total Creatine Kinase (39-308) U/L Troponin I (0-0.045) ng/ml NT-Pro-B Natriuret Pep (0-900) pg/ml Total Protein (6.4-8.2) gm/dl Albumin (3.4-5.0) gm/dl Globulin (2.5-4.0) gm/dl Albumin/Globulin Ratio (0.9-2) Triglycerides (0-150) mg/dl Cholesterol (0-200) mg/dl LDL Cholesterol, Calc mg/dl VLDL Cholesterol, Calc mg/dl HDL Cholesterol mg/dl Cholesterol/HDL Ratio Procalcitonin < 0.05 (0-0.5) ng/ml Urine Color Urine Appearance (Clear) Urine pH (4.5-7.5) Ur Specific [place] (1.000-1.030) Urine Protein (Negative) Urine Glucose (UA) (Negative) Urine Ketones (Negative) Urine Blood (Negative) Urine Nitrite (Negative) Urine Bilirubin (Negative) Urine Urobilinogen (Negative) Ur Leukocyte Esterase (Negative) Urine WBC (Auto) (0-5) /hpf Urine RBC (Auto) (0-4) /hpf U Hyaline Cast (Auto) (0-5) /lpf U Epithel Cells (Auto) (0-5) /lpf Urine Bacteria (Auto) (Negative) Ur Renal Epithelial Cell Ur Random Creatinine Ur Random Urea Nitrogn Urine Sodium mmol/L Urine Potassium mmol/L Urine Chloride mmol/L Nasal Screen MRSA (PCR) (Negative) Phenytoin (10-20) mcg/ml Adenovirus (PCR) (NotDetected) B. pertussis DNA (PCR) (NotDetected) B.parapertussis DNA PCR (NotDetected) C. pneumoniae DNA (PCR) (NotDetected) Coronavirus OC43 (PCR) (NotDetected) Coronavirus HKU1 (PCR) (NotDetected) Coronavirus 229E (PCR) (NotDetected) COVID-19 PCR (Negative) Coronavirus NL63 (PCR) (NotDetected) Human Metapneumovir PCR (NotDetected) Influenza Type A (PCR) (NotDetected) Influenza Type B (PCR) (NotDetected) M. pneumoniae (PCR) (NotDetected) Parainfluenza 1 (PCR) (NotDetected) Parainfluenza 2 (PCR) (NotDetected) Parainfluenza 3 (PCR) (NotDetected) Parainfluenza 4 (PCR) (NotDetected) RSV (PCR) (NotDetected) Entero/Rhino (PCR) (NotDetected) Blood Type Antibody Screen 07/18/19 07/18/19 07/18/19 Range/Units 22:02 22:02 21:28 WBC (4.8-10.8) K/uL RBC (4.7-6.1) M/uL Hgb (14.0-18.0) g/dL Hct (42-52) % MCV (80-100) fL MCH (25-34) pg MCHC (32-36) g/dL RDW Std Deviation (36.4-46.3) fL RDW Coeff of Ritesh (11.5-14.5) % Plt Count (130-400) K/uL MPV (7.4-10.4) fL Immature Gran % (Auto) % Neut % (Auto) % Lymph % (Auto) % [place] % (Auto) % Eos % (Auto) % Baso % (Auto) % Immature Gran # (Auto) (0.00-0.02) K/uL Neut # (Auto) (1.4-6.5) K/uL Lymph # (Auto) (1.2-3.4) K/uL [place] # (Auto) (0.11-0.59) K/uL Eos # (Auto) (0-0.5) K/uL Baso # (Auto) (0-0.2) K/uL PT (9.0-12.0) Seconds INR (0.9-1.1) APTT (21.0-31.0) Seconds PTT Ratio Fibrinogen 437 H (184-400) mg/dl Fibrin Degrad Products (<10) mcg/ml D-Dimer 1260 H* (0-500) ug/L FEU ABG pH (7.35-7.45) ABG pCO2 (35-46) mmHg ABG pO2 (80-95) mmHg ABG HCO3 (19-24) mmol/L ABG O2 Saturation (90-95) % ABG Base Excess (-9-1.8) mEq/L Adin Test (Pos) VBG pH (7.36-7.41) VBG pCO2 (38-50) mmHg VBG pO2 mmHg VBG HCO3 mmol/L VBG O2 Saturation % VBG Base Excess mEq/L Barometric Pressure mm/Hg Oxygen Given Sodium 130 L (136-145) mmol/L Potassium 5.6 H (3.5-5.1) mmol/L Chloride 96 L (98-107) mmol/L Carbon Dioxide 26 (21-32) mmol/L Anion Gap 8.0 (3-11) BUN 37 H (7-18) mg/dl Creatinine 2.19 H (0.6-1.4) mg/dl Est Cr Clr Drug Dosing 35.6 ml/min Est GFR ( Amer) 34.8 Est GFR (Non-Af Amer) 30.1 BUN/Creatinine Ratio 16.8 (10-20) Glucose 155 H (70-99) mg/dl POC Glucose 152 H (70-99) mg/dl Estimat Average Glucose mg/dl Hemoglobin A1c (4.5-5.6) % Lactate (0.4-2.0) mmol/L Calcium 9.3 D (8.5-10.1) mg/dl Phosphorus (2.5-4.9) mg/dl Magnesium (1.8-2.4) mg/dl Total Bilirubin (0.2-1) mg/dl AST (15-37) U/L ALT (12-78) U/L Alkaline Phosphatase (45-117) U/L Total Creatine Kinase 133 (39-308) U/L Troponin I 0.283 H* (0-0.045) ng/ml NT-Pro-B Natriuret Pep (0-900) pg/ml Total Protein (6.4-8.2) gm/dl Albumin (3.4-5.0) gm/dl Globulin (2.5-4.0) gm/dl Albumin/Globulin Ratio (0.9-2) Triglycerides (0-150) mg/dl Cholesterol (0-200) mg/dl LDL Cholesterol, Calc mg/dl VLDL Cholesterol, Calc mg/dl HDL Cholesterol mg/dl Cholesterol/HDL Ratio Procalcitonin (0-0.5) ng/ml Urine Color Urine Appearance (Clear) Urine pH (4.5-7.5) Ur Specific [place] (1.000-1.030) Urine Protein (Negative) Urine Glucose (UA) (Negative) Urine Ketones (Negative) Urine Blood (Negative) Urine Nitrite (Negative) Urine Bilirubin (Negative) Urine Urobilinogen (Negative) Ur Leukocyte Esterase (Negative) Urine WBC (Auto) (0-5) /hpf Urine RBC (Auto) (0-4) /hpf U Hyaline Cast (Auto) (0-5) /lpf U Epithel Cells (Auto) (0-5) /lpf Urine Bacteria (Auto) (Negative) Ur Renal Epithelial Cell Ur Random Creatinine Ur Random Urea Nitrogn Urine Sodium mmol/L Urine Potassium mmol/L Urine Chloride mmol/L Nasal Screen MRSA (PCR) (Negative) Phenytoin (10-20) mcg/ml Adenovirus (PCR) (NotDetected) B. pertussis DNA (PCR) (NotDetected) B.parapertussis DNA PCR (NotDetected) C. pneumoniae DNA (PCR) (NotDetected) Coronavirus OC43 (PCR) (NotDetected) Coronavirus HKU1 (PCR) (NotDetected) Coronavirus 229E (PCR) (NotDetected) COVID-19 PCR (Negative) Coronavirus NL63 (PCR) (NotDetected) Human Metapneumovir PCR (NotDetected) Influenza Type A (PCR) (NotDetected) Influenza Type B (PCR) (NotDetected) M. pneumoniae (PCR) (NotDetected) Parainfluenza 1 (PCR) (NotDetected) Parainfluenza 2 (PCR) (NotDetected) Parainfluenza 3 (PCR) (NotDetected) Parainfluenza 4 (PCR) (NotDetected) RSV (PCR) (NotDetected) Entero/Rhino (PCR) (NotDetected) Blood Type Antibody Screen 07/18/19 07/18/19 07/18/19 Range/Units 19:30 18:49 18:49 WBC (4.8-10.8) K/uL RBC (4.7-6.1) M/uL Hgb (14.0-18.0) g/dL Hct (42-52) % MCV (80-100) fL MCH (25-34) pg MCHC (32-36) g/dL RDW Std Deviation (36.4-46.3) fL RDW Coeff of Ritesh (11.5-14.5) % Plt Count (130-400) K/uL MPV (7.4-10.4) fL Immature Gran % (Auto) % Neut % (Auto) % Lymph % (Auto) % [place] % (Auto) % Eos % (Auto) % Baso % (Auto) % Immature Gran # (Auto) (0.00-0.02) K/uL Neut # (Auto) (1.4-6.5) K/uL Lymph # (Auto) (1.2-3.4) K/uL [place] # (Auto) (0.11-0.59) K/uL Eos # (Auto) (0-0.5) K/uL Baso # (Auto) (0-0.2) K/uL PT (9.0-12.0) Seconds INR (0.9-1.1) APTT (21.0-31.0) Seconds PTT Ratio Fibrinogen (184-400) mg/dl Fibrin Degrad Products (<10) mcg/ml D-Dimer (0-500) ug/L FEU ABG pH 7.35 (7.35-7.45) ABG pCO2 41 (35-46) mmHg ABG pO2 68 L (80-95) mmHg ABG HCO3 22 (19-24) mmol/L ABG O2 Saturation 93.4 (90-95) % ABG Base Excess -3.5 (-9-1.8) mEq/L Adin Test POS (Pos) VBG pH (7.36-7.41) VBG pCO2 (38-50) mmHg VBG pO2 mmHg VBG HCO3 mmol/L VBG O2 Saturation % VBG Base Excess mEq/L Barometric Pressure 733.3 mm/Hg Oxygen Given 100% O2 Sodium (136-145) mmol/L Potassium (3.5-5.1) mmol/L Chloride (98-107) mmol/L Carbon Dioxide (21-32) mmol/L Anion Gap (3-11) BUN (7-18) mg/dl Creatinine (0.6-1.4) mg/dl Est Cr Clr Drug Dosing ml/min Est GFR ( Amer) Est GFR (Non-Af Amer) BUN/Creatinine Ratio (10-20) Glucose (70-99) mg/dl POC Glucose (70-99) mg/dl Estimat Average Glucose mg/dl Hemoglobin A1c (4.5-5.6) % Lactate (0.4-2.0) mmol/L Calcium (8.5-10.1) mg/dl Phosphorus (2.5-4.9) mg/dl Magnesium (1.8-2.4) mg/dl Total Bilirubin (0.2-1) mg/dl AST (15-37) U/L ALT (12-78) U/L Alkaline Phosphatase (45-117) U/L Total Creatine Kinase (39-308) U/L Troponin I (0-0.045) ng/ml NT-Pro-B Natriuret Pep (0-900) pg/ml Total Protein (6.4-8.2) gm/dl Albumin (3.4-5.0) gm/dl Globulin (2.5-4.0) gm/dl Albumin/Globulin Ratio (0.9-2) Triglycerides (0-150) mg/dl Cholesterol (0-200) mg/dl LDL Cholesterol, Calc mg/dl VLDL Cholesterol, Calc mg/dl HDL Cholesterol mg/dl Cholesterol/HDL Ratio Procalcitonin (0-0.5) ng/ml Urine Color Urine Appearance (Clear) Urine pH (4.5-7.5) Ur Specific [place] (1.000-1.030) Urine Protein (Negative) Urine Glucose (UA) (Negative) Urine Ketones (Negative) Urine Blood (Negative) Urine Nitrite (Negative) Urine Bilirubin (Negative) Urine Urobilinogen (Negative) Ur Leukocyte Esterase (Negative) Urine WBC (Auto) (0-5) /hpf Urine RBC (Auto) (0-4) /hpf U Hyaline Cast (Auto) (0-5) /lpf U Epithel Cells (Auto) (0-5) /lpf Urine Bacteria (Auto) (Negative) Ur Renal Epithelial Cell Ur Random Creatinine Ur Random Urea Nitrogn Urine Sodium mmol/L Urine Potassium mmol/L Urine Chloride mmol/L Nasal Screen MRSA (PCR) (Negative) Phenytoin (10-20) mcg/ml Adenovirus (PCR) Not Detected (NotDetected) B. pertussis DNA (PCR) Not Detected (NotDetected) B.parapertussis DNA PCR Not Detected (NotDetected) C. pneumoniae DNA (PCR) Not Detected (NotDetected) Coronavirus OC43 (PCR) Not Detected (NotDetected) Coronavirus HKU1 (PCR) Not Detected (NotDetected) Coronavirus 229E (PCR) Not Detected (NotDetected) COVID-19 PCR NEGATIVE (Negative) Coronavirus NL63 (PCR) Not Detected (NotDetected) Human Metapneumovir PCR Not Detected (NotDetected) Influenza Type A (PCR) Not Detected (NotDetected) Influenza Type B (PCR) Not Detected (NotDetected) M. pneumoniae (PCR) Not Detected (NotDetected) Parainfluenza 1 (PCR) Not Detected (NotDetected) Parainfluenza 2 (PCR) Not Detected (NotDetected) Parainfluenza 3 (PCR) Not Detected (NotDetected) Parainfluenza 4 (PCR) Not Detected (NotDetected) RSV (PCR) Not Detected (NotDetected) Entero/Rhino (PCR) Not Detected (NotDetected) Blood Type Antibody Screen 07/18/19 07/18/19 07/18/19 Range/Units 17:02 17:02 17:00 WBC 7.26 (4.8-10.8) K/uL RBC 5.37 (4.7-6.1) M/uL Hgb 16.5 (14.0-18.0) g/dL Hct 47.0 (42-52) % MCV 87.5 (80-100) fL MCH 30.7 (25-34) pg MCHC 35.1 (32-36) g/dL RDW Std Deviation 53.9 H (36.4-46.3) fL RDW Coeff of Ritesh 16.7 H (11.5-14.5) % Plt Count 143 (130-400) K/uL MPV 8.9 (7.4-10.4) fL Immature Gran % (Auto) 0.1 % Neut % (Auto) 82.2 % Lymph % (Auto) 13.1 % [place] % (Auto) 3.2 % Eos % (Auto) 1.1 % Baso % (Auto) 0.3 % Immature Gran # (Auto) 0.01 (0.00-0.02) K/uL Neut # (Auto) 5.97 (1.4-6.5) K/uL Lymph # (Auto) 0.95 L (1.2-3.4) K/uL [place] # (Auto) 0.23 (0.11-0.59) K/uL Eos # (Auto) 0.08 (0-0.5) K/uL Baso # (Auto) 0.02 (0-0.2) K/uL PT (9.0-12.0) Seconds INR (0.9-1.1) APTT (21.0-31.0) Seconds PTT Ratio Fibrinogen (184-400) mg/dl Fibrin Degrad Products (<10) mcg/ml D-Dimer (0-500) ug/L FEU ABG pH (7.35-7.45) ABG pCO2 (35-46) mmHg ABG pO2 (80-95) mmHg ABG HCO3 (19-24) mmol/L ABG O2 Saturation (90-95) % ABG Base Excess (-9-1.8) mEq/L Adin Test (Pos) VBG pH (7.36-7.41) VBG pCO2 (38-50) mmHg VBG pO2 mmHg VBG HCO3 mmol/L VBG O2 Saturation % VBG Base Excess mEq/L Barometric Pressure mm/Hg Oxygen Given Sodium (136-145) mmol/L Potassium (3.5-5.1) mmol/L Chloride (98-107) mmol/L Carbon Dioxide (21-32) mmol/L Anion Gap (3-11) BUN (7-18) mg/dl Creatinine (0.6-1.4) mg/dl Est Cr Clr Drug Dosing ml/min Est GFR ( Amer) Est GFR (Non-Af Amer) BUN/Creatinine Ratio (10-20) Glucose (70-99) mg/dl POC Glucose (70-99) mg/dl Estimat Average Glucose mg/dl Hemoglobin A1c (4.5-5.6) % Lactate (0.4-2.0) mmol/L Calcium (8.5-10.1) mg/dl Phosphorus (2.5-4.9) mg/dl Magnesium (1.8-2.4) mg/dl Total Bilirubin (0.2-1) mg/dl AST (15-37) U/L ALT (12-78) U/L Alkaline Phosphatase (45-117) U/L Total Creatine Kinase (39-308) U/L Troponin I (0-0.045) ng/ml NT-Pro-B Natriuret Pep (0-900) pg/ml Total Protein (6.4-8.2) gm/dl Albumin (3.4-5.0) gm/dl Globulin (2.5-4.0) gm/dl Albumin/Globulin Ratio (0.9-2) Triglycerides (0-150) mg/dl Cholesterol (0-200) mg/dl LDL Cholesterol, Calc mg/dl VLDL Cholesterol, Calc mg/dl HDL Cholesterol mg/dl Cholesterol/HDL Ratio Procalcitonin (0-0.5) ng/ml Urine Color Urine Appearance (Clear) Urine pH (4.5-7.5) Ur Specific [place] (1.000-1.030) Urine Protein (Negative) Urine Glucose (UA) (Negative) Urine Ketones (Negative) Urine Blood (Negative) Urine Nitrite (Negative) Urine Bilirubin (Negative) Urine Urobilinogen (Negative) Ur Leukocyte Esterase (Negative) Urine WBC (Auto) (0-5) /hpf Urine RBC (Auto) (0-4) /hpf U Hyaline Cast (Auto) (0-5) /lpf U Epithel Cells (Auto) (0-5) /lpf Urine Bacteria (Auto) (Negative) Ur Renal Epithelial Cell Ur Random Creatinine Ur Random Urea Nitrogn Urine Sodium mmol/L Urine Potassium mmol/L Urine Chloride mmol/L Nasal Screen MRSA (PCR) (Negative) Phenytoin 4.2 L (10-20) mcg/ml Adenovirus (PCR) (NotDetected) B. pertussis DNA (PCR) (NotDetected) B.parapertussis DNA PCR (NotDetected) C. pneumoniae DNA (PCR) (NotDetected) Coronavirus OC43 (PCR) (NotDetected) Coronavirus HKU1 (PCR) (NotDetected) Coronavirus 229E (PCR) (NotDetected) COVID-19 PCR (Negative) Coronavirus NL63 (PCR) (NotDetected) Human Metapneumovir PCR (NotDetected) Influenza Type A (PCR) (NotDetected) Influenza Type B (PCR) (NotDetected) M. pneumoniae (PCR) (NotDetected) Parainfluenza 1 (PCR) (NotDetected) Parainfluenza 2 (PCR) (NotDetected) Parainfluenza 3 (PCR) (NotDetected) Parainfluenza 4 (PCR) (NotDetected) RSV (PCR) (NotDetected) Entero/Rhino (PCR) (NotDetected) Blood Type O Positive Antibody Screen NEGATIVE 07/18/19 07/18/19 07/18/19 Range/Units 16:59 16:59 16:59 WBC (4.8-10.8) K/uL RBC (4.7-6.1) M/uL Hgb (14.0-18.0) g/dL Hct (42-52) % MCV (80-100) fL MCH (25-34) pg MCHC (32-36) g/dL RDW Std Deviation (36.4-46.3) fL RDW Coeff of Ritesh (11.5-14.5) % Plt Count (130-400) K/uL MPV (7.4-10.4) fL Immature Gran % (Auto) % Neut % (Auto) % Lymph % (Auto) % [place] % (Auto) % Eos % (Auto) % Baso % (Auto) % Immature Gran # (Auto) (0.00-0.02) K/uL Neut # (Auto) (1.4-6.5) K/uL Lymph # (Auto) (1.2-3.4) K/uL [place] # (Auto) (0.11-0.59) K/uL Eos # (Auto) (0-0.5) K/uL Baso # (Auto) (0-0.2) K/uL PT 10.3 (9.0-12.0) Seconds INR 1.0 (0.9-1.1) APTT 29.6 (21.0-31.0) Seconds PTT Ratio 1.1 Fibrinogen (184-400) mg/dl Fibrin Degrad Products (<10) mcg/ml D-Dimer (0-500) ug/L FEU ABG pH (7.35-7.45) ABG pCO2 (35-46) mmHg ABG pO2 (80-95) mmHg ABG HCO3 (19-24) mmol/L ABG O2 Saturation (90-95) % ABG Base Excess (-9-1.8) mEq/L Adin Test (Pos) VBG pH (7.36-7.41) VBG pCO2 (38-50) mmHg VBG pO2 mmHg VBG HCO3 mmol/L VBG O2 Saturation % VBG Base Excess mEq/L Barometric Pressure mm/Hg Oxygen Given Sodium 132 L (136-145) mmol/L Potassium 6.2 H* (3.5-5.1) mmol/L Chloride 103 (98-107) mmol/L Carbon Dioxide 20 L (21-32) mmol/L Anion Gap 9.0 (3-11) BUN 37 H (7-18) mg/dl Creatinine 2.13 H (0.6-1.4) mg/dl Est Cr Clr Drug Dosing 36.6 ml/min Est GFR ( Amer) 36.0 Est GFR (Non-Af Amer) 31.1 BUN/Creatinine Ratio 17.3 (10-20) Glucose 183 H (70-99) mg/dl POC Glucose (70-99) mg/dl Estimat Average Glucose mg/dl Hemoglobin A1c (4.5-5.6) % Lactate (0.4-2.0) mmol/L Calcium 7.9 L (8.5-10.1) mg/dl Phosphorus (2.5-4.9) mg/dl Magnesium 4.1 H (1.8-2.4) mg/dl Total Bilirubin 0.4 (0.2-1) mg/dl AST 20 (15-37) U/L ALT 30 (12-78) U/L Alkaline Phosphatase 195 H (45-117) U/L Total Creatine Kinase (39-308) U/L Troponin I 0.081 H* (0-0.045) ng/ml NT-Pro-B Natriuret Pep 1519 H (0-900) pg/ml Total Protein 8.2 (6.4-8.2) gm/dl Albumin 3.8 (3.4-5.0) gm/dl Globulin 4.4 H (2.5-4.0) gm/dl Albumin/Globulin Ratio 0.9 (0.9-2) Triglycerides (0-150) mg/dl Cholesterol (0-200) mg/dl LDL Cholesterol, Calc mg/dl VLDL Cholesterol, Calc mg/dl HDL Cholesterol mg/dl Cholesterol/HDL Ratio Procalcitonin (0-0.5) ng/ml Urine Color Urine Appearance (Clear) Urine pH (4.5-7.5) Ur Specific [place] (1.000-1.030) Urine Protein (Negative) Urine Glucose (UA) (Negative) Urine Ketones (Negative) Urine Blood (Negative) Urine Nitrite (Negative) Urine Bilirubin (Negative) Urine Urobilinogen (Negative) Ur Leukocyte Esterase (Negative) Urine WBC (Auto) (0-5) /hpf Urine RBC (Auto) (0-4) /hpf U Hyaline Cast (Auto) (0-5) /lpf U Epithel Cells (Auto) (0-5) /lpf Urine Bacteria (Auto) (Negative) Ur Renal Epithelial Cell Ur Random Creatinine Ur Random Urea Nitrogn Urine Sodium mmol/L Urine Potassium mmol/L Urine Chloride mmol/L Nasal Screen MRSA (PCR) (Negative) Phenytoin (10-20) mcg/ml Adenovirus (PCR) (NotDetected) B. pertussis DNA (PCR) (NotDetected) B.parapertussis DNA PCR (NotDetected) C. pneumoniae DNA (PCR) (NotDetected) Coronavirus OC43 (PCR) (NotDetected) Coronavirus HKU1 (PCR) (NotDetected) Coronavirus 229E (PCR) (NotDetected) COVID-19 PCR (Negative) Coronavirus NL63 (PCR) (NotDetected) Human Metapneumovir PCR (NotDetected) Influenza Type A (PCR) (NotDetected) Influenza Type B (PCR) (NotDetected) M. pneumoniae (PCR) (NotDetected) Parainfluenza 1 (PCR) (NotDetected) Parainfluenza 2 (PCR) (NotDetected) Parainfluenza 3 (PCR) (NotDetected) Parainfluenza 4 (PCR) (NotDetected) RSV (PCR) (NotDetected) Entero/Rhino (PCR) (NotDetected) Blood Type Antibody Screen Coding Level of Care Code 83879 Subseq Hosp Care Lvl 3 Diagnoses Admitted to intensive care unit Z78.9 Acute respiratory failure J96.00 New onset left bundle branch block (LBBB) I44.7 Acute exacerbation of CHF (congestive heart failure) I50.9 BRYANT (acute kidney injury) N17.9 Stage 3 chronic kidney disease N18.3 Acute hyperkalemia E87.5 Hypoxemia R09.02 Stenosis of right vertebral artery I65.01 Hypermagnesemia E83.41 COPD exacerbation J44.1 OCD (obsessive compulsive disorder) F42.9 Bipolar disorder F31.9 PAD (peripheral artery disease) I73.9 Hypertension I10 Diabetes type 2, uncontrolled E11.65 Diabetic peripheral neuropathy associated with type 2 diabetes mellitus E11.42 CAD (coronary artery disease) I25.10 Diabetic foot ulcer associated with type 2 diabetes mellitus E11.621; L97.509 NSTEMI (non-ST elevated myocardial infarction) I21.4 Abnormal EKG R94.31
[2019-07-19] MEDS ORDERED: NON-FORMULARY MEDICATION (Dulaglutide [Trulicity] 1.5 MG) SQ SCH (10:24)
[2019-07-19] MEDS ORDERED: NON-FORMULARY MEDICATION (Empagliflozin [Jardiance] 25 MG) PO SCH (10:24)
[2019-07-19] MEDS ORDERED: PERFLUTREN LIPID MICROSPHERE (DEFINITY) IV ONE (10:35)
--- NOTE | 2019-07-19 10:51 | Cardiology Consultation ---
Date of Consultation July 19, 2019 Assessment & Plan (1) Acute exacerbation of CHF (congestive heart failure): (2) NSTEMI (non-ST elevated myocardial infarction): (3) BRYANT (acute kidney injury): (4) Acute hyperkalemia: (5) Hypermagnesemia: (6) PAD (peripheral artery disease): (7) Diabetes type 2, uncontrolled: (8) Tobacco use disorder: 69-year-old patient admitted with acute decompensated heart failure and acute renal failure with hyperkalemia and hypermagnesemia. Initial ECG demonstrating incomplete left bundle branch block. QRS duration has reduced with improvement of electrolyte derangement. Patient without chest discomfort or significant troponin elevation during his first 6 hours of presentation. His troponin has trended upward this morning, secondary to hypoxia, respiratory distress, CHF. He surely has underlying coronary disease per CTs demonstrating diffuse coronary calcification. I would not proceed with coronary angiography today as patient received a significant dye load yesterday and he remains hyperkalemic with elevated creatinine. He has improved clinically with IV diuretic therapy. Agree with continuing IV heparin and dual antiplatelet therapy. Increase atorvastatin to 40 mg daily. Continue intravenous furosemide 40 mg twice daily. Follow fluid balance, daily weight, GFR, and electrolytes. Plan cardiac catheterization when renal function has stabilized. Procedure will be performed on an urgent basis if clinical status declines. 45 minutes critical care time spent evaluating patient, formulating plan of care, reviewing studies, and discussion with consultants. History of Present Illness Reason for Consultation: abnormal ECG, elevated troponin, CHF Requesting Physician: Dr. Hamilton Attending Physician: Maximus Alexander MD History of Present Illness 69-year-old patient presented to the emergency department with multiple complaints including dizziness, nausea, vomiting, abdominal discomfort, and shortness of breath. Patient initially evaluated regarding possible TIA/CVA with CTA of the head and neck. He received IV contrast. Respiratory status declined while in the emergency department requiring high flow oxygen. Respiratory distress ensued. X-ray consistent with pulmonary edema. Subsequently CT of the chest demonstrating possible peripheral infiltrates versus pulmonary edema. Patient treated with IV diuretic therapy with more than 2 L urine output. Respiratory status improved overnight. Patient was not intubated. He is negative for COVID-19. Patient seen and examined the bedside in the intensive care unit. ECGs reviewed demonstrating incomplete left bundle branch block. QRS duration increased at the time of admission, however, acute renal insufficiency with hyperkalemia, potassium 6.2, noted on presentation. Initial troponins were not significantly elevated. Repeat troponin 5.7 this a.m. Patient currently resting comfortably on 4 L Ventimask. No tachypnea or conversational dyspnea. Reports longstanding history of orthopnea (sleeps in a recliner) as well as occasional paroxysmal nocturnal dyspnea. Denies any lower extremity edema or weight gain. No chest discomfort or heaviness. Reports dyspnea on exertion with daily activities, however, able to perform activities of daily living without restriction. Carries history of peripheral vascular disease, transischemic attack, poorly controlled diabetes, and active tobacco abuse. He was previously evaluated by the undersigned approximately 1 year ago regarding elevated troponin without chest discomfort. At the time patient diagnosed with esophagitis and gastritis with subsequent GI bleeding. CT of the chest performed at that time demonstrates severe diffuse coronary calcification confirmed by repeat CT yesterday. Denies claudication.right lower extremity re- vascular procedure noted. Currently patient is feeling better and requesting a diet. Allergies Allergy/AdvReac Type Severity Reaction Status Date / Time Sulfa (Sulfonamide Allergy Mild Hives Verified 07/18/19 18:02 Antibiotics) Home Medications Home Medications Medication Instructions Recorded Confirmed Type aspirin 81 mg PO DAILY 06/29/18 07/18/19 History promethazine 25 mg PO Q8H PRN 06/29/18 07/18/19 History clopidogrel 75 mg PO DAILY 30 Days #30 tab 07/06/18 07/18/19 Rx lamotrigine 400 mg PO BID 30 Days #60 tab 07/06/18 07/18/19 Rx lisinopril 20 mg PO DAILY 30 Days #30 tab 07/06/18 07/18/19 Rx tamsulosin 0.4 mg PO DAILY 30 Days #30 cap 07/06/18 07/18/19 Rx glipizide 10 mg tablet, extended 10 mg PO DAILY 08/04/18 07/18/19 History release 24 hr cephalexin 500 mg capsule 500 mg PO Q12H 08/17/18 07/18/19 History polyethylene glycol 3350 17 g PO DAILY PRN 09/08/18 07/18/19 History atorvastatin 10 mg PO DAILY 07/18/19 07/18/19 History clonazepam 1 mg PO HS 07/18/19 07/18/19 History dulaglutide [Trulicity] 1.5 mg SUBCUT WK 07/18/19 07/18/19 History empagliflozin [Jardiance] 25 mg PO DAILY 07/18/19 07/18/19 History gabapentin 100 mg PO TID 07/18/19 07/18/19 History ipratropium-albuterol [Combivent 1 puff INHALATION QID 07/18/19 07/18/19 History Respimat] metoprolol tartrate 12.5 mg PO BID 07/18/19 07/18/19 History mirtazapine 30 mg PO HS 07/18/19 07/18/19 History pantoprazole 40 mg PO DAILY 07/18/19 07/18/19 History phenytoin sodium extended 100 mg PO BID 07/18/19 07/18/19 History quetiapine 400 mg PO HS 07/18/19 07/18/19 History sennosides-docusate sodium [Senna 1 tab-cap PO DAILY 07/18/19 07/18/19 History with Docusate Sodium] trazodone 100 mg PO HS 07/18/19 07/18/19 History Patient History Medical History Alcohol dependence in remission (Inactive) Bipolar disorder (Acute 05/29/12) BPH (benign prostatic hypertrophy) (Chronic) CAD (coronary artery disease) Coffee ground emesis COPD (chronic obstructive pulmonary disease) (Chronic) Diabetes type 2, uncontrolled Diabetic foot ulcer associated with type 2 diabetes mellitus Diabetic peripheral neuropathy associated with type 2 diabetes mellitus DVT prophylaxis Dyslipidemia Hammertoe of left foot (Acute) History of electroconvulsive therapy Hypertension Obesity (BMI 30-39.9) (Inactive) OCD (obsessive compulsive disorder) (Chronic) Osteomyelitis PAD (peripheral artery disease) (Chronic) Seizure disorder (Chronic) Stage 3 chronic kidney disease TIA (transient ischemic attack) Tobacco use disorder Surgical History H/O colonoscopy (Inactive) "11/08/2013- normal exam but limited by prep quality" H/O sigmoidoscopy (Inactive) Family History Father , 53 Coronary heart disease Lung cancer Mother Diabetes Grandmother (Paternal) Stroke Social History Preferred Language: Andorran Communication Ability: Effective C2 Tactical Analysis Technician Required: No Beliefs That Will Affect Care: None Current Living Situation: Family Other Information That Helps Us Care for You: No Feels Safe at Home: Yes Safety Concerns: Feels Safe At This Time Smoking Status: Current every day smoker Tobacco Type: cigarettes ; Second Hand Exposure: Yes ; Hx Alcohol Use: No Hx Substance Use: No Review of Systems Review of Systems: All systems reviewed & are unremarkable except as noted in HPI & below Physical Exam Constitutional: + ill appearing and average body habitus Eyes: + anicteric sclerae and EOM intact bilaterally Respiratory: normal respiratory effort Auscultation: no crackles, no rales, no rhonchi and no wheezes Cardiovascular: Rate/Rhythm: regular rate and regular rhythm Heart Sounds: normal S1 and normal S2; no gallop, no murmur and no cardiac rub Palpation: normal PMI Vessels: radial pulses present; no JVD, + posterior tibial pulses abnormal and + dorsalis pedis pulses abnormal Extremities: no edema Gastrointestinal (Abdomen): Inspection/Auscultation: abdomen normal to inspection and normal bowel sounds; abdomen not distended Percussion/Palpation: abdomen soft; abdomen nontender, no guarding and abdomen not rigid Musculoskeletal: Extremities: strength 5/5 throughout Skin: no rashes, warm and dry Neurologic: moves all extremities; no focal motor deficits Psychiatric: A+Ox3, euthymic affect Results & Data ([facility]) Vital Signs (Past 12 Hours) Vital Signs Temp Pulse Pulse Resp BP BP Pulse Ox 07/19/19 06:54 86 18 108/65 98 07/19/19 05:50 89 19 113/62 98 07/19/19 04:50 86 21 109/65 100 07/19/19 03:50 36.7 C 85 20 110/68 100 07/19/19 02:50 87 22 133/82 97 07/19/19 01:49 88 21 146/89 H 98 07/19/19 00:50 36.5 C 86 21 120/80 99 07/18/19 22:54 36.5 C 85 22 146/83 H 99 07/18/19 22:47 85 24 147/87 H 99 07/18/19 22:40 85 20 99 (1) Acute exacerbation of CHF (congestive heart failure) Heart failure type: unspecified Qualified Code(s): I50.9 - Heart failure, unspecified (2) Diabetes type 2, uncontrolled Glycemic state: with hyperglycemia Qualified Code(s): E11.65 - Type 2 diabetes mellitus with hyperglycemia
[2019-07-19] MEDS: ALBUT/IPRATROP 3MG/0.5MG NEB 3 ML VIAL INH SCH ×3 (10:53→18:57)
[2019-07-19] MEDS: ATORVASTATIN 40 MG TAB PO SCH (12:46)
--- NOTE | 2019-07-19 13:15 | Electrocardiogram Report ---
Test Reason : Blood Pressure : / mmHG Vent. Rate : 078 BPM Atrial Rate : 078 BPM P-R Int : 000 ms QRS Dur : 118 ms QT Int : 448 ms P-R-T Axes : 000 097 -76 degrees QTc Int : 510 ms Probable Sinus rhythm with 1st degree A-V block Rightward axis Left bundle branch block Long QTc Prolonged QT Abnormal ECG When compared with ECG of 01-JUL-2018 06:20, Significant changes have occurred Confirmed by Brooks Enriquez ([id number]) on 07/19/2019 1:15:33 PM Referred By: REFERRED SELF Confirmed By:Brooks Enriquez
--- NOTE | 2019-07-19 13:22 | Electrocardiogram Report ---
Test Reason : Blood Pressure : / mmHG Vent. Rate : 079 BPM Atrial Rate : 079 BPM P-R Int : 192 ms QRS Dur : 118 ms QT Int : 454 ms P-R-T Axes : 039 081 -15 degrees QTc Int : 520 ms Normal sinus rhythm with 1st degree A-V block Left bundle branch block Prolonged QT Abnormal ECG When compared with ECG of 18-JUL-2019 17:18, (unconfirmed) QRS duration has decreased Confirmed by Brooks Enriquez ([id number]) on 07/19/2019 1:21:28 PM Referred By: REFERRED SELF Confirmed By:Brooks Enriquez
--- NOTE | 2019-07-19 13:23 | Electrocardiogram Report ---
Test Reason : Blood Pressure : / mmHG Vent. Rate : 085 BPM Atrial Rate : 085 BPM P-R Int : 178 ms QRS Dur : 124 ms QT Int : 444 ms P-R-T Axes : 046 077 -30 degrees QTc Int : 528 ms Normal sinus rhythm Left bundle branch block Abnormal ECG When compared with ECG of 18-JUL-2019 19:30, (unconfirmed) QRS duration has decreased ST less depressed in Lateral leads Confirmed by Brooks Enriquez ([id number]) on 07/19/2019 1:23:26 PM Referred By: REFERRED SELF Confirmed By:Brooks Enriquez
--- NOTE | 2019-07-19 13:41 | Ultrasound Report ---
BILATERAL LOWER EXTREMITY VENOUS DOPPLER HISTORY: DVT r/o, PE suspicion COMPARISON STUDY: None. FINDINGS: There is normal compressibility, flow, and augmentation within the bilateral lower extremit y deep venous systems. IMPRESSION: No DVT within the right or left lower extremity. ACT 112: Negative or not required by law. Electronically signed by: Bud Malik M.D. 07/19/2019 1:40 PM
--- NOTE | 2019-07-19 13:51 | Electrocardiogram Report ---
Test Reason : Blood Pressure : / mmHG Vent. Rate : 085 BPM Atrial Rate : 085 BPM P-R Int : 152 ms QRS Dur : 108 ms QT Int : 412 ms P-R-T Axes : 042 059 076 degrees QTc Int : 490 ms Normal sinus rhythm Possible Left atrial enlargement Nonspecific ST and T wave abnormality Prolonged QT Abnormal ECG When compared with ECG of 18-JUL-2019 23:05, (unconfirmed) QRS duration has decreased Nonspecific T wave abnormality has replaced inverted T waves in Inferior leads Confirmed by Brooks Enriquez ([id number]) on 07/19/2019 1:51:23 PM Referred By: REFERRED SELF Confirmed By:Brooks Enriquez
[2019-07-19 16:13] LABS: BUN Creatinine Ratio 17.8 (10-20); Calcium 8.3 mg/dl (8.5-10.1); Est GFR (African American) 24.6; Est GFR (Non-African American) 21.2; Magnesium 4.5 mg/dl (1.8-2.4)
[2019-07-19 16:14] LABS: Potassium 4.5 mmol/L (3.5-5.1)
[2019-07-19 16:15] LABS: Troponin I 9.55 ng/ml (0-0.045)
[2019-07-19 16:37] LABS: Partial Thromboplastin Time 54.7 Seconds (21.0-31.0)
[2019-07-19] MEDS ORDERED: FUROSEMIDE 40 MG TAB PO SCH (17:00)
[2019-07-19] MEDS: GABAPENTIN 100 MG CAP PO SCH ×2 (17:04→22:59)
--- NOTE | 2019-07-19 17:42 | Hospitalist Progress Note ---
Date of Service July 19, 2019 Assessment & Plan (1) Acute exacerbation of CHF (congestive heart failure): Acute respiratory failure likely secondary to flash pulmonary edema progressive over this afternoon. Responded well to Lasix 40mg IV with 1L out into [place] within about 2 hours. . Patient denies any chest pain. Echo ordered. Recommend 2gm sodium diet when able to eat. Daily standing weights. Cardiology consult. Hold on further Lasix tonight and re-evaluate volume status in am. NSTEMI Slight bump in troponin to 0.08 on admission Serial troponin went up to 10.2 EKG has right bundle branch block Echo on 06/30/2018 did show normal EF and grade 1 diastolic dysfunction Echo from this admission is pending Appreciate cardiology input and recommendation Possible cardiac cath on improvement of renal function (2) Acute respiratory failure: Likely 2/2 pulmonary edema, however, Severe bilateral pneumonia and COVID19 has been ruled out. Started on ceftriaxone and doxycycline Flu and biofire respiratory panels were negative. Blood cultures have been pending Appreciate strap machine operator input and recommendation Now saturating normally on room air (3) New onset left bundle branch block (LBBB): Resolved after treatment of electrolyte abnormalities. Trop with some rise, but EKG improving with time and treatment, so doesn't appear to indicate an evolving STEMI, either. Cont to monitor closely on telemetry. (4) BRYANT (acute kidney injury): Stage III CKD with baseline creatinine around 1.5-1.7, now 2.1. Received IV Lasix of 40 mg Creatinine went up to 2.92 Appreciate nephrology input and recommendation (5) Acute hyperkalemia: Uses lisinopril regularly. Treated in the ER with Calcium, insulin, dextrose, and bicarb. He later received the lasix. Low potassium diet Monitor PRP (6) Stenosis of right vertebral artery: Has a h/o TIA last year. No stroke or focal deficits. No vascular head imaging was performed at that time but he was placed on DAPT. CT angiogram of head and neck show high grade vertebral artery stenosis. His dizziness is improving with treatment of hypoxia. Nonfocal neuro exam. Stroke appears to be a less likely. Cont DAPT. Discussed with strap machine operator about vertebral artery stenosis We will have outpatient follow-up appointment with vascular surgeon (7) Elevated troponin: Has NSTEMI Management as above (8) CAD (coronary artery disease): No h/o [place] in the past, ,however, has clear coronary calcifications on imaging. Also has known PAD. Active smoker and uncontrolled diabetic. Lipid panel in am. Cont Lipitor 10mg daily, Metoprolol tartrate BID, Plavix and ASA per home regimen. (9) Diabetes type 2, uncontrolled: A1C 9.3 last year. Repeat in am. Basal bolus insulin. Hold all oral hypoglycemics. (10) Bipolar disorder: Hold home seroquel with prolonged QTc. (11) PAD (peripheral artery disease): Known history of this. Cont medical management. (12) COPD (chronic obstructive pulmonary disease): Chronic, stable. No active wheezing or evidence of exacerbation. Cont to encourage to quit smoking. (13) Seizure disorder: On Lamictal for both a h/o seizures and bipolar disorder, both of which are stable and chronic. No more seizure activity (14) Depression: Anxiety and depression present chronically. Follows with an outpatient psychiatrist. (15) Tobacco use disorder: Heavy lifelong smoker. Strongly encouraged to quit. Consider nicotine patch this admission. (16) DVT prophylaxis: Heparin Full Code as discussed with patient on admission. Dispo-to ICU for close monitoring overnight. Admission and Anticipated Discharge Date Admission Date: July 18, 2019 Subjective The patient was seen and examined in ICU He is out of bed on a chair Complains today of some weakness but denies any chest pain and/or palpitation, any abdominal pain nausea and or vomiting Has been saturating well on room air Review of Systems Review of Systems: All systems reviewed and are unremarkable except as noted below Cardiovascular: no chest pain, no dyspnea and no palpitations Physical Exam Physical Exam: Sitting on a chair without any acute distress Constitutional: well developed, well nourished and + ill appearing; no acute distress Eyes: PERRL, conjunctivae normal, anicteric sclerae ENMT: external ear and nose normal, oropharynx normal Neck: trachea midline, no thyromegaly Respiratory: normal respiratory effort; no respiratory distress Auscultation: + diminished lung sounds (Especially at the bases) Cardiovascular: Rate/Rhythm: regular rhythm Heart Sounds: no murmur Gastrointestinal (Abdomen): Inspection/Auscultation: + abdomen distended and normal bowel sounds Percussion/Palpation: abdomen soft; abdomen nontender Musculoskeletal: No acute arthritis in any joints Neurologic: moves all extremities; no focal motor deficits Lymphatic: no cervical or axillary lymphadenopathy Results & Data Results & Data ([facility]) Vital Signs (Past 12 Hours) Vital Signs Temp Pulse Pulse Resp BP Pulse Ox 07/19/19 16:00 81 23 07/19/19 15:40 36.9 C 82 24 91/50 L 94 07/19/19 15:26 85 18 92 07/19/19 15:20 86 21 07/19/19 14:00 71 20 95 07/19/19 13:51 70 22 91/57 L 94 07/19/19 13:15 75 22 95/56 L 94 07/19/19 13:00 78 26 H 93 07/19/19 12:00 82 21 94 07/19/19 11:00 75 14 99 07/19/19 10:59 75 18 98 07/19/19 10:55 80 25 H 107/70 95 07/19/19 10:00 81 23 96 07/19/19 09:50 81 22 113/64 96 07/19/19 09:00 82 19 97 07/19/19 08:50 83 20 104/62 97 07/19/19 08:00 84 22 97 07/19/19 07:50 83 17 88/50 L 97 07/19/19 06:54 86 18 108/65 98 07/19/19 05:50 89 19 113/62 98 Laboratory Results Short CBC 07/19/19 Range/Units 02:09 WBC 6.46 (4.8-10.8) K/uL Hgb 18.7 H (14.0-18.0) g/dL Hct 52.8 H (42-52) % Plt Count 133 (130-400) K/uL BMP 07/18/19 07/18/19 07/19/19 16:59 22:02 02:09 Sodium 132 L 130 L 133 L Potassium 6.2 H* 5.6 H 5.5 H Chloride 103 96 L 99 Carbon Dioxide 20 L 26 25 BUN 37 H 37 H 38 H Creatinine 2.13 H 2.19 H 2.08 H Glucose 183 H 155 H 165 H Calcium 7.9 L 9.3 D 8.4 L 07/19/19 07/19/19 07/19/19 02:09 06:07 15:23 Sodium 133 L 133 L Potassium 5.4 H 5.3 H 4.5 D Chloride 99 97 L Carbon Dioxide 24 22 BUN 43 H 52 H Creatinine 2.16 H 2.92 H D Glucose 138 H 133 H Calcium 8.4 L 8.3 L Cardiac Enzymes 07/18/19 07/18/19 07/19/19 Range/Units 16:59 22:02 04:42 Total Creatine Kinase 133 (39-308) U/L Troponin I 0.081 H* 0.283 H* 5.730 H* (0-0.045) ng/ml 07/19/19 07/19/19 Range/Units 10:38 15:23 Total Creatine Kinase (39-308) U/L Troponin I 10.200 H* 9.550 H* (0-0.045) ng/ml Liver Function 07/18/19 Range/Units 16:59 Total Bilirubin 0.4 (0.2-1) mg/dl AST 20 (15-37) U/L ALT 30 (12-78) U/L Alkaline Phosphatase 195 H (45-117) U/L Albumin 3.8 (3.4-5.0) gm/dl Urine 07/19/19 Range/Units 06:58 Urine Color Yellow Urine Appearance Clear (Clear) Urine pH 6.5 (4.5-7.5) Ur Specific [place] 1.037 H (1.000-1.030) Urine Protein 1+ H (Negative) Urine Glucose (UA) 3+ H (Negative) Medications Administered Current Inpatient Medications Albuterol (Duoneb) 3 ml INH QIDR [facility] Stop: 08/18/19 10:59 Last Admin: 07/19/19 15:23 Dose: 3 ml Documented by: Aspirin (Ecotrin Ectab) 81 mg PO DAILY [facility] Stop: 08/18/19 08:59 Last Admin: 07/19/19 09:02 Dose: 81 mg Documented by: Atorvastatin Calcium (Lipitor) 40 mg PO DAILY [facility] Stop: 08/18/19 10:59 Last Admin: 07/19/19 12:46 Dose: 40 mg Documented by: Clonazepam (Klonopin) 1 mg PO HS [facility] Stop: 08/18/19 20:59 Clopidogrel Bisulfate (Plavix) 75 mg PO DAILY [facility] Stop: 08/18/19 08:59 Last Admin: 07/19/19 09:01 Dose: 75 mg Documented by: Dextrose (Dextrose 50%) 25 - 50 ml IV UD PRN; Protocol PRN Reason: Hypoglycemia Protocol Stop: 08/17/19 23:26 Furosemide (Lasix) 40 mg PO BID17 [facility] Stop: 08/18/19 16:59 Last Admin: 07/19/19 17:03 Dose: 40 mg Documented by: Gabapentin (Neurontin) 100 mg PO Q8H [facility] Stop: 08/18/19 15:59 Last Admin: 07/19/19 17:04 Dose: 100 mg Documented by: Glucagon (Glucagen) 1 mg SQ UD PRN; Protocol PRN Reason: Hypoglycemia Protocol Stop: 08/17/19 23:26 Glucose (Dex4 Glucose) 4 - 8 tabs PO UD PRN; Protocol PRN Reason: Hypoglycemia Protocol Stop: 08/17/19 23:26 Glucose (Glucose 40%) 15 - 30 gm PO UD PRN; Protocol PRN Reason: Hypoglycemia Protocol Stop: 08/17/19 23:26 Heparin Sodium/Dextrose (Heparin Sodium/Dextrose) 25,000 units in 500 mls @ 22 mls/hr IV .[id number] [facility]; Protocol Stop: 08/17/19 23:14 Last Titration: 07/19/19 17:00 Dose: 1,100 units/hr, 22 mls/hr Documented by: Insulin Aspart (Novolog Flexpen) 0 units SC ACHS [facility] Stop: 08/18/19 07:29 Last Admin: 07/19/19 17:01 Dose: 4 units Documented by: Insulin Glargine (Lantus Solostar Pen) 15 units SC BID [facility] Stop: 08/17/19 23:29 Last Admin: 07/19/19 09:17 Dose: 15 units Documented by: Lamotrigine (Lamictal) 400 mg PO BID [facility] Stop: 08/18/19 08:59 Last Admin: 07/19/19 09:02 Dose: 400 mg Documented by: Metoprolol Tartrate (Lopressor) 12.5 mg PO BID [facility] Stop: 08/18/19 08:59 Last Admin: 07/19/19 09:01 Dose: 12.5 mg Documented by: Mirtazapine (Remeron) 30 mg PO DAILY@2000 [facility] Stop: 08/18/19 19:59 Miscellaneous (Carbohydrates For Hypoglycemia) 15 - 30 gm PO UD PRN PRN Reason: Hypoglycemia Protocol Stop: 08/17/19 23:26 Miscellaneous (Icu Protocol For Hyperglycemia) 1 ea N/A PRN PRN; Protocol PRN Reason: Hyperglycemia Protocol Stop: 07/21/19 06:02 Pantoprazole Sodium (Protonix) 40 mg PO DAILY [facility] Stop: 08/18/19 08:59 Last Admin: 07/19/19 09:02 Dose: 40 mg Documented by: Phenytoin Sodium (Dilantin Er) 100 mg PO BID [facility] Stop: 08/18/19 20:59 Polyethylene Glycol (Miralax Powder Packet) 17 gm PO DAILY PRN PRN Reason: Constipation Stop: 08/18/19 10:23 Promethazine HCl (Phenergan) 25 mg PO Q6H PRN PRN Reason: Nausea And Vomiting Stop: 08/17/19 22:13 Last Admin: 07/18/19 22:55 Dose: 25 mg Documented by: Quetiapine Fumarate (Seroquel) 400 mg PO HS [facility] Stop: 08/18/19 20:59 Tamsulosin HCl (Flomax) 0.4 mg PO DAILY [facility] Stop: 08/18/19 08:59 Last Admin: 07/19/19 09:01 Dose: 0.4 mg Documented by: Trazodone HCl (Desyrel) 100 mg PO HS [facility] Stop: 08/18/19 20:59 (1) Acute exacerbation of CHF (congestive heart failure) Heart failure type: unspecified Qualified Code(s): I50.9 - Heart failure, unspecified (2) Diabetes type 2, uncontrolled Glycemic state: with hyperglycemia Qualified Code(s): E11.65 - Type 2 diabetes mellitus with hyperglycemia
[2019-07-19] MEDS: MIRTAZAPINE TAB 15 MG TAB PO SCH (20:34)
[2019-07-19] MEDS: TRAZODONE HCL 100 MG TAB PO SCH (20:34)
[2019-07-19] MEDS: clonazePAM 1 MG TAB PO SCH (20:34)
[2019-07-19] MEDS: PHENYTOIN SODIUM ER 100 MG CAP PO SCH (20:35)
[2019-07-19] MEDS: QUETIAPINE FUMARATE 200 MG TAB PO SCH (20:35)
[2019-07-19] MEDS: ACETAMINOPHEN 325 MG TAB PO PRN (21:15)
[2019-07-19 22:27] LABS: BUN Creatinine Ratio 21.3 (10-20); Calcium 8.2 mg/dl (8.5-10.1); Creatinine Clr Calc Pharmacy 27.6 ml/min; Est GFR (African American) 26.3; Est GFR (Non-African American) 22.7; Potassium 4.1 mmol/L (3.5-5.1)
[2019-07-19] MEDS: HEPARIN SODIUM/DEXTROSE 25,000 UNITS/500 ML BAG IV SCH ×2 (22:59)
[2019-07-20 04:45] LABS: Partial Thromboplastin Ratio 2.3
[2019-07-20 04:49] LABS: Partial Thromboplastin Time 64.6 Seconds (21.0-31.0)
[2019-07-20 06:59] LABS: Basophils # (auto) 0.05 K/uL (0-0.2); Basophils % (auto) 0.7 %; Eosinophils # (auto) 0.11 K/uL (0-0.5); Eosinophils % (auto) 1.6 %; Hemoglobin 16.3 g/dL (14.0-18.0); Immature Granulocytes # (auto) 0.02 K/uL (0.00-0.02); Immature Granulocytes % (auto) 0.3 %; Lymphocytes % (auto) 22.6 %; Mean Corpuscular Hemoglobin 30.4 pg (25-34); Mean Corpuscular Hgb Conc 35.4 g/dL (32-36); Mean Corpuscular Volume 85.8 fL (80-100); Monocytes # (auto) 0.59 K/uL (0.11-0.59); Monocytes % (auto) 8.3 %; Neutrophils % (auto) 66.5 %; Platelet Count 132 K/uL (130-400); RDW Coefficient of Variation 16.8 % (11.5-14.5); RDW Standard Deviation 52.7 fL (36.4-46.3); Red Blood Count 5.36 M/uL (4.7-6.1); White Blood Count 7.07 K/uL (4.8-10.8)
[2019-07-20] MEDS: ALBUT/IPRATROP 3MG/0.5MG NEB 3 ML VIAL INH SCH (07:03)
[2019-07-20] MEDS ORDERED: ALBUT/IPRATROP 3MG/0.5MG NEB 3 ML VIAL INH PRN (07:09)
[2019-07-20 07:41] LABS: BUN Creatinine Ratio 23.7 (10-20); Calcium 8.1 mg/dl (8.5-10.1); Creatinine Clr Calc Pharmacy 29.2 ml/min; Est GFR (African American) 29.1; Est GFR (Non-African American) 25.1; Phosphorus 4.3 mg/dl (2.5-4.9)
[2019-07-20] MEDS: INSULIN ASPART 100 UNITS/ML 3 ML PEN SC SCH ×4 (09:52→21:27)
[2019-07-20] MEDS: GABAPENTIN 100 MG CAP PO SCH ×3 (09:54→22:57)
[2019-07-20] MEDS: lamoTRIgine 100 MG TAB PO SCH ×2 (09:54→20:59)
[2019-07-20] MEDS: PHENYTOIN SODIUM ER 100 MG CAP PO SCH ×2 (09:54→20:59)
[2019-07-20] MEDS: METOPROLOL TARTRATE 25 MG TAB PO SCH ×4 (09:54→21:00)
[2019-07-20] MEDS: ASPIRIN 81 MG ECTAB PO SCH (09:54)
[2019-07-20] MEDS: PANTOprazole 40 MG TAB PO SCH (09:55)
[2019-07-20] MEDS: ATORVASTATIN 40 MG TAB PO SCH (09:55)
[2019-07-20] MEDS: CLOPIDOGREL BISULFATE 75 MG TAB PO SCH (09:55)
[2019-07-20] MEDS: TAMSULOSIN HCL 0.4 MG CAP PO SCH (09:55)
--- NOTE | 2019-07-20 10:56 | Nephrology Progress Note ---
Date of Service July 20, 2019 Assessment & Plan (1) BRYANT (acute kidney injury): Nonoliguric acute on chronic kidney disease stage III versus actual renal progression. High risk for contrast nephropathy; baseline creatinine has been progressively worse over the past year with most recent value 1.26 October 2018; in late spring 2018, creatinine was 1.3-1.4 range. peaked yesterday at 2.9; improved today to 2.5. unclear baseline creatinine; some risk to worsen again w/ soft BP today. with extremely concentrated urine suggesting mild dehydration contaminated specimen, 1+ protein and blood. No indication for urgent dialysis at this time. chemistries acceptable. daily bmp Continue strict I's and O's -bp is lower today even w/o BB or lasix >> pt to receive BB later this am; monitor BP and defer further mgt to cardiology -would cont to hold diuretic for now (2) Acute hyperkalemia: resolved; was 6.2 at admission. responded to medical therapy so far. -Ordered low potassium diet. -Recheck basic metabolic panel later today already ordered >> k 4.5 (3) Acute exacerbation of CHF (congestive heart failure): Cardiology following. He is 1.4L negative since admission, 550 since yesterday. -Continue current low-dose diuretics -Monitor clinically; agree with fluid limit 1.8 L and heart healthy diet -defer to cardiology re diuretic (4) Erythrocytosis: resolved for now; predisposed to this from tobacco use hx more than [facility] Admission and Anticipated Discharge Date Admission Date: July 18, 2019 Subjective Ate full breakfast, shortness of breath or weakness any different than yesterday and improved compared to prior to admission. No edema, no chest pain no palpitations. He is "ticked off" but not being able to get the testing for heart Review of Systems Review of Systems: All systems reviewed & are unremarkable except as noted in HPI & below Physical Exam Constitutional: well developed, average body habitus and cooperative Sitting up in chair on room air with empty breakfast tray before him Eyes: EOM intact bilaterally ENMT: Ears: no external ear abnormality Nose: no external nose abnormality Mouth: + dry oral mucous membranes Neck: no nuchal rigidity Respiratory: normal respiratory effort Auscultation: lungs clear to auscultation bilaterally and + diminished lung sounds Cardiovascular: RRR, no murmur, no edema Gastrointestinal (Abdomen): Inspection/Auscultation: normal bowel sounds Percussion/Palpation: abdomen soft; abdomen nontender Musculoskeletal: Extremities: strength 5/5 throughout Skin: no rashes, warm and dry some plethoric limbs/ Neurologic: corley, fluent speech, no tremor but lip smacking tic Psychiatric: Orientation: alert and oriented x 3 Eye Contact: + fair eye contact Speech: normal rate/rhythm/volume of speech Affect: + flat affect and + constricted affect Genitourinary: Cano with ample urine Results & Data ([facility]) Vital Signs (Past 12 Hours) Vital Signs Temp Pulse Pulse Resp BP Pulse Ox 07/20/19 10:00 90 22 86/52 L 93 07/20/19 08:00 36.6 C 80 17 07/20/19 07:08 77 14 95 07/20/19 07:00 79 22 92 07/20/19 04:00 36.7 C 75 16 93/54 L 97 07/20/19 00:00 36.7 C 84 18 113/69 96 (1) Acute exacerbation of CHF (congestive heart failure) Heart failure type: unspecified Qualified Code(s): I50.9 - Heart failure, unspecified
--- NOTE | 2019-07-20 11:03 | Hospitalist Progress Note ---
Date of Service July 20, 2019 Assessment & Plan (1) Acute exacerbation of CHF (congestive heart failure): Acute respiratory failure likely secondary to flash pulmonary edema progressive over this afternoon. Responded well to Lasix 40mg IV with 1L out into [place]o within about 2 hours. . Patient denies any chest pain. Echo ordered. Recommend 2gm sodium diet when able to eat. Daily standing weights. Cardiology consult. Hold on further Lasix tonight and re-evaluate volume status in am. Remains on the dry side Awaiting echo to evaluate LV function NSTEMI Slight bump in troponin to 0.08 on admission Serial troponin went up to 10.2 EKG has right bundle branch block Echo on 06/30/2018 did show normal EF and grade 1 diastolic dysfunction Echo from this admission is pending Appreciate cardiology input and recommendation Possible cardiac cath on improvement of renal function Denies any chest pain and/or palpitation (2) Acute respiratory failure: Likely 2/2 pulmonary edema, however, Severe bilateral pneumonia and COVID19 has been ruled out. Started on ceftriaxone and doxycycline Flu and biofire respiratory panels were negative. Blood cultures have been pending Appreciate hotel or motel receptionist input and recommendation Now saturating normally on room air (3) New onset left bundle branch block (LBBB): Resolved after treatment of electrolyte abnormalities. Trop with some rise, but EKG improving with time and treatment, so doesn't appear to indicate an evolving STEMI, either. Cont to monitor closely on telemetry. (4) BRYANT (acute kidney injury): Stage III CKD with baseline creatinine around 1.5-1.7, now 2.1. Received IV Lasix of 40 mg Creatinine went up to 2.92 Appreciate nephrology input and recommendation (5) Acute hyperkalemia: Uses lisinopril regularly. Treated in the ER with Calcium, insulin, dextrose, and bicarb. He later received the lasix. Low potassium diet Monitor PRP-controlled now (6) Stenosis of right vertebral artery: Has a h/o TIA last year. No stroke or focal deficits. No vascular head imaging was performed at that time but he was placed on DAPT. CT angiogram of head and neck show high grade vertebral artery stenosis. His dizziness is improving with treatment of hypoxia. Nonfocal neuro exam. Stroke appears to be a less likely. Cont DAPT. Discussed with hotel or motel receptionist about vertebral artery stenosis We will have outpatient follow-up appointment with vascular surgeon Creatinine is slightly improved at 2.54 with BUN of 60 (7) Elevated troponin: Has NSTEMI Management as above (8) CAD (coronary artery disease): No h/o NH in the past, ,however, has clear coronary calcifications on imaging. Also has known PAD. Active smoker and uncontrolled diabetic. Lipid panel in am. Cont Lipitor 10mg daily, Metoprolol tartrate BID, Plavix and ASA per home regimen. (9) Diabetes type 2, uncontrolled: A1C 9.3 last year. Repeat in am. Basal bolus insulin. Hold all oral hypoglycemics. (10) Bipolar disorder: Hold home seroquel with prolonged QTc. (11) PAD (peripheral artery disease): Known history of this. Cont medical management. (12) COPD (chronic obstructive pulmonary disease): Chronic, stable. No active wheezing or evidence of exacerbation. Cont to encourage to quit smoking. (13) Seizure disorder: On Lamictal for both a h/o seizures and bipolar disorder, both of which are stable and chronic. No more seizure activity (14) Depression: Anxiety and depression present chronically. Follows with an outpatient psychiatrist. (15) Tobacco use disorder: Heavy lifelong smoker. Strongly encouraged to quit. Consider nicotine patch this admission. (16) DVT prophylaxis: Heparin Full Code as discussed with patient on admission. Dispo-to ICU for close monitoring overnight. Admission and Anticipated Discharge Date Admission Date: July 18, 2019 Subjective The patient was seen and examined in ICU He is out of bed on a chair Complains today of some weakness but denies any chest pain and/or palpitation, any abdominal pain nausea and or vomiting Has been saturating well on room air 07/20/2019 Patient was seen and examined in ICU He is out of bed on a chair and complains of weakness and tiredness Denies any chest pain and/or palpitation, abdominal pain,nausea and or vomiting, fever and or chills Review of Systems Review of Systems: All systems reviewed and are unremarkable except as noted below Neurologic: + generalized weakness Physical Exam Physical Exam: Sitting on a chair without any acute distress Constitutional: well developed, well nourished and + ill appearing; no acute distress Eyes: PERRL, conjunctivae normal, anicteric sclerae ENMT: external ear and nose normal, oropharynx normal Neck: trachea midline, no thyromegaly Respiratory: normal respiratory effort; no respiratory distress Auscultation: + diminished lung sounds (Especially at the bases without any crackles) Cardiovascular: Rate/Rhythm: regular rhythm Heart Sounds: no murmur Gastrointestinal (Abdomen): Inspection/Auscultation: + abdomen distended and normal bowel sounds Percussion/Palpation: abdomen soft; abdomen nontender Musculoskeletal: No acute arthritis involving any joints Neurologic: moves all extremities; no focal motor deficits Lymphatic: no cervical or axillary lymphadenopathy Results & Data Results & Data ([facility]) Vital Signs (Past 12 Hours) Vital Signs Temp Pulse Pulse Resp BP Pulse Ox 07/20/19 10:00 90 22 86/52 L 93 07/20/19 08:00 36.6 C 80 17 07/20/19 07:08 77 14 95 07/20/19 07:00 79 22 92 07/20/19 04:00 36.7 C 75 16 93/54 L 97 07/20/19 00:00 36.7 C 84 18 113/69 96 Laboratory Results Short CBC 07/20/19 Range/Units 06:44 WBC 7.07 (4.8-10.8) K/uL Hgb 16.3 (14.0-18.0) g/dL Hct 46.0 (42-52) % Plt Count 132 (130-400) K/uL BMP 07/19/19 07/19/19 07/20/19 15:23 21:55 06:44 Sodium 133 L 131 L 132 L Potassium 4.5 D 4.1 4.0 Chloride 97 L 96 L 99 Carbon Dioxide 22 25 23 BUN 52 H 59 H 60 H Creatinine 2.92 H D 2.76 H 2.54 H Glucose 133 H 131 H 72 Calcium 8.3 L 8.2 L 8.1 L Cardiac Enzymes 07/19/19 07/19/19 Range/Units 10:38 15:23 Troponin I 10.200 H* 9.550 H* (0-0.045) ng/ml Medications Administered Current Inpatient Medications Acetaminophen (Tylenol) 650 mg PO Q4H PRN PRN Reason: Pain Stop: 08/18/19 20:48 Last Admin: 07/19/19 21:15 Dose: 650 mg Documented by: Albuterol (Duoneb) 3 ml INH QIDR PRN PRN Reason: Wheezing Stop: 07/27/19 07:07 Aspirin (Ecotrin Ectab) 81 mg PO DAILY [facility] Stop: 08/18/19 08:59 Last Admin: 07/20/19 09:54 Dose: 81 mg Documented by: Atorvastatin Calcium (Lipitor) 40 mg PO DAILY [facility] Stop: 08/18/19 10:59 Last Admin: 07/20/19 09:55 Dose: 40 mg Documented by: Clonazepam (Klonopin) 1 mg PO HS [facility] Stop: 08/18/19 20:59 Last Admin: 07/19/19 20:34 Dose: 1 mg Documented by: Clopidogrel Bisulfate (Plavix) 75 mg PO DAILY [facility] Stop: 08/18/19 08:59 Last Admin: 07/20/19 09:55 Dose: 75 mg Documented by: Dextrose (Dextrose 50%) 25 - 50 ml IV UD PRN; Protocol PRN Reason: Hypoglycemia Protocol Stop: 08/17/19 23:26 Furosemide (Lasix) 40 mg PO BID17 [facility] Stop: 08/18/19 16:59 Last Admin: 07/19/19 17:03 Dose: 40 mg Documented by: Gabapentin (Neurontin) 100 mg PO Q8H [facility] Stop: 08/18/19 15:59 Last Admin: 07/20/19 09:54 Dose: 100 mg Documented by: Glucagon (Glucagen) 1 mg SQ UD PRN; Protocol PRN Reason: Hypoglycemia Protocol Stop: 08/17/19 23:26 Glucose (Dex4 Glucose) 4 - 8 tabs PO UD PRN; Protocol PRN Reason: Hypoglycemia Protocol Stop: 08/17/19 23:26 Glucose (Glucose 40%) 15 - 30 gm PO UD PRN; Protocol PRN Reason: Hypoglycemia Protocol Stop: 08/17/19 23:26 Heparin Sodium/Dextrose (Heparin Sodium/Dextrose) 25,000 units in 500 mls @ 22 mls/hr IV .[id number] [facility]; Protocol Stop: 08/17/19 23:14 Last Titration: 07/20/19 07:20 Dose: 1,100 units/hr, 22 mls/hr Documented by: Insulin Aspart (Novolog Flexpen) 0 units SC ACHS [facility] Stop: 08/18/19 07:29 Last Admin: 07/20/19 09:52 Dose: Not Given Documented by: Insulin Glargine (Lantus Solostar Pen) 15 units SC BID [facility] Stop: 08/17/19 23:29 Last Admin: 07/19/19 20:38 Dose: 15 units Documented by: Lamotrigine (Lamictal) 400 mg PO BID [facility] Stop: 08/18/19 08:59 Last Admin: 07/20/19 09:54 Dose: 400 mg Documented by: Metoprolol Tartrate (Lopressor) 12.5 mg PO BID [facility] Stop: 08/18/19 08:59 Last Admin: 07/20/19 10:10 Dose: Not Given Documented by: Mirtazapine (Remeron) 30 mg PO DAILY@1999 [facility] Stop: 08/18/19 19:59 Last Admin: 07/19/19 20:34 Dose: 30 mg Documented by: Miscellaneous (Carbohydrates For Hypoglycemia) 15 - 30 gm PO UD PRN PRN Reason: Hypoglycemia Protocol Stop: 08/17/19 23:26 Miscellaneous (Icu Protocol For Hyperglycemia) 1 ea N/A PRN PRN; Protocol PRN Reason: Hyperglycemia Protocol Stop: 07/21/19 06:02 Pantoprazole Sodium (Protonix) 40 mg PO DAILY [facility] Stop: 08/18/19 08:59 Last Admin: 07/20/19 09:55 Dose: 40 mg Documented by: Phenytoin Sodium (Dilantin Er) 100 mg PO BID [facility] Stop: 08/18/19 20:59 Last Admin: 07/20/19 09:54 Dose: 100 mg Documented by: Polyethylene Glycol (Miralax Powder Packet) 17 gm PO DAILY PRN PRN Reason: Constipation Stop: 08/18/19 10:23 Promethazine HCl (Phenergan) 25 mg PO Q6H PRN PRN Reason: Nausea And Vomiting Stop: 08/17/19 22:13 Last Admin: 07/18/19 22:55 Dose: 25 mg Documented by: Quetiapine Fumarate (Seroquel) 400 mg PO [facility] Stop: 08/18/19 20:59 Last Admin: 07/19/19 20:35 Dose: 400 mg Documented by: Tamsulosin HCl (Flomax) 0.4 mg PO DAILY [facility] Stop: 08/18/19 08:59 Last Admin: 07/20/19 09:55 Dose: 0.4 mg Documented by: Trazodone HCl (Desyrel) 100 mg PO [facility] Stop: 08/18/19 20:59 Last Admin: 07/19/19 20:34 Dose: 100 mg Documented by: (1) Acute exacerbation of CHF (congestive heart failure) Heart failure type: unspecified Qualified Code(s): I50.9 - Heart failure, unspecified (2) Diabetes type 2, uncontrolled Glycemic state: with hyperglycemia Qualified Code(s): E11.65 - Type 2 diabetes mellitus with hyperglycemia
--- NOTE | 2019-07-20 12:18 | Cardiology Progress Note ---
Date of Service July 20, 2019 Assessment & Plan (1) Acute exacerbation of CHF (congestive heart failure): (2) NSTEMI (non-ST elevated myocardial infarction): (3) Ischemic cardiomyopathy: (4) Severe mitral regurgitation: (5) BRYANT (acute kidney injury): (6) Acute hyperkalemia: (7) Hypermagnesemia: (8) PAD (peripheral artery disease): (9) Diabetes type 2, uncontrolled: (10) Tobacco use disorder: Creatinine remains elevated, however, trending downward slightly. Continue IV heparin and dual antiplatelet therapy. IV Lasix on hold as patient appears compensated. Continue low-dose beta-errol therapy as blood pressure allows and high intensity statin therapy. OLGA inhibitor on hold in the setting of acute kidney injury and hyperkalemia. Repeat basic metabolic panel in a.m. Plan cardiac catheterization when renal function has stabilized. Procedure will be performed on an urgent basis if clinical status declines. I had a long discussion with the patient regarding his ischemic heart disease and need for upcoming procedures requiring IV contrast. He understands the reasoning for delaying procedures at this time due to renal dysfunction. Subjective Patient seen and examined the bedside. Feeling better from a cardiovascular perspective. Denies orthopnea or paroxysmal nocturnal dyspnea. No conversational dyspnea. No longer requiring supplemental oxygen. Creatinine remains elevated. Patient is anxious regarding his cardiovascular issues. Tolerating current medications. Fluid balance negative. Resting 2D transthoracic echocardiogram demonstrates ischemic cardiomyopathy with severe mitral regurgitation. Patient offers no other concerns/complaints this time. Review of Systems Review of Systems: All systems reviewed & are unremarkable except as noted in HPI & below Physical Exam Constitutional: + ill appearing and average body habitus Eyes: + anicteric sclerae and EOM intact bilaterally Respiratory: normal respiratory effort Auscultation: no crackles, no rales, no rhonchi and no wheezes Cardiovascular: Rate/Rhythm: regular rate and regular rhythm Heart Sounds: normal S1 and normal S2; no gallop, no murmur and no cardiac rub Palpation: normal PMI Vessels: radial pulses present; no JVD, + posterior tibial pulses abnormal and + dorsalis pedis pulses abnormal Extremities: no edema Gastrointestinal (Abdomen): Inspection/Auscultation: abdomen normal to inspection and normal bowel sounds; abdomen not distended Percussion/Palpation: abdomen soft; abdomen nontender, no guarding and abdomen not rigid Musculoskeletal: Extremities: strength 5/5 throughout Skin: no rashes, warm and dry Neurologic: moves all extremities; no focal motor deficits Psychiatric: A+Ox3, euthymic affect Results & Data Vital Signs (Past 12 Hours) Vital Signs Temp Pulse Pulse Resp BP Pulse Ox 07/20/19 11:47 36.7 C 86 23 101/62 96 07/20/19 10:00 90 22 86/52 L 93 07/20/19 08:00 36.6 C 80 17 07/20/19 07:08 77 14 95 07/20/19 07:00 79 22 92 07/20/19 04:00 36.7 C 75 16 93/54 L 97 (1) Acute exacerbation of CHF (congestive heart failure) Heart failure type: systolic Qualified Code(s): I50.23 - Acute on chronic systolic (congestive) heart failure (2) Diabetes type 2, uncontrolled Glycemic state: with hyperglycemia Qualified Code(s): E11.65 - Type 2 diabetes mellitus with hyperglycemia
--- NOTE | 2019-07-20 12:59 | XRay Report ---
XR chest 1V portable CLINICAL HISTORY: Congestive heart failure COMPARISON STUDY: 07/18/2019 FINDINGS: The heart remains enlarged. There is resolving pulmonary edema. There is no focal pulmonary consolidation. There are no large pleural effusions.[ IMPRESSION: Cardiomegaly and resolving pulmonary edema. ACT 112: Negative or not required by law. Electronically signed by: Wilder Carrizales M.D. 07/20/2019 12:58 PM
--- NOTE | 2019-07-20 14:54 | Electrocardiogram Report ---
Test Reason : Blood Pressure : / mmHG Vent. Rate : 076 BPM Atrial Rate : 076 BPM P-R Int : 178 ms QRS Dur : 124 ms QT Int : 442 ms P-R-T Axes : 056 075 084 degrees QTc Int : 497 ms Normal sinus rhythm Non-specific intra-ventricular conduction delay Borderline ECG When compared with ECG of 19-JUL-2019 06:50, Questionable change in QRS duration Confirmed by Brooks Enriquez ([id number]) on 07/20/2019 2:53:53 PM Referred By: REFERRED SELF Confirmed By:Brooks Enriquez
[2019-07-20] MEDS: POLYETHYLENE (MIRALAX) 17 GM PACK PO PRN (16:10)
[2019-07-20] MEDS: SIMETHICONE 80 MG CHEW PO PRN (20:59)
[2019-07-20] MEDS: QUETIAPINE FUMARATE 200 MG TAB PO SCH (20:59)
[2019-07-20] MEDS: MIRTAZAPINE TAB 15 MG TAB PO SCH (20:59)
[2019-07-20] MEDS: TRAZODONE HCL 100 MG TAB PO SCH (21:00)
[2019-07-20] MEDS: clonazePAM 1 MG TAB PO SCH (21:00)
[2019-07-20] MEDS: ACETAMINOPHEN 325 MG TAB PO PRN (21:24)
[2019-07-20] MEDS: INSULIN GLARGINE SOLOSTAR 100 UNITS/ML 3 ML PEN SC SCH (21:28)
[2019-07-20] MEDS: HEPARIN SODIUM/DEXTROSE 25,000 UNITS/500 ML BAG IV SCH (22:56)
[2019-07-21 04:34] LABS: Basophils # (auto) 0.04 K/uL (0-0.2); Basophils % (auto) 0.7 %; Eosinophils # (auto) 0.13 K/uL (0-0.5); Eosinophils % (auto) 2.4 %; Hematocrit (blood only) 46.4 % (42-52); Hemoglobin 16.2 g/dL (14.0-18.0); Immature Granulocytes # (auto) 0.01 K/uL (0.00-0.02); Immature Granulocytes % (auto) 0.2 %; Lymphocytes # (auto) 2.38 K/uL (1.2-3.4); Mean Corpuscular Hemoglobin 29.9 pg (25-34); Mean Corpuscular Hgb Conc 34.9 g/dL (32-36); Mean Corpuscular Volume 85.8 fL (80-100); Monocytes # (auto) 0.41 K/uL (0.11-0.59); Monocytes % (auto) 7.6 %; Neutrophils # (auto) 2.44 K/uL (1.4-6.5); Neutrophils % (auto) 45.1 %; Platelet Count 127 K/uL (130-400); RDW Coefficient of Variation 16.5 % (11.5-14.5); Red Blood Count 5.41 M/uL (4.7-6.1); White Blood Count 5.41 K/uL (4.8-10.8)
[2019-07-21 04:54] LABS: Partial Thromboplastin Ratio 2.9
[2019-07-21 04:57] LABS: BUN Creatinine Ratio 26.1 (10-20); Calcium 8.2 mg/dl (8.5-10.1); Creatinine Clr Calc Pharmacy 34.9 ml/min; Est GFR (Non-African American) 31.1; Magnesium 3.4 mg/dl (1.8-2.4); Potassium 3.9 mmol/L (3.5-5.1)
[2019-07-21 05:00] LABS: Phosphorus 3.5 mg/dl (2.5-4.9)
[2019-07-21 05:03] LABS: Partial Thromboplastin Time 79.6 Seconds (21.0-31.0)
[2019-07-21] MEDS: HEPARIN SODIUM/DEXTROSE 25,000 UNITS/500 ML BAG IV SCH ×3 (07:32→16:19)
[2019-07-21] MEDS: INSULIN ASPART 100 UNITS/ML 3 ML PEN SC SCH ×4 (08:06→20:37)
[2019-07-21] MEDS: SIMETHICONE 80 MG CHEW PO PRN (08:26)
[2019-07-21] MEDS: PHENYTOIN SODIUM ER 100 MG CAP PO SCH ×2 (08:26→20:36)
[2019-07-21] MEDS: ATORVASTATIN 40 MG TAB PO SCH (08:26)
[2019-07-21] MEDS: ASPIRIN 81 MG ECTAB PO SCH (08:26)
[2019-07-21] MEDS: METOPROLOL TARTRATE 25 MG TAB PO SCH ×2 (08:26→20:36)
[2019-07-21] MEDS: lamoTRIgine 100 MG TAB PO SCH ×2 (08:26→20:35)
[2019-07-21] MEDS: GABAPENTIN 100 MG CAP PO SCH ×2 (08:26→16:17)
[2019-07-21] MEDS: TAMSULOSIN HCL 0.4 MG CAP PO SCH (08:27)
[2019-07-21] MEDS: CLOPIDOGREL BISULFATE 75 MG TAB PO SCH (08:27)
[2019-07-21] MEDS: PANTOprazole 40 MG TAB PO SCH (08:27)
[2019-07-21] MEDS: INSULIN GLARGINE SOLOSTAR 100 UNITS/ML 3 ML PEN SC SCH (08:27)
--- NOTE | 2019-07-21 09:06 | Nephrology Progress Note ---
Date of Service July 21, 2019 Assessment & Plan (1) BRYANT (acute kidney injury): Nonoliguric acute on chronic kidney disease stage III versus actual renal progression. High risk for contrast nephropathy; baseline creatinine has been progressively worse over the past year with most recent value 1.26 October 2018; in late spring 2018, creatinine was 1.3-1.4 range. peaked yesterday at 2.9; improved today further to 2.1. unclear baseline creatinine; some risk to worsen again w/ soft BP today. with extremely concentrated urine suggesting mild dehydration contaminated specimen, 1+ protein and blood. No indication for urgent dialysis at this time. chemistries acceptable. Despite Lasix being held, he appears to be auto diuresing it is 1.3 L negative in the past 24 hours; last lasix dose 07/18 1700 daily bmp Continue strict I's and O's -bp is lower today even w/o BB or lasix >> pt to receive BB later this am; monitor BP and defer further mgt to cardiology -would cont to hold diuretic for now as long as he remains at least 500 mL negative / 24 hrs, sbp remains soft, and creatinine improving (2) Acute exacerbation of CHF (congestive heart failure): Cardiology following. -diuretics as above -Monitor clinically; agree with fluid limit 1.8 L and heart healthy diet Admission and Anticipated Discharge Date Admission Date: July 18, 2019 Subjective No further episodes of shortness of breath or generalized weakness. Remains constipated but confident he will have a bowel movement today. No edema. No chest pain or palpitations Review of Systems Review of Systems: All systems reviewed & are unremarkable except as noted in HPI & below Physical Exam Constitutional: well developed, well nourished, average body habitus and cooperative; no acute distress Eyes: EOM intact bilaterally ENMT: Ears: no external ear abnormality Nose: no external nose abnormality Mouth: + dry oral mucous membranes Neck: no nuchal rigidity Respiratory: normal respiratory effort Auscultation: lungs clear to auscultation bilaterally, + diminished lung sounds and + crackles (bibasilar 1/[address]) Cardiovascular: RRR, no murmur, no edema Rate/Rhythm: regular rate and regular rhythm Extremities: no edema Gastrointestinal (Abdomen): Inspection/Auscultation: normal bowel sounds Percussion/Palpation: abdomen soft; abdomen nontender Musculoskeletal: Extremities: strength 5/5 throughout Skin: no rashes, warm and dry Neurologic: Lip smacking tic Psychiatric: Orientation: alert and oriented x 3 Eye Contact: + fair eye contact Motor Behavior: no abnormal motor movements Speech: normal rate/rhythm/volume of speech Affect: + flat affect, + blunted affect and + constricted affect Genitourinary: Cano with ample yellow urine Results & Data ([facility]) Vital Signs (Past 12 Hours) Vital Signs Temp Pulse Resp BP Pulse Ox 07/21/19 08:25 36.7 C 79 20 97/59 L 96 07/21/19 08:00 81 18 07/21/19 04:00 36.7 C 64 20 106/63 93 07/21/19 00:00 36.7 C 71 20 85/54 L 96 07/20/19 22:00 78 19 07/20/19 21:30 72 20 Laboratory Results 07/21/19 04:10 07/21/19 04:10 (1) Acute exacerbation of CHF (congestive heart failure) Heart failure type: systolic Qualified Code(s): I50.23 - Acute on chronic systolic (congestive) heart failure
[2019-07-21] MEDS: POLYETHYLENE (MIRALAX) 17 GM PACK PO PRN (09:30)
--- NOTE | 2019-07-21 11:38 | Hospitalist Progress Note ---
Date of Service July 21, 2019 Assessment & Plan (1) Acute exacerbation of CHF (congestive heart failure): Acute respiratory failure likely secondary to flash pulmonary edema progressive over this afternoon. Responded well to Lasix 40mg IV with 1L out into [place] within about 2 hours. . Patient denies any chest pain. Echo ordered. Recommend 2gm sodium diet when able to eat. Daily standing weights. Cardiology consult. Hold on further Lasix tonight and re-evaluate volume status in am. Remains on the dry side Awaiting echo to evaluate LV function No signs of volume overload-monitor in the telemetry unit NSTEMI Slight bump in troponin to 0.08 on admission Serial troponin went up to 10.2 EKG has right bundle branch block Echo on 06/30/2018 did show normal EF and grade 1 diastolic dysfunction Echo from this admission is pending Appreciate cardiology input and recommendation Possible cardiac cath on improvement of renal function Denies any chest pain and/or palpitation (2) Acute respiratory failure: Likely 2/2 pulmonary edema, however, Severe bilateral pneumonia and COVID19 has been ruled out. Started on ceftriaxone and doxycycline Flu and biofire respiratory panels were negative. Blood cultures have been pending Appreciate review assistant input and recommendation Now saturating normally on room air (3) New onset left bundle branch block (LBBB): Resolved after treatment of electrolyte abnormalities. Trop with some rise, but EKG improving with time and treatment, so doesn't appear to indicate an evolving STEMI, either. Cont to monitor closely on telemetry. (4) BRYANT (acute kidney injury): Stage III CKD with baseline creatinine around 1.5-1.7, now 2.1. Received IV Lasix of 40 mg Creatinine went up to 2.92 Appreciate nephrology input and recommendation (5) Acute hyperkalemia: Uses lisinopril regularly. Treated in the ER with Calcium, insulin, dextrose, and bicarb. He later re ceived the lasix. Low potassium diet Monitor PRP-controlled now (6) Stenosis of right vertebral artery: Has a h/o TIA last year. No stroke or focal deficits. No vascular head imaging was performed at that time but he was placed on DAPT. CT angiogram of head and neck show high grade vertebral artery stenosis. His dizziness is improving with treatment of hypoxia. Nonfocal neuro exam. Stroke appears to be a less likely. Cont DAPT. Discussed with review assistant about vertebral artery stenosis We will have outpatient follow-up appointment with vascular surgeon Creatinine is slightly improved to 2.13 as of 07/21/2019 (7) Elevated troponin: Has NSTEMI Management as above (8) CAD (coronary artery disease): No h/o [place] in the past, ,however, has clear coronary calcifications on imaging. Also has known PAD. Active smoker and uncontrolled diabetic. Lipid panel in am. Cont Lipitor 10mg daily, Metoprolol tartrate BID, Plavix and ASA per home regimen. Cardiac cath when renal function is better (9) Diabetes type 2, uncontrolled: A1C 9.3 last year. Repeat in am. Basal bolus insulin. Hold all oral hypoglycemics. (10) Bipolar disorder: Hold home seroquel with prolonged QTc. (11) PAD (peripheral artery disease): Known history of this. Cont medical management. (12) COPD (chronic obstructive pulmonary disease): Chronic, stable. No active wheezing or evidence of exacerbation. Cont to encourage to quit smoking. (13) Seizure disorder: On Lamictal for both a h/o seizures and bipolar disorder, both of which are stable and chronic. No more seizure activity (14) Depression: Anxiety and depression present chronically. Follows with an outpatient psychiatrist. (15) Tobacco use disorder: Heavy lifelong smoker. Strongly encouraged to quit. Consider nicotine patch this admission. (16) DVT prophylaxis: Heparin Full Code as discussed with patient on admission. Dispo-to ICU for close monitoring overnight. Admission and Anticipated Discharge Date Admission Date: July 18, 2019 Subjective The patient was seen and examined in ICU He is out of bed on a chair Complains today of some weakness but denies any chest pain and/or palpitation, any abdominal pain nausea and or vomiting Has been saturating well on room air 07/20/2019 Patient was seen and examined in ICU He is out of bed on a chair and complains of weakness and tiredness Denies any chest pain and/or palpitation, abdominal pain,nausea and or vomiting, fever and or chills 07/21/2019 The patient was seen and examined in ICU He has been feeling better except mild weakness denies any other significant symptoms No more chest pain and/or palpitation and no arrhythmias on monitor Review of Systems Review of Systems: All systems reviewed and are unremarkable except as noted below Neurologic: + generalized weakness Physical Exam Physical Exam: Sitting on a chair without any acute distress Constitutional: well developed, well nourished and + ill appearing; no acute distress Eyes: PERRL, conjunctivae normal, anicteric sclerae ENMT: external ear and nose normal, oropharynx normal Neck: trachea midline, no thyromegaly Respiratory: normal respiratory effort; no respiratory distress Auscultation: lungs clear to auscultation bilaterally Cardiovascular: Rate/Rhythm: regular rhythm Heart Sounds: no murmur Extremities: no edema Gastrointestinal (Abdomen): Inspection/Auscultation: + abdomen distended and normal bowel sounds Percussion/Palpation: abdomen soft; abdomen nontender Musculoskeletal: No acute arthritis involving any joints Neurologic: moves all extremities; no focal motor deficits Lymphatic: no cervical or axillary lymphadenopathy Results & Data Results & Data ([facility]) Vital Signs (Past 12 Hours) Vital Signs Temp Pulse Resp BP Pulse Ox 07/21/19 08:25 36.7 C 79 20 97/59 L 96 07/21/19 08:00 81 18 07/21/19 04:00 36.7 C 64 20 106/63 93 07/21/19 00:00 36.7 C 71 20 85/54 L 96 Laboratory Results Short CBC 07/21/19 Range/Units 04:10 WBC 5.41 (4.8-10.8) K/uL Hgb 16.2 (14.0-18.0) g/dL Hct 46.4 (42-52) % Plt Count 127 L (130-400) K/uL BMP 07/21/19 04:10 Sodium 135 L Potassium 3.9 Chloride 103 Carbon Dioxide 24 BUN 56 H Creatinine 2.13 H D Glucose 64 L Calcium 8.2 L Medications Administered Current Inpatient Medications Acetaminophen (Tylenol) 650 mg PO Q4H PRN PRN Reason: Pain Stop: 08/18/19 20:48 Last Admin: 07/20/19 21:24 Dose: 650 mg Documented by: Albuterol (Duoneb) 3 ml INH QIDR PRN PRN Reason: Wheezing Stop: 07/27/19 07:07 Aspirin (Ecotrin Ectab) 81 mg PO DAILY [facility] Stop: 08/18/19 08:59 Last Admin: 07/21/19 08:26 Dose: 81 mg Documented by: Atorvastatin Calcium (Lipitor) 40 mg PO DAILY [facility] Stop: 08/18/19 10:59 Last Admin: 07/21/19 08:26 Dose: 40 mg Documented by: Clonazepam (Klonopin) 1 mg PO HS [facility] Stop: 08/18/19 20:59 Last Admin: 07/20/19 21:00 Dose: 1 mg Documented by: Clopidogrel Bisulfate (Plavix) 75 mg PO DAILY [facility] Stop: 08/18/19 08:59 Last Admin: 07/21/19 08:27 Dose: 75 mg Documented by: Dextrose (Dextrose 50%) 25 - 50 ml IV UD PRN; Protocol PRN Reason: Hypoglycemia Protocol Stop: 08/17/19 23:26 Furosemide (Lasix) 40 mg PO BID17 [facility] Stop: 08/18/19 16:59 Last Admin: 07/19/19 17:03 Dose: 40 mg Documented by: Gabapentin (Neurontin) 100 mg PO Q8H [facility] Stop: 08/18/19 15:59 Last Admin: 07/21/19 08:26 Dose: 100 mg Documented by: Glucagon (Glucagen) 1 mg SQ UD PRN; Protocol PRN Reason: Hypoglycemia Protocol Stop: 08/17/19 23:26 Glucose (Dex4 Glucose) 4 - 8 tabs PO UD PRN; Protocol PRN Reason: Hypoglycemia Protocol Stop: 08/17/19 23:26 Glucose (Glucose 40%) 15 - 30 gm PO UD PRN; Protocol PRN Reason: Hypoglycemia Protocol Stop: 08/17/19 23:26 Heparin Sodium/Dextrose (Heparin Sodium/Dextrose) 25,000 units in 500 mls @ 19 mls/hr IV .Q24H [facility]; Protocol Stop: 08/17/19 23:14 Last Admin: 07/21/19 07:33 Dose: Not Given Documented by: Insulin Aspart (Novolog Flexpen) 0 units SC ACHS [facility] Stop: 08/18/19 07:29 Last Admin: 07/21/19 08:06 Dose: Not Given Documented by: Insulin Glargine (Lantus Solostar Pen) 15 units SC BID [facility] Stop: 08/17/19 23:29 Last Admin: 07/21/19 08:27 Dose: 15 units Documented by: Lamotrigine (Lamictal) 400 mg PO BID [facility] Stop: 08/18/19 08:59 Last Admin: 07/21/19 08:26 Dose: 400 mg Documented by: Metoprolol Tartrate (Lopressor) 12.5 mg PO BID [facility] Stop: 08/18/19 08:59 Last Admin: 07/21/19 08:26 Dose: 12.5 mg Documented by: Mirtazapine (Remeron) 30 mg PO DAILY@1999 [facility] Stop: 08/18/19 19:59 Last Admin: 07/20/19 20:59 Dose: 30 mg Documented by: Miscellaneous (Carbohydrates For Hypoglycemia) 15 - 30 gm PO UD PRN PRN Reason: Hypoglycemia Protocol Stop: 08/17/19 23:26 Pantoprazole Sodium (Protonix) 40 mg PO DAILY [facility] Stop: 08/18/19 08:59 Last Admin: 07/21/19 08:27 Dose: 40 mg Documented by: Phenytoin Sodium (Dilantin Er) 100 mg PO BID [facility] Stop: 08/18/19 20:59 Last Admin: 07/21/19 08:26 Dose: 100 mg Documented by: Polyethylene Glycol (Miralax Powder Packet) 17 gm PO DAILY PRN PRN Reason: Constipation Stop: 08/18/19 10:23 Last Admin: 07/20/19 16:10 Dose: 17 gm Documented by: Promethazine HCl (Phenergan) 25 mg PO Q6H PRN PRN Reason: Nausea And Vomiting Stop: 08/17/19 22:13 Last Admin: 07/18/19 22:55 Dose: 25 mg Documented by: Quetiapine Fumarate (Seroquel) 400 mg PO [facility] Stop: 08/18/19 20:59 Last Admin: 07/20/19 20:59 Dose: 400 mg Documented by: Simethicone (Mylicon) 80 mg PO Q6H PRN PRN Reason: Gas or Constipation Stop: 08/19/19 20:00 Last Admin: 07/21/19 08:26 Dose: 80 mg Documented by: Tamsulosin HCl (Flomax) 0.4 mg PO DAILY [facility] Stop: 08/18/19 08:59 Last Admin: 07/21/19 08:27 Dose: 0.4 mg Documented by: Trazodone HCl (Desyrel) 100 mg PO [facility] Stop: 08/18/19 20:59 Last Admin: 07/20/19 21:00 Dose: 100 mg Documented by: (1) Acute exacerbation of CHF (congestive heart failure) Heart failure type: systolic Qualified Code(s): I50.23 - Acute on chronic systolic (congestive) heart failure (2) Diabetes type 2, uncontrolled Glycemic state: with hyperglycemia Qualified Code(s): E11.65 - Type 2 whit betes mellitus with hyperglycemia
[2019-07-21 11:48] LABS: Partial Thromboplastin Time 55.3 Seconds (21.0-31.0)
--- NOTE | 2019-07-21 13:51 | Cardiology Progress Note ---
Date of Service July 21, 2019 Assessment & Plan (1) Acute exacerbation of CHF (congestive heart failure): (2) NSTEMI (non-ST elevated myocardial infarction): (3) Ischemic cardiomyopathy: (4) Severe mitral regurgitation: (5) BRYANT (acute kidney injury): (6) Acute hyperkalemia: (7) Hypermagnesemia: (8) PAD (peripheral artery disease): (9) Diabetes type 2, uncontrolled: (10) Tobacco use disorder: Titrate atorvastatin to 80 mg daily. Continue IV heparin and dual antiplatelet therapy. Hold IV Lasix. Continue low-dose beta-errol therapy Repeat basic metabolic panel in a.m. Plan cardiac catheterization when renal function has stabilized. (Previous baseline creatinine 1.3-1.4) Procedure will be performed on an urgent basis if clinical status declines. I had a long discussion with the patient regarding his ischemic heart disease and need for upcoming procedures requiring IV contrast. He understands the reasoning for delaying procedures at this time due to renal dysfunction. Subjective Patient seen and examined at the bedside. Feeling well from a cardiovascular perspective. Oxygen saturations adequate on room air. Fluid balance -1480 cc. Diuretic therapy on hold. Creatinine trending downward. Patient denies chest pain or unusual shortness of breath. Notes some mild paresthesias involving his left hand. This is a chronic issue. No orthopnea, paroxysmal nocturnal dyspnea, or palpitations. No sustained dysrhythmias on telemetry. Review of Systems Review of Systems: All systems reviewed & are unremarkable except as noted in HPI & below Physical Exam Constitutional: + ill appearing and average body habitus Eyes: + anicteric sclerae and EOM intact bilaterally Respiratory: normal respiratory effort Auscultation: no crackles, no rales, no rhonchi and no wheezes Cardiovascular: Rate/Rhythm: regular rate and regular rhythm Heart Sounds: normal S1 and normal S2; no gallop, no murmur and no cardiac rub Palpation: normal PMI Vessels: radial pulses present; no JVD, + posterior tibial pulses abnormal and + dorsalis pedis pulses abnormal Extremities: no edema Gastrointestinal (Abdomen): Inspection/Auscultation: abdomen normal to inspection and normal bowel sounds; abdomen not distended Percussion/Palpation: abdomen soft; abdomen nontender, no guarding and abdomen not rigid Musculoskeletal: Extremities: strength 5/5 throughout Skin: no rashes, warm and dry Neurologic: moves all extremities; no focal motor deficits Psychiatric: A+Ox3, euthymic affect Results & Data Vital Signs (Past 12 Hours) Vital Signs Temp Pulse Resp BP Pulse Ox 07/21/19 11:33 36.8 C 75 18 107/62 95 07/21/19 08:25 36.7 C 79 20 97/59 L 96 07/21/19 08:00 81 18 07/21/19 04:00 36.7 C 64 20 106/63 93 (1) Acute exacerbation of CHF (congestive heart failure) Heart failure type: systolic Qualified Code(s): I50.23 - Acute on chronic systolic (congestive) heart failure (2) Diabetes type 2, uncontrolled Glycemic state: with hyperglycemia Qualified Code(s): E11.65 - Type 2 whit betes mellitus with hyperglycemia
--- NOTE | 2019-07-21 15:30 | Electrocardiogram Report ---
Test Reason : Blood Pressure : / mmHG Vent. Rate : 077 BPM Atrial Rate : 077 BPM P-R Int : 162 ms QRS Dur : 138 ms QT Int : 442 ms P-R-T Axes : 032 049 068 degrees QTc Int : 500 ms Normal sinus rhythm Non-specific intra-ventricular conduction block Nonspecific T wave abnormality Abnormal ECG When compared with ECG of 20-JUL-2019 06:47, Questionable change in QRS duration Confirmed by Brooks Enriquez ([id number]) on 07/21/2019 3:30:04 PM Referred By: REFERRED SELF Confirmed By:Brooks Enriquez
[2019-07-21] MEDS: MIRTAZAPINE TAB 15 MG TAB PO SCH (20:35)
[2019-07-21] MEDS: TRAZODONE HCL 100 MG TAB PO SCH (20:36)
[2019-07-21] MEDS: QUETIAPINE FUMARATE 200 MG TAB PO SCH (20:37)
[2019-07-21] MEDS: clonazePAM 1 MG TAB PO SCH (20:40)
[2019-07-22] MEDS: GABAPENTIN 100 MG CAP PO SCH ×3 (00:04→17:34)
[2019-07-22] MEDS: HEPARIN SODIUM/DEXTROSE 25,000 UNITS/500 ML BAG IV SCH (00:05)
[2019-07-22 05:22] LABS: Partial Thromboplastin Ratio 1.9
[2019-07-22 05:32] LABS: Partial Thromboplastin Time 52.7 Seconds (21.0-31.0)
[2019-07-22 05:36] LABS: BUN Creatinine Ratio 21.6 (10-20); Creatinine Clr Calc Pharmacy 37.9 ml/min; Est GFR (African American) 39.6; Est GFR (Non-African American) 34.2; Magnesium 3.1 mg/dl (1.8-2.4); Potassium 4.1 mmol/L (3.5-5.1)
[2019-07-22] MEDS: INSULIN ASPART 100 UNITS/ML 3 ML PEN SC SCH ×4 (08:05→22:08)
[2019-07-22] MEDS: METOPROLOL TARTRATE 25 MG TAB PO SCH ×2 (08:06→20:43)
[2019-07-22] MEDS: PHENYTOIN SODIUM ER 100 MG CAP PO SCH ×2 (08:06→20:44)
[2019-07-22] MEDS: PANTOprazole 40 MG TAB PO SCH (08:06)
[2019-07-22] MEDS: CLOPIDOGREL BISULFATE 75 MG TAB PO SCH (08:06)
[2019-07-22] MEDS: ASPIRIN 81 MG ECTAB PO SCH (08:06)
[2019-07-22] MEDS: ATORVASTATIN 40 MG TAB PO SCH (08:06)
[2019-07-22] MEDS: TAMSULOSIN HCL 0.4 MG CAP PO SCH (08:06)
[2019-07-22] MEDS: lamoTRIgine 100 MG TAB PO SCH ×2 (08:07→20:44)
[2019-07-22] MEDS: POLYETHYLENE (MIRALAX) 17 GM PACK PO PRN (08:09)
[2019-07-22] MEDS: ACETAMINOPHEN 325 MG TAB PO PRN (08:21)
--- NOTE | 2019-07-22 09:14 | Hospitalist Progress Note ---
Date of Service July 22, 2019 Assessment & Plan (1) Acute exacerbation of CHF (congestive heart failure): Acute respiratory failure likely secondary to flash pulmonary edema progressive over this afternoon. Responded well to Lasix 40mg IV with 1L out into [place] within about 2 hours. . Patient denies any chest pain. Echo ordered. Recommend 2gm sodium diet when able to eat. Daily standing weights. Cardiology consult. Hold on further Lasix tonight and re-evaluate volume status in am. Remains on the dry side Diuresing enough without the use of diuretics No signs of fluid overload NSTEMI Slight bump in troponin to 0.08 on admission Serial troponin went up to 10.2 EKG has right bundle branch block Echo on 06/30/2018 did show normal EF and grade 1 diastolic dysfunction Echo from this admission is pending Appreciate cardiology input and recommendation Possible cardiac cath on improvement of renal function Renal function has been improving with creatinine of 1.9 as of today 07/22/2019 Bowel has not moved for the last 2 days Has been getting oral medications without any help Will try Dulcolax suppository if it does not help we will give enema (2) Acute respiratory failure: Likely 2/2 pulmonary edema, however, Severe bilateral pneumonia and COVID19 has been ruled out. Started on ceftriaxone and doxycycline Flu and biofire respiratory panels were negative. Blood cultures have been pending Appreciate turbo operator input and recommendation Now saturating normally on room air (3) New onset left bundle branch block (LBBB): Resolved after treatment of electrolyte abnormalities. Trop with some rise, but EKG improving with time and treatment, so doesn't appear to indicate an evolving STEMI, either. Cont to monitor closely on telemetry. (4) BRYANT (acute kidney injury): Stage III CKD with baseline creatinine around 1.5-1.7, now 2.1. Received IV Lasix of 40 mg Creatinine went up to 2.92 Appreciate nephrology input and recommendation Creatinine improved to 1.9 as of 07/22/2019 (5) Acute hyperkalemia: Uses lisinopril regularly. Treated in the ER with Calcium, insulin, dextrose, and bicarb. He later received the lasix. Low potassium diet Monitor PRP-controlled now (6) Stenosis of right vertebral artery: Has a h/o TIA last year. No stroke or focal deficits. No vascular head imaging was performed at that time but he was placed on DAPT. CT angiogram of head and neck show high grade vertebral artery stenosis. His dizziness is improving with treatment of hypoxia. Nonfocal neuro exam. Stroke appears to be a less likely. Cont DAPT. Discussed with turbo operator about vertebral artery stenosis We will have outpatient follow-up appointment with vascular surgeon Creatinine is slightly improved to 2.13 as of 07/21/2019 (7) Elevated troponin: Has NSTEMI Management as above (8) CAD (coronary artery disease): No h/o [place] in the past, ,however, has clear coronary calcifications on imaging. Also has known PAD. Active smoker and uncontrolled diabetic. Lipid panel in am. Cont Lipitor 10mg daily, Metoprolol tartrate BID, Plavix and ASA per home regimen. Cardiac cath when renal function is better (9) Diabetes type 2, uncontrolled: A1C 9.3 last year. Repeat in am. Basal bolus insulin. Hold all oral hypoglycemics. (10) Bipolar disorder: Hold home seroquel with prolonged QTc. (11) PAD (peripheral artery disease): Known history of this. Cont medical management. (12) COPD (chronic obstructive pulmonary disease): Chronic, stable. No active wheezing or evidence of exacerbation. Cont to encourage to quit smoking. (13) Seizure disorder: On Lamictal for both a h/o seizures and bipolar disorder, both of which are stable and chronic. No more seizure activity (14) Depression: Anxiety and depression present chronically. Follows with an outpatient psychiatrist. (15) Tobacco use disorder: Heavy lifelong smoker. Strongly encouraged to quit. Consider nicotine patch this admission. (16) DVT prophylaxis: Heparin Full Code as discussed with patient on admission. Dispo-to ICU for close monitoring overnight. Admission and Anticipated Discharge Date Admission Date: July 18, 2019 Subjective The patient was seen and examined in ICU He is out of bed on a chair Complains today of some weakness but denies any chest pain and/or palpitation, any abdominal pain nausea and or vomiting Has been saturating well on room air 07/20/2019 Patient was seen and examined in ICU He is out of bed on a chair and complains of weakness and tiredness Denies any chest pain and/or palpitation, abdominal pain,nausea and or vomiting, fever and or chills 07/21/2019 The patient was seen and examined in ICU He has been feeling better except mild weakness denies any other significant s ymptoms No more chest pain and/or palpitation and no arrhythmias on monitor 07/22/2019 Patient is seen and examined in ICU He has not moved his bowels since admission and complains to have some abdominal distention and discomfort Denies any chest pain, shortness of breath or palpitation Saturating well on room air Review of Systems Review of Systems: All systems reviewed and are unremarkable except as noted below Gastrointestinal: + abdominal pain (Discomfort) and + bloating; no nausea and no vomiting Neurologic: + generalized weakness Physical Exam Physical Exam: Sitting on a chair with minimal abdominal bloating and discomfort Constitutional: well developed, well nourished and + ill appearing; no acute distress Eyes: PERRL, conjunctivae normal, anicteric sclerae ENMT: external ear and nose normal, oropharynx normal Neck: trachea midline, no thyromegaly Respiratory: normal respiratory effort; no respiratory distress Auscultation: lungs clear to auscultation bilaterally Cardiovascular: Rate/Rhythm: regular rhythm Heart Sounds: no murmur Extremities: no edema Gastrointestinal (Abdomen): Inspection/Auscultation: + abdomen distended and normal bowel sounds Percussion/Palpation: abdomen soft; abdomen nontender Neurologic: moves all extremities; no focal motor deficits Lymphatic: no cervical or axillary lymphadenopathy Results & Data Results & Data ([facility]) Vital Signs (Past 12 Hours) Vital Signs Temp Pulse Resp BP 07/22/19 04:00 36.6 C 80 22 108/56 L 07/22/19 00:12 74 29 H 110/64 07/22/19 00:00 68 Laboratory Results BMP 07/22/19 04:03 Sodium 133 L Potassium 4.1 Chloride 105 Carbon Dioxide 20 L BUN 43 H Creatinine 1.97 H Glucose 130 H Calcium 9.0 Medications Administered Current Inpatient Medications Acetaminophen (Tylenol) 650 mg PO Q4H PRN PRN Reason: Pain Stop: 08/18/19 20:48 Last Admin: 07/22/19 08:21 Dose: 650 mg Documented by: Albuterol (Duoneb) 3 ml INH QIDR PRN PRN Reason: Wheezing Stop: 07/27/19 07:07 Aspirin (Ecotrin Ectab) 81 mg PO DAILY [facility] Stop: 08/18/19 08:59 Last Admin: 07/22/19 08:06 Dose: 81 mg Documented by: Atorvastatin Calcium (Lipitor) 40 mg PO DAILY [facility] Stop: 08/18/19 10:59 Last Admin: 07/22/19 08:06 Dose: 40 mg Documented by: Clonazepam (Klonopin) 1 mg PO HS [facility] Stop: 08/18/19 20:59 Last Admin: 07/21/19 20:40 Dose: 1 mg Documented by: Clopidogrel Bisulfate (Plavix) 75 mg PO DAILY [facility] Stop: 08/18/19 08:59 Last Admin: 07/22/19 08:06 Dose: 75 mg Documented by: Dextrose (Dextrose 50%) 25 - 50 ml IV UD PRN; Protocol PRN Reason: Hypoglycemia Protocol Stop: 08/17/19 23:26 Furosemide (Lasix) 40 mg PO BID17 [facility] Stop: 08/18/19 16:59 Last Admin: 07/19/19 17:03 Dose: 40 mg Documented by: Gabapentin (Neurontin) 100 mg PO Q8H [facility] Stop: 08/18/19 15:59 Last Admin: 07/22/19 08:06 Dose: 100 mg Documented by: Glucagon (Glucagen) 1 mg SQ UD PRN; Protocol PRN Reason: Hypoglycemia Protocol Stop: 08/17/19 23:26 Glucose (Dex4 Glucose) 4 - 8 tabs PO UD PRN; Protocol PRN Reason: Hypoglycemia Protocol Stop: 08/17/19 23:26 Glucose (Glucose 40%) 15 - 30 gm PO UD PRN; Protocol PRN Reason: Hypoglycemia Protocol Stop: 08/17/19 23:26 Heparin Sodium/Dextrose (Heparin Sodium/Dextrose) 25,000 units in 500 mls @ 19 mls/hr IV .Q24H [facility]; Protocol Stop: 08/17/19 23:14 Last Titration: 07/22/19 06:49 Dose: 950 units/hr, 19 mls/hr Documented by: Insulin Aspart (Novolog Flexpen) 0 units SC ACHS [facility] Stop: 08/18/19 07:29 Last Admin: 07/22/19 08:05 Dose: 5 units Documented by: Insulin Glargine (Lantus Solostar Pen) 15 units SC BID [facility] Stop: 08/17/19 23:29 Last Admin: 07/21/19 08:27 Dose: 15 units Documented by: Lamotrigine (Lamictal) 400 mg PO BID [facility] Stop: 08/18/19 08:59 Last Admin: 07/22/19 08:07 Dose: 400 mg Documented by: Metoprolol Tartrate (Lopressor) 12.5 mg PO BID [facility] Stop: 08/18/19 08:59 Last Admin: 07/22/19 08:06 Dose: 12.5 mg Documented by: Mirtazapine (Remeron) 30 mg PO DAILY@1999 [facility] Stop: 08/18/19 19:59 Last Admin: 07/21/19 20:35 Dose: 30 mg Documented by: Miscellaneous (Carbohydrates For Hypoglycemia) 15 - 30 gm PO UD PRN PRN Reason: Hypoglycemia Protocol Stop: 08/17/19 23:26 Pantoprazole Sodium (Protonix) 40 mg PO DAILY [facility] Stop: 08/18/19 08:59 Last Admin: 07/22/19 08:06 Dose: 40 mg Documented by: Phenytoin Sodium (Dilantin Er) 100 mg PO BID [facility] Stop: 08/18/19 20:59 Last Admin: 07/22/19 08:06 Dose: 100 mg Documented by: Polyethylene Glycol (Miralax Powder Packet) 17 gm PO DAILY PRN PRN Reason: Constipation Stop: 08/18/19 10:23 Last Admin: 07/22/19 08:09 Dose: 17 gm Documented by: Promethazine HCl (Phenergan) 25 mg PO Q6H PRN PRN Reason: Nausea And Vomiting Stop: 08/17/19 22:13 Last Admin: 07/18/19 22:55 Dose: 25 mg Documented by: Quetiapine Fumarate (Seroquel) 400 mg PO [facility] Stop: 08/18/19 20:59 Last Admin: 07/21/19 20:37 Dose: 400 mg Documented by: Simethicone (Mylicon) 80 mg PO Q6H PRN PRN Reason: Gas or Constipation Stop: 08/19/19 20:00 Last Admin: 07/21/19 08:26 Dose: 80 mg Documented by: Tamsulosin HCl (Flomax) 0.4 mg PO DAILY [facility] Stop: 08/18/19 08:59 Last Admin: 07/22/19 08:06 Dose: 0.4 mg Documented by: Trazodone HCl (Desyrel) 100 mg PO [facility] Stop: 08/18/19 20:59 Last Admin: 07/21/19 20:36 Dose: 100 mg Documented by: (1) Acute exacerbation of CHF (congestive heart failure) Heart failure type: systolic Qualified Code(s): I50.23 - Acute on chronic systolic (congestive) heart failure (2) Diabetes type 2, uncontrolled Glycemic state: with hyperglycemia Qualified Code(s): E11.65 - Type 2 diabetes mellitus with hyperglycemia
[2019-07-22] MEDS ORDERED: bisacodyL 10 MG SUPP PR STA (09:33)
--- NOTE | 2019-07-22 10:43 | Nephrology Progress Note ---
Date of Service July 22, 2019 Assessment & Plan (1) BRYANT (acute kidney injury): Nonoliguric acute on chronic kidney disease stage III versus actual renal progression, in part from contrast nephropathy; baseline creatinine has been progressively worse over the past year with most recent value 1.26 October 2018; in late spring 2018, creatinine was 1.3-1.4 range. Creatinine was 2.1 on July 17 presentation, peaked July 18 at 2.9; improved today further to 2.0. unclear baseline creatinine. with extremely concentrated urine suggesting mild dehydration contaminated specimen, 1+ protein and blood. No indication for urgent dialysis at this time. chemistries acceptable, though mild hyponatremia and new onset up and bicarb noted. Despite Lasix being held, he appears to be auto diuresing and is additional 1.6 L negative in the past 24 hours; last lasix dose 07/18 1700 daily bmp Continue strict I's and O's -bp is again asymptomatic but on lower side today; monitor BP and defer further mgt to cardiology -would cont to hold diuretic for now as long as he remains at least 500 mL negative / 24 hrs, sbp remains soft, and creatinine improving (2) Acute exacerbation of CHF (congestive heart failure): Cardiology following. -diuretics as above -Monitor clinically; agree with fluid limit 1.8 L and heart healthy diet Admission and Anticipated Discharge Date Admission Date: July 18, 2019 Subjective Lasix remains on hold; no recurrence of weakness or sob; no chest pain palpitations, malaise. Review of Systems Review of Systems: All systems reviewed & are unremarkable except as noted in HPI & below Physical Exam Constitutional: well developed, well nourished, average body habitus and emergency department coordinator perative; no acute distress sitting up in chair on ra Eyes: EOM intact bilaterally ENMT: Ears: no external ear abnormality Nose: no external nose abnormality Mouth: + dry oral mucous membranes Neck: no nuchal rigidity Respiratory: normal respiratory effort Auscultation: lungs clear to auscultation bilaterally and + diminished lung sounds Cardiovascular: RRR, no murmur, no edema Rate/Rhythm: regular rate and regular rhythm Extremities: no edema Gastrointestinal (Abdomen): Inspection/Auscultation: normal bowel sounds Percussion/Palpation: abdomen soft; abdomen nontender Musculoskeletal: Extremities: strength 5/5 throughout Skin: no rashes, warm and dry Neurologic: lip smacking tic Psychiatric: Orientation: alert and oriented x 3 Eye Contact: + fair eye contact Motor Behavior: no abnormal motor movements Speech: normal rate/rhythm/volume of speech Affect: + flat affect, + blunted affect and + constricted affect Results & Data ([facility]) Vital Signs (Past 12 Hours) Vital Signs Temp Pulse Resp BP 07/22/19 04:00 36.6 C 80 22 108/56 L 07/22/19 00:12 74 29 H 110/64 07/22/19 00:00 68 Laboratory Results 07/21/19 04:10 07/22/19 04:03 (1) Acute exacerbation of CHF (congestive heart failure) Heart failure type: systolic Qualified Code(s): I50.23 - Acute on chronic systolic (congestive) heart failure
--- NOTE | 2019-07-22 11:55 | Cardiology Progress Note ---
Date of Service July 22, 2019 Assessment & Plan (1) Acute exacerbation of CHF (congestive heart failure): Clinically improved and continuing to diurese. Renal function slowly improving. Underlying ischemic heart disease remains a concern Blood pressure and heart rate are stable on minimal therapies, aspirin, heparin, low-dose beta-errol and statin (2) NSTEMI (non-ST elevated myocardial infarction): (3) Ischemic cardiomyopathy: (4) Severe mitral regurgitation: (5) BRYANT (acute kidney injury): (6) Acute hyperkalemia: (7) Hypermagnesemia: (8) PAD (peripheral artery disease): (9) Diabetes type 2, uncontrolled: (10) Tobacco use disorder: Titrate atorvastatin to 80 mg daily. Continue IV heparin and dual antiplatelet therapy. Hold IV Lasix. Continue low-dose beta-errol therapy Repeat basic metabolic panel in a.m. Plan cardiac catheterization when renal function has stabilized. (Previous baseline creatinine 1.3-1.4) Procedure will be performed on an urgent basis if clinical status declines. I had a long discussion with the patient regarding his ischemic heart disease and need for upcoming procedures requiring IV contrast. He understands the reasoning for delaying procedures at this time due to renal dysfunction. Subjective With patient continued to manifest diuresis Patient was seen and examined, chart, medications, telemetry reviewed. Occasional tingling in the left shoulder and hand but no acute complaints. Respiratory status improved. No chest pains or tachypalpitations, dizziness, lightheadedness. Peripheral edema improved substantially with patient continue to manifest diuresis spontaneously. Physical Exam Constitutional: average body habitus Eyes: + anicteric sclerae and EOM intact bilaterally Respiratory: normal respiratory effort Auscultation: no crackles, no rales, no rhonchi and no wheezes Cardiovascular: Rate/Rhythm: regular rate and regular rhythm Heart Sounds: normal S1 and normal S2; no gallop, no murmur and no cardiac rub Palpation: normal PMI Vessels: radial pulses present; no JVD, + posterior tibial pulses abnormal and + dorsalis pedis pulses abnormal Extremities: no edema Gastrointestinal (Abdomen): Inspection/Auscultation: abdomen normal to inspection and normal bowel sounds; abdomen not distended Percussion/Palpation: abdomen soft; abdomen nontender, no guarding and abdomen not rigid Musculoskeletal: Extremities: strength 5/5 throughout Skin: no rashes, warm and dry Neurologic: moves all extremities; no focal motor deficits Results & Data Vital Signs (Past 12 Hours) Vital Signs Temp Pulse Resp BP Pulse Ox 07/22/19 11:42 36.6 C 66 18 116/68 96 07/22/19 08:02 36.7 C 85 19 107/58 L 96 07/22/19 04:00 36.6 C 80 22 108/56 L 07/22/19 00:12 74 29 H 110/64 07/22/19 00:00 68 Laboratory Results Laboratory Results - last 24 hr 07/21/19 07/21/19 07/22/19 16:16 20:27 04:03 APTT 52.7 H* PTT Ratio 1.9 Sodium Potassium Chloride Carbon Dioxide Anion Gap BUN Creatinine Est Cr Clr Drug Dosing Est GFR ( Amer) Est GFR (Non-Af Amer) BUN/Creatinine Ratio Glucose POC Glucose 124 H 95 Calcium Magnesium 07/22/19 07/22/19 07/22/19 04:03 11:37 11:38 APTT PTT Ratio Sodium 133 L Potassium 4.1 Chloride 105 Carbon Dioxide 20 L Anion Gap 8.0 BUN 43 H Creatinine 1.97 H Est Cr Clr Drug Dosing 37.9 Est GFR ( Amer) 39.6 Est GFR (Non-Af Amer) 34.2 BUN/Creatinine Ratio 21.6 H Glucose 130 H POC Glucose 69 L* 73 Calcium 9.0 Magnesium 3.1 H (1) Acute exacerbation of CHF (congestive heart failure) Heart failure type: systolic Qualified Code(s): I50.23 - Acute on chronic systolic (congestive) heart failure (2) Diabetes type 2, uncontrolled Glycemic state: with hyperglycemia Qualified Code(s): E11.65 - Type 2 diabetes mellitus with hyperglycemia
[2019-07-22] MEDS ORDERED: bisacodyL 10 MG SUPP PR ONE (12:41)
[2019-07-22] MEDS: clonazePAM 1 MG TAB PO SCH (20:43)
[2019-07-22] MEDS: QUETIAPINE FUMARATE 200 MG TAB PO SCH (20:44)
[2019-07-22] MEDS: TRAZODONE HCL 100 MG TAB PO SCH (20:44)
[2019-07-22] MEDS: MIRTAZAPINE TAB 15 MG TAB PO SCH (20:45)
[2019-07-23] MEDS: GABAPENTIN 100 MG CAP PO SCH ×3 (01:37→16:44)
[2019-07-23] MEDS: HEPARIN SODIUM/DEXTROSE 25,000 UNITS/500 ML BAG IV SCH (03:01)
[2019-07-23 06:57] LABS: Basophils # (auto) 0.04 K/uL (0-0.2); Basophils % (auto) 0.9 %; Eosinophils # (auto) 0.24 K/uL (0-0.5); Eosinophils % (auto) 5.6 %; Hematocrit (blood only) 46.3 % (42-52); Hemoglobin 16.1 g/dL (14.0-18.0); Immature Granulocytes # (auto) 0.01 K/uL (0.00-0.02); Immature Granulocytes % (auto) 0.2 %; Lymphocytes % (auto) 34.7 %; Mean Corpuscular Hemoglobin 30.1 pg (25-34); Mean Corpuscular Hgb Conc 34.8 g/dL (32-36); Mean Corpuscular Volume 86.7 fL (80-100); Mean Platelet Volume 8.8 fL (7.4-10.4); Monocytes % (auto) 11.6 %; Neutrophils # (auto) 2.03 K/uL (1.4-6.5); Platelet Count 122 K/uL (130-400); RDW Coefficient of Variation 16.4 % (11.5-14.5); RDW Standard Deviation 52.1 fL (36.4-46.3); Red Blood Count 5.34 M/uL (4.7-6.1); White Blood Count 4.32 K/uL (4.8-10.8)
[2019-07-23 07:28] LABS: RBC Morphology Unremarkable
[2019-07-23 07:31] LABS: BUN Creatinine Ratio 22.1 (10-20); Calcium 8.6 mg/dl (8.5-10.1); Creatinine Clr Calc Pharmacy 42.6 ml/min; Est GFR (Non-African American) 39.7; Potassium 4.5 mmol/L (3.5-5.1)
[2019-07-23 07:36] LABS: Partial Thromboplastin Ratio 2.3
[2019-07-23 07:37] LABS: Partial Thromboplastin Time 65.2 Seconds (21.0-31.0)
[2019-07-23] MEDS: ASPIRIN 81 MG ECTAB PO SCH (08:09)
[2019-07-23] MEDS: CLOPIDOGREL BISULFATE 75 MG TAB PO SCH (08:09)
[2019-07-23] MEDS: PANTOprazole 40 MG TAB PO SCH (08:10)
[2019-07-23] MEDS: METOPROLOL TARTRATE 25 MG TAB PO SCH ×2 (08:10→20:59)
[2019-07-23] MEDS: ATORVASTATIN 40 MG TAB PO SCH (08:10)
[2019-07-23] MEDS: lamoTRIgine 100 MG TAB PO SCH ×2 (08:12→21:01)
[2019-07-23] MEDS: TAMSULOSIN HCL 0.4 MG CAP PO SCH (08:13)
[2019-07-23] MEDS: PHENYTOIN SODIUM ER 100 MG CAP PO SCH ×2 (08:13→21:01)
[2019-07-23] MEDS: INSULIN ASPART 100 UNITS/ML 3 ML PEN SC SCH ×4 (08:14→21:06)
[2019-07-23] MEDS ORDERED: SOD PHOSPHATE/SOD BIPHOSPHATE ENEMA 132 ML BTL PR STA (09:33)
--- NOTE | 2019-07-23 11:03 | Hospitalist Progress Note ---
Date of Service July 23, 2019 Assessment & Plan (1) Acute exacerbation of CHF (congestive heart failure): Acute respiratory failure likely secondary to flash pulmonary edema progressive over this afternoon. Responded well to Lasix 40mg IV with 1L out into [place] within about 2 hours. . Patient denies any chest pain. Echo ordered. Recommend 2gm sodium diet when able to eat. Daily standing weights. Cardiology consult. Hold on further Lasix tonight and re-evaluate volume status in am. Remains on the dry side Diuresing enough without the use of diuretics Advised to drink maximum amount of fluid as recommended No signs of fluid overload NSTEMI Slight bump in troponin to 0.08 on admission Serial troponin went up to 10.2 EKG has right bundle branch block Echo on 06/30/2018 did show normal EF and grade 1 diastolic dysfunction Echo from this admission is pending Appreciate cardiology input and recommendation Possible cardiac cath on improvement of renal function Renal function has been improving with creatinine of 1.9 as of today 07/22/2019 No cardiac symptoms Bowel has not moved for the last 2 days Has been getting oral medications without any help Will try Dulcolax suppository if it does not help we will give enema We will give Fleet enema today (2) Acute respiratory failure: Likely 2/2 pulmonary edema, however, Severe bilateral pneumonia and COVID19 has been ruled out. Started on ceftriaxone and doxycycline Flu and biofire respiratory panels were negative. Blood cultures have been pending Appreciate instructor psychiatric aide input and recommendation Now saturating normally on room air (3) New onset left bundle branch block (LBBB): Resolved after treatment of electrolyte abnormalities. Trop with some rise, but EKG improving with time and treatment, so doesn't appear to indicate an evolving STEMI, either. Cont to monitor closely on telemetry. (4) BRYANT (acute kidney injury): Stage III CKD with baseline creatinine around 1.5-1.7, now 2.1. Received IV Lasix of 40 mg Creatinine went up to 2.92 Appreciate nephrology input and recommendation Creatinine improved to 1.9 as of 07/22/2019 Creatinine is 1.74 on 07/23/2019 (5) Acute hyperkalemia: Uses lisinopril regularly. Treated in the ER with Calcium, insulin, dextrose, and bicarb. He later received the lasix. Low potassium diet Monitor PRP-controlled now (6) Stenosis of right vertebral artery: Has a h/o TIA last year. No stroke or focal deficits. No vascular head imaging was performed at that time but he was placed on DAPT. CT angiogram of head and neck show high grade vertebral artery stenosis. His dizziness is improving with treatment of hypoxia. Nonfocal neuro exam. Stroke appears to be a less likely. Cont DAPT. Discussed with instructor psychiatric aide about vertebral artery stenosis We will have outpatient follow-up appointment with vascular surgeon Creatinine is slightly improved to 2.13 as of 07/21/2019 (7) Elevated troponin: Has NSTEMI Management as above (8) CAD (coronary artery disease): No h/o NV in the past, ,however, has clear coronary calcifications on imaging. Also has known PAD. Active smoker and uncontrolled diabetic. Lipid panel in am. Cont Lipitor 10mg daily, Metoprolol tartrate BID, Plavix and ASA per home regimen. Cardiac cath when renal function is better (9) Diabetes type 2, uncontrolled: A1C 9.3 last year. Repeat in am. Basal bolus insulin. Hold all oral hypoglycemics. (10) Bipolar disorder: Hold home seroquel with prolonged QTc. (11) PAD (peripheral artery disease): Known history of this. Cont medical management. (12) COPD (chronic obstructive pulmonary disease): Chronic, stable. No active wheezing or evidence of exacerbation. Cont to encourage to quit smoking. (13) Seizure disorder: On Lamictal for both a h/o seizures and bipolar disorder, both of which are stable and chronic. No more seizure activity (14) Depression: Anxiety and depression present chronically. Follows with an outpatient psychiatrist. (15) Tobacco use disorder: Heavy lifelong smoker. Strongly encouraged to quit. Consider nicotine patch this admission. (16) DVT prophylaxis: Heparin Full Code as discussed with patient on admission. Dispo-to PCU Admission and Anticipated Discharge Date Admission Date: July 18, 2019 Subjective The patient was seen and examined in ICU He is out of bed on a chair Complains today of some weakness but denies any chest pain and/or palpitation, any abdominal pain nausea and or vomiting Has been saturating well on room air 07/20/2019 Patient was seen and examined in ICU He is out of bed on a chair and complains of weakness and tiredness Denies any chest pain and/or palpitation, abdominal pain,nausea and or vomiting, fever and or chills 07/21/2019 The patient was seen and examined in ICU He has been feeling better except mild weakness denies any other significant symptoms No more chest pain and/or palpitation and no arrhythmias on monitor 07/22/2019 Patient is seen and examined in ICU He has not moved his bowels since admission and complains to have some abdominal distention and discomfort Denies any chest pain, shortness of breath or palpitation Saturating well on room air 07/23/2019 The patient was seen and examined in telemetry unit He denies any cardiac symptoms He has been ambulating around the hallways Bowel movement yesterday but very small amount of the abdomen remains minimally distended Review of Systems Review of Systems: All systems reviewed and are unremarkable except as noted below Gastrointestinal: + abdominal pain (Discomfort) and + bloating; no nausea and no vomiting Neurologic: + generalized weakness Physical Exam Physical Exam: Sitting on a chair with minimal abdominal bloating and discomfort Constitutional: well developed, well nourished and + ill appearing; no acute distress Eyes: PERRL, conjunctivae normal, anicteric sclerae ENMT: external ear and nose normal, oropharynx normal Neck: trachea midline, no thyromegaly Respiratory: normal respiratory effort; no respiratory distress Auscultation: lungs clear to auscultation bilaterally Cardiovascular: Rate/Rhythm: regular rhythm Heart Sounds: no murmur Extremities: no edema Gastrointestinal (Abdomen): Inspection/Auscultation: + abdomen distended and normal bowel sounds Percussion/Palpation: abdomen soft; abdomen nontender Musculoskeletal: No acute arthritis involving any joints Neurologic: moves all extremities; no focal motor deficits Lymphatic: no cervical or axillary lymphadenopathy Results & Data Results & Data ([facility]) Vital Signs (Past 12 Hours) Vital Signs Temp Pulse Resp BP Pulse Ox 07/23/19 08:00 69 07/23/19 07:08 36.8 C 65 18 144/62 H 97 07/23/19 06:55 36.3 C L 84 20 115/70 95 07/23/19 03:49 37 C 72 20 92/56 L 96 07/22/19 23:15 36.8 C 69 18 100/65 95 Laboratory Results Short CBC 07/23/19 Range/Units 06:31 WBC 4.32 L (4.8-10.8) K/uL Hgb 16.1 (14.0-18.0) g/dL Hct 46.3 (42-52) % Plt Count 122 L (130-400) K/uL BMP 07/23/19 06:31 Sodium 135 L Potassium 4.5 Chloride 107 Carbon Dioxide 20 L BUN 38 H Creatinine 1.74 H Glucose 108 H Calcium 8.6 Medications Administered Current Inpatient Medications Acetaminophen (Tylenol) 650 mg PO Q4H PRN PRN Reason: Pain Stop: 08/18/19 20:48 Last Admin: 07/22/19 08:21 Dose: 650 mg Documented by: Albuterol (Duoneb) 3 ml INH QIDR PRN PRN Reason: Wheezing Stop: 07/27/19 07:07 Aspirin (Ecotrin Ectab) 81 mg PO DAILY [facility] Stop: 08/18/19 08:59 Last Admin: 07/23/19 08:09 Dose: 81 mg Documented by: Atorvastatin Calcium (Lipitor) 40 mg PO DAILY [facility] Stop: 08/18/19 10:59 Last Admin: 07/23/19 08:10 Dose: 40 mg Documented by: Clonazepam (Klonopin) 1 mg PO HS [facility] Stop: 08/18/19 20:59 Last Admin: 07/22/19 20:43 Dose: 1 mg Documented by: Clopidogrel Bisulfate (Plavix) 75 mg PO DAILY [facility] Stop: 08/18/19 08:59 Last Admin: 07/23/19 08:09 Dose: 75 mg Documented by: Dextrose (Dextrose 50%) 25 - 50 ml IV UD PRN; Protocol PRN Reason: Hypoglycemia Protocol Stop: 08/17/19 23:26 Furosemide (Lasix) 40 mg PO BID17 [facility] Stop: 08/18/19 16:59 Last Admin: 07/19/19 17:03 Dose: 40 mg Documented by: Gabapentin (Neurontin) 100 mg PO Q8H [facility] Stop: 08/18/19 15:59 Last Admin: 07/23/19 08:09 Dose: 100 mg Documented by: Glucagon (Glucagen) 1 mg SQ UD PRN; Protocol PRN Reason: Hypoglycemia Protocol Stop: 08/17/19 23:26 Glucose (Dex4 Glucose) 4 - 8 tabs PO UD PRN; Protocol PRN Reason: Hypoglycemia Protocol Stop: 08/17/19 23:26 Glucose (Glucose 40%) 15 - 30 gm PO UD PRN; Protocol PRN Reason: Hypoglycemia Protocol Stop: 08/17/19 23:26 Heparin Sodium/Dextrose (Heparin Sodium/Dextrose) 25,000 units in 500 mls @ 19 mls/hr IV .Q24H [facility]; Protocol Stop: 08/17/19 23:14 Last Titration: 07/23/19 07:03 Dose: 950 units/hr, 19 mls/hr Documented by: Insulin Aspart (Novolog Flexpen) 0 units SC ACHS [facility] Stop: 08/18/19 07:29 Last Admin: 07/23/19 08:14 Dose: 7 units Documented by: Insulin Glargine (Lantus Solostar Pen) 15 units SC BID [facility] Stop: 08/17/19 23:29 Last Admin: 07/21/19 08:27 Dose: 15 units Documented by: Lamotrigine (Lamictal) 400 mg PO BID [facility] Stop: 08/18/19 08:59 Last Admin: 07/23/19 08:12 Dose: 400 mg Documented by: Metoprolol Tartrate (Lopressor) 12.5 mg PO BID [facility] Stop: 08/18/19 08:59 Last Admin: 07/23/19 08:10 Dose: 12.5 mg Documented by: Mirtazapine (Remeron) 30 mg PO DAILY@1999 [facility] Stop: 08/18/19 19:59 Last Admin: 07/22/19 20:45 Dose: 30 mg Documented by: Miscellaneous (Carbohydrates For Hypoglycemia) 15 - 30 gm PO UD PRN PRN Reason: Hypoglycemia Protocol Stop: 08/17/19 23:26 Pantoprazole Sodium (Protonix) 40 mg PO DAILY [facility] Stop: 08/18/19 08:59 Last Admin: 07/23/19 08:10 Dose: 40 mg Documented by: Phenytoin Sodium (Dilantin Er) 100 mg PO BID [facility] Stop: 08/18/19 20:59 Last Admin: 07/23/19 08:13 Dose: 100 mg Documented by: Polyethylene Glycol (Miralax Powder Packet) 17 gm PO DAILY PRN PRN Reason: Constipation Stop: 08/18/19 10:23 Last Admin: 07/22/19 08:09 Dose: 17 gm Documented by: Promethazine HCl (Phenergan) 25 mg PO Q6H PRN PRN Reason: Nausea And Vomiting Stop: 08/17/19 22:13 Last Admin: 07/18/19 22:55 Dose: 25 mg Documented by: Quetiapine Fumarate (Seroquel) 400 mg PO HS [facility] Stop: 08/18/19 20:59 Last Admin: 07/22/19 20:44 Dose: 400 mg Documented by: Simethicone (Mylicon) 80 mg PO Q6H PRN PRN Reason: Gas or Constipation Stop: 08/19/19 20:00 Last Admin: 07/21/19 08:26 Dose: 80 mg Documented by: Tamsulosin HCl (Flomax) 0.4 mg PO DAILY [facility] Stop: 08/18/19 08:59 Last Admin: 07/23/19 08:13 Dose: 0.4 mg Documented by: Trazodone HCl (Desyrel) 100 mg PO [facility] Stop: 08/18/19 20:59 Last Admin: 07/22/19 20:44 Dose: 100 mg Documented by: (1) Acute exacerbation of CHF (congestive heart failure) Heart failure type: systolic Qualified Code(s): I50.23 - Acute on chronic systolic (congestive) heart failure (2) Diabetes type 2, uncontrolled Glycemic state: with hyperglycemia Qualified Code(s): E11.65 - Type 2 diabetes mellitus with hyperglycemia
--- NOTE | 2019-07-23 12:40 | Cardiology Progress Note ---
Date of Service July 23, 2019 Assessment & Plan (1) Acute exacerbation of CHF (congestive heart failure): Clinically improved and continuing to diurese. Renal function slowly improving. Underlying ischemic heart disease remains a concern Plan: Titrate beta-errol up slightly to 25 mg twice daily of metoprolol tartrate Tentatively plan for diagnostic cardiac catheterization in a.m. with preprocedural echocardiogram to reassess mitral insufficiency, gentle hydration overnight (2) NSTEMI (non-ST elevated myocardial infarction): (3) Ischemic cardiomyopathy: (4) Severe mitral regurgitation: (5) BRAYNT (acute kidney injury): (6) Acute hyperkalemia: (7) Hypermagnesemia: (8) PAD (peripheral artery disease): (9) Diabetes type 2, uncontrolled: (10) Tobacco use disorder: Titrate atorvastatin to 80 mg daily. Continue IV heparin and dual antiplatelet therapy. Hold IV Lasix. Continue low-dose beta-errol therapy Repeat basic metabolic panel in a.m. Plan cardiac catheterization when renal function has stabilized. Procedure will be performed on an urgent basis if clinical status declines. I had a long discussion with the patient regarding his ischemic heart disease and need for upcoming procedures requiring IV contrast. He understands the reasoning for delaying procedures at this time due to renal dysfunction. Subjective Patient seen and examined, chart, medications, telemetry reviewed. Patient up and ambulating in room and hallway. Overall feels substantially improved no chest pains or worsening shortness of breath. No dizziness or lightheadedness. Continues to have spontaneous diuresis with no further diuretics given, renal function improving Review of Systems Review of Systems: All systems reviewed & are unremarkable except as noted in HPI & below Physical Exam Constitutional: average body habitus Eyes: + anicteric sclerae and EOM intact bilaterally Respiratory: normal respiratory effort Auscultation: no crackles, no rales, no rhonchi and no wheezes Cardiovascular: Rate/Rhythm: regular rate and regular rhythm Heart Sounds: normal S1 and normal S2; no gallop, no murmur and no cardiac rub Palpation: normal PMI Vessels: radial pulses present; no JVD, + posterior tibial pulses abnormal and + dorsalis pedis pulses abnormal Extremities: no edema Gastrointestinal (Abdomen): Inspection/Auscultation: abdomen normal to inspection and normal bowel sounds; abdomen not distended Percussion/Palpation: abdomen soft; abdomen nontender, no guarding and abdomen not rigid Musculoskeletal: Extremities: strength 5/5 throughout Skin: no rashes, warm and dry Neurologic: moves all extremities; no focal motor deficits Results & Data Vital Signs (Past 12 Hours) Vital Signs Temp Pulse Resp BP Pulse Ox 07/23/19 11:05 36.7 C 83 19 109/71 97 07/23/19 08:00 69 07/23/19 07:08 36.8 C 65 18 144/62 H 97 07/23/19 06:55 36.3 C L 84 20 115/70 95 07/23/19 03:49 37 C 72 20 92/56 L 96 Laboratory Results Laboratory Results - last 24 hr 07/22/19 07/22/19 07/23/19 16:30 19:57 06:31 WBC 4.32 L RBC 5.34 Hgb 16.1 Hct 46.3 MCV 86.7 MCH 30.1 MCHC 34.8 RDW Std Deviation 52.1 H RDW Coeff of Ritesh 16.4 H Plt Count 122 L MPV 8.8 Immature Gran % (Auto) 0.2 Neut % (Auto) 47.0 Lymph % (Auto) 34.7 [place] % (Auto) 11.6 Eos % (Auto) 5.6 Baso % (Auto) 0.9 Immature Gran # (Auto) 0.01 Neut # (Auto) 2.03 Lymph # (Auto) 1.50 [place] # (Auto) 0.50 Eos # (Auto) 0.24 Baso # (Auto) 0.04 RBC Morphology Unremarkable APTT PTT Ratio Sodium Potassium Chloride Carbon Dioxide Anion Gap BUN Creatinine Est Cr Clr Drug Dosing Est GFR ( Amer) Est GFR (Non-Af Amer) BUN/Creatinine Ratio Glucose POC Glucose 120 H 139 H Calcium 07/23/19 07/23/19 07/23/19 06:31 07:02 07:33 WBC RBC Hgb Hct MCV MCH MCHC RDW Std Deviation RDW Coeff of Ritesh Plt Count MPV Immature Gran % (Auto) Neut % (Auto) Lymph % (Auto) [place] % (Auto) Eos % (Auto) Baso % (Auto) Immature Gran # (Auto) Neut # (Auto) Lymph # (Auto) [place] # (Auto) Eos # (Auto) Baso # (Auto) RBC Morphology APTT 65.2 H* PTT Ratio 2.3 Sodium 135 L Potassium 4.5 Chloride 107 Carbon Dioxide 20 L Anion Gap 8.0 BUN 38 H Creatinine 1.74 H Est Cr Clr Drug Dosing 42.6 Est GFR ( Amer) 46.0 Est GFR (Non-Af Amer) 39.7 BUN/Creatinine Ratio 22.1 H Glucose 108 H POC Glucose 141 H Calcium 8.6 07/23/19 11:27 WBC RBC Hgb Hct MCV MCH MCHC RDW Std Deviation RDW Coeff of Ritesh Plt Count MPV Immature Gran % (Auto) Neut % (Auto) Lymph % (Auto) [place] % (Auto) Eos % (Auto) Baso % (Auto) Immature Gran # (Auto) Neut # (Auto) Lymph # (Auto) [place] # (Auto) Eos # (Auto) Baso # (Auto) RBC Morphology APTT PTT Ratio Sodium Potassium Chloride Carbon Dioxide Anion Gap BUN Creatinine Est Cr Clr Drug Dosing Est GFR ( Amer) Est GFR (Non-Af Amer) BUN/Creatinine Ratio Glucose POC Glucose 73 Calcium (1) Acute exacerbation of CHF (congestive heart failure) Heart failure type: systolic Qualified Code(s): I50.23 - Acute on chronic systolic (congestive) heart failure (2) Diabetes type 2, uncontrolled Glycemic state: with hyperglycemia Qualified Code(s): E11.65 - Type 2 diabetes mellitus with hyperglycemia
[2019-07-23] MEDS ORDERED: METOPROLOL TARTRATE 25 MG TAB PO ONE (12:45)
[2019-07-23] MEDS: clonazePAM 1 MG TAB PO SCH (20:59)
[2019-07-23] MEDS: QUETIAPINE FUMARATE 200 MG TAB PO SCH (21:00)
[2019-07-23] MEDS: TRAZODONE HCL 100 MG TAB PO SCH (21:00)
[2019-07-23] MEDS: MIRTAZAPINE TAB 15 MG TAB PO SCH (21:01)
[2019-07-24] MEDS: SODIUM CHLORIDE 0.9% 1000ML 1,000 ML IV SCH ×3 (00:04→20:39)
[2019-07-24] MEDS: GABAPENTIN 100 MG CAP PO SCH ×4 (00:04→23:15)
[2019-07-24 06:00] LABS: Basophils # (auto) 0.03 K/uL (0-0.2); Basophils % (auto) 0.6 %; Eosinophils # (auto) 0.19 K/uL (0-0.5); Eosinophils % (auto) 4.1 %; Hematocrit (blood only) 44.1 % (42-52); Hemoglobin 15.4 g/dL (14.0-18.0); Immature Granulocytes # (auto) 0.02 K/uL (0.00-0.02); Immature Granulocytes % (auto) 0.4 %; Lymphocytes # (auto) 1.78 K/uL (1.2-3.4); Lymphocytes % (auto) 38.4 %; Mean Corpuscular Hemoglobin 30.2 pg (25-34); Mean Corpuscular Hgb Conc 34.9 g/dL (32-36); Mean Corpuscular Volume 86.5 fL (80-100); Mean Platelet Volume 8.9 fL (7.4-10.4); Monocytes # (auto) 0.54 K/uL (0.11-0.59); Monocytes % (auto) 11.6 %; Neutrophils # (auto) 2.08 K/uL (1.4-6.5); Neutrophils % (auto) 44.9 %; Platelet Count 118 K/uL (130-400); RDW Coefficient of Variation 16.2 % (11.5-14.5); RDW Standard Deviation 51.3 fL (36.4-46.3); White Blood Count 4.64 K/uL (4.8-10.8)
[2019-07-24] MEDS: HEPARIN SODIUM/DEXTROSE 25,000 UNITS/500 ML BAG IV SCH (06:11)
[2019-07-24 06:39] LABS: BUN Creatinine Ratio 23.8 (10-20); Calcium 8.6 mg/dl (8.5-10.1); Creatinine Clr Calc Pharmacy 41.6 ml/min; Est GFR (African American) 44.5; Est GFR (Non-African American) 38.4; Magnesium 2.5 mg/dl (1.8-2.4); Potassium 4.4 mmol/L (3.5-5.1)
[2019-07-24 07:17] LABS: Partial Thromboplastin Ratio 2.3
[2019-07-24 07:18] LABS: Partial Thromboplastin Time 64.1 Seconds (21.0-31.0)
[2019-07-24] MEDS: INSULIN ASPART 100 UNITS/ML 3 ML PEN SC SCH ×4 (07:48→22:17)
[2019-07-24] MEDS: METOPROLOL TARTRATE 25 MG TAB PO SCH ×2 (07:49→21:55)
[2019-07-24] MEDS: TAMSULOSIN HCL 0.4 MG CAP PO SCH (07:50)
[2019-07-24] MEDS: ASPIRIN 81 MG ECTAB PO SCH ×2 (07:50→07:54)
[2019-07-24] MEDS: PANTOprazole 40 MG TAB PO SCH (07:52)
[2019-07-24] MEDS: TRAZODONE HCL 100 MG TAB PO SCH (07:53)
[2019-07-24] MEDS: MIRTAZAPINE TAB 15 MG TAB PO SCH (07:53)
[2019-07-24] MEDS: QUETIAPINE FUMARATE 200 MG TAB PO SCH (07:54)
[2019-07-24] MEDS: lamoTRIgine 100 MG TAB PO SCH ×2 (07:56→21:55)
[2019-07-24] MEDS: PHENYTOIN SODIUM ER 100 MG CAP PO SCH ×2 (07:56→21:55)
[2019-07-24] MEDS: CLOPIDOGREL BISULFATE 75 MG TAB PO SCH ×2 (08:07→16:46)
[2019-07-24] MEDS: ATORVASTATIN 40 MG TAB PO SCH (08:07)
[2019-07-24] MEDS ORDERED: NiCARDipine HCL INJ 2.5 MG/ML 10 ML AMP ONE (11:38)
[2019-07-24] MEDS ORDERED: HEPARIN (PORCINE) 1000 UNIT/ML 10 ML (CATH LAB USE ONLY) ONE (11:38)
[2019-07-24] MEDS ORDERED: MIDAZOLAM HCL 1 MG/ML 2ML VIAL ONE ×4 (11:39→14:44)
[2019-07-24] MEDS ORDERED: fentaNYL citrate 100 MCG/2 ML VIAL ONE ×2 (11:39→14:18)
[2019-07-24] MEDS ORDERED: NITROGLYCERIN/D5W 100MCG/ML 20ML SYR ONE (11:40)
--- NOTE | 2019-07-24 11:47 | Hospitalist Progress Note ---
Date of Service July 24, 2019 Assessment & Plan (1) Acute exacerbation of CHF (congestive heart failure): Acute respiratory failure likely secondary to flash pulmonary edema progressive over this afternoon. Responded well to Lasix 40mg IV with 1L out into [place] within about 2 hours. . Patient denies any chest pain. Echo ordered. Recommend 2gm sodium diet when able to eat. Daily standing weights. Cardiology consult. Hold on further Lasix tonight and re-evaluate volume status in am. Remains on the dry side Diuresing enough without the use of diuretics Advised to drink maximum amount of fluid as recommended No signs of fluid overload Remains medically stable NSTEMI Slight bump in troponin to 0.08 on admission Serial troponin went up to 10.2 EKG has right bundle branch block Echo on 06/30/2018 did show normal EF and grade 1 diastolic dysfunction Echo from this admission is pending Appreciate cardiology input and recommendation Possible cardiac cath on improvement of renal function Renal function has been improving with creatinine of 1.9 as of today 07/22/2019 Creatinine is 1.7 today and the patient will go for cardiac cath this morning Bowel has not moved for the last 2 days Has been getting oral medications without any help Will try Dulcolax suppository if it does not help we will give enema We will give Fleet enema -bowel moved (2) Acute respiratory failure: Likely 2/2 pulmonary edema, however, Severe bilateral pneumonia and COVID19 has been ruled out. Started on ceftriaxone and doxycycline Flu and biofire respiratory panels were negative. Blood cultures have been pending Appreciate sub plant manager input and recommendation Now saturating normally on room air (3) New onset left bundle branch block (LBBB): Resolved after treatment of electrolyte abnormalities. Trop with some rise, but EKG improving with time and treatment, so doesn't appear to indicate an evolving STEMI, either. Cont to monitor closely on telemetry. (4) BRYANT (acute kidney injury): Stage III CKD with baseline creatinine around 1.5-1.7, now 2.1. Received IV Lasix of 40 mg Creatinine went up to 2.92 Appreciate nephrology input and recommendation Creatinine improved to 1.9 as of 07/22/2019 Creatinine is 1.79 on 07/24/2019 (5) Acute hyperkalemia: Uses lisinopril regularly. Treated in the ER with Calcium, insulin, dextrose, and bicarb. He later received the lasix. Low potassium diet Monitor PRP-controlled now (6) Stenosis of right vertebral artery: Has a h/o TIA last year. No stroke or focal deficits. No vascular head imaging was performed at that time but he was placed on DAPT. CT angiogram of head and neck show high grade vertebral artery stenosis. His dizziness is improving with treatment of hypoxia. Nonfocal neuro exam. Stroke appears to be a less likely. Cont DAPT. Discussed with sub plant manager about vertebral artery stenosis We will have outpatient follow-up appointment with vascular surgeon Creatinine is slightly improved to 2.13 as of 07/21/2019 (7) Elevated troponin: Has NSTEMI Management as above (8) CAD (coronary artery disease): No h/o SD in the past, ,however, has clear coronary calcifications on imaging. Also has known PAD. Active smoker and uncontrolled diabetic. Lipid panel in am. Cont Lipitor 10mg daily, Metoprolol tartrate BID, Plavix and ASA per home regimen. Cardiac cath when renal function is better (9) Diabetes type 2, uncontrolled: A1C 9.3 last year. Repeat in am. Basal bolus insulin. Hold all oral hypoglycemics. (10) Bipolar disorder: Hold home seroquel with prolonged QTc. (11) PAD (peripheral artery disease): Known history of this. Cont medical management. (12) COPD (chronic obstructive pulmonary disease): Chronic, stable. No active wheezing or evidence of exacerbation. Cont to encourage to quit smoking. (13) Seizure disorder: On Lamictal for both a h/o seizures and bipolar disorder, both of which are stable and chronic. No more seizure activity (14) Depression: Anxiety and depression present chronically. Follows with an outpatient psychiatrist. (15) Tobacco use disorder: Heavy lifelong smoker. Strongly encouraged to quit. Consider nicotine patch this admission. (16) DVT prophylaxis: Heparin Full Code as discussed with patient on admission. Dispo-to PCU Admission and Anticipated Discharge Date Admission Date: July 18, 2019 Subjective The patient was seen and examined in ICU He is out of bed on a chair Complains today of some weakness but denies any chest pain and/or palpitation, any abdominal pain nausea and or vomiting Has been saturating well on room air 07/20/2019 Patient was seen and examined in ICU He is out of bed on a chair and complains of weakness and tiredness Denies any chest pain and/or palpitation, abdominal pain,nausea and or vomiting, fever and or chills 07/21/2019 The patient was seen and examined in ICU He has been feeling better except mild weakness denies any other significant symptoms No more chest pain and/or palpitation and no arrhythmias on monitor 07/22/2019 Patient is seen and examined in ICU He has not moved his bowels since admission and complains to have some abdominal distention and discomfort Denies any chest pain, shortness of breath or palpitation Saturating well on room air 07/23/2019 The patient was seen and examined in telemetry unit He denies any cardiac symptoms He has been ambulating around the hallways Bowel movement yesterday but very small amount of the abdomen remains minimally distended 07/24/2019 The patient was seen and examined in telemetry unit He remains stable and has been ambulating in the hallways without any difficulties He will go for cardiac cath today Review of Systems Review of Systems: All systems reviewed and are unremarkable except as noted below Gastrointestinal: no abdominal pain (Discomfort), no bloating, no nausea and no vomiting Neurologic: + generalized weakness Physical Exam Physical Exam: Sitting on a chair with minimal abdominal bloating and discomfort Constitutional: well developed, well nourished and + ill appearing; no acute distress Eyes: PERRL, conjunctivae normal, anicteric sclerae ENMT: external ear and nose normal, oropharynx normal Neck: trachea midline, no thyromegaly Respiratory: normal respiratory effort; no respiratory distress Auscultation: lungs clear to auscultation bilaterally and + diminished lung sounds (Minimally at the bases) Cardiovascular: Rate/Rhythm: regular rhythm Heart Sounds: no murmur Extremities: no edema Gastrointestinal (Abdomen): Inspection/Auscultation: + abdomen distended and normal bowel sounds Percussion/Palpation: abdomen soft; abdomen nontender Musculoskeletal: No acute arthritis in any joints Neurologic: moves all extremities; no focal motor deficits Lymphatic: no cervical or axillary lymphadenopathy Results & Data Results & Data ([facility]) Vital Signs (Past 12 Hours) Vital Signs Temp Pulse Pulse Pulse Resp BP Pulse Ox 07/24/19 10:00 36.4 C L 68 18 102/68 98 07/24/19 08:00 77 07/24/19 07:17 36.5 C 73 18 114/72 95 07/24/19 04:00 37.3 C 67 16 98/62 L 95 05/04/20 00:00 75 07/23/19 23:54 36.4 C L 64 19 98/61 L 96 Laboratory Results Short CBC 07/24/19 Range/Units 05:51 WBC 4.64 L (4.8-10.8) K/uL Hgb 15.4 (14.0-18.0) g/dL Hct 44.1 (42-52) % Plt Count 118 L (130-400) K/uL BMP 07/24/19 05:51 Sodium 134 L Potassium 4.4 Chloride 107 Carbon Dioxide 17 L BUN 43 H Creatinine 1.79 H Glucose 113 H Calcium 8.6 Medications Administered Current Inpatient Medications Acetaminophen (Tylenol) 650 mg PO Q4H PRN PRN Reason: Pain Stop: 08/18/19 20:48 Last Admin: 07/22/19 08:21 Dose: 650 mg Documented by: Albuterol (Duoneb) 3 ml INH QIDR PRN PRN Reason: Wheezing Stop: 07/27/19 07:07 Aspirin (Ecotrin Ectab) 81 mg PO DAILY [facility]MA Stop: 08/18/19 08:59 Last Admin: 07/24/19 07:54 Dose: 81 mg Documented by: Atorvastatin Calcium (Lipitor) 40 mg PO DAILY ALMA Stop: 08/18/19 10:59 Last Admin: 07/24/19 08:07 Dose: 40 mg Documented by: Clonazepam (Klonopin) 1 mg PO HS ALMA Stop: 08/18/19 20:59 Last Admin: 07/23/19 20:59 Dose: 1 mg Documented by: Clopidogrel Bisulfate (Plavix) 75 mg PO DAILY ALMA Stop: 08/18/19 08:59 Last Admin: 07/24/19 08:07 Dose: 75 mg Documented by: Dextrose (Dextrose 50%) 25 - 50 ml IV UD PRN; Protocol PRN Reason: Hypoglycemia Protocol Stop: 08/17/19 23:26 Furosemide (Lasix) 40 mg PO BID17 ALMA Stop: 08/18/19 16:59 Last Admin: 07/19/19 17:03 Dose: 40 mg Documented by: Gabapentin (Neurontin) 100 mg PO Q8H ALMA Stop: 08/18/19 15:59 Last Admin: 07/24/19 07:55 Dose: 100 mg Documented by: Glucagon (Glucagen) 1 mg SQ UD PRN; Protocol PRN Reason: Hypoglycemia Protocol Stop: 08/17/19 23:26 Glucose (Dex4 Glucose) 4 - 8 tabs PO UD PRN; Protocol PRN Reason: Hypoglycemia Protocol Stop: 08/17/19 23:26 Glucose (Glucose 40%) 15 - 30 gm PO UD PRN; Protocol PRN Reason: Hypoglycemia Protocol Stop: 08/17/19 23:26 Heparin Sodium/Dextrose (Heparin Sodium/Dextrose) 25,000 units in 500 mls @ 19 mls/hr IV .Q24H [facility]; Protocol Stop: 08/17/19 23:14 Last Admin: 07/24/19 06:11 Dose: 950 units/hr, 19 mls/hr Documented by: Sodium Chloride (Nss 1000ml) 1,000 mls @ 42 mls/hr IV .[id number] [facility] Stop: 08/23/19 00:00 Last Admin: 07/24/19 00:04 Dose: 42 mls/hr Documented by: Insulin Aspart (Novolog Flexpen) 0 units SC ACHS [facility] Stop: 08/18/19 07:29 Last Admin: 07/24/19 07:48 Dose: Not Given Documented by: Insulin Glargine (Lantus Solostar Pen) 15 units SC BID [facility] Stop: 08/17/19 23:29 Last Admin: 07/21/19 08:27 Dose: 15 units Documented by: Lamotrigine (Lamictal) 400 mg PO BID [facility] Stop: 08/18/19 08:59 Last Admin: 07/24/19 07:56 Dose: 400 mg Documented by: Metoprolol Tartrate (Lopressor) 25 mg PO BID [facility] Stop: 08/22/19 20:59 Last Admin: 07/24/19 07:49 Dose: 25 mg Documented by: Mirtazapine (Remeron) 30 mg PO DAILY@1999 [facility] Stop: 08/18/19 19:59 Last Admin: 07/24/19 07:53 Dose: 30 mg Documented by: Miscellaneous (Carbohydrates For Hypoglycemia) 15 - 30 gm PO UD PRN PRN Reason: Hypoglycemia Protocol Stop: 08/17/19 23:26 Pantoprazole Sodium (Protonix) 40 mg PO DAILY [facility] Stop: 08/18/19 08:59 Last Admin: 07/24/19 07:52 Dose: 40 mg Documented by: Phenytoin Sodium (Dilantin Er) 100 mg PO BID [facility] Stop: 08/18/19 20:59 Last Admin: 07/24/19 07:56 Dose: 100 mg Documented by: Polyethylene Glycol (Miralax Powder Packet) 17 gm PO DAILY PRN PRN Reason: Constipation Stop: 08/18/19 10:23 Last Admin: 07/22/19 08:09 Dose: 17 gm Documented by: Promethazine HCl (Phenergan) 25 mg PO Q6H PRN PRN Reason: Nausea And Vomiting Stop: 08/17/19 22:13 Last Admin: 07/18/19 22:55 Dose: 25 mg Documented by: Quetiapine Fumarate (Seroquel) 400 mg PO [facility] Stop: 08/18/19 20:59 Last Admin: 07/24/19 07:54 Dose: 400 mg Documented by: Simethicone (Mylicon) 80 mg PO Q6H PRN PRN Reason: Gas or Constipation Stop: 08/19/19 20:00 Last Admin: 07/21/19 08:26 Dose: 80 mg Documented by: Tamsulosin HCl (Flomax) 0.4 mg PO DAILY [facility] Stop: 08/18/19 08:59 Last Admin: 07/24/19 07:50 Dose: 0.4 mg Documented by: Trazodone HCl (Desyrel) 100 mg PO HS [facility] Stop: 08/18/19 20:59 Last Admin: 07/24/19 07:53 Dose: 100 mg Documented by: (1) Acute exacerbation of CHF (congestive heart failure) Heart failure type: systolic Qualified Code(s): I50.23 - Acute on chronic systolic (congestive) heart failure (2) Diabetes type 2, uncontrolled Glycemic state: with hyperglycemia Qualified Code(s): E11.65 - Type 2 diabetes mellitus with hyperglycemia
--- NOTE | 2019-07-24 11:55 | Pre Anesthesia Assessment ---
Date of Service July 24, 2019 Pre Sedation Assessment Vital Signs Temp Pulse Pulse Pulse Resp BP BP 07/24/19 10:00 36.4 C L 68 18 102/68 07/24/19 08:00 77 07/24/19 07:17 36.5 C 73 18 114/72 07/24/19 04:00 37.3 C 67 16 98/62 L 07/24/19 00:00 75 07/23/19 23:54 36.4 C L 64 19 98/61 L 07/23/19 19:07 36.7 C 64 18 105/65 07/23/19 16:00 67 07/23/19 15:43 36.6 C 71 21 99/66 L Pulse Ox 07/24/19 10:00 98 07/24/19 08:00 07/24/19 07:17 95 07/24/19 04:00 95 07/24/19 00:00 07/23/19 23:54 96 07/23/19 19:07 96 07/23/19 16:00 07/23/19 15:43 97 Cardiovascular + regular rate and + regular rhythm + S1 normal and + S2 normal Respiratory normal respiratory effort, lungs clear to auscultation Pre-Sedation Airway Assessment Smoking Status: Current every day smoker Hx Sleep Apnea: No Hx Difficult Intubation: No Short, Thick Neck: No Mallampati Class: III ASA: ASA3 Procedure Planning Contraindications for Sedation: none Current Medications Reviewed: Yes Notes The planned sedation has been discussed with the patient. Informed Consent was obtained. I have identified the patient, determined the appropriateness of sedation and have assessed the patient immediately prior to the procedure. All medicine(s) and interventions are by my order.
--- NOTE | 2019-07-24 12:01 | Cardiology Progress Note ---
Date of Service July 24, 2019 Assessment & Plan (1) Acute exacerbation of CHF (congestive heart failure): Clinically improved and continuing to diurese. Renal function slowly improving. Underlying ischemic heart disease remains a concern Plan: Cardiac catheterization today. Right radial access as initial approach. Prior femoral angiograms reviewed in detail and femoral artery access remains an option. Procedure risk explained in detail to the patient and consent obtained as well as risk for coronary intervention if indicated. Additional risks of contrast nephropathy also discussed will attempt to minimize contrast use Echocardiogram reviewed demonstrating slightly improved LV systolic function and reduced mitral insufficiency still moderate (2) NSTEMI (non-ST elevated myocardial infarction): (3) Ischemic cardiomyopathy: (4) Severe mitral regurgitation: (5) BRYANT (acute kidney injury): (6) Acute hyperkalemia: (7) Hypermagnesemia: (8) PAD (peripheral artery disease): (9) Diabetes type 2, uncontrolled: (10) Tobacco use disorder: Subjective Patient seen and examined, chart, medications, telemetry reviewed. No chest pain or complaints overnight ambulatory in the hallway earlier. Awaiting diagnostic cardiac catheterization later today. Echogram performed earlier today demonstrates slight improvement LV function reduced mitral insufficiency Physical Exam Constitutional: average body habitus Eyes: + anicteric sclerae and EOM intact bilaterally ENMT: Mallampati Class: III Respiratory: normal respiratory effort, lungs clear to auscultation normal respiratory effort Auscultation: no crackles, no rales, no rhonchi and no wheezes Cardiovascular: Rate/Rhythm: regular rate and regular rhythm Heart Sounds: normal S1 and normal S2; no gallop, no murmur and no cardiac rub Palpation: normal PMI Vessels: radial pulses present; no JVD, + posterior tibial pulses abnormal and + dorsalis pedis pulses abnormal Extremities: no edema Gastrointestinal (Abdomen): Inspection/Auscultation: abdomen normal to inspection and normal bowel sounds; abdomen not distended Percussion/Palpation: abdomen soft; abdomen nontender, no guarding and abdomen not rigid Musculoskeletal: Extremities: strength 5/5 throughout Skin: no rashes, warm and dry Neurologic: moves all extremities; no focal motor deficits Results & Data Vital Signs (Past 12 Hours) Vital Signs Temp Pulse Pulse Pulse Resp BP Pulse Ox 07/24/19 10:00 36.4 C L 68 18 102/68 98 07/24/19 08:00 77 07/24/19 07:17 36.5 C 73 18 114/72 95 07/24/19 04:00 37.3 C 67 16 98/62 L 95 07/24/19 00:00 75 Laboratory Results Laboratory Results - last 24 hr 07/23/19 07/23/19 07/24/19 16:22 20:26 05:51 WBC 4.64 L RBC 5.10 Hgb 15.4 Hct 44.1 MCV 86.5 MCH 30.2 MCHC 34.9 RDW Std Deviation 51.3 H RDW Coeff of Ritesh 16.2 H Plt Count 118 L MPV 8.9 Immature Gran % (Auto) 0.4 Neut % (Auto) 44.9 Lymph % (Auto) 38.4 [place] % (Auto) 11.6 Eos % (Auto) 4.1 Baso % (Auto) 0.6 Immature Gran # (Auto) 0.02 Neut # (Auto) 2.08 Lymph # (Auto) 1.78 [place] # (Auto) 0.54 Eos # (Auto) 0.19 Baso # (Auto) 0.03 APTT PTT Ratio Sodium Potassium Chloride Carbon Dioxide Anion Gap BUN Creatinine Est Cr Clr Drug Dosing Est GFR ( Amer) Est GFR (Non-Af Amer) BUN/Creatinine Ratio Glucose POC Glucose 113 H 154 H Calcium Magnesium 07/24/19 07/24/19 07/24/19 05:51 06:48 07:28 WBC RBC Hgb Hct MCV MCH MCHC RDW Std Deviation RDW Coeff of Ritesh Plt Count MPV Immature Gran % (Auto) Neut % (Auto) Lymph % (Auto) [place] % (Auto) Eos % (Auto) Baso % (Auto) Immature Gran # (Auto) Neut # (Auto) Lymph # (Auto) [place] # (Auto) Eos # (Auto) Baso # (Auto) APTT 64.1 H* PTT Ratio 2.3 Sodium 134 L Potassium 4.4 Chloride 107 Carbon Dioxide 17 L Anion Gap 10.0 BUN 43 H Creatinine 1.79 H Est Cr Clr Drug Dosing 41.6 Est GFR ( Amer) 44.5 Est GFR (Non-Af Amer) 38.4 BUN/Creatinine Ratio 23.8 H Glucose 113 H POC Glucose 119 H Calcium 8.6 Magnesium 2.5 H 07/24/19 11:25 WBC RBC Hgb Hct MCV MCH MCHC RDW Std Deviation RDW Coeff of Ritesh Plt Count MPV Immature Gran % (Auto) Neut % (Auto) Lymph % (Auto) [place] % (Auto) Eos % (Auto) Baso % (Auto) Immature Gran # (Auto) Neut # (Auto) Lymph # (Auto) [place] # (Auto) Eos # (Auto) Baso # (Auto) APTT PTT Ratio Sodium Potassium Chloride Carbon Dioxide Anion Gap BUN Creatinine Est Cr Clr Drug Dosing Est GFR ( Amer) Est GFR (Non-Af Amer) BUN/Creatinine Ratio Glucose POC Glucose 147 H Calcium Magnesium (1) Acute exacerbation of CHF (congestive heart failure) Heart failure type: systolic Qualified Code(s): I50.23 - Acute on chronic systolic (congestive) heart failure (2) Diabetes type 2, uncontrolled Glycemic state: with hyperglycemia Qualified Code(s): E11.65 - Type 2 diabetes mellitus with hyperglycemia
--- NOTE | 2019-07-24 13:24 | Cardiac Catheterization ---
Cardiac Cath Procedure Brief Procedure Date July 24, 2019 Pre-Procedure Diagnosis Pre-Procedure Diagnosis: Non STEMI, Angina and CHF AUC Score AUC Score: 7 Post-Procedure Diagnosis Post-Procedure Diagnosis: Severe CAD Procedure(s) Performed Procedure(s) Performed: Coronary Angiography and Left Heart Cath Pediatric Social Worker Kam Terrell MD Certified Master Safecracker(s) Gary Alegria Estimated Blood Loss Estimated Blood Loss: <15cc Medication(s) Medication(s): Fentanyl (12.5 mcg IV x 2), Lidocaine 1% (Local infiltration access site), Nicardipine (250 mcg intra-arterial after arterial sheath insertion) and Versed (1 mg IV x 2) Preliminary Findings Right dominant coronary anatomy Severe salt river vessel coronary disease with heavy calcification of all structures Proximal 100% occlusion of the right coronary artery at origin and small left circumflex after origin Large ramus with 99% mid vessel stenosis, culprit Left main: Long, heavily calcified with ectatic disease 30% narrowing proximal and distal Left anterior descending: Type III in distribution with narrow apical segment. Left anterior descending is heavy calcification in its proximal midportion giving rise to a tiny first diagonal branch of modest second diagonal branch which is diffusely diseased coursing to the apex within the left anterior descen ding there is a long area of 50 to 60% narrowing in its proximal and midportion with an areas of heavy calcification the apical segment is thin Left circumflex: Modest caliber vessel occluded shortly after its origin with faint filling of a small marginal branch and small posterior lateral branch via left to left collateral Ramus intermedius large caliber vessel supplying extensive area of the lateral wall. It gives rise to moderately large branch early in its coursing which has diffuse disease followed by a large trifurcating termination branch. Trifurcating termination branch has a discrete 99% stenosis. The origin of the ramus is narrowed by 40 to 50% with diffuse atheromatous disease throughout. Right coronary artery: Flush occlusion at its origin with vessel filling backwards to its point of occlusion via last-vi-irnjy collateral flow Left ventricular pressure: 115/2/13 Recommendations: Patient referred for coronary invention ramus intermedius culprit lesion with severe salt river vessel disease discerned and poor surgical targets Recommendations Recommendations: PCI without planned CABG Specimens Specimens: None Fluids (cc crystalloids) Fluids (cc crystalloids): 15 Anesthesia Start time: 1212, stop time: 1304 Procedural Complication(s) None Disposition Recovery Room\PACU
--- NOTE | 2019-07-24 13:40 | Cardiac Catheterization ---
Cardiac Cath Procedure Full Procedure Date July 24, 2019 Pre-Procedure Diagnosis Pre-Procedure Diagnosis: Non STEMI, Angina and CHF AUC Score AUC Score: 7 Post-Procedure Diagnosis Post-Procedure Diagnosis: Severe CAD Procedure(s) Performed Procedure(s) Performed: Coronary Angiography and Left Heart Cath Industrial Methods Consultant Kam Terrell MD Tractor Mechanic Helper(s) Jensen Vee MD Estimated Blood Loss Estimated Blood Loss: <15cc Medication(s) Medication(s): Fentanyl (12.5 mcg IV x 2), Lidocaine 1% (Local infiltration access site), Nicardipine (250 mcg intra-arterial after arterial sheath insertion) and Versed (1 mg IV x 2) Summary of Findings Right dominant coronary anatomy Severe [place] vessel coronary disease with heavy calcification of all structures Proximal 100% occlusion of the right coronary artery at origin and small left circumflex after origin Large ramus with 99% mid vessel stenosis, culprit Left main: Long, heavily calcified with ectatic disease 30% narrowing proximal and distal Left anterior descending: Type III in distribution with narrow apical segment. Left anterior descending is heavy calcification in its proximal midportion giving rise to a tiny first diagonal branch, a modest second diagonal branch which is diffusely diseased then coursing to the apex. Within the left anterior descending there is a long area of 50% narrowing in its midportion the apical segment is thin in caliber with diffuse atheromatous disease Left circumflex: Modest caliber vessel occluded shortly after its origin with faint filling of a small marginal branch and small posterior lateral branch via left to left collateral Ramus intermedius large caliber vessel supplying extensive area of the lateral wall. It gives rise to moderately large branch early in its coursing which has diffuse disease followed by a large trifurcating termination branch. Trifurcating termination branch has a discrete 99% stenosis. The origin of the ramus is narrowed by 40 to 50% with diffuse atheromatous disease throughout. Right coronary artery: Flush occlusion at its origin with vessel filling ba ckwards to its point of occlusion via [id number] collateral flow Left ventricular pressure: 115/2/13 Note radial access gained via Dr. Jensen Mukherjee assistance with ultrasound guidance Recommendations: Patient referred for coronary invention ramus intermedius culprit lesion with severe [place] vessel disease discerned and poor surgical targets Hemodynamics Rest Ao:: 110/57/78 Final Ao: 120/66/87 LV: 115/2/13 Recommendations Recommendations: PCI without planned CABG Specimens Specimens: None Radiation Exposure (mGy) 1085 Contrast (mls) 73 Fluids (cc crystalloids) Fluids (cc crystalloids): 15 Anesthesia Start time: 1212, stop time: 1304 Procedural Complication(s) None Disposition Recovery Room\PACU I attest to the content of the Intraoperative Record and any orders documented therein. Any exceptions are noted below. [facility] Data: Tan Room Supervisor Cardiac Status Clinical evaluation leading to the procedure 69-year-old male admitted with acute congestive heart failure, non-ST segment elevation myocardial infarction and echocardiography consistent with multivessel coronary disease and mitral insufficiency. CAD Presenation: Non STEMI Anginal Classification: CCS III Heart Failure: NYHA Class: CCS III Cardiogenic Shock within 24 Hours: No Cardiac Arrest within 24 Hours: No Imaging Studies Past 6 Months: Yes Stress Studies Past 6 Months: No Standard Exercise Test: No Stress Echocardiogram: No Stress Testing w/SPECT MPI: No Cardiac CTA: No STEMI OR Non-STEMI Symptom Onset Date: 07/18/19 Coronary Anatomy Dominant: Right Left Main (% Stenosis): Proximal (30 with heavy calcification and ectasia) and Distal LAD (% Stenosis): Proximal, Mid (50) and Distal (Thin with diffuse disease) D1 (% Stenosis): Proximal (Trivial diseased vessel) D2 (% Stenosis): Proximal (Small thin) Circumflex (% Stenosis): Ostial (100%) RCA (% Stenosis): Ostial (100% flush occlusion) Ramus (% Stenosis): Proximal (50) and Mid (99%) Left Ventricular Angiography EF (%): Not performed Diagnostic Physicians Name: Kam Terrell MD Closure Device Percutaneous Entry Location: Radial Recommendations: PCI without planned CABG
[2019-07-24] MEDS ORDERED: CLOPIDOGREL BISULFATE 300 MG TAB ONE (15:13)
--- NOTE | 2019-07-24 15:27 | Post Anesthesia Assessment ---
Date of Service July 24, 2019 Post Sedation Assessment Vital Signs Temp Pulse Pulse Pulse Resp BP BP 07/24/19 10:00 97.5 F L 68 18 102/68 07/24/19 08:00 77 07/24/19 07:17 97.7 F 73 18 114/72 07/24/19 04:00 99.1 F 67 16 98/62 L 07/24/19 00:00 75 07/23/19 23:54 97.5 F L 64 19 98/61 L 07/23/19 19:07 98.1 F 64 18 105/65 07/23/19 16:00 67 07/23/19 15:43 97.9 F 71 21 99/66 L Pulse Ox 07/24/19 10:00 98 07/24/19 08:00 07/24/19 07:17 95 07/24/19 04:00 95 07/24/19 00:00 07/23/19 23:54 96 07/23/19 19:07 96 07/23/19 16:00 07/23/19 15:43 97 Recovery Score Activity: Moves 4 extremities Respiration: Deep Breath/Cough Circulation: +/-20% PreAnes Value Consciousness: Fully Awake Oxygen Saturation: O2 needed for >90% Discharge Sedation Level of Care: Fast Track Phase II Post Sedation Plan On clinical assessment, the patient appears to have tolerated the sedation without complications. Patient is recovering as anticipated. Patient will continue to be monitored by nursing and may be discharged when sedation discharge criteria are met per below protocol. Upon Completions of procedure up to 15 minutes continue every 5 minute vital signs and the P.A.R. score; then discharge to a Phase I or Fast Track to Phase II per the following guidelines: * Discharge Patient to appropriate Phase II area if PAR is 8 or greater or return to pre- procedure baseline. The post - procedure orders will be as directed. * If PAR score is less than 8 or not return to pre-procedure baseline then pat ient will follow Phase I monitoring till PAR is reached for Phase II. The Phase I may be done in procedure room or may call to secure a Phase I area. * If naloxone or flumazenil are used for reversal, hold in Phase I for continued monitoring from when last reversal dose was given for a minimum of 60 minutes or longer pending the nurse and/or physician discretion of patient condition before discharge to Phase II. Please call the Sedation Physician to re-evaluate and complete post-note for discharge to Phase II area. Do NOT discharge from procedure sedation or Phase 1 until post- sedation evaluation note is complete by procedure /sedation MD Sedation Discharge Instructions to be given to the patient at discharge to home.
--- NOTE | 2019-07-24 15:38 | Cardiac Catheterization ---
[facility] Data: Steelscope Operator Cardiac Status Clinical evaluation leading to the procedure CAD Presenation: Non STEMI Anginal Classification: CCS IV Heart Failure: NYHA Class: CCS IV Cardiogenic Shock within 24 Hours: No Cardiac Arrest within 24 Hours: No Imaging Studies Past 6 Months: Yes Stress Studies Past 6 Months: No Diagnostic Physicians Name: Yuniel Mukherjee MD Status: Elective Closure Device Percutaneous Entry Location: Radial Closure Device: Radial Band Recommendations: PCI without planned CABG PCI Indication: PCI for high risk Non-BRIANDA Lesion Segment Name: Mid ramus Culprit Artery: Yes Stenosis Prior to Rx (%): 99 Chronic Total Occlusion: No IVUS: No FFR: No Pre-Procedure CODY Flow: 2 Previously Treated Lesion: No Lesion Complexity: High/C Lesion Length (mm): 25 Thrombus Present: No Bifurcation Lesion: No Guidewire Across Lesion: Stenosis Post-Procedure (%): 0 Post-Procedure CODY Flow: 3 Devices(s) Deployed: Yes Yes Intraprocedure Events Significant Disection: Yes (Treated with additional stent) Perforation: No Cardiac Cath Procedure Full Procedure Date July 24, 2019 Pre-Procedure Diagnosis Pre-Procedure Diagnosis: Non STEMI, Angina and CHF AUC Score AUC Score: 7 Post-Procedure Diagnosis Post-Procedure Diagnosis: Severe CAD and Successful PCI Procedure(s) Performed Procedure(s) Performed: Drug Eluting Stent and Ultrasound Guided Vascular Access Ship Engines Operating Engineer Yuniel Mukherjee MD Manager Hematology(s) Gary Alegria Estimated Blood Loss Estimated Blood Loss: 20 Medication(s) Medication(s): Clopidogrel, Fentanyl (12.5 mcg IV x 2), Heparin, Lidocaine 1% (Local infiltration access site), Nicardipine (250 mcg intra-arterial after arterial sheath insertion), Nitroglycerin and Versed (1 mg IV x 2) Summary of Findings Indication: NSTEMI, LV dysfunction, CHF Access: 6 Fr slender right radial artery under ultrasound Catheters: EBU 3.5 guide Findings: For full details of patient's coronary angiography please see cath report dictated by Dr. Terrell. Briefly, patient found to have severe multi-vessel disease including a 99 % stenosis involving large caliber ramus. Decision to proceed with PCI. -- PCI -- Antithrombotic therapy: Heparin, clopidogrel Procedure: Left main cannulated with EBU 3.5 guide Nuclear Instructor 50 wire passed across lesion into distal vessel Mid ramus lesion predilated with 2.0 and 2.5 complians balloon With the aid of a guideliner dilated lesion stented with 2.5 x 22 mm Yefri drug- eluting stent Stent postdilated with 2.75 NC A second JORGE L (2.75 x 8 mm [place]) placed to mid segment overlapping proximal aspect of initial stent Stent post-dilated with 2.75 noncompliant balloon IC vasodilators administered for spasm Noted to have a distal ramus dissection with CODY II flow Distal ramus rewired with long whisper wire Intraluminal position confirmed via injection through 2.0 balloon catheter Attempted to treat dissection with prolonged balloon inflation 2.0 and 2.5 balloons without significant improvement With aid of a guideliner was able to place a third drug-eluting stent (2.25 x 18 mm Yefri) across dissection flap Post procedure CODY 3 flow, stents well expanded with minimal residual stenosis and no apparent cardiac complications. Arterial Closure: TR band Summary: 1. Successful PCI of heavily calcified mid ramus with 2 overlapping drug- eluting stents (2.75 x 8, 2.5 x 22 [place]; postdilated with 2.75 NC). 2. Successful PCI of distal ramus with 2.25 x 18 mm Yefri JORGE L after flow- limiting dissection. Recommendations: To PCU for continued monitoring Reloaded with clopidogrel 300 mg in cath Continue dual-antiplatelet therapy for at least 1 year Continue statin, and ASCVD risk factor modification Hemodynamics Rest Ao:: 113/62/76 Final Ao: 84/51/93 LV: -- Recommendations Recommendations: PCI without planned CABG Specimens Specimens: None Radiation Exposure (mGy) 7499 Contrast (mls) 175 Fluids (cc crystalloids) Fluids (cc crystalloids): 15 Drains Drains: 65 Anesthesia Moderate Procedural Complication(s) None Disposition PCU I attest to the content of the Intraoperative Record and any orders documented therein. Any exceptions are noted below. [facility] Card Cath Procedure Codes Therapeutic Services & Ancillary Proc Procedure 1: Cardiovascular Tx and Anc Procedures: 78073 Ultrasonic Guidance Vascular Access Moderate Sedation Procedure 1: Sedation/Anesthesia: 27232 Mod Sedation by a different physician ;Init15 Min Child Age 5&Up Procedure 2: Sedation/Anesthesia: 13666 Mod Sedation by a different physician;Ea Additional 15 Minutes Stenting Procedure 1: Cardiovascular Stent Procedures: 28672 Perc transcatheter placement of intracoronary stent(s), with ang PG Care Time/CCT Total # of Minutes Spent Total Time Spent with Patient: Total time spent is greater than 50% in coordination of care (as documented) at patient's floor/unit and/or counseling patient:
[2019-07-24] MEDS: clonazePAM 1 MG TAB PO SCH (21:54)
[2019-07-25] MEDS: SODIUM CHLORIDE 0.9% 1000ML 1,000 ML IV SCH (04:11)
[2019-07-25 08:10] LABS: Basophils # (auto) 0.04 K/uL (0-0.2); Basophils % (auto) 0.6 %; Eosinophils # (auto) 0.18 K/uL (0-0.5); Eosinophils % (auto) 2.8 %; Hematocrit (blood only) 45.3 % (42-52); Hemoglobin 15.8 g/dL (14.0-18.0); Immature Granulocytes # (auto) 0.02 K/uL (0.00-0.02); Immature Granulocytes % (auto) 0.3 %; Lymphocytes # (auto) 1.27 K/uL (1.2-3.4); Lymphocytes % (auto) 19.5 %; Mean Corpuscular Hemoglobin 30.8 pg (25-34); Mean Corpuscular Hgb Conc 34.9 g/dL (32-36); Mean Corpuscular Volume 88.3 fL (80-100); Mean Platelet Volume 9.1 fL (7.4-10.4); Monocytes # (auto) 0.59 K/uL (0.11-0.59); Monocytes % (auto) 9.1 %; Neutrophils % (auto) 67.7 %; Platelet Count 126 K/uL (130-400); RDW Coefficient of Variation 16.3 % (11.5-14.5); Red Blood Count 5.13 M/uL (4.7-6.1)
[2019-07-25] MEDS: INSULIN ASPART 100 UNITS/ML 3 ML PEN SC SCH ×4 (08:12→21:49)
[2019-07-25] MEDS: lamoTRIgine 100 MG TAB PO SCH ×2 (08:20→21:48)
[2019-07-25] MEDS: GABAPENTIN 100 MG CAP PO SCH ×3 (08:21→23:33)
[2019-07-25] MEDS: METOPROLOL TARTRATE 25 MG TAB PO SCH (08:21)
[2019-07-25] MEDS: ATORVASTATIN 40 MG TAB PO SCH (08:22)
[2019-07-25] MEDS: TAMSULOSIN HCL 0.4 MG CAP PO SCH (08:22)
[2019-07-25] MEDS: PANTOprazole 40 MG TAB PO SCH (08:22)
[2019-07-25] MEDS: PHENYTOIN SODIUM ER 100 MG CAP PO SCH ×2 (08:23→21:47)
[2019-07-25 08:28] LABS: BUN Creatinine Ratio 23.4 (10-20); Creatinine Clr Calc Pharmacy 48.4 ml/min; Est GFR (African American) 53.3; Magnesium 2.2 mg/dl (1.8-2.4); Potassium 4.3 mmol/L (3.5-5.1)
--- NOTE | 2019-07-25 08:34 | Electrocardiogram Report ---
Test Reason : Blood Pressure : / mmHG Vent. Rate : 082 BPM Atrial Rate : 082 BPM P-R Int : 142 ms QRS Dur : 110 ms QT Int : 410 ms P-R-T Axes : 057 056 053 degrees QTc Int : 479 ms Normal sinus rhythm Minor Non-specific intra-ventricular conduction delay ST depression in Anterolateral leads Abnormal ECG When compared with ECG of 21-Jul-2019 07:07; ST depression in Anterolateral leads now present Otherwise no significant change Confirmed by Cosme Grey ([id number]) on 07/25/2019 8:34:12 AM Referred By: REFERRED SELF Confirmed By:Cosme Grey
[2019-07-25] MEDS: CLOPIDOGREL BISULFATE 75 MG TAB PO SCH (08:37)
--- NOTE | 2019-07-25 10:30 | Progress Notes ---
DATE: 07/25/2019 SUBJECTIVE: The patient had heart catheterization with stent yesterday. At this time, patient feels pretty good. Denies any chest pain, shortness of breath, orthopnea, PND or lower extremity edema. He has a Cano catheter with good urine output. OBJECTIVE: VITAL SIGNS: Blood pressure 110/71, temperature 36.9, 96% on room air, pulse rate 77. HEENT: Mucous membranes moist. NECK: Supple. No jugular venous distention. CHEST: Bilateral clear to auscultation. CARDIOVASCULAR: S1, S2 regular. ABDOMEN: Soft, nontender. EXTREMITIES: Shows no edema. LABORATORY TESTS: From this morning shows improved renal function with a creatinine of 1.54, BUN is 36. Sodium 134, CO2 15, hemoglobin 15.8, platelet 126. ASSESSMENT AND PLAN: A 69-year-old male with acute kidney injury on background chronic kidney disease stage III, versus actual renal progression. 1. Acute renal failure. At this time renal function is getting better. In fact, it is better than his last few days despite contrast exposure yesterday. At this time, I would like to stop the IV fluid. I would prefer he is discharged tomorrow. Renal function 48 hours post-contrast is the most reliable indicator to assess for contrast nephropathy. However, at this time, the patient appears very stable. We can gradually restart his outpatient medications one at a time. Despite no diuretics he is making good amount of urine. Once renal function gets back to baseline, he can be put on OLGA or ARB if felt indicated by cardiology. AMY
--- NOTE | 2019-07-25 11:45 | Cardiology Progress Note ---
Date of Service July 25, 2019 Assessment & Plan (1) Acute exacerbation of CHF (congestive heart failure): Currently compensated with slightly negative IO's despite no diuretics currently. We will discontinue IV hydration as renal function has stabilized (2) NSTEMI (non-ST elevated myocardial infarction): Patient underwent successful coronary intervention large ramus intermedius Plan continue beta-errol and dual antiplatelet therapy, statin (3) Ischemic cardiomyopathy: We will change metoprolol tartrate to metoprolol succinate given CHF indications at 25 mg twice per day Will warrant resumption of OLGA inhibitor as blood pressure allows in the future but currently on hold due to acute renal insufficiency and relative hypotension (4) Severe mitral regurgitation: Improved on recent echocardiogram to moderate. Hopefully will maintain this level now that revascularization of the lateral wall papillary muscles improved (5) BRYANT (acute kidney injury): Improved with patient tolerating contrast load yesterday will need follow- up of renal function post hospital discharge (6) Acute hyperkalemia: (7) Hypermagnesemia: (8) PAD (peripheral artery disease): (9) Diabetes type 2, uncontrolled: (10) Tobacco use disorder: Subjective Patient seen and examined, chart, medications, telemetry reviewed. No chest pain or complaints overnight ambulatory in the hallway earlier. Overall feeling well no dizziness or lightheadedness. Wishes to receive new Cano and resume prior straight caths usually performed at home Right radial access site healing Physical Exam Constitutional: average body habitus Eyes: + anicteric sclerae and EOM intact bilaterally ENMT: Mallampati Class: III Respiratory: normal respiratory effort, lungs clear to auscultation normal respiratory effort Auscultation: no crackles, no rales, no rhonchi and no wheezes Cardiovascular: Rate/Rhythm: regular rate and regular rhythm Heart Sounds: normal S1 and normal S2; no gallop, no murmur and no cardiac rub Palpation: normal PMI Vessels: radial pulses present; no JVD, + posterior tibial pulses abnormal and + dorsalis pedis pulses abnormal Extremities: no edema Gastrointestinal (Abdomen): Inspection/Auscultation: abdomen normal to inspection and normal bowel sounds; abdomen not distended Percussion/Palpation: abdomen soft; abdomen nontender, no guarding and abdomen not rigid Musculoskeletal: Extremities: strength 5/5 throughout Skin: no rashes, warm and dry Neurologic: moves all extremities; no focal motor deficits Results & Data Vital Signs (Past 12 Hours) Vital Signs Temp Pulse Pulse Pulse Resp BP Pulse Ox 07/25/19 11:00 36.7 C 67 18 97/65 L 97 07/25/19 07:40 75 07/25/19 07:29 36.9 C 77 18 110/71 96 07/25/19 04:12 36.9 C 71 18 91/52 L 97 07/25/19 00:00 80 Laboratory Results Laboratory Results - last 24 hr 07/24/19 07/24/19 07/24/19 13:39 14:28 16:09 WBC RBC Hgb Hct MCV MCH MCHC RDW Std Deviation RDW Coeff of Ritesh Plt Count MPV Immature Gran % (Auto) Neut % (Auto) Lymph % (Auto) [place] % (Auto) Eos % (Auto) Baso % (Auto) Immature Gran # (Auto) Neut # (Auto) Lymph # (Auto) [place] # (Auto) Eos # (Auto) Baso # (Auto) Activ Coag Time Kaolin 296 H 246 H Sodium Potassium Chloride Carbon Dioxide Anion Gap BUN Creatinine Est Cr Clr Drug Dosing Est GFR ( Amer) Est GFR (Non-Af Amer) BUN/Creatinine Ratio Glucose POC Glucose 141 H Calcium Magnesium 07/24/19 07/25/19 07/25/19 20:08 07:43 07:43 WBC 6.50 RBC 5.13 Hgb 15.8 Hct 45.3 MCV 88.3 MCH 30.8 MCHC 34.9 RDW Std Deviation 53.0 H RDW Coeff of Ritesh 16.3 H Plt Count 126 L MPV 9.1 Immature Gran % (Auto) 0.3 Neut % (Auto) 67.7 Lymph % (Auto) 19.5 [place] % (Auto) 9.1 Eos % (Auto) 2.8 Baso % (Auto) 0.6 Immature Gran # (Auto) 0.02 Neut # (Auto) 4.40 Lymph # (Auto) 1.27 [place] # (Auto) 0.59 Eos # (Auto) 0.18 Baso # (Auto) 0.04 Activ Coag Time Kaolin Sodium 134 L Potassium 4.3 Chloride 107 Carbon Dioxide 15 L Anion Gap 12.0 H BUN 36 H Creatinine 1.54 H Est Cr Clr Drug Dosing 48.4 Est GFR ( Amer) 53.3 Est GFR (Non-Af Amer) 46.0 BUN/Creatinine Ratio 23.4 H Glucose 109 H POC Glucose 162 H Calcium 9.0 Magnesium 2.2 07/25/19 07/25/19 07:54 11:35 WBC RBC Hgb Hct MCV MCH MCHC RDW Std Deviation RDW Coeff of Ritesh Plt Count MPV Immature Gran % (Auto) Neut % (Auto) Lymph % (Auto) [place] % (Auto) Eos % (Auto) Baso % (Auto) Immature Gran # (Auto) Neut # (Auto) Lymph # (Auto) [place] # (Auto) Eos # (Auto) Baso # (Auto) Activ Coag Time Kaolin Sodium Potassium Chloride Carbon Dioxide Anion Gap BUN Creatinine Est Cr Clr Drug Dosing Est GFR ( Amer) Est GFR (Non-Af Amer) BUN/Creatinine Ratio Glucose POC Glucose 106 H 138 H Calcium Magnesium (1) Acute exacerbation of CHF (congestive heart failure) Heart failure type: systolic Qualified Code(s): I50.23 - Acute on chronic systolic (congestive) heart failure (2) Diabetes type 2, uncontrolled Glycemic state: with hyperglycemia Qualified Code(s): E11.65 - Type 2 diabetes mellitus with hyperglycemia
--- NOTE | 2019-07-25 15:34 | Hospitalist Progress Note ---
Date of Service July 25, 2019 Assessment & Plan (1) Acute exacerbation of CHF (congestive heart failure): Acute respiratory failure likely secondary to flash pulmonary edema progressive over this afternoon. Responded well to Lasix 40mg IV with 1L out into [place] within about 2 hours. . Patient denies any chest pain. Echo ordered. Recommend 2gm sodium diet when able to eat. Daily standing weights. Cardiology consult. Hold on further Lasix tonight and re-evaluate volume status in am. Remains on the dry side Diuresing enough without the use of diuretics Advised to drink maximum amount of fluid as recommended No signs of fluid overload Remains medically stable Cardiac medications have been adjusted by financial services professional NSTEMI Slight bump in troponin to 0.08 on admission Serial troponin went up to 10.2 EKG has right bundle branch block Echo on 06/30/2018 did show normal EF and grade 1 diastolic dysfunction Echo from this admission is pending Appreciate cardiology input and recommendation Possible cardiac cath on improvement of renal function Renal function has been improving with creatinine of 1.9 as of today 07/22/2019 Creatinine is 1.7 today and the patient will go for cardiac cath this morning Status post cardiac cath through right radial approach: 1. Successful PCI of heavily calcified mid ramus with 2 overlapping drug- eluting stents (2.75 x 8, 2.5 x 22 [place]; postdilated with 2.75 NC). 2. Successful PCI of distal ramus with 2.25 x 18 mm [place] JORGE L after flow-limi ting dissection. Will need dual antiplatelet therapy for 1 year, continue statin and improve risk factors Bowel has not moved for the last 2 days Has been getting oral medications without any help Will try Dulcolax suppository if it does not help we will give enema We will give Fleet enema -bowel moved (2) Acute respiratory failure: Likely 2/2 pulmonary edema, however, Severe bilateral pneumonia and COVID19 has been ruled out. Started on ceftriaxone and doxycycline Flu and biofire respiratory panels were negative. Blood cultures have been pending Appreciate cap inspector input and recommendation Now saturating normally on room air Been ambulating in the hallways without any acute symptoms (3) New onset left bundle branch block (LBBB): Resolved after treatment of electrolyte abnormalities. Trop with some rise, but EKG improving with time and treatment, so doesn't appear to indicate an evolving STEMI, either. Cont to monitor closely on telemetry. (4) BRYANT (acute kidney injury): Stage III CKD with baseline creatinine around 1.5-1.7, now 2.1. Received IV Lasix of 40 mg Creatinine went up to 2.92 Appreciate nephrology input and recommendation Creatinine improved to 1.9 as of 07/22/2019 Creatinine is 1.79 on 07/24/2019 Kidney function remains at baseline with creatinine 1.54 as of 07/25/2019 (5) Acute hyperkalemia: Uses lisinopril regularly. Treated in the ER with Calcium, insulin, dextrose, and bicarb. He later received the lasix. Low potassium diet Monitor PRP-controlled now (6) Stenosis of right vertebral artery: Has a h/o TIA last year. No stroke or focal deficits. No vascular head imaging was performed at that time but he was placed on DAPT. CT angiogram of head and neck show high grade vertebral artery stenosis. His dizziness is improving with treatment of hypoxia. Nonfocal neuro exam. Stroke appears to be a less likely. Cont DAPT. Discussed with cap inspector about vertebral artery stenosis We will have outpatient follow-up appointment with vascular surgeon Creatinine is slightly improved to 2.13 as of 07/21/2019 (7) Elevated troponin: Has NSTEMI Management as above (8) CAD (coronary artery disease): No h/o CA in the past, ,however, has clear coronary calcifications on imaging. Also has known PAD. Active smoker and uncontrolled diabetic. Lipid panel in am. Cont Lipitor 10mg daily, Metoprolol tartrate BID, Plavix and ASA per home regimen. Cardiac cath when renal function is better Status post cardiac cath-as above (9) Diabetes type 2, uncontrolled: A1C 9.3 last year. Repeat in am. Basal bolus insulin. Hold all oral hypoglycemics. (10) Bipolar disorder: Hold home seroquel with prolonged QTc. (11) PAD (peripheral artery disease): Known history of this. Cont medical management. (12) COPD (chronic obstructive pulmonary disease): Chronic, stable. No active wheezing or evidence of exacerbation. Cont to encourage to quit smoking. (13) Seizure disorder: On Lamictal for both a h/o seizures and bipolar disorder, both of which are stable and chronic. No more seizure activity (14) Depression: Anxiety and depression present chronically. Follows with an outpatient psychiatrist. (15) Tobacco use disorder: Heavy lifelong smoker. Strongly encouraged to quit. Consider nicotine patch this admission. (16) DVT prophylaxis: Heparin Full Code as discussed with patient on admission. Dispo-to PCU Likely discharge tomorrow Admission and Anticipated Discharge Date Admission Date: July 18, 2019 Subjective The patient was seen and examined in ICU He is out of bed on a chair Complains today of some weakness but denies any chest pain and/or palpitation, any abdominal pain nausea and or vomiting Has been saturating well on room air 07/20/2019 Patient was seen and examined in ICU He is out of bed on a chair and complains of weakness and tiredness Denies any chest pain and/or palpitation, abdominal pain,nausea and or vomiting, fever and or chills 07/21/2019 The patient was seen and examined in ICU He has been feeling better except mild weakness denies any other significant symptoms No more chest pain and/or palpitation and no arrhythmias on monitor 07/22/2019 Patient is seen and examined in ICU He has not moved his bowels since admission and complains to have some abdominal distention and discomfort Denies any chest pain, shortness of breath or palpitation Saturating well on room air 07/23/2019 The patient was seen and examined in telemetry unit He denies any cardiac symptoms He has been ambulating around the hallways Bowel movement yesterday but very small amount of the abdomen remains minimally distended 07/24/2019 The patient was seen and examined in telemetry unit He remains stable and has been ambulating in the hallways without any difficulties He will go for cardiac cath today 07/25/2019 The patient was seen and examined in telemetry unit Please a status post cardiac cath Has had some issues with bleeding from the right wrist but that has been stopped Denies any other symptoms and has been ambulating well around the hallways Review of Systems Review of Systems: All systems reviewed and are unremarkable except as noted below Neurologic: + generalized weakness Physical Exam Physical Exam: Sitting on a chair with minimal abdominal bloating and discomfort Constitutional: well developed, well nourished and + ill appearing; no acute distress Eyes: PERRL, conjunctivae normal, anicteric sclerae ENMT: external ear and nose normal, oropharynx normal Neck: trachea midline, no thyromegaly Respiratory: normal respiratory effort; no respiratory distress Auscultation: lungs clear to auscultation bilaterally and + diminished lung sounds (Minimally at the bases) Cardiovascular: Rate/Rhythm: regular rhythm Heart Sounds: + murmur Extremities: no edema Gastrointestinal (Abdomen): Inspection/Auscultation: + abdomen distended and normal bowel sounds Percussion/Palpation: abdomen soft; abdomen nontender Musculoskeletal: No acute arthritis in any joints Neurologic: moves all extremities; no focal motor deficits Alert, awake and oriented x3 Lymphatic: no cervical or axillary lymphadenopathy Results & Data Results & Data ([facility]) Vital Signs (Past 12 Hours) Vital Signs Temp Pulse Pulse Pulse Resp BP Pulse Ox 07/25/19 11:00 36.7 C 67 18 97/65 L 97 07/25/19 07:40 75 07/25/19 07:29 36.9 C 77 18 110/71 96 07/25/19 04:12 36.9 C 71 18 91/52 L 97 Laboratory Results Short CBC 07/25/19 Range/Units 07:43 WBC 6.50 (4.8-10.8) K/uL Hgb 15.8 (14.0-18.0) g/dL Hct 45.3 (42-52) % Plt Count 126 L (130-400) K/uL BMP 07/25/19 07:43 Sodium 134 L Potassium 4.3 Chloride 107 Carbon Dioxide 15 L BUN 36 H Creatinine 1.54 H Glucose 109 H Calcium 9.0 Medications Administered Current Inpatient Medications Acetaminophen (Tylenol) 650 mg PO Q4H PRN PRN Reason: Pain Stop: 08/18/19 20:48 Last Admin: 07/22/19 08:21 Dose: 650 mg Documented by: Albuterol (Duoneb) 3 ml INH QIDR PRN PRN Reason: Wheezing Stop: 07/27/19 07:07 Aspirin (Ecotrin Ectab) 81 mg PO DAILY [facility] Stop: 08/18/19 08:59 Last Admin: 07/24/19 07:54 Dose: 81 mg Documented by: Atorvastatin Calcium (Lipitor) 40 mg PO DAILY [facility] Stop: 08/18/19 10:59 Last Admin: 07/25/19 08:22 Dose: 40 mg Documented by: Clonazepam (Klonopin) 1 mg PO HS [facility] Stop: 08/18/19 20:59 Last Admin: 07/24/19 21:54 Dose: 1 mg Documented by: Clopidogrel Bisulfate (Plavix) 75 mg PO DAILY [facility] Stop: 08/18/19 08:59 Last Admin: 07/25/19 08:37 Dose: 75 mg Documented by: Dextrose (Dextrose 50%) 25 - 50 ml IV UD PRN; Protocol PRN Reason: Hypoglycemia Protocol Stop: 08/17/19 23:26 Gabapentin (Neurontin) 100 mg PO Q8H [facility] Stop: 08/18/19 15:59 Last Admin: 07/25/19 08:21 Dose: 100 mg Documented by: Glucagon (Glucagen) 1 mg SQ UD PRN; Protocol PRN Reason: Hypoglycemia Protocol Stop: 08/17/19 23:26 Glucose (Dex4 Glucose) 4 - 8 tabs PO UD PRN; Protocol PRN Reason: Hypoglycemia Protocol Stop: 08/17/19 23:26 Glucose (Glucose 40%) 15 - 30 gm PO UD PRN; Protocol PRN Reason: Hypoglycemia Protocol Stop: 08/17/19 23:26 Insulin Aspart (Novolog Flexpen) 0 units SC ACHS [facility] Stop: 08/18/19 07:29 Last Admin: 07/25/19 12:00 Dose: 2 units Documented by: Insulin Glargine (Lantus Solostar Pen) 15 units SC BID [facility] Stop: 08/17/19 23:29 Last Admin: 07/21/19 08:27 Dose: 15 units Documented by: Lamotrigine (Lamictal) 400 mg PO BID [facility] Stop: 08/18/19 08:59 Last Admin: 07/25/19 08:20 Dose: 400 mg Documented by: Metoprolol Succinate (Toprol Xl) 25 mg PO BID [facility] Stop: 08/24/19 20:59 Mirtazapine (Remeron) 30 mg PO DAILY@1999 [facility] Stop: 08/18/19 19:59 Last Admin: 07/24/19 07:53 Dose: 30 mg Documented by: Miscellaneous (Carbohydrates For Hypoglycemia) 15 - 30 gm PO UD PRN PRN Reason: Hypoglycemia Protocol Stop: 08/17/19 23:26 Pantoprazole Sodium (Protonix) 40 mg PO DAILY [facility] Stop: 08/18/19 08:59 Last Admin: 07/25/19 08:22 Dose: 40 mg Documented by: Phenytoin Sodium (Dilantin Er) 100 mg PO BID [facility] Stop: 08/18/19 20:59 Last Admin: 07/25/19 08:23 Dose: 100 mg Documented by: Polyethylene Glycol (Miralax Powder Packet) 17 gm PO DAILY PRN PRN Reason: Constipation Stop: 08/18/19 10:23 Last Admin: 07/22/19 08:09 Dose: 17 gm Documented by: Promethazine HCl (Phenergan) 25 mg PO Q6H PRN PRN Reason: Nausea And Vomiting Stop: 08/17/19 22:13 Last Admin: 07/18/19 22:55 Dose: 25 mg Documented by: Quetiapine Fumarate (Seroquel) 400 mg PO HS [facility] Stop: 08/18/19 20:59 Last Admin: 07/24/19 07:54 Dose: 400 mg Documented by: Simethicone (Mylicon) 80 mg PO Q6H PRN PRN Reason: Gas or Constipation Stop: 08/19/19 20:00 Last Admin: 07/21/19 08:26 Dose: 80 mg Documented by: Tamsulosin HCl (Flomax) 0.4 mg PO DAILY [facility] Stop: 08/18/19 08:59 Last Admin: 07/25/19 08:22 Dose: 0.4 mg Documented by: Trazodone HCl (Desyrel) 100 mg PO [facility] Stop: 08/18/19 20:59 Last Admin: 07/24/19 07:53 Dose: 100 mg Documented by: (1) Acute exacerbation of CHF (congestive heart failure) Heart failure type: systolic Qualified Code(s): I50.23 - Acute on chronic systolic (congestive) heart failure (2) Diabetes type 2, uncontrolled Glycemic state: with hyperglycemia Qualified Code(s): E11.65 - Type 2 diabetes mellitus with hyperglycemia
[2019-07-25] MEDS: POLYETHYLENE (MIRALAX) 17 GM PACK PO PRN (16:46)
[2019-07-25] MEDS: QUETIAPINE FUMARATE 200 MG TAB PO SCH (21:47)
[2019-07-25] MEDS: TRAZODONE HCL 100 MG TAB PO SCH (21:47)
[2019-07-25] MEDS: METOPROLOL SUCC 25MG EXT REL TAB PO SCH (21:48)
[2019-07-25] MEDS: MIRTAZAPINE TAB 15 MG TAB PO SCH (21:49)
[2019-07-25] MEDS: clonazePAM 1 MG TAB PO SCH (22:17)
[2019-07-26 07:11] LABS: Basophils # (auto) 0.03 K/uL (0-0.2); Basophils % (auto) 0.5 %; Eosinophils # (auto) 0.18 K/uL (0-0.5); Eosinophils % (auto) 2.8 %; Hematocrit (blood only) 47.5 % (42-52); Hemoglobin 16.2 g/dL (14.0-18.0); Immature Granulocytes # (auto) 0.02 K/uL (0.00-0.02); Immature Granulocytes % (auto) 0.3 %; Lymphocytes # (auto) 1.96 K/uL (1.2-3.4); Lymphocytes % (auto) 30.8 %; Mean Corpuscular Hemoglobin 29.6 pg (25-34); Mean Corpuscular Hgb Conc 34.1 g/dL (32-36); Mean Corpuscular Volume 86.8 fL (80-100); Mean Platelet Volume 9.6 fL (7.4-10.4); Monocytes # (auto) 0.66 K/uL (0.11-0.59); Monocytes % (auto) 10.4 %; Neutrophils # (auto) 3.51 K/uL (1.4-6.5); Neutrophils % (auto) 55.2 %; Platelet Count 131 K/uL (130-400); RDW Coefficient of Variation 16.3 % (11.5-14.5); Red Blood Count 5.47 M/uL (4.7-6.1); White Blood Count 6.36 K/uL (4.8-10.8)
[2019-07-26 07:40] LABS: BUN Creatinine Ratio 16.5 (10-20); Calcium 8.9 mg/dl (8.5-10.1); Creatinine Clr Calc Pharmacy 40.2 ml/min; Est GFR (African American) 42.7; Est GFR (Non-African American) 36.9; Magnesium 2.2 mg/dl (1.8-2.4); Potassium 4.7 mmol/L (3.5-5.1)
[2019-07-26] MEDS: GABAPENTIN 100 MG CAP PO SCH (08:01)
[2019-07-26] MEDS: INSULIN ASPART 100 UNITS/ML 3 ML PEN SC SCH (08:02)
[2019-07-26] MEDS: METOPROLOL SUCC 25MG EXT REL TAB PO SCH (08:23)
[2019-07-26] MEDS: lamoTRIgine 100 MG TAB PO SCH (08:23)
[2019-07-26] MEDS: CLOPIDOGREL BISULFATE 75 MG TAB PO SCH (08:24)
[2019-07-26] MEDS: TAMSULOSIN HCL 0.4 MG CAP PO SCH (08:24)
[2019-07-26] MEDS: PANTOprazole 40 MG TAB PO SCH (08:24)
[2019-07-26] MEDS: PHENYTOIN SODIUM ER 100 MG CAP PO SCH (08:25)
[2019-07-26] MEDS: ASPIRIN 81 MG ECTAB PO SCH (08:25)
[2019-07-26] MEDS: ATORVASTATIN 40 MG TAB PO SCH (08:25)
--- NOTE | 2019-07-26 10:19 | Progress Notes ---
DATE: 07/26/2019 SUBJECTIVE: The patient is doing very well. At this time, he feels good. Denies any chest pain, shortness of breath, orthopnea, PND or lower extremity edema. Cano catheter has been removed and he is back on straight catheterization as before. PHYSICAL EXAMINATION: VITAL SIGNS: Blood pressure 106/71, temperature 36.8 degrees Celsius, 97% on room air. HEENT: Mucous membranes moist. NECK: Supple. No jugular venous distention. CHEST: Bilateral clear to auscultation. CARDIOVASCULAR: S1, S2, regular. ABDOMEN: Soft, nontender. EXTREMITIES: Shows no edema. LABORATORY TESTS: From this morning shows sodium 135, potassium 4.7, chloride 108, CO2 20, BUN 30, creatinine 1.85. Hemoglobin 16.2. ASSESSMENT AND PLAN: A 69-year-old male with acute kidney injury, on background CKD stage III versus actual renal progression. Acute renal failure. Renal function is still within baseline. From renal standpoint, he is stable for discharge today; however, we do need to follow up his renal panel again in the coming days. At this point, I would not restart the OLGA or ARB as the creatinine is still rising slightly, he will need to have a followup BMP next week. He will need followup with Nephrology eventually at some point, but this is not very urgent given current situation with COVID-19, but he will probably needs a Cardiology followup and BMP can be done at that time. AMY
--- NOTE | 2019-07-26 10:23 | Cardiology Progress Note ---
Date of Service July 26, 2019 Assessment & Plan (1) Acute exacerbation of CHF (congestive heart failure): Currently compensated. Acute presentation secondary to myocardial ischemia and mitral insufficiency complicated by acute renal insufficiency Now doing well with anticipated discharge later today CHF instructions to be given to patient Will need follow-up of renal function in the next weeks time and close clinical follow-up with cardiology 1 to 2 weeks time (2) NSTEMI (non-ST elevated myocardial infarction): Patient underwent successful coronary intervention large ramus intermedius Plan continue beta-errol with Toprol-XL due to CHF indications and dual antiplatelet therapy, statin (3) Ischemic cardiomyopathy: We will change metoprolol tartrate to metoprolol succinate given CHF indications at 25 mg twice per day Will warrant resumption of OLGA inhibitor as blood pressure allows in the future but currently on hold due to acute renal insufficiency and relative hypotension (4) Severe mitral regurgitation: Improved on recent echocardiogram to moderate. Hopefully will maintain this level now that revascularization of the lateral wall papillary muscles improved (5) BRYANT (acute kidney injury): Stable (6) Acute hyperkalemia: (7) Hypermagnesemia: (8) PAD (peripheral artery disease): (9) Diabetes type 2, uncontrolled: (10) Tobacco use disorder: Subjective Patient seen and examined, chart, medications, telemetry reviewed. Patient ambulatory yesterday and in room today without complaint or difficulty. Hemodynamically stable. No arrhythmias on telemetry. Physical Exam Constitutional: average body habitus Eyes: + anicteric sclerae and EOM intact bilaterally ENMT: Mallampati Class: III Respiratory: normal respiratory effort, lungs clear to auscultation normal respiratory effort Auscultation: no crackles, no rales, no rhonchi and no wheezes Cardiovascular: Rate/Rhythm: regular rate and regular rhythm Heart Sounds: normal S1 and normal S2; no gallop, no murmur and no cardiac rub Palpation: normal PMI Vessels: radial pulses present; no JVD, + posterior tibial pulses abnormal and + dorsalis pedis pulses abnormal Extremities: no edema Gastrointestinal (Abdomen): Inspection/Auscultation: abdomen normal to inspection and normal bowel sounds; abdomen not distended Percussion/Palpation: abdomen soft; abdomen nontender, no guarding and abdomen not rigid Musculoskeletal: Extremities: strength 5/5 throughout Skin: no rashes, warm and dry Neurologic: moves all extremities; no focal motor deficits Results & Data Vital Signs (Past 12 Hours) Vital Signs Temp Pulse Pulse Resp BP Pulse Ox 07/26/19 07:44 36.8 C 76 18 106/71 97 07/26/19 03:46 36.5 C 74 18 102/64 96 07/26/19 00:00 78 07/25/19 23:30 36.7 C 82 19 96/57 L 98 Laboratory Results Laboratory Results - last 24 hr 07/25/19 07/25/19 07/25/19 11:35 16:36 20:33 WBC RBC Hgb Hct MCV MCH MCHC RDW Std Deviation RDW Coeff of Ritesh Plt Count MPV Immature Gran % (Auto) Neut % (Auto) Lymph % (Auto) [place]pher[place] % (Auto) Eos % (Auto) Baso % (Auto) Immature Gran # (Auto) Neut # (Auto) Lymph # (Auto) [place] # (Auto) Eos # (Auto) Baso # (Auto) Sodium Potassium Chloride Carbon Dioxide Anion Gap BUN Creatinine Est Cr Clr Drug Dosing Est GFR ( Amer) Est GFR (Non-Af Amer) BUN/Creatinine Ratio Glucose POC Glucose 138 H 113 H 181 H Calcium Magnesium 07/26/19 07/26/19 07/26/19 06:32 06:32 07:21 WBC 6.36 RBC 5.47 Hgb 16.2 Hct 47.5 MCV 86.8 MCH 29.6 MCHC 34.1 RDW Std Deviation 52.0 H RDW Coeff of Ritesh 16.3 H Plt Count 131 MPV 9.6 Immature Gran % (Auto) 0.3 Neut % (Auto) 55.2 Lymph % (Auto) 30.8 [place] % (Auto) 10.4 Eos % (Auto) 2.8 Baso % (Auto) 0.5 Immature Gran # (Auto) 0.02 Neut # (Auto) 3.51 Lymph # (Auto) 1.96 [place]son # (Auto) 0.66 H Eos # (Auto) 0.18 Baso # (Auto) 0.03 Sodium 135 L Potassium 4.7 Chloride 108 H Carbon Dioxide 20 L Anion Gap 7.0 BUN 30 H Creatinine 1.85 H D Est Cr Clr Drug Dosing 40.2 Est GFR ( Amer) 42.7 Est GFR (Non-Af Amer) 36.9 BUN/Creatinine Ratio 16.5 Glucose 119 H POC Glucose 126 H Calcium 8.9 Magnesium 2.2 (1) Acute exacerbation of CHF (congestive heart failure) Heart failure type: systolic Qualified Code(s): I50.23 - Acute on chronic systolic (congestive) heart failure (2) Diabetes type 2, uncontrolled Glycemic state: with hyperglycemia Qualified Code(s): E11.65 - Type 2 diabetes mellitus with hyperglycemia
--- NOTE | 2019-07-26 11:32 | Hospitalist Progress Note ---
Date of Service July 26, 2019 Assessment & Plan (1) Acute exacerbation of CHF (congestive heart failure): Acute respiratory failure likely secondary to flash pulmonary edema progressive over this afternoon. resolved with IV Lasix now euvolemic Cardiac medications have been adjusted by tunnel miner NSTEMI per Dr. Alexander's notes: Slight bump in troponin to 0.08 on admission Serial troponin went up to 10.2 EKG has right bundle branch block Echo on 06/30/2018 did show normal EF and grade 1 diastolic dysfunction Echo from this admission is pending Status post cardiac cath through right radial approach: 1. Successful PCI of heavily calcified mid ramus with 2 overlapping drug- eluting stents (2.75 x 8, 2.5 x 22 Yefri; postdilated with 2.75 NC). 2. Successful PCI of distal ramus with 2.25 x 18 mm Yefri JORGE L after flow- limiting dissection. Will need dual antiplatelet therapy for 1 year, continue statin and improve risk factors (2) Acute respiratory failure: Likely 2/2 pulmonary edema Severe bilateral pneumonia and COVID19 has been ruled out. Flu and biofire respiratory panels were negative. Blood cultures negative resolved (3) New onset left bundle branch block (LBBB): Resolved after treatment of electrolyte abnormalities. (4) BRYANT (acute kidney injury): per Dr. Alexander's notes: Stage III CKD with baseline creatinine around 1.5-1.7, on admission 2.1. Received IV Lasix of 40 mg Creatinine went up to 2.92 Veterinary Virologist consulted crea improved to 1.85 repeat BMP on ff up with PCP next week, then regularly Lisinopril on hold ff up with Nephro in 1 month (5) Acute hyperkalemia: per Dr. Alexander's notes: Treated in the ER with Calcium, insulin, dextrose, and bicarb. He later r eceived the lasix. Low potassium diet Monitor PRP-controlled now (6) Stenosis of right vertebral artery: per Dr. Alexander's notes: Has a h/o TIA last year. No stroke or focal deficits. No vascular head imaging was performed at that time but he was placed on DAPT. CT angiogram of head and neck show high grade vertebral artery stenosis. His dizziness is improving with treatment of hypoxia. Nonfocal neuro exam. Stroke appears to be a less likely. Cont DAPT. Discussed with siderographer about vertebral artery stenosis will need outpatient follow-up appointment with vascular surgeon (7) Elevated troponin: secondary to NSTEMI Management as above (8) CAD (coronary artery disease): management as above (9) Diabetes type 2, uncontrolled: A1C 6.6 continue usual regimen (10) Bipolar disorder: continue usual regimen (11) PAD (peripheral artery disease): continue medical management (12) COPD (chronic obstructive pulmonary disease): Chronic, stable. (13) Seizure disorder: On Lamictal for both a h/o seizures and bipolar disorder, both of which are stable and chronic. (14) Depression: no acute issues (15) Tobacco use disorder: per Dr. Alexander's notes: Heavy lifelong smoker. Strongly encouraged to quit. (16) DVT prophylaxis: Heparin given d/c home with home health services ff up with PCP 07/31/19 ff up with Ux Designer in 2 weeks ff up with Nephro in 1 month Admission and Anticipated Discharge Date Admission Date: July 18, 2019 Subjective ff up for NSTEMI, CHF seen resting , sitting up in bed comfortable not in distress states he feels fine overall denies chest pain, dyspnea, dizziness, palpitations ambulating with no problems denies other symptoms states he is ready and would like to be discharged today Review of Systems Review of Systems: All systems reviewed & are unremarkable except as noted in HPI & below Physical Exam Physical Exam: General- oriented x 3, not in distress, speaks in sentences with no effort or accessory muscle use Head- atraumatic Eyes- PERRL, EOMI, anicteric ENT- oropharynx clear Neck- supple, no JVD, no adenopathy, no thyromegaly; carotids +2/2, no bruits appreciated Lungs- clear to auscultation bilaterally, no rales/wheezes Heart- normal rate, regular rhythm; no murmur, no gallop, no rub appreciated Abdomen- normal bowel sounds, nondistended, soft, nontender, no masses or hepatosplenomegaly Extremities- no pretibial edema, no calf tenderness; peripheral pulses intact Neuro- alert, oriented x 3; CN 2-12 grossly intact; motor 5/5 bilaterally;sensation 100% on all extremities; no other gross focal neurologic deficits Skin- warm & dry Results & Data Results & Data ([facility]) Vital Signs (Past 12 Hours) Vital Signs Temp Pulse Pulse Resp BP Pulse Ox 07/26/19 10:50 36.4 C L 69 18 100/61 98 07/26/19 07:44 36.8 C 76 18 106/71 97 07/26/19 03:46 36.5 C 74 18 102/64 96 07/26/19 00:00 78 07/25/19 23:30 36.7 C 82 19 96/57 L 98 Laboratory Results Laboratory Results - last 24 hr 07/25/19 07/25/19 07/26/19 16:36 20:33 06:32 WBC 6.36 RBC 5.47 Hgb 16.2 Hct 47.5 MCV 86.8 MCH 29.6 MCHC 34.1 RDW Std Deviation 52.0 H RDW Coeff of Ritesh 16.3 H Plt Count 131 MPV 9.6 Immature Gran % (Auto) 0.3 Neut % (Auto) 55.2 Lymph % (Auto) 30.8 [place] % (Auto) 10.4 Eos % (Auto) 2.8 Baso % (Auto) 0.5 Immature Gran # (Auto) 0.02 Neut # (Auto) 3.51 Lymph # (Auto) 1.96 [place] # (Auto) 0.66 H Eos # (Auto) 0.18 Baso # (Auto) 0.03 Sodium Potassium Chloride Carbon Dioxide Anion Gap BUN Creatinine Est Cr Clr Drug Dosing Est GFR ( Amer) Est GFR (Non-Af Amer) BUN/Creatinine Ratio Glucose POC Glucose 113 H 181 H Calcium Magnesium 07/26/19 07/26/19 07/26/19 06:32 07:21 11:36 WBC RBC Hgb Hct MCV MCH MCHC RDW Std Deviation RDW Coeff of Ritesh Plt Count MPV Immature Gran % (Auto) Neut % (Auto) Lymph % (Auto) [place] % (Auto) Eos % (Auto) Baso % (Auto) Immature Gran # (Auto) Neut # (Auto) Lymph # (Auto) [place] # (Auto) Eos # (Auto) Baso # (Auto) Sodium 135 L Potassium 4.7 Chloride 108 H Carbon Dioxide 20 L Anion Gap 7.0 BUN 30 H Creatinine 1.85 H D Est Cr Clr Drug Dosing 40.2 Est GFR ( Amer) 42.7 Est GFR (Non-Af Amer) 36.9 BUN/Creatinine Ratio 16.5 Glucose 119 H POC Glucose 126 H 121 H Calcium 8.9 Magnesium 2.2 (1) Acute exacerbation of CHF (congestive heart failure) Heart failure type: systolic Qualified Code(s): I50.23 - Acute on chronic systolic (congestive) heart failure (2) Diabetes type 2, uncontrolled Glycemic state: with hyperglycemia Qualified Code(s): E11.65 - Type 2 diabetes mellitus with hyperglycemia
--- NOTE | 2019-07-26 12:03 | Discharge Summary ---
Date of Service July 26, 2019 Admission HPI Per Admitting Provider 69 yo diabetic male smoker presented to the ER with acute onset nausea with some vomiting in addition to shortness of breath with progressive hypoxia. He denies feeling ill yesterday and states all symptoms began today around noontime. He denies chest pain, and has no known h/o coronary disease. However, he does have known PAD, is an active smoker, and has coronary calcifications on CT imaging. He denies any pain in his abdomen and reports some constipation with last bowel movement reported 3 days ago. He last ate yesterday. He maintains his sobriety from alcohol. He denies cough, fevers or chills recently and denies travel. He lives with his sister in a home in [place]. He denies any recent changes in taste or smell, and denies any known interaction with anyone with flu-like symptoms or who is a known COVID-19 positive patient. When he arrived to the ER, he did report dizziness in the setting of nausea, vomiting and worsening shortness of breath, and a stroke was considered. A head CT was negative for acute intracranial abnormality and angiograms revealed a high grade vertebral artery stenosis on the right. He has a h/o TIA in the past and is currently on DAPT with ASA and Plavix. A stroke alert was called; Neurology report unavailable at this time. He was not a candidate for TPA as he was out of the time window and had reported some intermittent rectal bleeding in recent weeks as a relative contraindication. He had no focal deficits on neuro exam and was mentating clearly. His hypoxia continued to worsen, and when I evaluated him in the ER, he was oxygenating 89% on 15L NRB mask with a respiratory rate of 30. He has a h/o COPD but requires no oxygen supplementation at home typically and ambulates independently. He underwent a CT a/p with no evidence of obstruction or other acute findings to suggest a reason for the vomiting. A CXR revealed bilateral pulmonary edema vs infiltrates, and he was given Lasix 40mg IV with good output within 2 hours of 1L. Empiric therapy with Rocephin and Doxycycline was started for possible pneumonia. Biofire panel, flu and rapid COVID screenings were negative. He was started on Vapotherm to avoid BIPAP in a potential COVID PUI. He was improved with resolution of respiratory distress and improvement in oxygenation to 98% after the Lasix. He was sent to the ICU for continued monitoring. Of note, the ICU provider, Peng, was told by the patient that he wanted to be a DNR. However, on further discussion with the patient in the ER, he states that he would be fine with initial resuscitation attempts, but would want to avoid prolonged ventilation if he had little chance of recovery. Code status was switched back to a full code. I did update his sister by phone per his request. Admission Exam Per Admitting Provider CONSTITUTIONAL: WNWD, vitals as above, on initial exam working to breathe, +conversational dyspnea. EYES: EOMI bilaterally, PERRL, normal conjunctivae, no scleral icterus ENT: external ear and nose normal, oropharynx clear, Mucous membranes moist. NECK: trachea midline, no lymphadenopathy RESPIRATORY: diminished breath sounds throughout. No crackles, rales or wheezes, increased respiratory effort CARDIOVASCULAR: regular rate and rhythm, S1 and 2 heard without murmurs, gallops or rubs, no JVD, no peripheral edema CHEST: inspection of chest was normal GASTROINTESTINAL: soft, generalized discomfort but nontender, nondistended MUSCULOSKELETAL: strength 5/5 throughout, head is normocephalic and atraumatic, neck supple, normal palpation of chest wall without tenderness SKIN: warm and dry, no rashes NEUROLOGIC: patellar DTRs couldn't elicit as patient unable to relax legs. PERRL, EOMI, no facial palsy, no dysarthria. Touch, pain and proprioception normal. CN 2-12 grossly intact, no sensory deficit, normal cognition, normal speech, no tremor. No focal deficits. PSYCHIATRIC: alert cooperative and oriented to person, place and time. Principal Diagnosis NON ST ELEVATION MYOCARDIAL INFARCTION; ACUTE EXACERBATION OF CONGESTIVE HEART FAILURE Discharge Exam General- oriented x 3, not in distress, speaks in sentences with no effort or accessory muscle use Head- atraumatic Eyes- PERRL, EOMI, anicteric ENT- oropharynx clear Neck- supple, no JVD, no adenopathy, no thyromegaly; carotids +2/2, no bruits appreciated Lungs- clear to auscultation bilaterally, no rales/wheezes Heart- normal rate, regular rhythm; no murmur, no gallop, no rub appreciated Abdomen- normal bowel sounds, nondistended, soft, nontender, no masses or hepatosplenomegaly Extremities- no pretibial edema, no calf tenderness; peripheral pulses intact Neuro- alert, oriented x 3; CN 2-12 grossly intact; motor 5/5 bilaterally;sensation 100% on all extremities; no other gross focal neurologic deficits Skin- warm & dry Discharge Data Allergies Allergy/AdvReac Type Severity Reaction Status Date / Time Sulfa (Sulfonamide Allergy Mild Hives Verified 07/18/19 18:02 Antibiotics) Consultations 07/18/19 18:31 ED Decision to Admit Stat 07/18/19 22:14 Consult Cardiology Routine Consult Oil Analyst Routine 07/19/19 06:04 Consult Case Management - Discharge Planning Routine 07/19/19 06:59 Consult Nephrology Routine Procedures Performed Operation Date: 07/24/19 11:00 Actual Procedures p Cath, Left with Cors and Vent - Kam Terrell MD s Drug Eluting Stent SGl Vessel - Duglas Mukherjee MD s Cineradiography w/Routine Exam - Duglas Mukherjee MD Ordered Studies 07/18/19 16:55 CT abd pelvis wo con Stat FINDINGS: Slight right basilar interstitial and peribronchial prominence. Small fixed hiatal hernia. Mild gastric distention and slight gastric wall thickening. Gallstones in the region of the gallbladder neck bilateral renal vascular nephrocalcinosis. No evidence for hydronephrosis. Slight increase in fluid content within the colon as well as small bowel. Mild bladder distention. IMPRESSION: 1. Mild bladder distention. 2. Gallstones. 3. Mild generalized nonobstructive ileus. 4. Mild gastritis. CT head/brain wo con Stat Findings: Improved aeration of the sinuses with the bulk of all major sinuses showing only minimal residual mucosal thickening. The calvarium and skull base are intact. The ventricles and sulci are within normal limits. There is no mass, hematoma, midline shift, or acute infarct. Impression: No acute intracranial abnormality. Improving sinusitis. 07/18/19 16:59 CT angio head w con Stat FINDINGS: There is no mass, hematoma, midline shift, or acute infarct. The carotid system and [place] vasculature is in general unremarkable. There is minimal scattered aphthous chronic change. There is a congenitally small right vertebral artery with a high-grade distal stenosis immediately proximal to the basilar. Left vertebral artery is dominant and unremarkable. IMPRESSION: 1. Small caliber right vertebral artery with a high-grade superimposed stenosis immediately proximal to the basilar artery. 2. Minimal scattered atherosclerotic change of the remaining vasculature. 3. No additional significant stenotic process. CT angio neck with con Stat FINDINGS: The aortic arch and proximal great vessels are widely patent. 50% stenosis origin left vertebral artery. The left vertebral artery is remarkable for scattered atherosclerotic change. Right vertebral vessel is small in caliber on a congenital basis with evidence for high-grade and/or critical stenosis has distal aspect immediately proximal to the basilar. There is a 30-50% stenosis of the right as well as left carotid bifurcations. A critical stenosis is not appreciated. There is at least 50% narrowing of the proximal right internal and to a lesser extent proximal left internal carotid artery. Diffuse plaque formation is present. There is mild to moderate atherosclerotic change of the internal carotid arteries level of the carotid siphons. IMPRESSION: 1. Extensive atherosclerotic change with moderate multilevel stenotic changes of the carotid bifurcations as well as proximal internal carotid arteries. 2. Maximum narrowing is 50-60% the left carotid bifurcation 3. Small caliber right vertebral artery with a high-grade and/or critical stenosis at its distal aspect proximal to the basilar juncture 07/18/19 18:03 CT chest wo con Stat FINDINGS: Prominent pulmonary vasculature. Moderate cardiomegaly. Several small subcentimeter reactive hilar and/or mediastinal nodes. Scattered peripheral bilateral parenchymal infiltrative change. A superimposed inflammatory process is not excluded. There is trace amount pleural fluid both posterior aspect angles are IMPRESSION: 1. Mild congestive heart failure. 2. Potential patchy peripheral interstitial parenchymal infiltrative change. 07/19/19 10:30 US venous doppler LE Urgent IMPRESSION: No DVT within the right or left lower extremity. 07/24/19 11:29 CL Cath Imgs for PACS use only Routine Hospital Course (1) NSTEMI (non-ST elevated myocardial infarction): per Dr. Alexander's notes: Slight bump in troponin to 0.08 on admission Serial troponin went up to 10.2 EKG has right bundle branch block Echo on 06/30/2018 did show normal EF and grade 1 diastolic dysfunction Status post cardiac cath through right radial approach: 1. Successful PCI of heavily calcified mid ramus with 2 overlapping drug- eluting stents (2.75 x 8, 2.5 x 22 Yefri; postdilated with 2.75 NC). 2. Successful PCI of distal ramus with 2.25 x 18 mm Yefri JORGE L after flow- limiting dissection. Will need dual antiplatelet therapy for 1 year, continue statin and improve risk factors ff up with Manager Pathology in 1-2 weeks (2) Acute exacerbation of CHF (congestive heart failure): Acute respiratory failure likely secondary to flash pulmonary edema. resolved with IV Lasix now euvolemic Cardiac medications have been adjusted by payroll human resources assistant (3) Acute respiratory failure: Likely 2/2 pulmonary edema Severe bilateral pneumonia and COVID19 has been ruled out. Flu and biofire respiratory panels were negative. Blood cultures negative resolved (4) New onset left bundle branch block (LBBB): Resolved after treatment of electrolyte abnormalities. (5) BRYANT (acute kidney injury): per Dr. Alexander's notes: Stage III CKD with baseline creatinine around 1.5-1.7, on admission 2.1. Received IV Lasix of 40 mg Creatinine went up to 2.92 Supervisor Pleating consulted crea improved to 1.85 repeat BMP on ff up with PCP next week, then regularly Lisinopril on hold ff up with Nephro in 1 month (6) Acute hyperkalemia: per Dr. Alexander's notes: Treated in the ER with Calcium, insulin, dextrose, and bicarb. He later received the lasix. Low potassium diet Monitor PRP-controlled now (7) Stenosis of right vertebral artery: per Dr. Alexander's notes: Has a h/o TIA last year. No stroke or focal deficits. No vascular head imaging was performed at that time but he was placed on DAPT. CT angiogram of head and neck show high grade vertebral artery stenosis. (full report in the results section above) His dizziness is improving with treatment of hypoxia. Nonfocal neuro exam. Stroke appears to be a less likely. Cont DAPT. Discussed with claims adjustor about vertebral artery stenosis will need outpatient follow-up appointment with vascular surgeon (8) CAD (coronary artery disease): management as above (9) Diabetes type 2, uncontrolled: A1C 6.6 continue usual regimen (10) PAD (peripheral artery disease): continue medical management (11) COPD (chronic obstructive pulmonary disease): Chronic, stable. (12) Seizure disorder: On Lamictal for both a h/o seizures and bipolar disorder, both of which are stable and chronic. (13) Depression: no acute issues (14) Bipolar disorder: continue usual regimen (15) Tobacco use disorder: per Dr. Alexander's notes: Heavy lifelong smoker. Strongly encouraged to quit. d/c home with home health services ff up with PCP 07/31/19 ff up with Manager Pathology in 2 weeks ff up with Nephro in 1 month Total Time Total Time Spent Total Time Spent (In Minutes): 55 minutes Discharge Plan Discharge Items Patient Disposition: Home - Home Health Services Reason For Visit: ACUTE RESP FAILURE Discharge Diagnosis: NON ST ELEVATION MYOCARDIAL INFARCTION; ACUTE CONGESTIVE HEART FAILURE EXACERBATION Condition on Discharge: Good Activity: As commented below Activity Comment: RESUME ACTIVITY GRADUALLY TOLERATED, NO HEAVY EXERTION Lifting: Wait until after follow-up appointment Exercise/Sports: Wait until after follow-up appointment Driving/Machine Use: NO DRIVING UNTIL RE-EVALUATED AND ALLOWED BY PRIMARY CARE PHYSICIAN Non-emergency contact: Primary Care Provider Call non-emergency contact if: you have any medication questions, your symptoms worsen and you have a fever Follow-up/Referrals: Kam Terrell MD [Physician] - Ailin Malik DO [Primary Care Provider] - 07/31/19 10:40 am (The [place] office is temporarily closed. Your appointment with Dr. Malik will be at [facility], [address] [place] [address].) Diet: Carb Consistent or DM2, Heart Healthy and Low Potassium (2gm) Addtl Attending Provider Instructions: PLEASE REVIEW YOUR NEW MEDICATION LIST AND FOLLOW INSTRUCTIONS CAREFULLY DISCUSSED. FOLLOW UP WITH PRIMARY CARE PHYSICIAN OUTLINED ABOVE. FOLLOW UP WITH BUSINESS ARCHITECT DR. TERRELL IN 2 WEEKS. PLEASE CALL HIS OFFICE FOR AN APPOINTMENT. CONTACT INFORMATION NOTED ABOVE. DO NOT TAKE MEDICATIONS UNDER THE CLASS OF NSAIDS SUCH : IBUPROFEN, NAPROXEN, ETC. Call your Primary Care doctor if any of the following symptoms or problems start or get worse: Shortness of breath or difficulty breathing Wake up at night short of breath Chest pain Cough Swelling of your hands, feet, or legs More fatigued or tired with your normal activity Palpitations - sudden fast heart beats WEIGHT Weigh yourself every morning after using the bathroom. Use the same scale. Wear the same amount of clothing. Write your weight down on a chart. Call your Primary Care doctor if you gain more than 2-3 pounds in 1-2 days. MEDICATIONS Use this discharge instruction sheet for medication instructions. Take your medications at the time your doctor ordered. Do not skip a dose of your medicines. If you miss a dose of medicine, take it as soon as possible, but DO NOT DOUBLE A DOSE. Read your medicine information when you get home. Know all of the side effects of your medicine. If in doubt, ask your pharmacist Call your Primary Care doctor's office if you have any side effects. Be sure all of your doctors know what medicine and herbs you take (including cold, flu, and herbal medicine). Take the following with you to your follow-up doctor appointments: Weight Chart Medication List List of questions Do not drink excessive alcohol, beer or wine. Who to Call and When: Call 911 or go to the Emergency Room if: If at any time you feel your situation is an emergency You have tightness or pain in your chest that does not go away with rest or Nitroglycerin You are very short of breath even with rest. Pending Studies at Discharge: Yes Studies:: REPEAT BLOODWORK- BASIC METABOLIC PANEL ON FF UP VISIT WITH PRIMARY CARE PHYSICIAN NEXT WEEK Stand-Alone Forms: My [facility] [place], Smoking Cessation Medications and DC Order Prescriptions: New atorvastatin 40 mg Tablet 40 mg PO DAILY Qty: 30 RF: 2 metoprolol succinate 25 mg Tablet Extended Release 24 Hr 25 mg PO BID Qty: 60 RF: 2 Continued glipizide 10 mg tablet extended release 24hr 10 mg PO DAILY RF: 0 promethazine 25 mg tablet 25 mg PO Q8H PRN (Reason: Nausea And Vomiting) RF: 0 aspirin 81 mg Tablet,Delayed Release (Dr/Ec) 81 mg PO DAILY RF: 0 lamotrigine 200 mg tablet 400 mg PO BID 30 Days Qty: 60 RF: 0 clopidogrel 75 mg tablet 75 mg PO DAILY 30 Days Qty: 30 RF: 1 tamsulosin 0.4 mg capsule 0.4 mg PO DAILY 30 Days Qty: 30 RF: 0 polyethylene glycol 3350 17 gram Powder In Packet 17 g PO DAILY PRN (Reason: Constipation) RF: 0 sennosides-docusate sodium [Senna with Docusate Sodium] 8.6-50 mg Tablet 1 tab-cap PO DAILY RF: 0 quetiapine 200 mg tablet 400 mg PO HS RF: 0 phenytoin sodium extended 100 mg capsule 100 mg PO BID RF: 0 pantoprazole 20 mg tablet,delayed release (DR/EC) 40 mg PO DAILY RF: 0 trazodone 100 mg tablet 100 mg PO HS RF: 0 mirtazapine 30 mg tablet 30 mg PO HS RF: 0 gabapentin 100 mg capsule 100 mg PO TID RF: 0 Jardiance 25 mg tablet 25 mg PO DAILY RF: 0 Combivent Respimat 20-100 mcg/actuation mist 1 puff INHALATION QID RF: 0 clonazepam 1 mg tablet 1 mg PO HS RF: 0 Trulicity 1.5 mg/0.5 mL pen injector 1.5 mg SUBCUT WK RF: 0 Discontinued cephalexin [Keflex] 500 mg capsule 500 mg PO Q12H RF: 0 lisinopril 20 mg tablet 20 mg PO DAILY 30 Days Qty: 30 RF: 0 atorvastatin 10 mg tablet 10 mg PO DAILY RF: 0 metoprolol tartrate 25 mg tablet 12.5 mg PO BID RF: 0 Discharge Orders: Discharge Order (Routine); Ordered 07/26/19 Ordered By: Sajan Valero/Other Patient Handouts: Diabetes Type 2 Managing, Blood Sugar Check, Metoprolol tablets Admission Data Admit Date/Time: 07/18/19 21:32 Attending Provider: Sajan Burleson Admit Provider: Brigitte Hamilton Primary Care Provider: Ailin Malik Other Providers: Brigitte Hamilton ; Khoa Gallagher ; Antonio Whatley ; Aida Harrell ; [facility] ; Maximus Alexander Other Interventions: Discharge Summary Assessment (RN) Last Done: 07/26/19 12:02 MT Date/Time DO NOT enter until pt leaves facility: 07/26/19 13:05
== END 2019-07-26 13:05 | disposition home health service (06) | DRG 246 ==
LOC: ED 16:24 → 1E 21:32 → SUATTDRO 21:32 → 1E 22:11 → 2S 07-22 18:48